=== PATIENT | female | born 1945 | race Caucasian/White ===

== ENCOUNTER → 2017-08-05 11:54 | Outpatient (CLI) | payer MEDICARE, SELFPAY ==
--- NOTE | 2017-08-05 11:55 | RAD_ITS ---
STUDY: X-RAY CHEST REASON FOR EXAM: Female, 71 years old. Cough, COPD TECHNIQUE: PA and lateral views of the chest. COMPARISON: Previous study of 07/16/2016 FINDINGS: There is a 6 mm nodule of the left upper lobe. There is no demonstrated pleural abnormality. Normal size heart. Normal mediastinum and daniel. Normal visualized pulmonary arteries. There calcified plaques of the aortic arch. The bones are osteopenic. There is mild diffuse endplate spondylosis of the thoracic spine. Normal visualized ribs, clavicles, and shoulders. There is no demonstrated abnormality of the visualized soft tissue structures of the upper abdomen. RAD/Chest PA and Lateral IMPRESSION: Generalized osteopenia. Diffuse endplate spondylosis of the thoracic spine. 6 mm nodule of the left upper lobe consistent with a calcified granuloma, stable in the interval. Calcified plaques of the aortic arch. No acute cardiopulmonary disease process is seen. Electronically Signed: Prabhakar Kelsey MD at 20:40 EDT , Service support ,
== END ==
PROVIDERS: Family Provider Family Medicine; PCP Family Medicine; Visit Provider Nurse Practitioner Acute Care
DX: R05 Cough (principal)
CPT/HCPCS: 71046; 87070; 87205

== ENCOUNTER 2017-10-24 21:35 | Emergency (ER) | payer MEDICARE, SELFPAY ==
[2017-10-24 21:37] VITALS: BP 144/71; PULSE 84; RESP 17; TEMP 36.2; O2SAT 94; BMI 31.2
--- NOTE | 2017-10-24 22:09 | ED.DCSUM_ITS ---
- ER Visit Summary Date of Service: 10/24/17 Chief Complaint: Rash History of Present Illness: The patient is a [address] Canseco. She reports that she has a rash to the right side of her face that began 3 days ago. She reports that initially this was a burning sensation at the corner of her eye. She then developed lesions 2 days ago. She reports that she has a throbbing, burning pain is 5 out of 10 when she touches it. She denies any eye pain or change in her vision. She denies any other complaints. Physical Examination: Vitals: Stable. Afebrile. General: Well-nourished and well-developed. Head: Normocephalic atraumatic. Neck: Supple, no lymphadenopathy. No JVD. Nontender. Cardiovascular: Regular rate and rhythm. No murmurs. Respiratory: No respiratory distress. Clear to auscultation bilaterally. Abdominal: Soft, nontender, nondistended, normal bowel sounds. No guarding, rebound, or peritoneal signs. Back: Nontender. Extremities: Nontender, no edema. Skin: Multiple vesicular lesions in the V2 distribution on the right. No Sims sign. Right eye: Floor seen exam shows no dye uptake or dendritic lesions with slit lamp. Neurologic: Alert and oriented ?3. Cranial nerves II through XII are intact. Normal strength and sensation. Psych: Normal affect. Emergency Department Course and Treatment: Patient was treated with acyclovir and prednisone. Treatment Plan: Patient be discharged on acyclovir and prednisone. Instructed to follow-up with an building code administrator as soon as possible if she develops any pain to her eye or changes in her vision. Follow-up her primary care physician in 1 week for another exam. Return to the emergency department for any worsening symptoms. Disposition: To home in improved and stable condition. Impression: 1. Herpes zoster V2 on right. This note was generated with [employer] dictation software. It may contain incorrect words, spelling, and punctuation that were not noted in review of the chart prior to signing ED Disposition - Plan for ED Patient: Disposition: Home or Assisted Living Chief Complaint: Rash Instructions: ED Shingles Prescriptions: Acyclovir [Zovirax] 800 mg PO 5X/DAY #35 tablet Prednisone [Deltasone] 60 mg PO DAILY #15 tablet Referrals: Jose Canseco MD [Primary Care Provider] - 1 Week if not improving
[2017-10-24] MEDS: predniSONE 20 MG Tablet 60 MG PO (22:13)
[2017-10-24] MEDS: Fluorescein 1 MG STRIP 1 STRIP RIGHT EYE (22:13)
[2017-10-24] MEDS: Acyclovir 800 MG Tablet PO (22:18)
[2017-10-24 22:19] VITALS: RESP 18
== END 2017-10-24 22:35 | disposition home or self-care (01) ==
LOC: ED 22:21
PROVIDERS: Emergency Provider Emergency Medicine; Family Provider Family Medicine; PCP Family Medicine
DX: B02.9 Zoster without complications (principal); I10 Essential (primary) hypertension; J44.9 Chronic obstructive pulmonary disease, unspecified; Z79.899 Other long term (current) drug therapy
CPT/HCPCS: 99283

== ENCOUNTER → 2018-03-05 08:19 | Outpatient (CLI) | payer MEDICARE, SELFPAY ==
--- NOTE | 2018-03-05 08:30 | BI_ITS ---
MAMMOGRAPHY - BILATERAL SCREENING REASON FOR EXAM: Female, 72 years old. Routine annual screening examination. PERTINENT HISTORY: Non-contributory. TECHNIQUE: Digital bilateral breast dustin (3D mammographic acquisition) in the CC and MLO projections. 2-D mediolateral oblique (MLO) and craniocaudad (CC) views of both breasts were obtained. CAD: Full Field Digital Mammography with Computer Added Detection was performed. COMPARISON: Comparison is made with prior study dated February 13, 2017 and February 12, 2016. FINDINGS: Breast Composition: The breasts are almost entirely fatty. At this time, there is a 1.7 cm irregular nodular density in the deep lateral aspect of the left breast as seen on the craniocaudad view. This is not visualized with certainty on the mediolateral oblique view. The patient will be recalled for additional views including exaggerated craniocaudad view and compression spot view. Ultrasound is also recommended. No other significant abnormalities are identified. BI/SCREENING MAMM (CAD), BILAT IMPRESSION: New nodular density in the deep lateral portion of the left breast as described. The patient will be recalled for additional views as well as ultrasound of the left breast. Recall Side: Left Breast ASSESSMENT CATEGORY: BIRADS Category 0: Incomplete. Need additional imaging evaluation. A letter regarding these results will be sent to the patient by the facility within 30 days. Approximately 10% of breast cancers are not detected by mammography. A normal mammogram should not delay biopsy of a clinically suspicious abnormality. [id number] Electronically Signed: Marco A Chowdhury MD at 11:26 EST Tel [phone], Service support ,
== END ==
PROVIDERS: Family Provider Family Medicine; PCP Family Medicine; Referring Provider Family Medicine; Visit Provider Family Medicine
DX: Z12.31 Encounter for screening mammogram for malignant neoplasm of breast (principal)
CPT/HCPCS: 77063; 77067

== ENCOUNTER → 2018-03-06 13:56 | Outpatient (CLI) | payer MEDICARE, SELFPAY ==
--- NOTE | 2018-03-06 14:02 | BI_ITS ---
MAMMOGRAPHY - UNILATERAL DIAGNOSTIC: LEFT BREAST REASON FOR EXAM: Female, 72 years old. Abnormal screening mammogram. PERTINENT HISTORY: Non-contributory. TECHNIQUE: An exaggerated craniocaudad view of the left breast was obtained. CAD: Full Field Digital Mammography with Computer Added Detection was performed. COMPARISON: Comparison is made with prior mammogram dated March 05, 2018. FINDINGS: Breast Composition: The breasts are almost entirely fatty. The previously seen density on the craniocaudad view of the left breast represents normal chest musculature. There is evidence of a 1.4 cm benign-appearing lymph node in the axillary region of the breast. No other significant abnormalities are identified. BI/DIAG MAMM W/CAD, UNILAT IMPRESSION: Stable unilateral diagnostic mammogram. One year follow-up mammogram recommended. (A) ASSESSMENT CATEGORY: BIRADS Category 2: Benign. A letter regarding these results will be sent to the patient by the facility within 30 days. Approximately 10% of breast cancers are not detected by mammography. A normal mammogram should not delay biopsy of a clinically suspicious abnormality. Electronically Signed: Marco A Chowdhury MD at 15:16 EST Tel [phone], Service support ,
== END ==
PROVIDERS: Family Provider Family Medicine; PCP Family Medicine; Referring Provider Family Medicine; Visit Provider Family Medicine
DX: R92.8 Other abnormal and inconclusive findings on diagnostic imaging of breast (principal)
CPT/HCPCS: 77065

== ENCOUNTER → 2018-05-04 08:00 | Outpatient (CLI) | payer MEDICARE, SELFPAY ==
--- NOTE | 2018-05-04 08:03 | CT_ITS ---
STUDY: CT CHEST WITHOUT CONTRAST REASON FOR EXAM: Female, 72 years old. History of lung nodule. Recent antibiotic treatment for sinus infection. RADIATION DOSAGE (If Supplied By Facility): CTDIvol = ( 15.17 ) mGy, DLP = ( 519.24 ) mGycm TECHNIQUE: Transaxial imaging was performed without the administration of intravenous contrast material. Multiplanar coronal and sagittal images were reformatted. Individualized dose optimization techniques were used for this CT. COMPARISON: Comparison is made with prior study dated November 05, 2016. FINDINGS: Once again, there are multiple tiny nodules scattered in both lungs. The largest of which measures approximately 5 mm. There has been essentially no change. There is no demonstrated pleural abnormality. Normal heart and pericardium. There are multiple small lymph nodes within the mediastinum, which are normal in size and morphology most compatible with reactive lymph hyperplasia. Normal hilar regions. Normal unenhanced pulmonary arteries. There is atherosclerotic calcification of the aortic . There are multi-level degenerative changes of the thoracic spine. There is no demonstrated abnormality of the visualized upper abdomen. CT/Chest without Contrast IMPRESSION: Stable appearance of the multiple bilateral subcentimeter pulmonary nodules. A follow-up CT scan of the thorax is recommended in 12 months. Electronically Signed: Marco A Chowdhury MD at 12:35 EST Tel [phone], Service support ,
== END ==
PROVIDERS: Family Provider Family Medicine; PCP Family Medicine; Referring Provider Internal Medicine Critical Care Medicine; Visit Provider Internal Medicine Critical Care Medicine
DX: R91.1 Solitary pulmonary nodule (principal)
CPT/HCPCS: 71250

== ENCOUNTER → 2019-03-11 08:14 | Outpatient (CLI) | payer MEDICARE, SELFPAY ==
--- NOTE | 2019-03-11 08:16 | BI_ITS ---
MAMMOGRAPHY - BILATERAL SCREENING REASON FOR EXAM: Female, 73 years old. Routine annual screening examination. PERTINENT HISTORY: Non-contributory. TECHNIQUE: Digital bilateral breast ru (3D mammographic acquisition) in the CC and MLO projections. 2-D mediolateral oblique (MLO) and craniocaudad (CC) views of both breasts were obtained. CAD: Full Field Digital Mammography with Computer Added Detection was performed. COMPARISON: Comparison is made with prior examination dated March 05, 2018 and February 13, 2017. FINDINGS: Breast Composition: There are scattered areas of fibroglandular density. There are no dominant masses or suspicious calcifications. Stable small benign-appearing bilateral axillary lymph nodes. No other significant abnormalities are identified. There has been no significant change since the prior study. BI/SCREEN MAMM (CAD) W/RU BILAT IMPRESSION: Stable bilateral screening mammogram. Yearly follow-up mammogram recommended. (A) ASSESSMENT CATEGORY: BIRADS Category 2: Benign. A letter regarding these results will be sent to the patient by the facility within 30 days. Approximately 10% of breast cancers are not detected by mammography. A normal mammogram should not delay biopsy of a clinically suspicious abnormality. [id number] Electronically Signed: Marco A Chowdhury, at 9:52 EST , Service support ,
== END ==
PROVIDERS: Family Provider Family Medicine; PCP Family Medicine; Referring Provider Family Medicine; Visit Provider Family Medicine
DX: Z12.31 Encounter for screening mammogram for malignant neoplasm of breast (principal)
CPT/HCPCS: 77063; 77067

== ENCOUNTER → 2020-04-04 09:09 | Outpatient (CLI) | payer MEDICARE, SELFPAY ==
[2019-05-05 11:51] VITALS: BMI 32.2
[2020-04-04 12:14] LABS: Absolute Neutrophil Count 2.8 X10^3/uL (2.0-7.7); Basophil# 0.03 X10^3/uL; Basophil% 0.6 % (0-1); Eosinophil# 0.11 X10^3/uL; Eosinophils% 2.3 % (0-5); Hematocrit 38.4 % (37-47); Hemoglobin 12.4 g/dL (12.0-15.0); Lymphocyte % 27.3 % (19-41); Mean Corp Hgb Conc 32.3 g/dL (32-36); Mean Corpuscular Hgb 30.2 pg (27.0-32.0); Mean Corpuscular Volume 93.4 fL (81-99); Mean Platelet Vol. 10.4 fl (6.2-12.0); Monocyte% 10.5 % (0-10); NRBC Flagged by Analyzer 0 % (0-5); Neutrophil % 58.7 % (47-70); Platelet Count 228 K/mm3 (150-450); RBC Distribution Width CV 12.7 % (11.6-14.6); RBC Distribution Width SD 43.8 fl (35.1-43.9); Red Blood Count 4.11 M/mm3 (4.2-5.4); White Blood Count 4.8 K/mm3 (4.4-11.0)
[2020-04-04 12:45] LABS: Cholesterol 236 mg/dL (200); High Density Lipoprotein 75 mg/dL; Triglycerides 76 mg/dL; Very Low Density Lipoprotein 15 mg/dL (5-40)
== END ==
PROVIDERS: PCP Family Medicine; Referring Provider Family Medicine; Visit Provider Family Medicine
DX: Z00.00 Encounter for general adult medical examination without abnormal findings (principal); I10 Essential (primary) hypertension; J44.9 Chronic obstructive pulmonary disease, unspecified; Z13.6 Encounter for screening for cardiovascular disorders
CPT/HCPCS: 36415; 80061; 85025

== ENCOUNTER → 2020-05-17 12:09 | Outpatient (CLI) | payer MEDICARE, SELFPAY ==
[2019-05-05 11:51] VITALS: BMI 32.2
--- NOTE | 2020-05-17 12:12 | BI_ITS ---
MAMMOGRAPHY - BILATERAL SCREENING REASON FOR EXAM: Female, 74 years old. Routine annual screening examination. PERTINENT HISTORY: Non-contributory. TECHNIQUE: Digital bilateral breast ru (3D mammographic acquisition) in the CC and MLO projections. 2-D mediolateral oblique (MLO) and craniocaudad (CC) views of both breasts were obtained. CAD: Full Field Digital Mammography with Computer Added Detection was performed. COMPARISON: Comparison is made with prior outside examination dated 03/11/2019 and 03/05/2018. FINDINGS: Breast Composition: There are scattered areas of fibroglandular density. There are no dominant masses or suspicious calcifications. Stable small benign-appearing bilateral axillary lymph nodes. No other significant abnormalities are identified. There has been no significant change since the prior study. BI/SCRN MAMM (CAD)W/RU BILAT IMPRESSION: Stable bilateral screening mammogram. Yearly follow-up mammogram recommended. (A) ASSESSMENT CATEGORY: BIRADS Category 2: Benign. A letter regarding these results will be sent to the patient by the facility within 30 days. Approximately 10% of breast cancers are not detected by mammography. A normal mammogram should not delay biopsy of a clinically suspicious abnormality. [id number] Electronically Signed: Marco A Chowdhury MD at 13:33 EST , Service support ,
== END ==
PROVIDERS: PCP Family Medicine; Referring Provider Family Medicine; Visit Provider Family Medicine
DX: Z12.31 Encounter for screening mammogram for malignant neoplasm of breast (principal)
CPT/HCPCS: 77063; 77067

== ENCOUNTER → 2021-04-10 08:47 | Outpatient (CLI) | payer MEDICARE, SELFPAY ==
[2021-04-10 10:11] LABS: Absolute Lymphocyte Count 1.71 X10^3/uL (0.83-4.51); Absolute Neutrophil Count 2.7 X10^3/uL (2.0-7.7); Basophil# 0.04 X10^3/uL; Basophil% 0.8 % (0-1); Eosinophil# 0.17 X10^3/uL; Eosinophils% 3.3 % (0-5); Hematocrit 38.8 % (37-47); Hemoglobin 12.9 g/dL (12.0-15.0); Lymphocyte # 1.71 X10^3/ul (0.83-4.51); Lymphocyte % 32.8 % (19-41); Mean Corp Hgb Conc 33.2 g/dL (32-36); Mean Corpuscular Volume 90.2 fL (81-99); Mean Platelet Vol. 10.6 fl (6.2-12.0); Monocyte# 0.55 X10^3/uL; Monocyte% 10.6 % (0-10); NRBC Flagged by Analyzer 0 % (0-5); Neutrophil # 2.72 X10^3/uL (2.7-7.7); Neutrophil % 52.1 % (47-70); Platelet Count 245 K/mm3 (150-450); RBC Distribution Width CV 12.9 % (11.6-14.6); RBC Distribution Width SD 42.4 fl (35.1-43.9); White Blood Count 5.2 K/mm3 (4.4-11.0)
[2021-04-10 10:49] LABS: ALB/GLOB Ratio 1.1 RATIO (0.9-2.4); AST(SGOT) 23 U/L (15-37); Alanine Aminotransfer ALT/SGPT 24 U/L (13-56); Albumin, Serum 3.8 g/dL (3.2-5.0); Alkaline Phosphatase 81 U/L (45-117); Anion Gap 7 (5-15); BUN 23 mg/dL (7-18); Calcium,Total 9.6 mg/dL (8.5-10.1); Chloride 104 mmol/L (98-107); Cholesterol 219 mg/dL (200); Creatinine, Serum 1.21 mg/dL (0.55-1.02); EST Glomerular Filtration Rate 46 mL/min (>60); Est Glom Filt Rate - Afr Amer 55 mL/min (>60); Globulin 3.5 g/dL (2.2-4.2); Glucose 109 mg/dL (74-106); High Density Lipoprotein 68 mg/dL; Potassium 3.5 mmol/L (3.5-5.1); Protein, Total 7.3 g/dL (6.4-8.2); Sodium Level 139 mmol/L (136-145); Triglycerides 88 mg/dL; Very Low Density Lipoprotein 18 mg/dL (5-40)
== END ==
PROVIDERS: PCP Family Medicine; Referring Provider Family Medicine; Visit Provider Family Medicine
DX: Z00.00 Encounter for general adult medical examination without abnormal findings (principal); I10 Essential (primary) hypertension; Z13.6 Encounter for screening for cardiovascular disorders
CPT/HCPCS: 36415; 80053; 80061; 85025

== ENCOUNTER 2021-05-21 11:50 | Outpatient (CLI) | payer MEDICARE, SELFPAY ==
--- NOTE | 2021-05-21 11:54 | BI_ITS ---
MAMMOGRAPHY - BILATERAL SCREENING REASON FOR EXAM: Female, 75 years old. Routine annual screening examination. PERTINENT HISTORY: Non-contributory. TECHNIQUE: Digital bilateral breast ru (3D mammographic acquisition) in the CC and MLO projections. 2-D mediolateral oblique (MLO) and craniocaudad (CC) views of both breasts were obtained. CAD: Full Field Digital Mammography with Computer Added Detection was performed. COMPARISON: Comparison is made with prior study dated 05/17/2020 and 03/11/2019. FINDINGS: Breast Composition: There are scattered areas of fibroglandular density. There are no dominant masses or suspicious calcifications. Stable small benign appearing bilateral axillary nodes. No other significant abnormalities are identified. There has been no significant change since the prior study. BI/SCRN MAMM (CAD)W/RU BILAT IMPRESSION: Stable bilateral screening mammogram. Yearly follow-up mammogram recommended. (A) ASSESSMENT CATEGORY: BIRADS Category 2: Benign. A letter regarding these results will be sent to the patient by the facility within 30 days. Approximately 10% of breast cancers are not detected by mammography. A normal mammogram should not delay biopsy of a clinically suspicious abnormality. [id number] Electronically Signed: Marco A Chowdhury MD at 12:38 EST , Service support ,
== END 2021-05-21 23:59 | disposition short-term general hospital (02) ==
LOC: OPBI 11:51
PROVIDERS: PCP Family Medicine; Referring Provider Family Medicine; Visit Provider Family Medicine
DX: Z12.31 Encounter for screening mammogram for malignant neoplasm of breast (principal)
CPT/HCPCS: 77063; 77067

== ENCOUNTER → 2022-04-12 | Outpatient (CLI) | payer MEDICARE, SELFPAY ==
[2022-04-12 12:31] LABS: Absolute Lymphocyte Count 1.36 X10^3/uL (0.83-4.51); Absolute Neutrophil Count 2.7 X10^3/uL (2.0-7.7); Basophil# 0.03 X10^3/uL; Basophil% 0.6 % (0-1); Eosinophil# 0.21 X10^3/uL; Eosinophils% 4.3 % (0-5); Hematocrit 37.1 % (37-47); Hemoglobin 11.9 g/dL (12.0-15.0); Lymphocyte # 1.36 X10^3/ul (0.83-4.51); Lymphocyte % 28.1 % (19-41); Mean Corp Hgb Conc 32.1 g/dL (32-36); Mean Corpuscular Hgb 30.2 pg (27.0-32.0); Mean Corpuscular Volume 94.2 fL (81-99); Mean Platelet Vol. 10.9 fl (6.2-12.0); Monocyte# 0.51 X10^3/uL; Monocyte% 10.5 % (0-10); NRBC Flagged by Analyzer 0.4 % (0-5); Neutrophil # 2.69 X10^3/uL (2.7-7.7); Neutrophil % 55.7 % (47-70); Platelet Count 221 K/mm3 (150-450); RBC Distribution Width CV 13.1 % (11.6-14.6); Red Blood Count 3.94 M/mm3 (4.2-5.4); White Blood Count 4.8 K/mm3 (4.4-11.0)
[2022-04-12 12:44] LABS: ALB/GLOB Ratio 1.4 RATIO (0.9-2.4); AST(SGOT) 19 U/L (15-37); Alanine Aminotransfer ALT/SGPT 22 U/L (13-56); Albumin, Serum 3.9 g/dL (3.2-5.0); Alkaline Phosphatase 62 U/L (45-117); Anion Gap 6 (5-15); BUN 22 mg/dL (7-18); BUN/Creat Ratio 20.6 RATIO (10-20); Calcium,Total 9.6 mg/dL (8.5-10.1); Chloride 107 mmol/L (98-107); Cholesterol 222 mg/dL (200); Creatinine, Serum 1.07 mg/dL (0.55-1.02); EST Glomerular Filtration Rate 53 mL/min (>60); Est Glom Filt Rate - Afr Amer 64 mL/min (>60); Globulin 2.8 g/dL (2.2-4.2); Glucose 107 mg/dL (74-106); High Density Lipoprotein 76 mg/dL; Potassium 3.8 mmol/L (3.5-5.1); Protein, Total 6.7 g/dL (6.4-8.2); Sodium Level 141 mmol/L (136-145); Triglycerides 91 mg/dL; Very Low Density Lipoprotein 18 mg/dL (5-40)
== END | disposition home or self-care (01) ==
LOC: MTLAB 09:44
PROVIDERS: PCP Family Medicine; Referring Provider Family Medicine; Visit Provider Family Medicine
DX: K21.00 Gastro-esophageal reflux disease with esophagitis, without bleeding (principal); I10 Essential (primary) hypertension; E78.2 Mixed hyperlipidemia; Z13.0 Encounter for screening for diseases of the blood and blood-forming organs and certain disorders involving the immune mechanism
CPT/HCPCS: 36415; 80053; 80061; 85025

== ENCOUNTER → 2022-07-22 | Outpatient (CLI) | payer MEDICARE, SELFPAY | END | disposition home or self-care (01) | LOC: PSN 12:26 | PROVIDERS: PCP Family Medicine; Visit Provider Nurse Practitioner Acute Care | DX: U07.1 COVID-19 (principal) | CPT/HCPCS: 87635; C9803; U0003; U0005 ==

== ENCOUNTER 2022-12-17 12:42 | Emergency (ER) | payer MEDICARE, SELFPAY ==
[2022-12-17 12:43] VITALS: BP 174/79; PULSE 100; RESP 18; TEMP 35.9; O2SAT 95; BMI 36.8
--- NOTE | 2022-12-17 13:05 | RAD_ITS ---
EXAM: XR RIGHT RIBS AND AP CHEST, 3 OR MORE VIEWS CLINICAL INDICATION: pain TECHNIQUE: Frontal and oblique views of the right ribs and frontal view of the chest. COMPARISON: No relevant prior studies available. FINDINGS: LUNGS AND PLEURAL SPACES: Normal. No consolidation or edema. No pneumothorax. No effusion. HEART: Normal. Normal heart size. MEDIASTINUM: No mediastinal or hilar mass. BONES/JOINTS: No acute abnormality. RAD/Ribs Uni Min 3V w/PA Chest IMPRESSION: No acute cardiopulmonary abnormality. Intact right ribs. Electronically Signed: Abhijit Hall MD at 14:22 EDT ,
--- NOTE | 2022-12-17 13:06 | EDS_ITS ---
HPI History of Present Illness Chief Complaint: Chest Other Narrative Narrative: 77-year-old female presenting with right rib pain. She states that she was sitting in her chair at home and coughed about a week ago and noted acute pain in the right ribs. She states that from time to time she has spasms in the right ribs and she seen her primary care physician, chiropractor for this and it was told to drink more water and electrolytes. She denied cough, fever, shortness of breath. No direct trauma. Patient states the pain is worse with movement. The pain is not pressure-like. It is not sharp and pleuritic. Patient was using [id number] patches to try to help this although she developed a rash over the area secondary to the capsaicin. She stopped using these. She is using Tylenol at home but this only seems to help a little bit. She states the pain is not in the abdomen it is not related to food eating. She is able to eat well without any difficulty. [facility] Medical History Bronchitis COPD (chronic obstructive pulmonary disease) COPD (chronic obstructive pulmonary disease) GERD (gastroesophageal reflux disease) HTN (hypertension) Lung nodule Lung nodule Pneumonia Seasonal allergic rhinitis Shingles Home Medications hydrochlorothiazide 25 mg tablet 25 mg PO DAILY 09/19/16 [History Last Taken Unknown] ascorbic acid (vitamin C) 500 mg capsule 500 mg PO QDAY 08/05/17 [History Last Taken Unknown] calcium carbonate 600 mg-vitamin D3 5 mcg (200 unit) capsule (Calcium 600 + D(3)) 2 cap PO QDAY 08/05/17 [History Last Taken Unknown] cholecalciferol (vitamin D3) 100 mcg (4,000 unit) capsule 4,000 unit PO QDAY 08/05/17 [History Last Taken Unknown] elderberry fruit 0.7 gram-honey 3 gram/7.5 mL oral liquid See Rx Instructions PO QDAY 02/24/18 [History Last Taken Unknown] latanoprost 0.005 % eye drops 1 drp ophthalmic (eye) QPM 02/24/18 [History Last Taken Unknown] ranitidine HCl 150 mg tablet (Zantac) 150 mg PO QHS PRN 02/24/18 [History Last Taken Unknown] ipratropium bromide 42 mcg (0.06 %) nasal spray 2 spray intranasal TID-QID PRN 05/03/21 [History Last Taken Unknown] ipratropium 0.5 mg-albuterol 3 mg (2.5 mg base)/3 mL nebulization soln 3 ml inhalation Q4H PRN PRN SOB &/OR WHEEZING #180 mL 01/14/22 [Rx Last Taken Unknown] albuterol sulfate 90 mcg/actuation aerosol inhaler (Ventolin HFA) 2 puff inhalation Q4H PRN shortness of breath or wheezing #18 grams 05/03/22 [Rx Last Taken Unknown] lidocaine 5 % topical patch (Lidoderm) 1 patch topical DAILY #15 ea 12/17/22 [Rx Last Taken Unknown] Allergy/AdvReac Type Severity Reaction Status Date / Time No Known Allergies Allergy Verified 12/17/22 12:45 Family History (Reviewed 07/29/22 @ 11:26 by Libra Ozuna RESEARCH INSTRUMENTATION TECHNICIAN, RESEARCH INSTRUMENTATION TECHNICIAN-C) Mother Dementia Father Heart disease CVA (cerebral vascular accident) Hypertension Skin cancer Dementia Brain aneurysm Brother Skin cancer Hypertension Sister Skin cancer Hypertension Surgical History (Reviewed 07/29/22 @ 11:26 by Libra Ozuna RESEARCH INSTRUMENTATION TECHNICIAN, RESEARCH INSTRUMENTATION TECHNICIAN-C) H/O colonoscopy H/O: hysterectomy Hx of cataract surgery Hx of cholecystectomy Social History (Reviewed 07/29/22 @ 11:26 by Libra Ozuna RESEARCH INSTRUMENTATION TECHNICIAN, RESEARCH INSTRUMENTATION TECHNICIAN-C) Smoking Status: Never smoker alcohol intake: never substance use type: does not use EXAM Physical Exam Const Vital Signs: 12/17/22 12:43 12/17/22 13:35 Temperature 96.7 F L Temperature Source Temporal Pulse Rate 100 Respiratory Rate 18 Respiratory Effort Normal Non-Labored Respiratory Pattern Normal Blood Pressure 174/79 H Blood Pressure Mean 110 Pulse Ox 95 Oxygen Delivery Method Room Air General Appearance ED: Negative for pallor HEENT Reports normocephalic and head/scalp atraumatic Eyes PERRL and EOMs intact bilaterally Neck no lymphadenopathy and supple Chest Wall Chest Narrative: Tenderness to palpation right lower ribs in the midaxillary line. No crepitance, bruising, rash. Equal symmetric breath sounds and chest wall rise. Resp normal respiratory effort and clear to auscultation bilaterally Auscultation: Negative for rales, rhonchi or wheezes Cardio regular rate and regular rhythm GI normal to inspection, nondistended, normoactive bowel sounds Narrative: Deferred Back/Spine no CVA tenderness Extremity normal to inspection Neuro oriented x3 and CN's II-XII intact bilaterally Sensorium / Orientation: alert Motor Exam: strength 5/5 throughout Psych mental status grossly normal Attitude: No agitated Skin no rashes or lesions noted and no wounds General Skin Exam: Negative for jaundice or pallor MDM MDM MDM Narrative Medical decision making narrative: Patient presenting with right rib pain. Is nontraumatic. She states she had coughed a week ago and the pain started. If not going away. Using Tylenol and tvsf-ciz-bzjnqia capsaicin patches. These are causing rash so she stopped using them. Patient will given a Lidoderm patch and we will obtain x-rays of the right ribs. Patient declines other oral medications. Differential includes rib strain, rib fracture, pneumothorax, pneumonia. Lidoderm patch appear to help pain. Right rib series on my interpretation shows no acute fracture, pneumonia, pneumothorax. Patient counseled continued ibuprofen and Tylenol. I will provide her with Lidoderm patches for home. Impression: 1. Chest wall strain Radiography Diagnostic Testing: Clinical Impression(s) from Imaging Studies Ribs w/Chest X-Ray 12/17/22 13:05 IMPRESSION: No acute cardiopulmonary abnormality. Intact right ribs. Electronically Signed: Abhijit Hall MD at 14:22 EDT , Discharge Plan Triage Chief Complaint: Chest Other ED Provider: Narendra Iniguez Dx/Rx/DC Orders Instructions: ED Strain Chest Wall Prescriptions: New lidocaine [Lidoderm] 5 % adhesive patch,medicated 1 patch topical DAILY Qty: 15 0RF Rx Instructions: leave on most painful area for up to 12 hrs No Action calcium carbonate-vitamin D3 600 mg calcium-200 unit capsule 600 mg calcium- 200 unit capsule 2 cap PO QDAY cholecalciferol (vitamin D3) 4,000 unit capsule 4,000 unit capsule 4,000 unit PO QDAY ascorbic acid (vitamin C) 500 mg capsule 500 mg PO QDAY ranitidine HCl [Zantac] 150 mg tablet 150 mg PO QHS PRN latanoprost 0.005 % drops 1 drp OPHTHALMIC QPM elderberry fruit-honey 0.7-3 gram/7.5 mL liquid See Rx Instructions PO QDAY Patient Comments: 3 drops mixed with water PO QDAY; Rx Instructions: 3 drops mixed with water PO QDAY; ipratropium bromide 42 mcg (0.06 %) spray,non-aerosol 2 spray intranasal TID-QID PRN Rx Instructions: administer into each nostril albuterol sulfate [Ventolin HFA] 90 mcg/actuation HFA aerosol inhaler 2 puff INHALATION Q4H PRN (Reason: shortness of breath or wheezing) Qty: 18 6RF hydrochlorothiazide 25 MG tablet 25 mg PO DAILY Patient Comments: ipratropium-albuterol 0.5 mg-3 mg(2.5 mg base)/3 mL solution for nebulization 3 ml inhalation Q4H PRN PRN (Reason: SOB &/OR WHEEZING) Qty: 180 6RF Primary Care Provider: Jose Canseco Referrals: Jose Canseco MD [Primary Care Provider] - Disposition Disposition: Home, Self Care Discharge Date/Time: 12/17/22 15:56
[2022-12-17] MEDS: Lidocaine 5% Patch 1 PATCH TOPICAL (13:35)
== END 2022-12-17 15:56 | disposition home or self-care (01) ==
PROVIDERS: Emergency Provider Student in an Organized Health Care Education/Training Program; PCP Family Medicine; Visit Provider Student in an Organized Health Care Education/Training Program
DX: S29.011A Strain of muscle and tendon of front wall of thorax, initial encounter (principal); X58.XXXA Exposure to other specified factors, initial encounter
CPT/HCPCS: 71101; 99282

== ENCOUNTER → 2023-07-07 | Outpatient (CLI) | payer MEDICARE, SELFPAY ==
--- NOTE | 2023-07-07 09:36 | RAD_ITS ---
STUDY: X-RAY CHEST REASON FOR EXAM: Female, 77 years old. Cough TECHNIQUE: PA and lateral views of the chest. COMPARISON: Comparison is made with prior study August 05, 2017. FINDINGS: Stable mild increased linear markings at the lung bases suggestive of mild scarring. There is no demonstrated pleural abnormality. Normal size heart. Normal mediastinum and daniel. Normal visualized pulmonary arteries. There is atherosclerotic tortuosity of the aortic arch and descending thoracic aorta. There is demineralization of the osseous structures. Normal visualized ribs, clavicles, and shoulders. There is no demonstrated abnormality of the visualized soft tissue structures of the upper abdomen. RAD/Chest PA and Lateral IMPRESSION: Mild increased markings at the lung bases suggest some mild scarring. Electronically Signed: Marco A Chowdhury MD at 10:33 EDT ,
== END | disposition home or self-care (01) ==
LOC: MTRAD 09:35
PROVIDERS: PCP Family Medicine; Referring Provider Physician Assistant; Visit Provider Physician Assistant
DX: R05.9 Cough, unspecified (principal)
CPT/HCPCS: 71046

== ENCOUNTER → 2025-01-21 | Outpatient (CLI) | payer MEDICARE, SELFPAY ==
--- OUTSIDE RECORDS SUMMARY | 2025-01-21 07:13 | XMS RPT_ITS | CCD ---
Author Organization [facility] Care Team Providers Care Advertising Supervisor Name Role Phone Linda Nance Unavailable Unavailable Pcp, No Primary Care Provider Dr. Erna Greenwood Primary Care Provider Dr. Erna Hall Referring Provider Laith BRIM GREASER OPERATOR, YUN-C Libra Attending Provider [phone] Dr. Erna Hall Primary Care Provider Dr. Erna Hall Referring Provider Laith BRIM GREASER OPERATORYUN-C Libra Attending Provider Unavailable Primary Care Provider Unavailharis e Pcp CLASSROOM TECHNOLOGY COACH, No Primary Care Provider Erna Greenwood MD Primary Care Provider Dr. Erna Hall Primary Care Provider Dr. Erna Hall Referring Provider Dr. Milton Montoya Attending Provider [phone] Gurmeet ECKERT, BABAR Stringer Attending Provider Erna Hall MD Primary Care Provider ERNA HALL Attending Unavailab le ISABELERNA Primary Care Unavailab le ISABELERNA Attending Unavailab le ISABELERNA Primary Care Unavailab le ISABELERNA Referring Unavailab le ISABELERNA Primary Care Unavailab le ISABELERNA Referring Unavailab le ISABEL, ERNA ESPARZA Primary Care Unavailab le ISABELERNA Referring Unavailab le ISABEL, ERNA ESPARZA Primary Care Unavailab le ISABELERNA Referring Unavailab le ISABELERNA Primary Care Unavailab le Isabel MD, Dr. Erna Primary Care Provider Dr. Erna Hall MD Referring Provider [phone] Laith MALCOLM-Libra Velazquez Attending Provider Paul Rose Primary Care Unavailable Paul Rose Attending Unavailable Paul Rose Referring Unavailable Erna Hall Referring Unavailable Libra Ozuna NP Attending Unavailable Erna Hall Primary Care Unavailable Erna Hall Referring Unavailable Pacheco Richards Attending Unavailable Erna Hall Primary Care Unavailable Erna Hall Primary Care Unavailable Erna Hall Referring Unavailable Spike Cazares Attending Unavailable Allergies Allergy Classification Reported Allergen(s) Allergy Type Date of Onset Reaction(s) Facility (20 sources) Dust; Translations: [DUST] Allergy to substance 8 Other: See Comments, Unknown [facility] (20 sources) Tree; Translations: [TREES] Allergy to substance 8 Other: See Comments, Unknown [facility] Medications Current Medications Medication Drug Class(es) Dates Sig (Normalized) Sig (Original) [id number] 200 actuat albuterol 0.09 mg/actuat metered dose inhaler (16 sources) beta2-Adrenergic Agonist Start: 11-16-2018 End: 05-03-2022 Albuterol Sulfate (Ventolin Hfa) 90 mcg/actuation HFA aerosol inhaler Active 2 NMA INHALATION Q4H as needed for shortness of breath or wheezing 13 10May 03, 2022 12:00pm Start: 11-16-2018 End: 05-03-2022 take 1 puff(s) by inhalation every four hours Albuterol Sulfate (Ventolin Hfa) 90 mcg/actuation HFA aerosol inhaler Discontinued 2 PUFF INHALATION Q4H April 24, 2020 1:29pm May 16, 2020 10:44am Start: 07-01-2016 VENTOLIN HFA 1 08 (90 Base) MCG/ACT AERS 1-2 puffs every 6 hrs ALBUTEROL SULFATE [id number] Elizabeth Bella cetirizine hydrochloride 10 mg oral tablet (9 sources) Histamine-1 Receptor Antagonist take 10 mg by mouth once daily cetirizine HCl (CETIRIZINE ORAL) Take 10 mg by mouth once daily. Active cholecalciferol 0.1 mg oral capsule (20 sources) Vitamin D Start: 018 take 1 capsule by mouth once daily cholecalciferol (vitamin D3) 4,000 unit capsule Active 4000 UNIT PO daily August 04, 2017 11:00pm Start: 07-04-2017 take 1 capsule by mo uth once daily Cholecalciferol, Vitamin D3, 50 mcg (2,000 unit) cap Take 1 capsule by mouth once daily. 07/04/2017 Active Start: 07-01-2016 take 2 tablets by mo uth once daily VITAMIN D3 2000 UNIT TABS Two tablets by mouth daily CHOLECALCIFEROL [id number] Elizabeth Smith LPN Comment on above: Take by mouth. Take 1 capsule by mo uth once daily. cholecalciferol (vitamin D3) 4,000 unit capsule (2 sources) Start: 08-06-19 18 take 1 capsule by mouth once daily cholecalciferol (vitamin D3) 4,000 unit capsule Active 4000 UNIT PO daily August 05, 2017 12:00am Cholecalciferol (Vitamin D3) 4,000 unit capsule (1 source) Start: 08-06-19 18 take 1 capsule by mouth once daily Cholecalciferol (Vitamin D3) 4,000 unit capsule Active 4000 U PO daily August 05, 2017 12:00am Elderberry Fruit-Honey (3 sources) Start: 02-25-20 18 take 3 drop(s) by mouth once daily Elderberry Fruit-Honey Active 0 PO daily February 24, 2018 12:00am 3 drops mixed with water PO QDAY; Start: 02-24-2018 take 3 drop(s) by mo uth once daily Elderberry Fruit-Honey Active 0 PO daily February 23, 2018 11:00pm 3 drops mixed with water PO QDAY; ferrous sulfate 325 mg oral tablet (1 source) Start: 11-04-2023 take 1 tablet by mouth once daily Ferrous Sulfate 325 mg (65 mg iron) tablet Active 325 mg PO DAILY November 04, 2023 12:00am hydroCHLOROthiazide 25 mg oral tablet (20 sources) Thiazide Diuretic Start: 01-26-2010 End: 05-31-2024 take 1 tablet by mouth once daily Hydrochlorothiazide 25 MG tablet Active 25 mg PO DAILY September 19, 2016 12:00am Comment on above: Take 1 tablet by ryann once daily. Take one half tablet daily as needed hydrocortisone 10 mg/ml / neomycin 3.5 mg/ml / polymyxin b 29905 unt/ml otic suspension (7 sources) Aminoglycoside Antibacterial, Polymyxin-class Antibacterial, Corticosteroid Start: 05-30-2024 yzmozzdt-mzzfalgcm-ylx rocortisone (CORTISPORIN) 3.5-10,000-1 mg/mL-unit/mL-% otic suspension 05/30/2024 Active Start: 05-30-2024 End: 06-06-2024 Kfowubiw-Unzhuxusf-Ah 3.5-10 ,000-1 mg/mL-unit/mL-% drops,suspension Discontinued 4 NMA OTIC THREE TIMES A DAY 10 7 0 May 30, 2024 1:00am June 05, 2024 1:00am June 06, 2024 1:12am Otitis externa of left ear Unspecified otitis externa, left ear Start: 07-21-2023 End: 07-31-2023 Hyoocrfv-Zaidapbrq-Tq 3.5-10 ,000-1 mg/mL-unit/mL-% drops,suspension Discontinued 4 NMA OTIC THREE TIMES A DAY 10 10 0 July 21, 2023 12:00am July 30, 2023 12:00am July 31, 2023 12:05am to both ears ipratropium bromide 0.042 mg/actuat metered dose nasal spray (4 sources) Anticholinergic Start: 05-03-2021 Ipratropium Br omide 42 mcg (0.06 %) spray,non-aerosol Active 2 NMA INTRANASAL 3 to 4 times per day as needed May 03, 2021 1:00am administer into each nostril Start: 05-03-2021 take 1 spray(s) nasa l route three to four times daily Ipratropium [place] Active 2 SPRAY INTRANASAL 3 to 4 times per day May 03, 2021 1:00am administer into each nostril latanoprost 0.05 mg/ml ophthalmic solution (20 sources) Prostaglandin Analog Start: 03-03-2022 take 1 drop(s) into the eye(s) once daily latanoprost (XALATAN) 0.005 % ophthalmic solution INSTILL 1 DROP INTO EACH EYE NIGHTLY 03/03/2022 Active Start: 02-24-2018 Latanoprost 0. 005 % drops Active 1 NMA OPHTHALMIC EVERY EVENING February 24, 2018 12:00am Comment on above: INSTILL 1 DROP INTO EACH EYE NIGHTLY methylPREDNISolone 4 mg oral tablet (8 sources) Corticosteroid Start: 05-27-19 methylPREDNISolone (MEDROL DOSE-PACK) 4 mg Dose-Pack take by mouth as directed on inside of package 05/27/2024 Active Start: 05-27-2024 End: 06-02-2024 take 1 tablet by mouth once Methylprednisolone (Medrol (Yvon)) 4 mg tablets,dose pack Discontinued 4 mg PO per package directions 21 6 May 27, 2024 1:00am June 01, 2024 1:00am June 02, 2024 1:11am Start: 07-07-2023 End: 11-04-2023 take 1 tablet by mouth once Methylprednisolone (Medrol (Yvon)) 4 mg tablets,dose pack Discontinued 0 PO per package directions July 07, 2023 12:00am November 04, 2023 10:53am PO PER PKG DIR nystatin 100 unt/mg topical powder (5 sources) Polyene Antifungal Start: 05-31-2024 nystatin (M YCOSTATIN) powder Apply 1 application to affected area four times daily. 60 g 05/31/2024 Active Nystatin 100,000 unit/gram powder (1 source) Start: 12-31-2023 Nystatin 100,0 00 unit/gram powder Active 1 NMA TOPICAL TWICE A DAY 60 1 December 31, 2023 12:00am for 4 weeks- to affected areas (under breasts, R groin/hip) Tiotropium-Olodatero l (12 sources) Anticholinergic, beta2-Adrenergic Agonist Start: 06-15-2024 Tiotropium-Olodatero l (Stiolto Respimat) 2.5-2.5 mcg/actuation mist Active 2 NMA INHALATION DAILY 3 June 15, 2024 3:31pm Start: 06-14-2024 End: 06-15-2024 Tiotropium-Olodaterol (Stiol to Respimat) 2.5-2.5 mcg/actuation mist Discontinued 2 NMA INHALATION DAILY 3 3 June 14, 2024 11:12am June 15, 2024 3:31pm Start: 08-23-2023 STIOLTO RESPIM AT 2.5-2.5 mcg/actuation Inhale 2 Puffs as instructed once daily. 08/23/2023 Active Start: 08-22-2023 End: 06-14-2024 Tiotropium-Olodaterol (Stiol to Respimat) 2.5-2.5 mcg/actuation mist Discontinued 2 NMA INHALATION DAILY 3 August 22, 2023 12:00am June 14, 2024 11:13am omeprazole 20 mg delayed release oral tablet (20 sources) Proton Pump Inhibitor Start: 10-06-2018 take 1 tablet by mouth once daily Omeprazole Magnesium (Prilosec Otc) 20 mg tablet,delayed release (DR/EC) Active 20 mg PO DAILY November 04, 2023 12:00am Start: 04-02-2005 End: 04-09-2023 PRILOSEC 20 MG CAP Take one( 1) capsule daily. 0 04/02/2005 04/09/2023 Discontinued Comment on above: Take one(1) capsule daily. Take by mouth. Take 20 mg by mouth once daily. vitamin b complex capsule (20 sources) take 1 capsule by mouth once daily vitamin b complex capsule Take 1 capsule by mouth once daily. Active take 1 capsule by mouth once rivas ly vitamin b complex capsule Take 1 capsule by mouth once daily. 0 Active Comment on above: Take 1 capsule by [facility] once daily. Completed/Discontinued Medications Medication Drug Class(es) Dates Sig (Normalized) Sig (Original) acyclovir 800 mg oral tablet (4 sources) Herpesvirus Nucleoside Analog DNA Polymerase Inhibitor, Herpes Simplex Virus Nucleoside Analog DNA Polymerase Inhibitor, Herpes Zoster Virus Nucleoside Analog DNA Polymerase Inhibitor Start: 10-24-2017 End: 02-24-2018 take 1 tablet by mouth five times daily Acyclovir 800 MG tablet Discontinued 800 mg PO 5 TIMES DAILY 35 0 October 24, 2017 12:00am February 24, 2018 9:04am albuterol 0.833 mg/ml / ipratropium bromide 0.167 mg/ml inhalation solution (20 sources) Anticholinergic, beta2-Adrenergic Agonist Start: 01-14-2022 End: 04-09-2023 ipratropium-albute rol (DUONEB) 0.5 mg-3 mg(2.5 mg base)/3 mL nebu Inhale as instructed. 0 01/14/2022 04/09/2023 Discontinued Start: 01-14-2022 take 1 mL by inhalat ion every four hours as needed for wheezing Ipratropium-Albuterol 0.5 mg-3 mg(2.5 mg base)/3 mL solution for nebulization Active 3 mL INHALATION EVERY 4 HOURS NEEDED as needed for SOB &/OR WHEEZING 180 January 14, 2022 12:00am Start: 01-14-2022 End: 05-31-2024 ipratropium-albuterol (DUONE B) 0.5 mg-3 mg(2.5 mg base)/3 mL nebu USE 1 AMPULE IN NEBULIZER EVERY 4 HOURS NEEDED FOR WHEEZING OR SHORTNESS OF BREATH 01/14/2022 05/31/2024 Discontinued Comment on above: Inhale as instructed . USE 1 AMPULE IN NEBU LIZER EVERY 4 HOURS NEEDED FOR WHEEZING OR SHORTNESS OF BREATH amoxicillin 875 mg / clavulanate 125 mg oral tablet (8 sources) Penicillin-class Antibacterial Start: 07-21-2023 End: 11-04-2023 Amoxicillin-Pot Clavulanate 875-125 mg tablet Discontinued 1 {tbl} PO TWICE A DAY July 21, 2023 12:00am November 04, 2023 10:51am Start: 07-19-2022 End: 07-29-2022 Amoxicillin-Pot Clavulanate 875-125 mg tablet Discontinued 1 {tbl} PO TWICE A DAY July 19, 2022 12:00am July 29, 2022 11:10am Start: 07-19-2022 End: 07-29-2022 take 1 tablet by mouth twice daily Amoxicillin-Pot Clavulanate Discontinued 1 TABLET PO TWICE A DAY July 19, 2022 12:00am July 29, 2022 11:10am Start: 04-24-2018 End: 04-24-2020 Amoxicillin-Pot Clavulanate (Augmentin) 875-125 mg tablet Discontinued 1 {tbl} PO TWICE A DAY April 24, 2018 1:00am April 24, 2020 10:23am ascorbic acid 500 mg oral capsule (5 sources) Start: 08-05-2017 End: 11-04-2023 take 1 capsule by mouth once daily Ascorbic Acid (Vitamin C) 500 mg capsule Discontinued 500 mg PO daily 0 August 05, 2017 12:00am November 04, 2023 10:51am Start: 07-01-2016 take 1 tablet by ryann th once daily VITAMIN C ER 500 MG CR-CAPS One tablet by mouth daily ASCORBIC ACID [id number] Elizabeth Smith BALANCE WEIGHER azithromycin 250 mg oral tablet (8 sources) Macrolide Antimicrobial Start: 01-14-2022 End: 05-03-2022 take 2-5 tablets by mouth once daily Azithromycin 250 mg tablet Discontinued 0 PO .COMPLEX 6 0 January 14, 2022 12:00am May 03, 2022 11:49am take 500 mg today (day 1), then 250 mg for 4 days (days 2-5) PO Start: 04-24-2020 End: 05-16-2020 take 1 tablet by mouth once daily Azithromycin 250 mg tablet Discontinued 250 mg PO daily 6 0 April 24, 2020 1:00am May 16, 2020 10:10am benzonatate 200 mg oral capsule (2 sources) Non-narcotic Antitussive Start: 07-07-2023 End: 11-04-2023 take 1 capsule by mouth three times daily as needed for cough Benzonatate 200 mg capsule Discontinued 200 mg PO THREE TIMES A DAY as needed for cough 14 0 July 07, 2023 12:00am November 04, 2023 10:51am calcium (1 source) Phosphate Binder, Calcium Start: 07-01-2016 take 1 tablet by mouth every twelve hours CALCIUM + D TABS CALCIUM CITRATE-VITAMIN D TABS [id number] Elizabeth Bella calcium carbonate 1500 mg / cholecalciferol 200 unt oral capsule (4 sources) Vitamin D Start: 08-05-2017 End: 11-04-2023 Calcium Carbonate-Vitamin D3 (Calcium 600 + D(3)) 600 mg calcium- 200 unit capsule Discontinued 2 NMA PO daily 0 August 05, 2017 12:00am November 04, 2023 10:52am calcium carbonate / vitamin D (1 source) Start: 07-01-2016 take 2 tablets by mouth once daily CALCIUM 600+D 600-200 MG-UNIT TABS Two tablets by mouth daily CALCIUM CARBONATE-VITAMIN D [id number] Elizabeth Smith LPN Disability Placard (4 sources) Start: 11-03-2020 End: 10-29-2021 Disability Placard Discontinued 0 .Route .MEDSUPPLY 1 0 November 03, 2020 12:00am October 28, 2021 12:00am October 29, 2021 12:03am chronic respiratory distress J96.10 expires 10/28/21 Start: 11-03-2020 End: 10-29-2021 Disability Placard Discontin ued 0 .Route .MEDSUPPLY 1 November 03, 2020 12:00am October 29, 2021 12:03am expires 10/28/21 Start: 11-03-2020 End: 10-29-2021 Disability Placard Discontin ued 0 .Route .MEDSUPPLY 1 November 02, 2020 11:00pm October 28, 2021 11:03pm expires 10/28/21 Elderberry Fruit-Honey 0.7-3 gram/7.5 mL liquid (1 source) Start: 02-24-2018 End: 11-04-2023 take 3 drop(s) by mouth once daily Elderberry Fruit-Honey 0.7-3 gram/7.5 mL liquid Discontinued 0 PO daily 0 February 24, 2018 12:00am November 04, 2023 10:52am 3 drops mixed with water PO QDAY; 120 actuat fluticasone propionate 0.22 mg/actuat metered dose inhaler (3 sources) Corticosteroid Start: 07-01-2016 End: 02-25-2017 FLOVENT HFA 220 MCG/ACT AERO 2 puffs twice daily FLUTICASONE PROPIONATE HFA [id number] Linda Nance Start: 07-01-2016 FLOVENT HFA 22 0 MCG/ACT AERO 1-2 puffs twice daily FLUTICASONE PROPIONATE HFA [id number] Elizabeth Bella 120 actuat formoterol fumarate 0.0048 mg/actuat / glycopyrrolate 0.009 mg/actuat metered dose inhaler (2 sources) beta2-Adrenergic Agonist Start: 05-01-2023 End: 08-22-2023 Glycopyrrolate-Formoterol (Bevespi Aerosphere) 9-4.8 mcg HFA aerosol inhaler Discontinued 2 NMA INHALATION TWICE A DAY 10.7 May 01, 2023 1:00am August 22, 2023 2:33pm Start: 05-01-2023 Glycopyrrolate -Formoterol (Bevespi Aerosphere) 9-4.8 mcg HFA aerosol inhaler Active 2 PUFF INHALATION TWICE A DAY 10.7 May 01, 2023 1:00am lidocaine 0.05 mg/mg medicated patch (2 sources) Antiarrhythmic, Amide Local Anesthetic Start: 12-17-2022 End: 11-04-2023 Lidocaine (Lidoderm) 5 % adhesive patch,medicated Discontinued 1 NMA TOPICAL DAILY December 17, 2022 12:00am November 04, 2023 10:53am leave on most painful area for up to 12 hrs 60 actuat mometasone furoate 0.22 mg/actuat dry powder inhaler (4 sources) Corticosteroid Start: 09-19-2016 End: 08-05-2017 Mometasone 220 MCG inhaler Discontinued 220 ug INHALATION TWICE A DAY September 19, 2016 12:00am August 05, 2017 6:56am predniSONE 10 mg oral tablet (20 sources) Start: 12-23-2022 End: 05-01-2023 take 4 tablets by mouth once daily, then take 3 tablets by mouth once daily, then take 2 tablets by mouth once daily, then take 1 tablet by mouth once daily Prednisone 10 mg tablet Discontinued 10 mg PO As Directed December 23, 2022 12:00am May 01, 2023 11:52am 4 tablets daily x 3 days, then 3 tablets daily x 3 days, then 2 tablets daily x 3 days, then 1 tablet daily x 3 days Start: 01-14-2022 End: 07-29-2022 Prednisone 10 mg tablet Discontinued 10 mg PO daily July 19, 2022 9:32am July 29, 2022 11:10am take 4 tabs for three days, then 3 tabs for three days, then 2 tabs for three days, then 1 tab for 3 days Start: 04-24-2018 End: 05-16-2020 Prednisone 10 mg tablet Discontinued 10 mg PO daily April 24, 2020 10:22am May 16, 2020 10:10am take 4 tabs for three days, then 3 tabs for three days, then 2 tabs for three days, then 1 tab for 3 days Start: 10-24-2017 End: 02-24-2018 take 3 tablets by mouth once daily at mealtime Prednisone 20 MG tablet Discontinued 60 mg PO DAILY October 24, 2017 12:00am February 24, 2018 9:04am With food Start: 10-24-2017 End: 02-24-2018 take 60 mg by mouth once daily at mealtime Prednisone Discontinued 60 MG PO DAILY October 24, 2017 12:00am February 24, 2018 9:04am With food Start: 08-05-2017 End: 09-10-2017 Prednisone 10 mg tablet Discontinued 10 mg PO daily 30 August 05, 2017 12:00am September 10, 2017 8:18am take 4 tabs for three days, then 3 tabs for three days, then 2 tabs for three days, then 1 tab for 3 days raNITIdine 150 mg oral tablet (10 sources) Histamine-2 Receptor Antagonist Start: 08-05-2017 End: 11-04-2023 take 1 tablet by mouth at bedtime as needed Ranitidine Hcl (Zantac) 150 mg tablet Discontinued 150 mg PO AT BEDTIME as needed February 24, 2018 8:51am November 04, 2023 10:50am Start: 07-01-2016 take 1 tablet by ryann th once daily ZANTAC 150 MG TABS One tablet by mouth daily RANITIDINE HCL [id number] Elizabeth Smith LPN Start: 07-01-2016 ZANTAC 150 MG TABS One tab twice daily RANITIDINE HCL [id number] Elizabeth Bella Umeclidinium-Vilanterol (2 sources) Anticholinergic, beta2-Adrenergic Agonist Start: 05-01-2023 End: 05-01-2023 Umeclidinium-Vilanterol (Anoro Ellipta) 62.5-25 mcg/actuation blister with device Discontinued 1 NMA INHALATION Q24H 60 3 May 01, 2023 1:00am May 01, 2023 1:38pm Start: 05-01-2023 End: 05-01-2023 Umeclidinium-Vilanterol (Ano ro Ellipta) 62.5-25 mcg/actuation blister with device Discontinued 1 INH INHALATION Q24H 60 May 01, 2023 1:00am May 01, 2023 1:38pm valACYclovir 1000 mg oral tablet (2 sources) Herpesvirus Nucleoside Analog DNA Polymerase Inhibitor, Herpes Simplex Virus Nucleoside Analog DNA Polymerase Inhibitor, Herpes Zoster Virus Nucleoside Analog DNA Polymerase Inhibitor Start: 12-23-2022 End: 11-04-2023 Valacyclovir 1 gram tablet Discontinued 1000 mg PO THREE TIMES A DAY 21 December 23, 2022 12:00am November 04, 2023 10:53am Start: 12-23-2022 take 1000 mg by mout h three times daily Valacyclovir Active 1000 MG PO THREE TIMES A DAY December 23, 2022 12:00am Problems Active Problems Problem Classification Problem Date Documented Date Episodic/Chronic Acquired foot deformities (20 sources) Acquired hallux malleus; Translations: [Other hammer toe(s) (acquired), unspecified foot] Onset: 11-14-2008 11-14-2008 Chronic Acute bronchitis (4 sources) Acute bronchitis; Translations: [Acute bronchitis, unspecified] 07-07-2023 Episodic Administrative/social admission (2 sources) Advance directive discussed with patient; Translations: [Other specified counseling] Onset: 05-31-2024 04-09-2023 Episodic Asthma (20 sources) Unspecified asthma, uncomplicated; Translations: [Asthma, unspecified type, unspecified] Onset: 04-02-2005 10-09-2005 Chronic Chronic obstructive pulmonary disease and bronchiectasis (20 sources) Chronic obstructive lung disease; Translations: [Chronic obstructive pulmonary disease, unspecified] Onset: 11-19-2016 11-19-2016 Chronic Chronic obstructive pulmonary disease and bronchiectasis (4 sources) Bronchitis; Translations: [Bronchitis, not specified as acute or chronic] 05-06-2019 Episodic Disorders of lipid metabolism (20 sources) Mixed hyperlipidemia; Translations: [Mixed hyperlipidemia] Onset: 10-09-2005 Chronic Esophageal disorders (20 sources) Gastro-esophageal reflux disease with esophagitis; Translations: [Gastroesophageal reflux disease with esophagitis without hemorrhage] Onset: 04-02-2005 Chronic Esophageal disorders (1 source) Esophageal disorders; Translations: [Gastroesophageal reflux disease with esophagitis without hemorrhage] Onset: 10-09-2005 Essential hypertension (20 sources) Essential hypertension; Translations: [Essential (primary) hypertension] Onset: 04-03-2005 Chronic Immunizations and screening for infectious disease (8 sources) Patient encounter status; Translations: [Encounter for immunization] 04-09-2023 Episodic Mycoses (1 source) Candidiasis of skin; Translations: [Candidiasis of skin and nail] 12-31-2023 Episodic Other ear and sense organ disorders (20 sources) Hearing loss; Translations: [Unspecified hearing loss, unspecified ear] Onset: 11-14-2008 11-14-2008 Chronic Other ear and sense organ disorders (1 source) Otitis externa; Translations: [Unspecified otitis externa, left ear] 05-30-2024 Chronic Other lower respiratory disease (4 sources) Cough; Translations: [Cough] 08-05-2017 Episodic Other lower respiratory disease (8 sources) Nodule of lung; Translations: [Solitary pulmonary nodule] 05-06-2019 Episodic Other nutritional; endocrine; and metabolic disorders (20 sources) Obesity; Translations: [Obesity, unspecified] Onset: 10-09-2005 10-09-2005 Chronic Other nutritional; endocrine; and metabolic disorders (1 source) Obesity, unspecified; Translations: [Obesity, unspecified] 05-01-2023 Chronic Other screening for suspected conditions (not mental disorders or infectious disease) (20 sources) Blood chemistry abnormal; Translations: [Other specified abnormal findings of blood chemistry] Onset: 10-09-2005 Episodic Other upper respiratory disease (20 sources) Seasonal allergic rhinitis; Translations: [Other seasonal allergic rhinitis] Onset: 11-19-2016 11-19-2016 Chronic Pneumonia (except that caused by tuberculosis or sexually transmitted disease) (4 sources) Pneumonia; Translations: [Pneumonia, unspecified organism] 05-06-2019 Episodic Residual codes; unclassified (4 sources) History of colonoscopy; Translations: [Other specified postprocedural states] 05-06-2019 Episodic Comment on above: 2012 Screening and history of mental health and substance abuse codes (2 sources) Encounter for screening for depression; Translations: [Encounter for screening examination for other mental health and behavioral disorders] Onset: 05-31-2024 Episodic Spondylosis; intervertebral disc disorders; other back problems (20 sources) Degeneration of intervertebral disc; Translations: [Degeneration of intervertebral disc, site unspecified] Onset: 04-02-2005 10-09-2005 Chronic Unclassified (1 source) Patient encounter status 06-05-2024 Unclassified (1 source) Cough, unspecified; Translations: [Cough, unspecified] Onset: 05-27-2024 Viral infection (4 sources) Herpes zoster; Translations: [Zoster without complications] 05-06-2019 Episodic Past or Other Problems Problem Classification Problem Date Documented Da te Episodic/Chronic Allergic reactions (20 sources) Allergic condition; Translations: [Allergy, unspecified, initial encounter] Onset: 11-14-2008 11-14-2008 Episodic Biliary tract disease (20 sources) Biliary calculus; Translations: [Calculus of gallbladder without cholecystitis without obstruction] Onset: 02-06-2010 04-23-2021 Episodic Gastritis and duodenitis (20 sources) Gastritis; Translations: [Unspecified gastritis and gastroduodenitis] Onset: 04-02-2005 10-09-2005 Episodic Other bone disease and musculoskeletal deformities (20 sources) Disorder of skeletal system; Translations: [Disorder of bone, unspecified] Onset: 04-02-2005 10-09-2005 Episodic Other diseases of kidney and ureters (20 sources) Bilateral hydronephrosis ; Translations: [Unspecified hydronephrosis] Onset: 02-06-2010 04-23-2021 Episodic Other lower respiratory disease (1 source) Solitary nodule of lung; Translations: [Solitary pulmonary nodule] Onset: 11-19-2016 11-19-2016 Episodic Other upper respiratory disease (20 sources) Deviated nasal septum; Translations: [Deviated nasal septum] Onset: 11-14-2008 11-14-2008 Episodic Results Test Name Value Interpretation Reference Range Facility Pulmonary Visit Reporton Pulmonary Visit Report [facility] Pulmonary Medicine of [address] [place] [address] OFFICE VISIT Date of Service: 11/04/24 MR#: [id number] Acct: [id number] Name: MARLEN SMITH Rep #: [id number] : 1945 Provider: DILLAN Ozuna Age/Sex: 78/F Location: [facility].PMW Status: Signed Assessment and Plan Assessment and Plan (1) COPD (chronic obstructive pulmonary disease): Status: Chronic Qualifiers: COPD type: unspecified COPD Qualified Code(s): J44.9 - Chronic obstructive pulmonary disease, unspecified Plan: Stable. Continue Stiolto. No additional testing at this time. No additional testing at this time. Follow-up in the office in 1 year. Contact the office with any new or worsening symptoms in the meantime. Plan Details Additional Comments: This note was generated with [employer] dictation software. It may contain incorrect words, spelling, and punctuation that were not noted in checking the note before signing. Follow Up: 1 Year HPI 1 Y FU Chief Complaint: Routine follow-up HPI Comments Details: This patient presents to the office today for follow-up of her COPD. She is ambulatory and on room air. She has not recently been seen in the ED or urgent care for any respiratory illness. She has not required any antibiotics or prednisone for any breathing problems. The patient is happy to report that she did not have an exacerbation in June, which she has had every June for the past 3 or so years. If you recall, she is a lifelong never smoker. She is compliant with Stiolto 2 puffs once daily. She has not recently needed to use albuterol rescue inhaler. She has mild shortness of breath on exertion. She has an occasional dry cough. She denies any sputum production or hemoptysis. She denies any wheezing, chest tightness, chest pain or palpitations. She also denies any fever, chills or body aches. Intake Vital Signs 11/04/23 07:51 11/04/24 08:12 Height 5 ft 4 in 5 ft 4 in Weight: 214 lb BMI 36.7 BP 144/77 H Blood Pressure Location Lt radial Position Sitting Respiration 18 Pulse 83 Pulse Source Monitor Temp 97.5 F L Temperature Source Temporal Artery Pulse Oximetry (%) 94 Oxygen Delivery Method room air Intake Visit Reasons: 1 Y FU Chief Complaint: cough, fatigue Carbon Setter Required: No DME Vendor: N/a Accompanied by: Self Is patient in pain?: No Allergies No Known Allergies Allergy (Verified 11/04/24 10:54) Medications ???Medication ???Instructions ???Recorded ???Confirmed ???Type hydrochlorothiazide 25 mg tablet 25 mg PO DAILY 09/19/16 11/04/24 H istory cholecalciferol (vitamin D3) 100 4,000 unit PO QDAY 08/05/17 History mcg (4,000 unit) capsule latanoprost 0.005 % eye drops 1 drp ophthalmic (eye) QPM 8 11/04/24 History ipratropium bromide 42 mcg (0.06 2 spray intranasal TID-QID PRN 10/1711/04/24 History %) nasal spray ipratropium 0.5 mg-albuterol 3 mg 3 ml inhalation Q4H PRN PRN SOB 0 01/14/22 11/04/24 Rx (2.5 mg base)/3 mL nebulization /OR WHEEZING #180 mL soln albuterol sulfate 90 mcg/actuation 2 puff inhalation Q4H PRN 11/04/24 Rx aerosol inhaler (Ventolin HFA) shortness of breath or wheezing #18 grams ferrous sulfate 325 mg (65 mg 325 mg PO DAILY 11/04/23 11/04/24 History iron) tablet omeprazole magnesium 20 mg 20 mg PO DAILY 11/04/23 11/04/24 H istory tablet,delayed release (Prilosec OTC) nystatin 100,000 unit/gram topical 1 applic topical BID #60 grams 0 12/31/23 11/04/24 Rx powder tiotropium 2.5 mcg-olodaterol 2.5 2 inh inhalation DAILY #3 ea 05/2911/04/24 Rx mcg/actuation mist for inhalation (Stiolto Respimat) Have you fallen in the past year?: No PFSH Medical History Cutaneous candidiasis Acute otitis externa of both ears Acute bronchitis, unspecified Close sexual exposure to mpox virus [place] (hard of hearing) Lung nodule COPD (chronic obstructive pulmonary disease) Shingles GERD (gastroesophageal reflux disease) Pneumonia Bronchitis HTN (hypertension) COPD (chronic obstructive pulmonary disease) Seasonal allergic rhinitis Lung nodule Surgical History S/P Mohs surgery for basal cell carcinoma S/P skin biopsy Hx of cataract surgery H/O colonoscopy Hx of cholecystectomy H/O: hysterectomy Family History Mother Dementia Father Heart disease CVA (cerebral vascular accident) Hypertension Skin cancer Dementia Brain aneurysm Brother Skin cancer Hypertension Sister Skin cancer Hypertension Social History ... Normal [facility] DBT Breast - bilateral diagn ostic for implanton 08-11-2024 IMPRESSION: Stable complicated cyst in the left [...] Roxanna Jose M.D. Electronically signed on: 08/11/2024 Instrument Engineer: CHRIS Transcribe Date/Time: Aug 11 2024 2:35P Dictated by: ROXANNA JOSE MD This examination was interpreted and the report reviewed and electronically signed by: ROXANNA JOSE MD on Aug 11 2024 3:23PM [facility] DIVISION OF RADIOLOGY * * *Final Report* * * DATE OF EXAM: Aug 11 2024 2:49PM [facility] 0627 - JULES ELIZABETH W JAIME XANDER / PROCEDURE REASON: Abnormal mammogram * * * * Physician Interpretation * * * * RESULT: [address] [address] [place] [address] #[id number] - JULES ELIZABETH W JAIME XANDER #[id number] - [facility] US BREAST LTD LT HISTORY: 78 [...] flow imaging demonstrates vascularity is not present. DIVISION OF RADIOLOGY Provider, [facility] - 08/11/2024 * * *Final Report* * * DATE OF EXAM: Aug 11 2024 2:49PM W 0627 - [facility] ELIZABETH RAMACHANDRANO XANDER / PROCEDURE REASON: Abnormal mammogram * * * * Physician Interpretation * * * * RESULT: [place] [address] #[id number] - JULES [employer] #[id number] - [facility] US BREAST LTD HISTORY: 78 year-old [...] flow imaging demonstrates vascularity is not present. IMPRESSION IMPRESSION: Stable complicated cyst in the left [...] Roxanna Jose M.D. Electronically signed on: 08/11/2024 Instrument Engineer: CHRIS Transcribe Date/Time: Aug 11 2024 2:35P Dictated by: ROXANNA JOSE MD This examination was interpreted and the report reviewed and electronically signed by: ROXANNA JOSE MD on Aug 11 2024 3:23PM [facility] DIAG W JAIME BILon 2024 [facility] DIAG W JAIME XANDER * * *Final Report* * * DATE OF EXAM: Aug 11 2024 2:49PM [facility] 0627 - [facility] DIAG W JAIME XANDER / PROCEDURE REASON: Abnormal mammogram * * * * Physician Interpretation * * * * RESULT: [facility] [place] [address] #[id number] - [facility] DIAG W JAIME XANDER #[id number] - [facility] US BREAST LTD HISTORY: 78 year-old [...] Roxanna Jose M.D. Electronically signed on: 08/11/2024 Instrument Engineer: CHRIS Mendesrisharonda Date/Time: Aug 11 2024 2:35P Dictated by: ROXANNA JOSE MD This examination was interpreted and the report reviewed and electronically signed by: ROXANNA JOSE MD on Aug 11 2024 3:23PM EST [id number] Normal [facility] US BREAST LTD LTon 08-11 [facility] US BREAST LTD LT * * *Final Report* * * DATE OF EXAM: Aug 11 2024 3:11PM [facility] 0593 - [facility] US BREAST LTD LT / PROCEDURE REASON: Abnormal mammogram * * * * Physician Interpretation * * * * [address] [place] [address] #[id number] - [facility] ELIZABETH TERRELL #[id number] - [facility] US BREAST LTD HISTORY: 78 year-old [...] Roxanna Jose M.D. Electronically signed on: 08/11/2024 Instrument Engineer: CHRIS Transcribe Date/Time: Aug 11 2024 3:02P Dictated by : ROXANNA JOSE MD This examination was interpreted and the report reviewed and electronically signed by: ROXANNA JOSE MD on Aug 11 2024 3:23PM EST [id number] Normal [facility] No Panel InformationOrdered By: [facility] Provider on 08-11-2024 [facility] No Panel Informationon 08-11 Radiology Study observation (narrative) [facility] US Breast - left limitedon 0 08-11-2024 IMPRESSION: Stable complicated cyst in the left [...] Roxanna Jose M.D. Electronically signed on: 08/11/2024 Instrument Engineer: CHRIS Transcribe Date/Time: Aug 11 2024 3:02P Dictated by : ROXANNA JOSE MD This examination was interpreted and the report reviewed and electronically signed by: ROXANNA JOSE MD on Aug 11 2024 3:23PM [facility] DIVISION OF RADIOLOGY * * *Final Report* * * DATE OF EXAM: Aug 11 2024 3:11PM U 0593 - [facility] [place] BREAST LTD LT / PROCEDURE REASON: Abnormal mammogram * * * * Physician Interpretation * * * * [place] [address] #[id number] - [facility] ELIZABETH TERRELL #[id number] - [facility] US BREAST LTD LT HISTORY: 78 [...] flow imaging demonstrates vascularity is not present. DIVISION OF RADIOLOGY Provider, [facility] - 08/11/2024 * * *Final Report* * * DATE OF EXAM: Aug 11 2024 3:11PM U 0593 - [facility] [place] BREAST LTD LT / PROCEDURE REASON: Abnormal mammogram * * * * Physician Interpretation * * * * [place] [address] #[id number] - [facility] ELIZABETH SANDOVAL XANDER #[id number] - [facility] US BREAST LTD LT HISTORY: 78 [...] flow imaging demonstrates vascularity is not present. IMPRESSION IMPRESSION: Stable complicated cyst in the left [...] Roxanna Jose M.D. Electronically signed on: 08/11/2024 Instrument Engineer: CHRIS Transcribe Date/Time: Aug 11 2024 3:02P Dictated by : ROXANNA JOSE MD This examination was interpreted and the report reviewed and electronically signed by: ROXANNA JOSE MD on Aug 11 2024 3:23PM [facility] Becky 07-14-2024 [facility]RD[facility] MARLEN SMITH ([id number]) 1945 F Date Time Provider Department 07/14/24 ERNA HALL RDXWS During your visit today, we [...] Fully Assessed Primary Visit Diagnosis:Abnormal mammogram [R92.8] Order(s):[facility] DIAGNOSTIC BILATERAL [[id number]] Order #: [id number] FUTURE Prescriptions as of 07/14/2024 - methylPREDNISolone (MEDROL DOSE-PACK) 4 mg Dose-Pack take by mouth as directed on inside of package - wbueubvy-uazotduaw-hblr ocortisone (CORTISPORIN) 3.5-10,000-1 mg/mL-unit/mL-% otic suspension - hydroCHLOROthiazide [...] ESOPHAGEAL REFLUX [K21.9] 04/02/2005 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] 04/02/2005 OSTEOPENIA [M89.9, M94.9] 04/02/2005 GASTRITIS/DUODENITIS NOS [...] [J30.2] 11/19/2016 Diagnosed: 04/09/2023 Encounter Status:Closed by ERNA HALL on 07/14/24 Normal [facility] CBC W Auto Differential pane l (Bld)on 06-10-2024 Basophils (Bld) [#/Vol] 10*3/uL Normal <0.11 [facility] Comment on above: Order Comment: Speci men Type: BLOOD SPECIMEN Ordering Facility: [facility] Address: [address] [place] [address] Performed By: #### 5 7021-8 #### [facility] CLIA [id number] [address] [place] [address] [place] Basophils/100 WBC (Bld) 0.4 % Normal [facility] Comment on above: Order Comment: Speci men Type: BLOOD SPECIMEN Ordering Facility: [facility] Address: [address] [place] [address] Performed By: #### 5 7021-8 #### [facility] CLIA [id number] [address] [place] [address] [place] Differential cell count method Nom (Bld) Auto Normal [facility] Comment on above: Order Comment: Speci men Type: BLOOD SPECIMEN Ordering Facility: [facility] Address: [address] [place] [address] Performed By: #### 5 7021-8 #### [facility] CLIA [id number] [address] [place] [address] [place] Eosinophils (Bld) [#/Vol] 0.09 10*3/uL Normal <0.46 [facility] Comment on above: Order Comment: Speci men Type: BLOOD SPECIMEN Ordering Facility: [facility] Address: [address] [place], [place] [address] Performed By: #### 5 7021-8 #### [facility] CLIA [id number] [address] [place] [address] [place] Eosinophils/100 WBC (Bld) 2.0 % Normal [facility] Comment on above: Order Comment: Speci men Type: BLOOD SPECIMEN Ordering Facility: [facility] Address: [address] [place] [address] Performed By: #### 5 7021-8 #### [facility] CLIA [id number] [address] [place] [address] [place] Erythrocyte distribution width (RBC) [Ratio] 12.9 % Normal 11.5-15.0 [facility] Comment on above: Order Comment: Speci men Type: BLOOD SPECIMEN Ordering Facility: [facility] Address: [address] [place] [address] Performed By: #### 5 7021-8 #### [facility] CLIA [id number] [address] [place] [address] [place] Hematocrit (Bld) [Volume fraction] 36.9 % Normal 36.0-46.0 [facility] Comment on above: Order Comment: Speci men Type: BLOOD SPECIMEN Ordering Facility: [facility] Address: [address] [place], [place] [address] Performed By: #### 5 7021-8 #### [facility] CLIA [id number] [address] [place] [address] [place] Hemoglobin (Bld) [Mass/Vol] 12.2 g/dL Normal 11.5-15.5 [facility] Comment on above: Order Comment: Speci men Type: BLOOD SPECIMEN Ordering Facility: [facility] Address: [address] [place] [address] Performed By: #### 5 7021-8 #### [facility] CLIA [id number] [address] [place] [address] [place] Immature granulocytes (Bld) [#/Vol] 0.03 10*3/uL Normal <0.10 [facility] Comment on above: Order Comment: Speci men Type: BLOOD SPECIMEN Ordering Facility: [facility] Address: [address] [place] [address] Performed By: #### 5 7021-8 #### [facility] CLIA [id number] [address] [place] [address] [place] Immature granulocytes/100 WBC (Bld) 0.7 % Normal [facility] Comment on above: Order Comment: Speci men Type: BLOOD SPECIMEN Ordering Facility: [facility] Address: [address] [place] [address] Performed By: #### 5 7021-8 #### [facility] CLIA [id number] [address] [place] [address] [place] Lymphocytes (Bld) [#/Vol] 1.59 10*3/uL Normal 1.00-4.00 [facility] Comment on above: Order Comment: Speci men Type: BLOOD SPECIMEN Ordering Facility: [facility] Address: [address] [place] [address] Performed By: #### 5 7021-8 #### [facility] CLIA [id number] [address] [place] [address] [place] Lymphocytes/100 WBC (Bld) 34.9 % Normal [facility] Comment on above: Order Comment: Speci men Type: BLOOD SPECIMEN Ordering Facility: [facility] Address: [address] [place] [address] Performed By: #### 5 7021-8 #### [facility] CLIA [id number] [address] [place] [address] [place] MCH (RBC) [Entitic mass] 30.2 pg Normal 26.0-34.0 [facility] Comment on above: Order Comment: Speci men Type: BLOOD SPECIMEN Ordering Facility: [facility] Address: [address] [place] [address] Performed By: #### 5 7021-8 #### [facility] CLIA [id number] [address] [place] [address] [place] MCHC (RBC) [Mass/Vol] 33.1 g/dL Normal 30.5-36.[address] [facility] Comment on above: Order Comment: Speci men Type: BLOOD SPECIMEN Ordering Facility: [facility] Address: [address] [place] [address] Performed By: #### 5 7021-8 #### [facility] CLIA [id number] [address] [place] [address] [place] MCV (RBC) [Entitic vol] 91.3 fL Normal 80.0-100.0 [facility] Comment on above: Order Comment: Speci men Type: BLOOD SPECIMEN Ordering Facility: [facility] Address: [address] [place] [address] Performed By: #### 5 7021-8 #### [facility] CLIA [id number] [address] [place] [address] [place] Monocytes (Bld) [#/Vol] 0.69 10*3/uL Normal <0.87 [facility] Comment on above: Order Comment: Speci men Type: BLOOD SPECIMEN Ordering Facility: [facility] Address: [address] [place] [address] Performed By: #### 5 7021-8 #### [facility] CLIA [id number] [address] [place] [address] [place] Monocytes/100 WBC (Bld) 15.2 % Normal [facility] Comment on above: Order Comment: Speci men Type: BLOOD SPECIMEN Ordering Facility: [facility] Address: [address] [place] [address] Performed By: #### 5 7021-8 #### [facility] CLIA [id number] [address] [place] [address] [place] Neutrophils (Bld) [#/Vol] 2.13 10*3/uL Normal 1.45-7.50 [facility] Comment on above: Order Comment: Speci men Type: BLOOD SPECIMEN Ordering Facility: [facility] Address: [address] [place] [address] Performed By: #### 5 7021-8 #### [facility] CLIA [id number] [address] [place] [address] [place] Neutrophils/100 WBC (Bld) 46.8 % Normal [facility] Comment on above: Order Comment: Speci men Type: BLOOD SPECIMEN Ordering Facility: [facility] Address: [address] [place] [address] Performed By: #### 5 7021-8 #### [facility] CLIA [id number] [address] [place] [address] [place] Nucleated RBC (Bld) [#/Vol] 10*3/uL Normal <0.01 [facility] Comment on above: Order Comment: Speci men Type: BLOOD SPECIMEN Ordering Facility: [facility] Address: [address] [place] [address] Performed By: #### 5 7021-8 #### [facility] CLIA [id number] [address] [place] [address] [place] Nucleated RBC/100 WBC (Bld) [Ratio] 0.0 /100 WBC Normal [facility] Comment on above: Order Comment: Speci men Type: BLOOD SPECIMEN Ordering Facility: [facility] Address: [address] [place] [address] Performed By: #### 5 7021-8 #### [facility] CLIA [id number] [address] [place] [address] [place] Platelet mean volume (Bld) [Entitic vol] 9.3 fL Normal 9.0-12.7 [facility] Comment on above: Order Comment: Speci men Type: BLOOD SPECIMEN Ordering Facility: [facility] Address: [address] [place] [address] Performed By: #### 5 7021-8 #### [facility] CLIA [id number] [address] [place] [address] [place] Platelets (Bld) [#/Vol] 212 10*3/uL Normal 150-400 [facility] Comment on above: Order Comment: Speci men Type: BLOOD SPECIMEN Ordering Facility: [facility] Address: [address] [place] [address] Performed By: #### 5 7021-8 #### [facility] CLIA [id number] [address] [place] [address] [place] RBC (Bld) [#/Vol] 4.04 10*6/uL Normal 3.90-5.20 [facility] Comment on above: Order Comment: Speci men Type: BLOOD SPECIMEN Ordering Facility: [facility] Address: [address] [place] [address] Performed By: #### 5 7021-8 #### [facility] CLIA [id number] [address] [place] [address] [place] WBC (Bld) [#/Vol] 4.55 10*3/uL Normal 3.70-11.00 [facility] Comment on above: Order Comment: Speci men Type: BLOOD SPECIMEN Ordering Facility: [facility] Address: [address] [place] [address] Performed By: #### 5 7021-8 #### [facility] CLIA [id number] [address] [place] [address] [place] Comprehensive metabolic 2000 panelon 06-10-2024 Albumin [Mass/Vol] 4.4 g/dL Normal 3.9-4.9 [facility] Comment on above: Order Comment: Speci men Type: BLOOD SPECIMEN Ordering Facility: [facility] Address: [address] [place] [address] Performed By: #### 2 4323-8 #### [facility] CLIA [id number] [address] [place] [address] [place] ALP [Catalytic activity/Vol] 66 U/L Normal 34-123 [facility] Comment on above: Order Comment: Speci men Type: BLOOD SPECIMEN Ordering Facility: [facility] Address: [address] [place] [id number] Performed By: #### 2 4323-8 #### [facility] CLIA [id number] [address] [place] [address] [place] ALT [Catalytic activity/Vol] 29 U/L Normal 7-38 [facility] Comment on above: Order Comment: Speci men Type: BLOOD SPECIMEN Ordering Facility: [facility] Address: [address] [place] [address] Performed By: #### 2 4323-8 #### [facility] CLIA [id number] [address] [place] [address] [place] Anion gap [Moles/Vol] 9 mmol/L Normal 8-[address] [facility] Comment on above: Order Comment: Speci men Type: BLOOD SPECIMEN Ordering Facility: [facility] Address: [address] [place] [address] Performed By: #### 2 4323-8 #### [facility] CLIA [id number] [address] [place] [address] [place] AST [Catalytic activity/Vol] 29 U/L Normal 13-35 [facility] Comment on above: Order Comment: Speci men Type: BLOOD SPECIMEN Ordering Facility: [facility] Address: [address] [place] [address] Performed By: #### 2 4323-8 #### [facility] CLIA [id number] [address] [place] [address] [place] Bilirubin [Mass/Vol] 0.5 mg/dL Normal 0.2-1.3 [facility] Comment on above: Order Comment: Speci men Type: BLOOD SPECIMEN Ordering Facility: [facility] Address: [address] [place] [address] Performed By: #### 2 4323-8 #### [facility] CLIA [id number] [address] [place] [address] [place] Calcium [Mass/Vol] 10.3 mg/dL High 8.5-10.2 [facility] Comment on above: Order Comment: Speci men Type: BLOOD SPECIMEN Ordering Facility: [facility] Address: [address] [place] [address] Performed By: #### 2 4323-8 #### [facility] CLIA [id number] [address] [place] [address] [place] Chloride [Moles/Vol] 101 mmol/L Normal 98-107 [facility] Comment on above: Order Comment: Speci men Type: BLOOD SPECIMEN Ordering Facility: [facility] Address: [address] [place] [address] Performed By: #### 2 4323-8 #### [facility] CLIA [id number] [address] [place] [address] [place] CO2 [Moles/Vol] 29 mmol/L Normal 22-30 [facility] Comment on above: Order Comment: Speci men Type: BLOOD SPECIMEN Ordering Facility: [facility] Address: [address] [place], [place] [address] Performed By: #### 2 4323-8 #### [facility] CLIA [id number] [address] [place] [address] [place] Creatinine [Mass/Vol] 1.18 mg/dL High 0.58-0.[address] [facility] Comment on above: Order Comment: Speci men Type: BLOOD SPECIMEN Ordering Facility: [facility] Address: [address] [place] [address] Performed By: #### 2 4323-8 #### [facility] [id number] [address] [place] [address] [place] Creatinine and Glomerular filtration rate.predicted panel (S/P/Bld) 47 mL/min/1.73m??? Low >=60 [facility] Comment on above: Order Comment: Nya urias Type: BLOOD SPECIMEN Ordering Facility: [facility] Address: [address] [place] [address] Result Comment: Fani mated Glomerular Filtration Rate (eGFR) is calculated using the 2020 CKD-EPI creatinine equation. This equation utilizes serum creatinine, sex, and age as parameters. The creatinine assay has traceable calibration to isotope dilution-mass spectrometry. Refer to KDIGO guidelines for clinical interpretation. In patients with unstable renal function, e.g. those with acute kidney injury, the eGFR may not accurately reflect actual GFR. Performed By: #### 2 4323-8 #### [facility] [id number] [address] [place] [address] [place] Glucose [Mass/Vol] 115 mg/dL High 74-99 [facility] Comment on above: Order Comment: Nya urias Type: BLOOD SPECIMEN Ordering Facility: [facility] Address: [address] [place] [address] Result Comment: The [place] Diabetes Association (ADA) provides guidance for cutoff [...] Standards of Medical Care in Diabetes 2016, [place] Diabetes Association. Diabetes Care. 2016.39(Suppl 1). Performed By: #### 2 4323-8 #### [facility] CLIA [id number] [address] [place] [address] [place] Potassium [Moles/Vol] 4.2 mmol/L Normal 3.7-5.[address] [facility] Comment on above: Order Comment: Speci men Type: BLOOD SPECIMEN Ordering Facility: [facility] Address: [address] [place] [address] Performed By: #### 2 4323-8 #### [facility] CLIA [id number] [address] [place] [address] [place] Protein [Mass/Vol] 6.8 g/dL Normal 6.3-8.0 [facility] Comment on above: Order Comment: Speci men Type: BLOOD SPECIMEN Ordering Facility: [facility] Address: [address] [place] [address] Performed By: #### 2 4323-8 #### [facility] CLIA [id number] [address] [place] [address] [place] Sodium [Moles/Vol] 139 mmol/L Normal 136-144 [facility] Comment on above: Order Comment: Speci men Type: BLOOD SPECIMEN Ordering Facility: [facility] Address: [address] [place] [address] Performed By: #### 2 4323-8 #### [facility] CLIA [id number] [address] [place] [address] [place] Urea nitrogen [Mass/Vol] 20 mg/dL Normal 7-21 [facility] Comment on above: Order Comment: Speci men Type: BLOOD SPECIMEN Ordering Facility: [facility] Address: [address] [place] [address] Performed By: #### 2 4323-8 #### [facility] CLIA [id number] [address] [place] [address] [place] Lipid 1996 panelon 02-13-202 5 Cholesterol [Mass/Vol] 197 mg/dL Normal <200 [facility] Comment on above: Order Comment: Nya bridgett Type: BLOOD SPECIMEN Ordering Facility: [facility] Address: [address] [place] [address] Result Comment: <200 mg/dL, Desirable 200-239 mg/dL, Borderline high >239 mg/dL, High Performed By: #### 2 4331-1 #### [facility] CLIA [id number] [address] CLIA [id number] [address] [place] [address] Cholesterol in HDL [Mass/Vol] 63 mg/dL Normal >39 [facility] Comment on above: Order Comment: Nya urias Type: BLOOD SPECIMEN Ordering Facility: [facility] Address: [address] [place] [address] Result Comment: 40-5 9 mg/dL, Acceptable >59 mg/dL, High: Negative risk factor for coronary heart disease <40 mg/dL, Low: Positive risk factor for coronary heart disease Performed By: #### 2 4331-1 #### [facility] CLIA [id number] [address] CLIA [id number] [address] [place] [address] Cholesterol in LDL [Mass/Vol] 113 mg/dL High <100 [facility] Comment on above: Order Comment: Nya urias Type: BLOOD SPECIMEN Ordering Facility: [facility] Address: [address] [place] [address] Result Comment: <100 mg/dL, Optimal 100-129 mg/dL, Near optimal/above optimal 130-159 mg/dL, Borderline high 160-189 mg/dL, High >189 mg/dL, Very high Secondary prevention optimal LDL Cholesterol levels are recommended to be < 70 mg/dL Performed By: #### 2 4331-1 #### [facility] CLIA [id number] [address] CLIA [id number] [address] [place] [address] [place] Cholesterol in LDL/Cholesterol in HDL [Mass ratio] 1.79 {ratio} Normal <2.54 [facility] Comment on above: Order Comment: Nya urias Type: BLOOD SPECIMEN Ordering Facility: [facility] Address: [address] [place] [address] Result Comment: Alfonso dawn: 1. National Cholesterol Education Program ATP III Guideline At-A-Glance Quick Desk Reference: National Heart, Lung, and Blood [place]. National Institutes of Health. 2001: NIH Publication No. 01-3305. 2. An International Atherosclerosis Society position paper: global recommendations for the management of dyslipidemia: executive summary, Atherosclerosis. 2014: 232(2):410-413. Performed By: #### 2 4331-1 #### [facility] CLIA [id number] [address] OF [facility] CLIA [id number] [address] [place] [address] [place] Cholesterol in VLDL [Mass/Vol] 21 mg/dL Normal <30 [facility] Comment on above: Order Comment: Nya urias Type: BLOOD SPECIMEN Ordering Facility: [facility] Address: [address] [place] [address] Performed By: #### 2 4331-1 #### [facility] CLIA [id number] [address] OF [facility] CLIA [id number] [address] [place] [address] [place] Cholesterol non HDL [Mass/Vol] 134 mg/dL High <130 [facility] Comment on above: Order Comment: Nya urias Type: BLOOD SPECIMEN Ordering Facility: [facility] Address: [address] [place] [address] Result Comment: <130 mg/dL, Optimal 130-159 mg/dL, Near optimal/above optimal 160-189 mg/dL, Borderline high 190-219 mg/dL, High >219 mg/dL, Very high Secondary prevention optimal non HDL Cholesterol levels are recommended to be <100 mg/dL Performed By: #### 2 4331-1 #### [facility] CLIA [id number] [address] CLIA [id number] [address] [place] [address] Cholesterol.total/Cho lesterol in HDL [Mass ratio] 3.13 {ratio} Normal <5.10 [facility] Comment on above: Order Comment: Speci men Type: BLOOD SPECIMEN Ordering Facility: [facility] Address: [address] [place] [address] Performed By: #### 2 4331-1 #### [facility] CLIA [id number] [address] [place] [id number] [place] [address] FASTING TIME 12 hrs Normal [facility] Comment on above: Order Comment: Speci men Type: BLOOD SPECIMEN Ordering Facility: [facility] Address: [address] [place] [address] Performed By: #### 2 4331-1 #### [facility] CLIA [id number] [address] [place] [id number] [place] [address] Triglyceride [Mass/Vol] 107 mg/dL Normal <150 [facility] Comment on above: Order Comment: Speci men Type: BLOOD SPECIMEN Ordering Facility: [facility] Address: [address] [place] [address] Result Comment: <150 mg/dL, Normal 150-199 mg/dL, Borderline high 200-499 mg/dL, High >499 mg/dL, Very high Performed By: #### 2 4331-1 #### [facility] CLIA [id number] [address] [facility] [id number] [address] [place] [address] [place] CNOVon 05-31-2024 [facility] MARLEN SMITH ([id number]) 1945 F Date Time Provider Department 05/31/24 3:00 PM ERNA HALL During your visit today, we recorded the [...] Cheema LPN May 31, 2024 3:17 PM Erna Hall MD 06/05/2024 5:33 PM Signed Subjective [...] Systems PAST SURGICAL HISTORY Procedure Laterality Date ESOPHAGOGASTRODUODENOSC OPY TRANSORAL DIAGNOSTIC 05/2001 EGD LAP UMBILICAL HERNIA [...] mouth as directed on inside of package dsdmgaxg-gubolqidq-eqnv ocortisone (CORTISPORIN) 3.5-10,000-1 mg/mL-unit/mL-% otic suspension STIOLTO RESPIMAT [...] and behavioral disorders Z13.39 ANXIETY SCREENING 4. Encounte (more content not included)... Normal [facility] Care Visit Reporton 0 05-30-2024 Urgent Care Visit Report [facility] [address], [address] [place] [address] OFFICE VISIT Date of Service: 05/30/24 MR#: [id number] Acct: [id number] Name: MARLEN SMITH Rep #: [id number] : 1945 Provider: BABAR Badillo Age/Sex: 78/F Location: [facility] Status: Signed Intake Vital Signs 11/04/23 07:51 05/30/24 12:49 Height 5 ft 4 in 5 ft 4 in BP 118/80 Position Sitting Pulse 95 Temp 98 F Temp Source Oral Pulse Oximetry (%) 94 Oxygen Delivery Method room air Intake Visit Reasons: EAR PAIN-HERE ON 05/27 Accompanied by: Self Allergies No Known Allergies Allergy (Verified 05/30/24 12:52) Medications ???Medication ???Instructions ???Recorded ???Confirmed ???Type hydrochlorothiazide 25 mg tablet 25 mg PO DAILY 09/19/16 05/30/24 H istory cholecalciferol (vitamin D3) 100 4,000 unit PO QDAY 08/05/17 History mcg (4,000 unit) capsule latanoprost 0.005 % eye drops 1 drp ophthalmic (eye) QPM 8 05/30/24 History ipratropium bromide 42 mcg (0.06 2 spray intranasal TID-QID PRN 10/1705/30/24 History %) nasal spray ipratropium 0.5 mg-albuterol 3 mg 3 ml inhalation Q4H PRN PRN SOB 0 01/14/22 05/30/24 Rx (2.5 mg base)/3 mL nebulization /OR WHEEZING #180 mL soln albuterol sulfate 90 mcg/actuation 2 puff inhalation Q4H PRN 05/30/24 Rx aerosol inhaler (Ventolin HFA) shortness of breath or wheezing #18 grams tiotropium 2.5 mcg-olodaterol 2.5 2 inh inhalation DAILY #3 ea 07/2805/30/24 Rx mcg/actuation mist for inhalation (Stiolto Respimat) ferrous sulfate 325 mg (65 mg 325 mg PO DAILY 11/04/23 05/30/24 History iron) tablet omeprazole magnesium 20 mg 20 mg PO DAILY 11/04/23 05/30/24 H istory tablet,delayed release (Prilosec OTC) nystatin 100,000 unit/gram topical 1 applic topical BID #60 grams 0 12/31/23 05/30/24 Rx powder methylprednisolone 4 mg tablets in 4 mg PO PER PKG DIR 6 days #21 t abs 05/27/24 05/30/24 Rx a dose pack (Medrol (Yvon)) mhywmyct-prrbpmwcl-upoj ocort 3.5 4 drp otic (ear) TID 7 days #10 mL 05/30/24 05/30/24 Rx mg-10,000 unit/mL-1 % ear drops,susp Have you fallen in the past year?: No Nurse's Note: Patient here for Bilateral ear pain. Patient states the left is worse. [facility] Medical History (Updated 05/30/24 @ 13:08 by BABAR Badillo) Cutaneous candidiasis Acute otitis externa of both ears Acute bronchitis, unspecified Close sexual exposure to mpox virus [place] (hard of hearing) Lung nodule COPD (chronic obstructive pulmonary disease) Shingles GERD (gastroesophageal reflux disease) Pneumonia Bronchitis HTN (hypertension) COPD (chronic obstructive pulmonary disease) Seasonal allergic rhinitis Lung nodule Surgical History S/P skin biopsy Hx of cataract surgery H/O colonoscopy Hx of cholecystectomy H/O: hysterectomy Family History Mother Dementia Father Heart disease CVA (cerebral vascular accident) Hypertension Skin cancer Dementia Brain aneurysm Brother Skin cancer Hypertension Sister Skin cancer Hypertension Social History Smoking Status: Never smoker alcohol intake: never substance use type: does not use HPI HPI Details: MARLEN SMITH, is a 78 F who presents to the office today for evaluation of bilateral ear pain. Patient notes that her ear pain is worse on the left side and started on Friday (approximately 4 days ago). She notes that the discomfort seems to be coming from the external ear and is exacerbated by touching the ear. She denies fever, chills, and otorrhea. Patient denies recent trauma to the EAC or periods of swimming. ROS Const Constitutional: No chills or fever(s) ENT ENT: Positive for ear or mastoid pain; No ear discharge, ear pressure, hearing loss, nasal congestion, sinus pressure, sinus pain or nasal discharge Resp Respiratory: No wheezing Aller/Imm Allergy/Immunologic: No seasonal allergy symptoms or wheezing Exam Const General: cooperative and no acute distress HENMT Ears: hearing grossly normal bilaterally, TM's normal bilaterally and EAC abnormal EAC tenderness on the left and other (white/lovell debris in the left EAC); no erythema, no edema and no otic discharge Neck Lymphatic: no lymphadenopathy noted Coding Level of Care Code Established Pt Off vis,est,level 3 Patient Type Established History Problem Focused Exam Problem Focused Medical Decision Making Low Complexity Diagnoses Acute otitis externa of left ear, unspecified type H60.502 Otitis externa type: unspecified type Chronicit (more content not included)... Normal [facility] Urgent Care Visit Reporton 0 05-27-2024 Urgent Care Visit Report [facility] [address], [address] [place] [address] OFFICE VISIT Date of Service: 05/27/24 MR#: [id number] Acct: [id number] Name: MARLEN SMITH Rep #: [id number] : 1945 Provider: BABAR García Age/Sex: 78/F Location: [facility] Status: Signed Intake Vital Signs 11/04/23 07:51 05/27/24 15:03 Height 5 ft 4 in Weight: 213 lb BMI 36.6 BP 145/74 H 154/68 H Blood Pressure Location Lt brachial Lt brachial Position Sitting Sitting Respiration 16 17 Pulse 83 68 Pulse Source Monitor NIBP Temp 97.8 F 99.2 F H Temp Source Oral Pulse Oximetry (%) 95 98 Oxygen Delivery Method room air room air Intake Visit Reasons: Cough Chief Complaint: cough, fatigue Carbon Setter Required: No Is patient in pain?: No Allergies No Known Allergies Allergy (Verified 05/27/24 15:04) Is last menstrual period known: No Post menopausal: Yes Patient : No Have you fallen in the past year?: No Nurse's Note: cough, fatigue since last noc. white sputum. hx copd, notified pulmonary MD but nurses would not discuss with provider until pt had covid testing. denies ZAPIEN, BA, fever PFSH Medical History (Updated 05/27/24 @ 16:50 by Spike ECKERT, PA) Cutaneous candidiasis Acute otitis externa of both ears Acute bronchitis, unspecified Close sexual exposure to mpox virus [place] (hard of hearing) Lung nodule COPD (chronic obstructive pulmonary disease) Shingles GERD (gastroesophageal reflux disease) Pneumonia Bronchitis HTN (hypertension) COPD (chronic obstructive pulmonary disease) Seasonal allergic rhinitis Lung nodule Surgical History S/P skin biopsy Hx of cataract surgery H/O colonoscopy Hx of cholecystectomy H/O: hysterectomy Family History Mother Dementia Father Heart disease CVA (cerebral vascular accident) Hypertension Skin cancer Dementia Brain aneurysm Brother Skin cancer Hypertension Sister Skin cancer Hypertension Social History Smoking Status: Never smoker alcohol intake: never substance use type: does not use HPI HPI Chief Complaint: cough, fatigue Details: MARLEN SMITH, is a 78 F who presents to the office today for complaint of cough and fatigue starting this morning. Patient denies hemoptysis, difficulty breathing or chest pain. No nausea, vomiting or diarrhea. No loss of taste or smell. No other associated symptoms or alleviating/aggravating factors. ROS Const Constitutional: No other (as above) Exam Const General: cooperative and well developed HENMT Head: normal to inspection and atraumatic Ears: hearing grossly normal bilaterally Nose: nasal discharge clear Face and sinus: normal facial exam Mouth: oral mucosae normal Throat: abnormal tonsil bilaterally hypertrophy 1+ Resp Effort Inspection: normal respiratory effort and no audible wheezes Auscultation: Bilateral: Clear to Auscultation Cardio Palpation: normal PMI Rate: regular rate Rhythm: regular rhythm Neuro General: patient alert and CN's II-XI intact bilaterally Psych Appearance: grossly normal Mental Status: mental status grossly normal Results POC FLU A B Office Flu A B Negative FLU A B Last Edit by Rashmi Sebastian on 05/27/24 15:22 POC SARS AG POC SARS AG Negative Last Edit by Rashmi Sebastian on 05/27/24 15:22 Coding Level of Care Code Off vis,new,level 3 Diagnoses Acute bronchitis J20.9 Assessment and Plan Assessment and Plan (1) Acute bronchitis: Status: Acute Plan: Medrol Dosepak as prescribed today. Encouraged to get plenty of rest, drink lots of clear liquids, and use Tylenol or Ibuprofen (unless contraindicated) for fever and comfort. Patient also educated on other symptomatic management techniques. To be seen in 7-10 days if no improvement; sooner if worsening of symptoms. Patient advised of potential red flags and when appropriate to report to the ED. Patient verbalized understanding and agreement with all the above. Orders: Orders POC FLU A B Today R05.9 - Cough, unspecified POC Rapid SARS Antigen Today Medications: New methylprednisolone (Medrol (Yvon)) 4 mg PO PER PKG DIR 21 tabs 0RF 6 days Clinical Quality Measures Falls Risk Screening/Assistive Devices Have you fallen in the past year?: No 05/27/24 4141 Date Spike Gomez Signature: Date (if applicable) CC: Normal [facility] 01-06-2024 [facility] Telephone (FAMPLA) MARLEN SMITH ([id number]) 1945 F Date Time Provider Department 01/06/24 ERNA HALL During your visit today, we recorded the following information about you: Xochitl Cheema LPN 01/06/2024 4:50 PM Signed ----- Message from Erna Hall MD sent at 01/06/2024 1:18 PM EDT ----- Ultrasound of breast is benign. Recheck in 6 months for stability. Xochitl Cheema LPN 01/06/2024 4:51 PM Signed Message left for patient to phone office at earliest convenience in regards to results. Xochitl Cheema LPN January 06, 2024 4:51 PM Xochitl Cheema LPN 01/07/2024 5:26 PM Signed Patient notified of information, verbalized understanding. No questions, comments, or concerns at this time. Xochitl Cheema LPN January 07, 2024 5:26 PM Mary Chin 06/03/2024 9:42 AM Signed Pt is scheduled for left breast ultrasound but she does not have orders placed. Please place orders Thank you Erna Hall MD 06/03/2024 10:34 AM Signed Addended by: ERNA HALL on: 06/03/2024 10:34 AM Modules accepted: Orders Allergies As of Date: 01/06/2024 Noted Allergy Reaction DUST 07/04/2017 16 - Unknown TREES 07/04/2017 16 - Unknown Date Reviewed: 10/13/2023 Reviewed by: Xochitl Cheema LPN - Fully Assessed Reason for Visit: Results [95] Primary Visit Diagnosis:Abnormal mammogram [R92.8] Order(s):[facility] LEFT [[id number]] Order #: [id number] FUTURE Prescriptions as of 06/03/2024 - methylPREDNISolone (MEDROL DOSE-PACK) 4 mg Dose-Pack take by mouth as directed on inside of package - ichumdyy-giaaecrgj-pqur ocortisone (CORTISPORIN) 3.5-10,000-1 mg/mL-unit/mL-% otic suspension - hydroCHLOROthiazide [...] once daily. 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 US BREAST LTD LTon 01-05 [facility] * * *Final Report* * * DATE OF EXAM: Jan 06 2024 9:24AM WRU 0593 - [facility] / PROCEDURE REASON: Abnormal mammogram * * * * Physician Interpretation * * * * #[id number] - [facility] LIMITED ULTRASOUND OF LEFT BREAST: 01/06/2024 HISTORY: Abnormal Mammogram. RESULT: Comparison is made to exams dated: 07/02/2023 mammogram, 07/02/2023 ultrasound, 05/28/2023 mammogram, and 05/24/2022 mammogram - [facility]. Color flow and real-time ultrasound of the left breast 4 o'clock region were performed. Horne scale images of the real-time examination were reviewed. There is a 0.4 cm x 0.4 cm x 0.3 cm oval nodule in the left breast at 4 o'clock posterior depth 6 cm from the nipple. This oval nodule is anechoic with internal echoes and posterior acoustic enhancement. This abnormality is decreased in size. Color flow imaging demonstrates that there is no vascularity present. Previously, this measured 0.5 x 0.4 x 0.4cm. IMPRESSION: PROBABLY BENIGN The 0.4 cm x 0.4 cm x 0.3 cm oval nodule in the left breast most likely is a complicated cyst and is probably benign. A follow-up mammogram and an ultrasound in 6 months is recommended to demonstrate stability. SUMMARY: Patient will be due for her annual bilateral mammogram at that time. Will alvarez/chapin:01/06/2024 09:32:44 Rollout Manager(s): Akila Hahn [facility] Ultrasound BI-RADS: Category 3: Probably Benign Multiple national specialty organizations have released breast cancer screening guidelines for women at average risk for developing breast cancer - guidelines that are based on both evidence and opinion, yet differ on when to start and how often to screen for breast cancer. With representation from Breast Imaging, Internal Medicine, Women's Health, Family Medicine, and Medical/Surgical Oncology, the [facility] has carefully reviewed the data and reached the following consensus: 1) All women should engage in shared decision-making with their providers to decide when to start and how often to screen; 2) All women should have the opportunity to start screening mammography at age 40; 3) For women ages 45-55, we recommend annual screening mammograms; 4) For women ages 55 and over, we support both the transition from an annual to a biennial interval if this aligns more with patient's values and preferences, or continuation with annual screening; 5) All women should discuss with their providers when to stop screening mammograms. Instrument Engineer: Chapin Transcribe Date/Time: Jan 06 2024 9:24A Dictated by : WILL ANTOINE MD This examination was interpreted and the report reviewed and electronically signed by: WILL ANTOINE MD on Jan 06 2024 9:32AM EST [id number] Normal [facility] US Breast - left limitedon 0 01-06-2024 IMPRESSION: PROBABLY BENIGN The 0.4 cm x 0.4 cm x 0.3 cm oval nodule in the left breast most likely is a complicated cyst and is probably benign. A follow-up mammogram and an ultrasound in 6 months is recommended to demonstrate stability. SUMMARY: Patient will be due for her annual bilateral mammogram at that time. Will alvarez/chapin:01/06/2024 09:32:44 Rollout Manager(s): Akila Hahn [facility] Ultrasound BI-RADS: Category 3: Probably Benign Multiple national specialty organizations have released breast cancer screening guidelines for women at average risk for developing breast cancer - guidelines that are based on both evidence and opinion, yet differ on when to start and how often to screen for breast cancer. With representation from Breast Imaging, Internal Medicine, Women's Health, Family Medicine, and Medical/Surgical Oncology, the [facility] has carefully reviewed the data and reached the following consensus: 1) All women should engage in shared decision-making with their providers to decide when to start and how often to screen; 2) All women should have the opportunity to start screening mammography at age 40; 3) For women ages 45-55, we recommend annual screening mammograms; 4) For women ages 55 and over, we support both the transition from an annual to a biennial interval if this aligns more with patient's values and preferences, or continuation with annual screening; 5) All women should discuss with their providers when to stop screening mammograms. Instrument Engineer: Chapin Transcribe Date/Time: Jan 06 2024 9:24A Dictated by : WILL ANTOINE MD This examination was interpreted and the report reviewed and electronically signed by: WILL ANTOINE MD on Jan 06 2024 9:32AM [facility] DIVISION OF RADIOLOGY * * *Final Report* * * DATE OF EXAM: Jan 06 2024 9:24AM WRU 0593 - [facility] BREAST [facility] / PROCEDURE REASON: Abnormal mammogram * * * * Physician Interpretation * * * * #[id number] - [facility] BREAST LTD LT LIMITED ULTRASOUND OF LEFT BREAST: 01/06/2024 HISTORY: Abnormal Mammogram. RESULT: Comparison is made to exams dated: 07/02/2023 mammogram, 07/02/2023 ultrasound, 05/28/2023 mammogram, and 05/24/2022 mammogram - [facility]. Color flow and real-time ultrasound of the left breast 4 o'clock region were performed. Horne scale images of the real-time examination were reviewed. There is a 0.4 cm x 0.4 cm x 0.3 cm oval nodule in the left breast at 4 o'clock posterior depth 6 cm from the nipple. This oval nodule is anechoic with internal echoes and posterior acoustic enhancement. This abnormality is decreased in size. Color flow imaging demonstrates that there is no vascularity present. Previously, this measured 0.5 x 0.4 x 0.4cm. DIVISION OF RADIOLOGY Provider, [facility] - 01/06/2024 * * *Final Report* * * DATE OF EXAM: Jan 06 2024 9:24AM U [id number] - [facility] BREAST [facility] LT / PROCEDURE REASON: Abnormal mammogram * * * * Physician Interpretation * * * * #[id number] - [facility] BREAST LTD LT LIMITED ULTRASOUND OF LEFT BREAST: 01/06/2024 HISTORY: Abnormal Mammogram. RESULT: Comparison is made to exams dated: 07/02/2023 mammogram, 07/02/2023 ultrasound, 05/28/2023 mammogram, and 05/24/2022 mammogram - [facility]. Color flow and real-time ultrasound of the left breast 4 o'clock region were performed. Horne scale images of the real-time examination were reviewed. There is a 0.4 cm x 0.4 cm x 0.3 cm oval nodule in the left breast at 4 o'clock posterior depth 6 cm from the nipple. This oval nodule is anechoic with internal echoes and posterior acoustic enhancement. This abnormality is decreased in size. Color flow imaging demonstrates that there is no vascularity present. Previously, this measured 0.5 x 0.4 x 0.4cm. IMPRESSION IMPRESSION: PROBABLY BENIGN The 0.4 cm x 0.4 cm x 0.3 cm oval nodule in the left breast most likely is a complicated cyst and is probably benign. A follow-up mammogram and an ultrasound in 6 months is recommended to demonstrate stability. SUMMARY: Patient will be due for her annual bilateral mammogram at that time. Will alvarez/chapin:01/06/2024 09:32:44 Rollout Manager(s): Akila Hahn [facility] Ultrasound BI-RADS: Category 3: Probably Benign Multiple national specialty organizations have released breast cancer screening guidelines for women at average risk for developing breast cancer - guidelines that are based on both evidence and opinion, yet differ on when to start and how often to screen for breast cancer. With representation from Breast Imaging, Internal Medicine, Women's Health, Family Medicine, and Medical/Surgical Oncology, the [facility] has carefully reviewed the data and reached the following consensus: 1) All women should engage in shared decision-making with their providers to decide when to start and how often to screen; 2) All women should have the opportunity to start screening mammography at age 40; 3) For women ages 45-55, we recommend annual screening mammograms; 4) For women ages 55 and over, we support both the transition from an annual to a biennial interval if this aligns more with patient's values and preferences, or continuation with annual screening; 5) All women should discuss with their providers when to stop screening mammograms. Instrument Engineer: Chapin Transcribe Date/Time: Jan 06 2024 9:24A Dictated by : WILL ANTOINE MD This examination was interpreted and the report reviewed and electronically signed by: WILL ANTOINE MD on Jan 06 2024 9:32AM EST [facility] Radiology Study observation (narrative) [facility] US Breast - left limitedOrde red By: [facility] Provider on 01-06-2024 [facility] CNOVon 10-13-2023 CNOV Office Visit (FAMMAS ) MARLEN SMITH ([id number]) 1945 F Date Time Provider Department 10/13/23 10:30 AM ERNA HALL During your visit today, we recorded the following information about you: Temperature Pulse Respiration Blood pressure 97.3 degrees 88/minute 18/minute 138/88 Weight Height 95.7 kg 1.626 m Xochitl Cheema LPN 10/13/2023 11:17 AM Signed Patient is in office for 6 month exam. Patient has no current complaints or concerns. Xochitl Cheema LPN October 13, 2023 10:27 AM Erna Hall MD 10/19/2023 2:31 PM Addendum Subjective Marlen Jori Sarah is a 77 year old female.The patient presents today for follow-up for multiple medical problems. See list. Her chronic medical problems have been stable. Her blood pressure is under good control. She has no new complaints today. She is feeling well. Review of Systems Constitutional: Negative. HENT: Negative. Eyes: Negative. Respiratory: Negative. Cardiovascular: Negative. Gastrointestinal: Negative. Endocrine: Negative. Genitourinary: Negative. Musculoskeletal: Negative. Skin: Negative. Allergic/Immunologic: Negative. Neurological: Negative. Hematological: Negative. Psychiatric/Behavioral: Negative. PAST SURGICAL HISTORY Procedure Laterality Date ESOPHAGOGASTRODUODENOSC OPY TRANSORAL DIAGNOSTIC 05/2001 EGD LAP UMBILICAL HERNIA [...] Never Smokeless tobacco: Never Vaping Use Vaping Use: Never used Substance Use Topics Alcohol use: No Drug use: Not Currently ALLERGIES Allergen Reactions Dust Unknown Trees Unknown MEDICATIONS: STIOLTO RESPIMAT 2.5-2.5 mcg/actuation Inhale 2 Puffs as instructed once daily. cetirizine HCl (CETIRIZINE ORAL) Take 10 mg by mouth once daily. ipratropium-albuterol (DUONEB) 0.5 mg-3 mg(2.5 mg base)/3 mL nebu USE 1 AMPULE IN NEBULIZER EVERY 4 HOURS NEEDED FOR WHEEZING OR SHORTNESS OF BREATH latanoprost (XALATAN) 0.005 % ophthalmic solution INSTILL 1 DROP INTO EACH EYE NIGHTLY Omeprazole Magnesium 20 mg tablet Take 20 mg by mouth once daily. Cholecalciferol, Vitamin D3, 50 mcg (2,000 unit) cap Take 1 capsule by mouth once daily. vitamin b complex capsule Take 1 capsule by mouth once daily. hydroCHLOROthiazide 25 mg tablet Take 1 tablet by mouth once daily. Allergies, past surgical history, family history and past medical history were reviewed per this encounter. Medications were reviewed and verified. Objective BP 138/88 (BP Site: Right Arm, BP Position: Sitting, BP Cuff Size: Regular Adult) Pulse 88 Temp 36.3 ?C (97.3 ?F) (Temporal) Resp 18 Ht 162.6 cm (5' 4) Wt 95.7 kg (211 lb) SpO2 97% BMI 36.22 kg/m? Physical Exam Vitals reviewed. Constitutional: Appearance: Normal appearance. HENT: Head: Normocephalic and atraumatic. Nose: Nose [...] and Affect: Mood normal. Behavior: Behavior normal. Assessment and Plan Encounter Diagnosis ICD-10-CM 1. Unspecified essential hypertension I10 2. Pulmonary emphysema, unspecified emphysema type (HCC) J43.9 unchanged 3. Pure hypercholesterolemia E78.00 4. Gastroesophageal reflux disease with esophagitis without hemorrhage K21.00 Continue present medications. Check labs as above. Monitor blood pressure regularly. Exercise as tolerated. Maintain good diet. Follow-up in 6 months. Erna Hall MD Allergies As of Date: 10/13/2023 Noted Allergy Reaction DUST 07/04/2017 16 - Unknown TREES 07/04/2017 16 - Unknown Date Reviewed: 10/13/2023 Reviewed by: Xochitl Cheema LPN (more content not included)... [facility] Becky 10-13-2023 YOSHI Telephone ([employer]) MARLEN SMITH ([id number]) 1945 F Date Time Provider Department 10/13/23 ERNA HALL During your visit today, we recorded the following information about you: Xochitl Cheema LPN 10/13/2023 12:34 PM Signed Mammogram and ultrasound orders have been faxed to [facility] as requested Fax confirmation received Xochitl Cheema LPN October 13, 2023 12:34 PM Allergies As of Date: 10/13/2023 Noted Allergy Reaction DUST 07/04/2017 16 - Unknown TREES 07/04/2017 16 - Unknown Date Reviewed: 10/13/2023 Reviewed by: Xochitl Cheema LPN - Fully Assessed Reason for Visit: Orders [681] Prescriptions as of 10/13/2023 - STIOLTO RESPIMAT 2.5-2.5 mcg/actuation Inhale 2 Puffs as instructed once daily. - cetirizine HCl (CETIRIZINE ORAL) Take 10 mg by mouth once daily. - hydroCHLOROthiazide 25 mg tablet Take 1 tablet by mouth once daily. - ipratropium-albuterol (DUONEB) 0.5 mg-3 mg(2.5 mg base)/3 mL nebu USE 1 AMPULE IN NEBULIZER EVERY 4 HOURS NEEDED FOR WHEEZING OR SHORTNESS OF BREATH - latanoprost (XALATAN) 0.005 % ophthalmic solution INSTILL 1 DROP INTO EACH EYE NIGHTLY - Omeprazole Magnesium 20 mg tablet Take 20 mg by mouth once daily. - Cholecalciferol, Vitamin D3, 50 mcg (2,000 unit) cap Take 1 capsule by mouth once daily. - vitamin b complex capsule Take 1 capsule by mouth once daily. 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] 04/02/2005 OSTEOPENIA [M89.9, M94.9] 04/02/2005 GASTRITIS/DUODENITIS NOS [535.5] 04/02/2005 HYPERTENSION NOS [I10] 04/03/2005 HYPERLIPIDEMIA NEC/NOS [E78.5] 10/09/2005 OVERWEIGHT [E66.9] 10/09/2005 Other specified abnormal findings of blood chem*10/09/2005 HEARING LOSS NOS [H91.90] 11/14/2008 ALLERGY, UNSPECIFIED [T78.40XA] 11/14/2008 OTHER HAMMER TOE [M20.40] 11/14/2008 DEVIATED NASAL SEPTUM [J34.2] 11/14/2008 Cholelithiasis [K80.20] 02/06/2010 Hydronephrosis, bilateral [N13.30] 02/06/2010 Chronic obstructive pulmonary disease (HCC) [J4*11/19/2016 Seasonal allergic rhinitis [J30.2] 11/19/2016 Encounter Status:Closed by XOCHITL CHEEMA on 10/13/23 [facility] No Panel Informationon 07-06 Influenza Types A,B Rapid (Clinic) Negative [facility] POC SARS CoV-2 Antigen Negative [facility] CNPNon 07-03-2023 CNPN Telephone (FAMPLA) MARLEN SMITH ([id number]) 1945 F Date Time Provider Department 07/03/23 ERNA HALL During your visit today, we recorded the following information about you: Xochitl Cheema LPN 07/03/2023 8:56 AM Signed ----- Message from Erna Hall MD sent at 07/03/2023 8:49 AM EST ----- Rechecck in 6m. Probably benign Xochitl Cheema LPN 07/03/2023 8:56 AM Signed Message left for patient to phone office at earliest convenience in regards to results. Xochitl Cheema LPN July 03, 2023 8:56 AM Xochitl Cheema LPN 07/04/2023 1:11 PM Signed Patient notified of information. Patient states she would like orders generated due to the hospital telling her to call sooner then later to schedule. Attached are orders. This nurse was unable to put in Jules Olgag Abran Sandoval left in [facility]. Xochitl Cheema LPN July 04, 2023 1:10 PM Allergies As of Date: 07/03/2023 Noted Allergy Reaction DUST 07/04/2017 16 - Unknown TREES 07/04/2017 16 - Unknown Date Reviewed: 04/09/2023 Reviewed by: Xochitl Cheema LPN - Fully Assessed Reason for Visit: Results [95] Primary Visit Diagnosis:Abnormal mammogram [R92.8] Order(s):US BREAST LTD LEFT [[id number]] Order #: [id number] FUTURE JULES DIAGNOSTIC LEFT [[id number]] Order #: [id number] FUTURE Prescriptions as of 07/05/2023 - hydroCHLOROthiazide 25 mg tablet Take 1 tablet by mouth once daily. - ipratropium-albuterol (DUONEB) 0.5 mg-3 mg(2.5 mg base)/3 mL nebu USE 1 AMPULE IN NEBULIZER EVERY 4 HOURS NEEDED FOR WHEEZING OR SHORTNESS OF BREATH - latanoprost (XALATAN) 0.005 % ophthalmic solution INSTILL 1 DROP INTO EACH EYE NIGHTLY - Omeprazole Magnesium 20 mg tablet Take 20 mg by mouth once daily. - Cholecalciferol, Vitamin D3, 50 mcg (2,000 unit) cap Take 1 capsule by mouth once daily. - vitamin b complex capsule Take 1 capsule by mouth once daily. Problem List As Of Date 07/03/2023 Noted Resolved ASTHMA UNSPECIFIED [J45.909] 04/02/2005 ESOPHAGEAL REFLUX [K21.9] 04/02/2005 DISC DEGENERATION NOS [EKS9630] 04/02/2005 OSTEOPENIA [M89.9, M94.9] 04/02/2005 GASTRITIS/DUODENITIS NOS [535.5] 04/02/2005 HYPERTENSION NOS [I10] 04/03/2005 HYPERLIPIDEMIA NEC/NOS [E78.5] 10/09/2005 OVERWEIGHT [E66.9] 10/09/2005 Other specified abnormal findings of blood chem*10/09/2005 HEARING LOSS NOS [H91.90] 11/14/2008 ALLERGY, UNSPECIFIED [T78.40XA] 11/14/2008 OTHER HAMMER TOE [M20.40] 11/14/2008 DEVIATED NASAL SEPTUM [J34.2] 11/14/2008 Cholelithiasis [K80.20] 02/06/2010 Hydronephrosis, bilateral [N13.30] 02/06/2010 Chronic obstructive pulmonary disease (HCC) [J4*11/19/2016 Seasonal allergic rhinitis [J30.2] 11/19/2016 Encounter Status:Closed by ERNA HALL on 07/05/23 [facility] DBT Breast - left diagnostic for implanton 07-02-2023 [facility] US Breast - left limitedon 0 07-02-2023 [facility] CNPNon 06-09-2023 CNPN Telephone (FAMMAS) MARLEN SMITH ([id number]) 1945 F Date Time Provider Department 06/09/23 ERNA HALL During your visit today, we recorded the following information about you: Daniela Ray LPN 06/09/2023 1:13 PM Signed Marlen Smith called today. : 1945 Allergies: Dust and Trees (home) [phone] (work) [phone] (cell) Reason for call: Patient called asking for mammogram orders. She had a screening mammogram done 05/27/2023. It was abnormal showing left breast asymmetry. It looks like she needs orders for a left diagnostic mammogram and a left breast ultrasound. Patient last appointment: 04/09/2023 The patients preferred pharmacy has been captured for this encounter? no KALPESH Hogan Tawnya A, LPN 06/10/2023 2:03 PM Signed I called patient to confirm with her that she still has not received a call from the breast center to schedule additional breast views from her recent abnormal mammogram. Marlen said she called #[phone] and had to leave a message. No one has called her back yet. I called the same phone number above and spoke with a [facility] staff member. She told me that since patient had her mammogram done in [place] at the [facility] that additional view orders are needed. Please review and then sign orders below. Once the orders are in, I can schedule the appointment for patient. Marlen said that she would like a morning appointment. Thank you! Daniela Ray LPN June 10, 2023 2:03 PM Daniela Ray LPN 06/11/2023 1:53 PM Signed Thank you for signing the orders Dr Hall! Marlen is scheduled for additional left breast diagnositc mammogram and ultrasound on 07/02/2023 @ 9:00 am at the [facility] [address] [facility]. I spoke with patient and gave her this information. She is okay with the appointment date and time. Daniela Ray LPN June 11, 2023 1:52 PM Allergies As of Date: 06/09/2023 Noted Allergy Reaction DUST 07/04/2017 16 - Unknown TREES 07/04/2017 16 - Unknown Date Reviewed: 04/09/2023 Reviewed by: Xochitl Cheema LPN - Fully Assessed Reason for Visit: Orders [681] Primary Visit Diagnosis:Abnormal mammogram [R92.8] Order(s):[facility] DIAGNOSTIC LEFT [[id number]] Order #: [id number] FUTURE BREAST LTD LEFT [[id number]] Order #: [id number] FUTURE Prescriptions as of 06/12/2023 - hydroCHLOROthiazide 25 mg tablet Take 1 tablet by mouth once daily. - ipratropium-albuterol (DUONEB) 0.5 mg-3 mg(2.5 mg base)/3 mL nebu USE 1 AMPULE IN NEBULIZER EVERY 4 HOURS NEEDED FOR WHEEZING OR SHORTNESS OF BREATH - latanoprost (XALATAN) 0.005 % ophthalmic solution INSTILL 1 DROP INTO EACH EYE NIGHTLY - Omeprazole Magnesium 20 mg tablet Take 20 mg by mouth once daily. - Cholecalciferol, Vitamin D3, 50 mcg (2,000 unit) cap Take 1 capsule by mouth once daily. - vitamin b complex capsule Take 1 capsule by mouth once daily. Problem List As Of Date 06/09/2023 Noted Resolved ASTHMA UNSPECIFIED [J45.909] 04/02/2005 ESOPHAGEAL REFLUX [K21.9] 04/02/2005 DISC DEGENERATION NOS [HTG7528] 04/02/2005 OSTEOPENIA [M89.9, M94.9] 04/02/2005 GASTRITIS/DUODENITIS NOS [535.5] 04/02/2005 HYPERTENSION NOS [I10] 04/03/2005 HYPERLIPIDEMIA NEC/NOS [E78.5] 10/09/2005 OVERWEIGHT [E66.9] 10/09/2005 Other specified abnormal findings of blood chem*10/09/2005 HEARING LOSS NOS [H91.90] 11/14/2008 ALLERGY, UNSPECIFIED [T78.40XA] 11/14/2008 OTHER HAMMER TOE [M20.40] 11/14/2008 DEVIATED NASAL SEPTUM [J34.2] 11/14/2008 Cholelithiasis [K80.20] 02/06/2010 Hydronephrosis, bilateral [N13.30] 02/06/2010 Chronic obstructive pulmonary disease (HCC) [J4*11/19/2016 Seasonal allergic rhinitis [J30.2] 11/19/2016 Encounter Status:Closed by ERNA HALL on 06/10/23 [facility] COVID-19 virus antigen assay Ordered By: Libra Ozuna on 07-22-2022 SARS-CoV-2 (COVID-19) Ag IA.rapid Ql (Resp) Detected Not Detect [facility] Comment on above: Previous reported re sult: Not Detected Edited by: ZULAY on 07/22/22:1810 AMENDED REPORT 07/22/22 1810 COVID-19,MAREK previously reported as: Not Detected Normal Reference Range: Not DetectedMethod:(RT-PCR) real-time reverse transcriptase PCRLuminex SEVERINO Instrument*The Food and Drug Administration (FDA) has issued an Emergency Use Authorization (EAU) for the SEVERINO SARS-CoV-2 Assay for the rapid detection of the virus that causes COVID-19. This test has been validated, but the FDAs independent review of this validation is pending.*Negative results do not preclude infection and should not be used as the sole basis for treatment or patient management. Optimum specimen types and timing for peak viral levels during infections caused by SARS-CoV-2 have not been determined. Collection of multiple specimens from the same patient may be necessary to detect the virus. The possibility of a false negative result should be considered if the patient has clinical presentation or has had recent exposure. JULES SCREENINGon 05-24-2022 [facility] Absolute lymphocyte countOrd ered By: Dr. Hall on 04-12-2022 Lymphocytes Auto (Unsp spec) [#/Vol] 1.36 10*3/uL 0.83-4.51 [facility] Basophil percentageOrdered B y: Dr. Hall on 04-12-2022 Basophils/100 WBC (Bld) 0.6 % 0-1 [facility] Bilirubin [Mass/Vol] 0.40 mg/dL 0.20-1.00 [facility] Comment on above: For patients on eltr ombopag therapy, use of Dimension [place] TBIL is not recommended. Chloride [Moles/Vol] 107 mmol/L 98-107 [facility] Cholesterol [Mass/Vol] 222 mg/dL <200 [facility] Comment on above: <200 mg/dL Desirable 200-240 mg/dL Borderline >240 mg/dL High Risk Eosinophils/100 WBC (Bld) 4.3 % 0-5 [facility] Glucose [Mass/Vol] 107 mg/dL 74-106 [facility] Comment on above: Fasting Glucose resu lt from 100 to 125 mg/dL suggests IMPAIRED HOMEOSTASIS per A.D.A. criteria. Neutrophils (Bld) [#/Vol] 2.7 10*3/uL 2.0-7.7 [facility] Neutrophils/100 WBC (Bld) 55.7 % 47-70 [facility] Potassium [Moles/Vol] 3.8 mmol/L 3.5-5.1 [facility] Protein [Mass/Vol] 6.7 g/dL 6.4-8.2 [facility] Sodium [Moles/Vol] 141 mmol/L 136-145 [facility] Triglyceride [Mass/Vol] 91 mg/dL <199 [facility] Comment on above: The drugs N-Acetylcy steine and Metamizole may falsely depress this assay.Serum Triglycerides Reference Interval Normal <150 mg/dL Borderline high 150 - 199 mg/dL High 200 - 499 mg/dL Very High > or = 500 mg/dL WBC (Bld) [#/Vol] 4.8 10*3/uL 4.4-11.0 [facility] Blood erythrocytes count (nu mber/volume)Ordered By: Dr. Hall on 04-12-2022 RBC (Bld) [#/Vol] 3.94 10*6/uL 4.2-5.4 [facility] Blood hemoglobin measurement (mass/volume)Ordered By: Dr. Hall on 04-12-2022 Hemoglobin (Bld) [Mass/Vol] 11.9 g/dL 12.0-15.0 [facility] Blood lymphocytes/100 leukoc ytesOrdered By: Dr. Hall on 04-12-2022 Lymphocytes/100 WBC (Bld) 28.1 % 19-41 [facility] Blood monocytes/100 leukocyt esOrdered By: Dr. Hall on 04-12-2022 Monocytes/100 WBC (Bld) 10.5 % 0-10 [facility] Blood platelet mean volumeOr dered By: Dr. Hall on 04-12-2022 Platelet mean volume (Bld) [Entitic vol] 10.9 fL 6.2-12.0 [facility] Determination of erythrocyte mean corpuscular volume (MCV)Ordered By: Dr. Hall on 04-12-2022 MCV (RBC) [Entitic vol] 94.2 fL 81-99 [facility] Hematocrit Auto (Bld) [Volum e fraction]Ordered By: Dr. Hall on 04-12-2022 Hematocrit (Bld) [Volume fraction] 37.1 % 37-47 [facility] Laboratory - Chemistry and C hemistry - challengeOrdered By: Dr. Hall on 04-12-2022 ALP [Catalytic activity/Vol] 62 U/L 45-117 [facility] ALT [Catalytic activity/Vol] 22 U/L 13-56 [facility] CO2 [Moles/Vol] 28.0 mmol/L 21.0-32.0 [facility] Globulin (S) [Mass/Vol] 2.8 g/dL 2.2-4.2 [facility] Urea nitrogen/Creatinine [Mass ratio] 20.6 mg/mg 10-20 [facility] Laboratory - Hematology and Cell countsOrdered By: Dr. Hall on 04-12-2022 Erythrocyte distribution width (RBC) [Entitic vol] 45.0 fL 35.1-43.9 [facility] Erythrocyte distribution width (RBC) [Ratio] 13.1 % 11.6-14.6 [facility] Immature granulocytes/100 WBC (Bld) 0.800 % 0.0-0.9 [facility] Comment on above: IG% - Immature Granu locytes (promyelocytes, myelocytes and metamyelocytes) > 1% indicates that a LEFT SHIFT is Present. MCH (RBC) [Entitic mass] 30.2 pg 27.0-32.0 [facility] Nucleated RBC/100 WBC (Bld) [Ratio] 0.4 % 0-5 [facility] MCHC Auto (RBC) [Mass/Vol]Or dered By: Dr. Hall on 04-12-2022 MCHC (RBC) [Mass/Vol] 32.1 g/dL 32-36 [facility] No Panel InformationOrdered By: Dr. Hall on 04-12-2022 Estimated GFR (MDRD) Amer 64 mL/min >60 [facility] Comment on above: GFR Calc Estimated GFR (MDRD) Non-Af Amer 53 mL/min >60 [facility] Comment on above: Non- GFR Calc Platelets bldOrdered By: Dr. Hall on 04-12-2022 Platelets (Bld) [#/Vol] 221 10*3/uL 150-450 [facility] Serum or plasma albumin anette urement (mass/volume)Ordered By: Dr. Hall on 04-12-2022 Albumin [Mass/Vol] 3.9 g/dL 3.2-5.0 [facility] Serum or plasma albumin/glob ulin mass ratioOrdered By: Dr. Hall on 04-12-2022 Albumin/Globulin [Mass ratio] 1.4 {ratio} 0.9-2.4 [facility] Serum or plasma calcium anette urement (mass/volume)Ordered By: Dr. Hall on 04-12-2022 Calcium [Mass/Vol] 9.6 mg/dL 8.5-10.1 [facility] Serum or plasma cholesterol in HDL measurement (mass/volume)Ordered By: Dr. Hall on 04-12-2022 Cholesterol in HDL [Mass/Vol] 76 mg/dL >40 [facility] Comment on above: The drugs N-Acetylcy steine and Metamizole may falsely depress this assay. Reference Range HDL <40 mg/dL Low HDL Cholesterol HDL >or= 60 mg/dL High HDL Cholesterol Serum or plasma cholesterol in VLDL measurement (mass/volume)Ordered By: Dr. Hall on 04-12-2022 Cholesterol in VLDL [Mass/Vol] 18 mg/dL 5-40 [facility] Serum or plasma creatinine m easurement (mass/volume)Ordered By: Dr. Hall on 04-12-2022 Creatinine [Mass/Vol] 1.07 mg/dL 0.55-1.02 [facility] Comment on above: The validity of the calculated GFR & GFRAA in patients over 70 years has not been determined. Clinical correlation is essential. Serum or plasma low density lipoprotein (LDL) cholesterol measurement (mass/volume)Ordered By: Dr. Hall on 04-12-2022 Cholesterol in LDL [Mass/Vol] 128 mg/dL 0-130 [facility] Serum or plasma urea nitroge n measurement (mass/volume)Ordered By: Dr. Hall on 04-12-2022 Urea nitrogen [Mass/Vol] 22 mg/dL 7-18 [facility] Thin prep Papanicolaou smear with manual screeningOrdered By: Dr. Hall on 04-12-2022 Thin prep Papanicolaou smear with manual screening 19 U/L 15-37 [facility] Thin prep Papanicolaou smear with manual screening 6 5-15 [facility] CBC W/DIFFon 10-06-2018 BASO ABS 0.00 K/CU MM Normal 0-0.2 [facility] Comment on above: Performed By: #### L [id number] #### [facility] [address] [place] [address] Basophils/100 WBC (Bld) 0.5 % Normal 0-2 [facility] Comment on above: Performed By: #### L 200.79012 #### [facility] [address] [place] [address] EOS ABS 0.10 K/CU MM Normal 0-0.5 [facility] Comment on above: Performed By: #### L 200.55908 #### [facility] [address] [place] [address] Eosinophils/100 WBC (Bld) 1.8 % Normal 0-5 [facility] Comment on above: Performed By: #### L 200.89686 #### [facility] [address] [place] [address] Erythrocyte distribution width Ratio (RBC) 12.9 % Normal 11-14.5 [facility] Comment on above: Performed By: #### L 200.79604 #### [facility] [address] [place] [address] Hematocrit Volume Fraction (Bld) 40.5 % Normal 35.0-47.0 [facility] Comment on above: Performed By: #### L 200.74986 #### [facility] [address] [place] [address] Hemoglobin mass conc (Bld) 13.3 g/dL Normal 11.5-15.5 [facility] Comment on above: Performed By: #### L 200.67962 #### [facility] [address] [place] [address] IMMATR GRAN ABS 0.00 K/CU MM Normal Less than 2 [facility] Comment on above: Performed By: #### L 200.25230 #### [facility] [address] [place] [address] IMMATURE GRAN % 0.3 % Normal Less than 2 [facility] Comment on above: Performed By: #### L 200.00121 #### [facility] [address] [place] [address] Lymphocytes #/vol (Bld) 2.40 K/CU MM Normal 0.9-4.4 [facility] Comment on above: Performed By: #### L 200.45539 #### [facility] [address] [place] [address] Lymphocytes/100 WBC (Bld) 38.8 % Normal 20-40 [facility] Comment on above: Performed By: #### L 200.75428 #### [facility] [address] [place] [address] MCHC mass conc (RBC) 32.8 g/dL Normal 32.0-36.0 [facility] Comment on above: Performed By: #### L 200.67552 #### [facility] [address] [place] [address] MCV Entitic volume (RBC) 92.7 fL Normal 80.0-99.0 [facility] Comment on above: Performed By: #### L 200.32637 #### [facility] [address] [place] [address] MONO ABS 0.60 K/CU MM Normal 0.1-1.1 [facility] Comment on above: Performed By: #### L 200.65913 #### [facility] [address] [place] [address] Monocytes/100 WBC (Bld) 9.6 % Normal 2-10 [facility] Comment on above: Performed By: #### L 200.25795 #### [facility] [address] [place] [address] NEUTROPHIL ABS 3.00 K/CU MM Normal 2.0-8.3 [facility] Comment on above: Performed By: #### L 200.41410 #### [facility] [address] [place] [address] Neutrophils/100 WBC (Bld) 49.0 % Normal 45-75 [facility] Comment on above: Performed By: #### L 200.90370 #### [facility] [address] [place] [address] Nucleated RBC/100 WBC Ratio (Bld) 0.0 % Normal Less than 1 [facility] Comment on above: Performed By: #### L 200.65399 #### [facility] [address] [place], [place] [id number] Platelet mean volume Entitic volume (Bld) 10.6 fL Normal 9.4-12.4 [facility] Comment on above: Performed By: #### L 200.12106 #### [facility] [address] [place] [address] Platelets #/vol (Bld) 244 K/CU MM Normal 150-450 [facility] Comment on above: Performed By: #### L 200.35368 #### [facility] [address] [place] [address] RBC #/vol (Bld) 4.37 M/CU MM Normal 3.90-5.30 [facility] Comment on above: Performed By: #### L 200.22355 #### [facility] [address] [place] [address] WBC #/vol (Bld) 6.1 K/CUMM Normal 4.5-11.0 [facility] Comment on above: Performed By: #### L 200.03508 #### [facility] [address] [place] [address] CMPon 10-06-2018 Albumin mass conc 4.2 g/dL Normal 3.2-5.0 [facility] Comment on above: Performed By: #### L 500.19609, L500.17613, L500.21527 #### [facility] [address] [place], [place] [id number] Albumin/Globulin mass ratio 1.5 {ratio} Normal 0.8-2.0 [facility] Comment on above: Performed By: #### L 500.35904, L500.84114, L500.92647 #### [facility] [address] [place] [id number] ALK PHOS 74 U/L Normal 45-117 [facility] Comment on above: Performed By: #### L 500.48811, L500.87722, L500.83008 #### [facility] [address] [place] [address] ALT enzyme act/vol 24 U/L Normal 13-61 [facility] Comment on above: Result Comment: RESU LTS MAY BE FALSELY DEPRESSED AFTER THE ADMINISTRATION OF SULFASALAZINE AND/OR SULFAPYRIDINE. Performed By: #### L 500.46980, L500.55010, L500.20393 #### [facility] [address] [place] [address] Anion gap molar conc 6 mmol/L Normal 5-16 [facility] Comment on above: Performed By: #### L 500.05353, L500.55812, L500.12675 #### [facility] [address] [place] [address] BILI TOTAL 0.4 MG/DL Normal 0.2-1.0 [facility] Comment on above: Performed By: #### L 500.52385, L500.70911, L500.11327 #### [facility] [address] [place] [address] Calcium mass conc 9.3 mg/dL Normal 8.5-10.1 [facility] Comment on above: Performed By: #### L 500.50934, L500.11505, L500.50271 #### [facility] [place] [id number] Chloride molar conc 104 mmol/L Normal 98-107 [facility] Comment on above: Performed By: #### L 500.98567, L500.69308, L500.57749 #### [facility] [address] [place] [address] CO2 molar conc 29 mmol/L Normal 21-32 [facility] Comment on above: Performed By: #### L 500.27647, L500.60106, L500.83881 #### [facility] [address] [place] [address] Creatinine mass conc 1.020 mg/dL High 0.510-0.950 [facility] Comment on above: Result Comment: Radha ents receiving either N-Acetylcysteine (NAC) or Metamizole prior to venipuncture, may have falsely depressed results. Performed By: #### L 500.73441, L500.48111, L500.45725 #### [facility] [address] [place] [address] Globulin mass conc (S) 2.8 g/dL Normal 2.2-4.2 [facility] Comment on above: Performed By: #### L 500.52829, L500.22214, L500.93497 #### [facility] [address] [place] [address] Glucose mass conc 90 mg/dL Normal 70-100 [facility] Comment on above: Result Comment: 70-1 00- Normal Fasting; 100-125 Impaired Fasting; greater than 126 on more than one result- Diabetes. ADA guidelines. Results may be falsely elevated after the administration of Sulfapyridine. Results may be falsely depressed after the administration of Sulfasalazine. Performed By: #### L 500.92002, L500.63308, L500.49146 #### [facility] [address] [place] [address] Potassium molar conc 3.9 mmol/L Normal 3.5-5.1 [facility] Comment on above: Performed By: #### L 500.57902, L500.14153, L500.73944 #### [facility] [address] [place] [address] Protein mass conc 7.0 g/dL Normal 6.0-8.5 [facility] Comment on above: Performed By: #### L 500.00145, L500.38189, L500.96271 #### [facility] [address] [place] [address] SGOT (AST) 20 U/L Normal 8-34 [facility] Comment on above: Result Comment: RESU LTS MAY BE FALSELY DEPRESSED AFTER THE ADMINISTRATION OF SULFASALAZINE AND/OR SULFAPYRIDINE. Performed By: #### L 500.97639, L500.12860, L500.66311 #### [facility] [address] [place] [address] Sodium molar conc 140 mmol/L Normal 136-145 [facility] Comment on above: Performed By: #### L 500.19029, L500.59174, L500.52469 #### [facility] [address] [place] [address] Urea nitrogen mass conc 24 mg/dL Normal 7-26 [facility] Comment on above: Performed By: #### L 500.98438, L500.30308, L500.28070 #### [facility] [address] [place] [address] Urea nitrogen/Creatinine mass ratio 23 mg/mg Normal 15-24 [facility] Comment on above: Performed By: #### L 500.67870, L500.81986, L500.31961 #### [facility] [address] [place] [address] GFR ESTon 10-06-2018 IF AMER Greater than 60 Normal [facility] Comment on above: Performed By: #### L 500.50996, L500.01161, L500.30513 #### [facility] [address] [place] [address] IF non-AFR AMER 53 ML/MIN Normal [facility] Comment on above: Performed By: #### L 500.80985, L500.05028, L500.70003 #### [facility] [address] [facility] [place] [address] LIPIDon 10-06-2018 Cholesterol in HDL mass conc 73 mg/dL Normal [place] 40 [facility] Comment on above: Result Comment: Radha ents receiving Metamizole prior to venipuncture, may have falsely depressed results. Performed By: #### L 500.95227, L500.41742, L500.95837 #### [facility] [address] [place] [address] Cholesterol in LDL mass conc 154 mg/dL High 0-129 [facility] Comment on above: Result Comment: ___C HOLESTEROL/HDL RATIO RISK___ CHD RISK = Total CHOL LDL HDL (CHOL/HDL) Recommended <200 <130 >40 <3.4 Borderline 200-239 130-159 3.4-4.99 High >240 >160 >5.0 Performed By: #### L 500.61460, L500.67537, L500.99112 #### [facility] [address] [place], [place] [id number] Cholesterol mass conc 249 mg/dL High 0-199 [facility] Comment on above: Performed By: #### L 500.37720, L500.06656, L500.72158 #### [facility] [address] [place] [address] Triglyceride mass conc 113 mg/dL Normal 30-149 [facility] Comment on above: Result Comment: Radha ents receiving either N-Acetylcysteine (NAC) or Metamizole prior to venipuncture, may have falsely depressed results. Performed By: #### L 500.75852, L500.96092, L500.32219 #### [facility] [address] [place] [address] UA COMPLETEon 10-06-2018 Color Nom (U) Yellow Normal [facility] Comment on above: Performed By: #### L 600.84356 #### [facility] [address] [place] [address] Glucose mass conc (U) Negative Normal NORMAL [facility] Comment on above: Performed By: #### L 600.59028 #### [facility] [address] [place] [address] UA APPEARANCE Clear Normal CLEAR [facility] Comment on above: Performed By: #### L 600.70986 #### [facility] [address] [place] [address] UA BILIRUBIN Negative Normal NEGATIVE [facility] Comment on above: Performed By: #### L 600.57006 #### [facility] [address] [place] [address] UA BLOOD Negative Normal NEGATIVE [facility] Comment on above: Performed By: #### L 600.77299 #### [facility] [place] [address] UA KETONE Negative Normal NEGATIVE [facility] Comment on above: Performed By: #### L 600.06219 #### [facility] [address] [place] [address] UA LK ESTERASE Negative Normal NEGATIVE [facility] Comment on above: Performed By: #### L 600.51831 #### [facility] [address] [place] [address] UA NITRITE Negative Normal NEGATIVE [facility] Comment on above: Performed By: #### L 600.75315 #### [facility] [address] [place] [address] UA PH 5.0 Normal 5-6 [facility] Comment on above: Performed By: #### L 600.99975 #### [facility] [address] [place] [address] UA PROTEIN Negative Normal NEGATIVE [facility] Comment on above: Performed By: #### L 600.95480 #### [facility] [address] [place] [address] UA SPEC GRAV 1.018 Normal 1.005-1.030 [facility] Comment on above: Performed By: #### L 600.27797 #### [facility] [address] [place] [address] UA UROBILINOGEN Negative Normal NORMAL [facility] Comment on above: Performed By: #### L 600.77318 #### [facility] [address] [place] [address] Office Visit: COPD/Pulmonary noduleon 02-25-2017 Documentation of current medications (procedure) Done Invalid Interpretation Code [facility] Work Phone: Tobacco smoking status NHIS Never Invalid Interpretation Code [facility] Work Phone: Tobacco use [facility] Never smoker Invalid Interpretation Code [facility] Work Phone: Vital Signs Date Time Vital Sign Value Performing Clinician Facility 11-04-2024 08:12-0400 Body mass index (BMI) [Ratio] 36.7 kg/m2 Dr. Erna Hall MD Work Phone: [facility] 11-04-2024 08:12-0400 Body temperature 97.5 [degF] Dr. Erna Hall MD Work Phone: [facility] 11-04-2024 08:12-0400 Body weight 97.[address] Erna Hall MD Work Phone: [facility] 11-04-2024 08:12-0400 Diastolic blood pressure 77 mm[Hg] Dr. Erna Hall MD Work Phone: [facility] 11-04-2024 08:12-0400 Heart rate 83 /min Dr. Erna Hall MD Work Phone: [facility] 11-04-2024 08:12-0400 Respiratory rate 18 /min Dr. Erna Hall MD Work Phone: [facility] 11-04-2024 08:12-0400 SaO2% (BldA) [Mass fraction] 94 % Dr. Erna Hall MD Work Phone: [facility] 11-04-2024 08:12-0400 Systolic blood pressure 144 mm[Hg] Dr. Erna Hall MD Work Phone: [facility] 05-31-2024 15:17-0500 Body height 162.6 cm Erna Hall MD Work Phone: [facility] 05-31-2024 15:17-0500 Body mass index (BMI) [Ratio] 36.25 kg/m2 Erna Hall MD Work Phone: [facility] 05-31-2024 15:17-0500 Body temperature 97.3 [degF] Erna Hlal MD Work Phone: [facility] 05-31-2024 15:17-0500 Body weight 95.8 kg Erna Hall MD Work Phone: [facility] 05-31-2024 15:17-0500 Diastolic blood pressure 82 mm[Hg] Erna Hall MD Work Phone: [facility] 05-31-2024 15:17-0500 Heart rate 80 /min Erna Hall MD Work Phone: [facility] 05-31-2024 15:17-0500 Respiratory rate 18 /min Erna Hall MD Work Phone: [facility] 05-31-2024 15:17-0500 SaO2% (BldA) [Mass fraction] 94 % Erna Hall MD Work Phone: [facility] 05-31-2024 15:17-0500 Systolic blood pressure 136 mm[Hg] Erna Hall MD Work Phone: [facility] 10-13-2023 10:27-0400 Body height 162.6 cm Erna Hall MD Work Phone: [facility] 10-13-2023 10:27-0400 Body mass index (BMI) [Ratio] 36.22 kg/m2 Erna Hall MD Work Phone: [facility] 10-13-2023 10:27-0400 Body temperature 97.3 [degF] Erna Hall MD Work Phone: [facility] 10-13-2023 10:27-0400 Body weight 95.71 kg Erna Hall MD Work Phone: [facility] 10-13-2023 10:27-0400 Diastolic blood pressure 88 mm[Hg] Erna Hall MD Work Phone: [facility] 10-13-2023 10:27-0400 Heart rate 88 /min Erna Hall MD Work Phone: [facility] 10-13-2023 10:27-0400 Respiratory rate 18 /min Erna Hall MD Work Phone: [facility] 10-13-2023 10:27-0400 SaO2% (BldA) [Mass fraction] 97 % Erna Hall MD Work Phone: [facility] 10-13-2023 10:27-0400 Systolic blood pressure 138 mm[Hg] Erna Hall MD Work Phone: [facility] 07-07-2023 09:07-0400 Body temperature 98.1 [degF] Dr. Erna Hall Work Phone: [facility] 07-07-2023 09:07-0400 Diastolic blood pressure 74 mm[Hg] Dr. Erna Hall Work Phone: [facility] 07-07-2023 09:07-0400 Heart rate 98 /min Dr. Erna Hall Work Phone: [facility] 07-07-2023 09:07-0400 Respiratory rate 16 /min Dr. Erna Hall Work Phone: [facility] 07-07-2023 09:07-0400 SaO2% (BldA) [Mass fraction] 93 % Dr. Erna Hall Work Phone: [facility] 07-07-2023 09:07-0400 Systolic blood pressure 138 mm[Hg] Dr. Erna Hall Work Phone: [facility] 05-01-2023 06:37-0500 Body height 160.[address] Eran Hall Work Phone: [facility] 05-01-2023 06:37-0500 Body mass index (BMI) [Ratio] 37.2 kg/m2 Dr. Erna Hall Work Phone: [facility] 05-01-2023 06:37-0500 Body temperature 97.1 [degF] Dr. Erna Hall Work Phone: [facility] 05-01-2023 06:37-0500 Body weight 95.[address] Erna Hall Work Phone: [facility] 05-01-2023 06:37-0500 Diastolic blood pressure 75 mm[Hg] Dr. Erna Hall Work Phone: [facility] 05-01-2023 06:37-0500 Heart rate 83 /min Dr. Erna Hall Work Phone: [facility] 05-01-2023 06:37-0500 Respiratory rate 20 /min Dr. Erna Hall Work Phone: [facility] 05-01-2023 06:37-0500 SaO2% (BldA) [Mass fraction] 94 % Dr. Erna Hall Work Phone: [facility] 05-01-2023 06:37-0500 Systolic blood pressure 146 mm[Hg] Dr. Erna Hall Work Phone: [facility] 04-09-2023 15:34-0500 Body height 162.6 cm Erna Hall MD Work Phone: [facility] 04-09-2023 15:34-0500 Body temperature 97.59 [degF] rEna Hall MD Work Phone: [facility] 04-09-2023 15:34-0500 Body weight 96.98 kg Erna Hall MD Work Phone: [facility] 04-09-2023 15:34-0500 Diastolic blood pressure 78 mm[Hg] Erna Hall MD Work Phone: [facility] 04-09-2023 15:34-0500 Heart rate 76 /min Erna Hall MD Work Phone: [facility] 04-09-2023 15:34-0500 Respiratory rate 18 /min Erna Hall MD Work Phone: [facility] 04-09-2023 15:34-0500 SaO2% (BldA) [Mass fraction] 98 % Erna Hall MD Work Phone: [facility] 04-09-2023 15:34-0500 Systolic blood pressure 128 mm[Hg] Erna Hall MD Work Phone: [facility] 05-03-2022 09:47-0500 Body height 162.[address] Erna Hall Work Phone: [facility] 05-03-2022 09:47-0500 Body mass index (BMI) [Ratio] 36 kg/m2 Dr. Erna Hall Work Phone: [facility] 05-03-2022 09:47-0500 Body temperature 98.2 [degF] Dr. Erna Hall Work Phone: [facility] 05-03-2022 09:47-0500 Body weight 95.[address] Erna Hall Work Phone: [facility] 05-03-2022 09:47-0500 Diastolic blood pressure 85 mm[Hg] Dr. Erna Hall Work Phone: [facility] 05-03-2022 09:47-0500 Heart rate 85 /min Dr. Erna Hall Work Phone: [facility] 05-03-2022 09:47-0500 Respiratory rate 18 /min Dr. Erna Hall Work Phone: [facility] 05-03-2022 09:47-0500 SaO2% (BldA) [Mass fraction] 93 % Dr. Erna Hall Work Phone: [facility] 05-03-2022 09:47-0500 Systolic blood pressure 148 mm[Hg] Dr. Erna Hall Work Phone: [facility] 04-10-2022 11:08-0500 Body height 162.6 cm Erna Hall MD Work Phone: [facility] 04-10-2022 11:08-0500 Body temperature 97.11 [degF] Erna Hall MD Work Phone: [facility] 04-10-2022 11:08-0500 Body weight 96.53 kg Erna Hall MD Work Phone: [facility] 04-10-2022 11:08-0500 Diastolic blood pressure 72 mm[Hg] Erna Hall MD Work Phone: [facility] 04-10-2022 11:08-0500 Heart rate 78 /min Erna Hall MD Work Phone: [facility] 04-10-2022 11:08-0500 Respiratory rate 18 /min Erna Hall MD Work Phone: [facility] 04-10-2022 11:08-0500 SaO2% (BldA) [Mass fraction] 98 % Erna Hall MD Work Phone: [facility] 04-10-2022 11:08-0500 Systolic blood pressure 130 mm[Hg] Erna Hall MD Work Phone: [facility] 01-30-2022 10:15-0400 Body height 162.[address] Erna Hall Work Phone: [facility] Work Phone: 01-30-2022 10:15-0400 Body mass index (BMI) [Ratio] 34.7 kg/m2 Dr. Erna Hall Work Phone: [facility] Work Phone: 01-30-2022 10:15-0400 Body temperature 96.3 [degF] Dr. Erna Hall Work Phone: [facility] Work Phone: 01-30-2022 10:15-0400 Body weight 91.[address] Erna Hall Work Phone: [facility] Work Phone: 01-30-2022 10:15-0400 Diastolic blood pressure 74 mm[Hg] Dr. Erna Hall Work Phone: [facility] Work Phone: 01-30-2022 10:15-0400 Heart rate 88 /min Dr. Erna Hall Work Phone: [facility] Work Phone: 01-30-2022 10:15-0400 Respiratory rate 18 /min Dr. Erna Hall Work Phone: [facility] Work Phone: 01-30-2022 10:15-0400 SaO2% (BldA) [Mass fraction] 95 % Dr. Erna Hall Work Phone: [facility] Work Phone: 01-30-2022 10:15-0400 Systolic blood pressure 126 mm[Hg] Dr. Erna Hall Work Phone: [facility] Work Phone: 02-25-2017 07:14-0400 BMI (Body Mass Index) 30.21 kg/m2 Linda Nance [facility] Phone: 02-25-2017 07:14-0400 Body Temperature 97.4 [degF] Linda Nance [facility] Phone: 02-25-2017 07:14-0400 BP Diastolic 84 mm[Hg] Linda Nance [facility] Phone: 02-25-2017 07:14-0400 BP Systolic 128 mm[Hg] Linda Goyo [facility] Phone: 02-25-2017 07:14-0400 Height 162.56 cm Linda Nance [facility] Phone: 02-25-2017 07:14-0400 Pulse (Heart Rate) 74 /min Linda Nance [facility] Phone: 02-25-2017 07:14-0400 Respiratory Rate 18 /min Linda Nance [facility] Phone: 02-25-2017 07:14-0400 Weight 79.83 kg Linda Nance [facility] Phone: Encounters Encounter Date Encounter Type Care Provider Facility Start: 01-25-2025 ambulatory Paul Rose Facility:[facility] Start: 11-04-2024 End: 11-04-2024 Patient encounter procedure Libra GRIMALDO -[facility] Work Phone: Start: 11-04-2024 End: 11-04-[address] Erna Hall MD Work Phone: -[facility] Start: 08-11-2024 ambulatory ERNA Dawkins acility:[facility] Start: 08-11-2024 End: 08-11-2024 Subsequent hospital visit by physician [facility] Work Phone: Radiology Comment on above: Abnormal mammogram [ R92.8] Start: 08-11-2024 End: 08-11-2024 Follow-up encounter Jose Shepherd LPN [facility] Start: 07-14-2024 End: 07-14-2024 Telephone encounter Erna Hall MD Work Phone: Mammogram Start: 06-10-2024 End: 06-10-2024 ambulatory ERNA HALL Facility:[facility] Start: 05-31-2024 End: 05-31-2024 Patient encounter procedure Erna Hall MD Work Phone: [facility] Comment on above: Wellness examination (Primary Dx); Screening for depression; Encounter for screening examination for other mental health and behavioral disorders; Encounter for counseling regarding advance directives; Breast cancer screening by mammogram; Unspecified essential hypertension; Chronic obstructive pulmonary disease, unspecified COPD type (HCC); Pure hypercholesterolemia; Screening for deficiency anemia; Medicare annual wellness visit, subsequent Start: 05-31-2024 End: 05-31-2024 Patient encounter status Erna Hall MD Work Phone: [facility] Start: 05-31-2024 End: 05-31-2024 ambulatory ERNA HALL Facility:[id number] Start: 05-30-2024 End: 05-30-2024 ambulatory Erna Hall Facility:[facility] Start: 05-27-2024 End: 05-27-2024 ambulatory Erna Hall Facility:[facility] Start: 01-06-2024 End: 01-07-2024 Telephone encounter Erna Hall MD Work Phone: [facility] Comment on above: Results Start: 01-06-2024 End: 01-06-2024 ambulatory ERNA HALL Facility:[facility] Start: 01-06-2024 End: 01-06-2024 Subsequent hospital visit by physician [facility] Work Phone: Radiology Comment on above: Abnormal mammogram [ R92.8] Start: 10-13-2023 Telephone encounter Erna Hall MD Work Phone: [facility] Comment on above: Orders Start: 10-13-2023 End: 10-13-2023 Office outpatient visit 15 minutes Erna Hall MD Work Phone: [facility] Comment on above: Unspecified essentia l hypertension (Primary Dx); Pulmonary emphysema, unspecified emphysema type (HCC); Pure hypercholesterolemia; Gastroesophageal reflux disease with esophagitis without hemorrhage Start: 10-13-2023 End: 10-13-2023 ambulatory ERNA HALL Facility:[id number] Start: 07-07-2023 End: 07-07-[address] Erna Hall Work Phone: [facility] Work Phone: Start: 07-07-2023 End: 07-07-[address] Erna Hall Work Phone: [facility] Work Phone: Start: 07-03-2023 Telephone encounter Erna Hall MD Work Phone: [facility] Comment on above: Results Start: 07-02-2023 End: 07-02-2023 Subsequent hospital visit by physician Diagnostic Mammo [facility] Comment on above: Abnormal mammogram [ R92.8] Start: 06-09-2023 Telephone encounter Erna Hall MD Work Phone: [facility] Comment on above: Orders Start: 05-30-2023 Telephone encounter Erna Hall MD Work Phone: [facility] Comment on above: Results Start: 05-29-2023 Documentation procedure Mammog dragan Coordinator [facility] Start: 05-29-2023 Letter encounter Mammography Coordinator [facility] Department Start: 05-01-2023 End: 05-01-[address] Erna Hall Work Phone: [facility] Work Phone: Start: 04-09-2023 End: 04-09-2023 Patient encounter procedure Erna Hall MD Work Phone: [facility] Comment on above: Wellness examination (Primary Dx); Counseling regarding advance directives and goals of care; Encounter for screening for depression; Encounter for immunization; Pure hypercholesterolemia; Hypertension, essential; Screening for deficiency anemia; Medicare annual wellness visit, subsequent Start: 04-09-2023 End: 04-09-2023 Patient encounter status Erna Hall MD Work Phone: [facility] Work Phone: Start: 07-29-2022 Patient encounter procedure [facility] Provider [facility] Department Start: 07-22-2022 End: 07-22-[address] Erna Hall Work Phone: [facility] Work Phone: Start: 07-22-2022 End: 07-22-[address] Erna Hall Work Phone: [facility] Services/Neurology Start: 05-25-2022 Documentation procedure Mammog dragan Coordinator [facility] Start: 05-25-2022 Letter encounter Mammography Coordinator [facility] Department Start: 05-24-2022 End: 05-24-2022 Subsequent hospital visit by physician Screen M[facility] Comment on above: Encounter for screen ing mammogram for malignant neoplasm of breast [Z12.31] Start: 05-03-2022 End: 05-03-[address] Erna Hall Work Phone: [facility] Start: 04-12-2022 End: 04-12-[address] Erna Hall Work Phone: [facility] Work Phone: Start: 04-12-2022 End: 04-12-[address] Erna Hall Work Phone: [facility] Start: 04-10-2022 End: 04-10-2022 Patient encounter procedure Erna Hall MD Work Phone: [facility] Comment on above: Wellness examination (Primary Dx); Unspecified essential hypertension; Mixed hyperlipidemia; Gastroesophageal reflux disease with esophagitis without hemorrhage; Other specified abnormal findings of blood chemistry; Encounter for screening mammogram for malignant neoplasm of breast; Screening for deficiency anemia Start: 04-10-2022 End: 04-10-2022 Patient encounter status Erna Hall MD Work Phone: [facility] Start: 01-30-2022 End: 01-30-[address] Erna Hall Work Phone: [facility] Procedures Date Procedure Procedure Detail Performing Clinician Start: 08-11-2024 Us breast uni real t dany with image limited Erna Hall MD Work Phone: Start: 08-11-2024 Digital breast tomosynthesis bilateral Erna Hall MD Work Phone: Start: 05-31-2024 Adult depression screening assessment Erna Hall MD Work Phone: Start: 01-06-2024 Us breast uni real t dany with image limited Erna Hall MD Work Phone: Start: 07-07-2023 Plain chest X-ray Dr. Zoe Hall Work Phone: Start: 07-02-2023 Us breast uni real t dany with image limited Erna Hall MD Work Phone: Start: 07-02-2023 Digital breast tomosynthesis unilateral Erna Hall MD Work Phone: Start: 05-24-2022 Screening mammograph y bi 2-view breast inc cad Erna Hall MD Work Phone: Start: 11-19-2016 End: 12-27-2016 Pulmonary Function Test - complete Milton Montoya DO Work Phone: H/O: hysterectomy H/O: hysterectomy Dr. Zoe Hall Work Phone: Comment on above: 1977 H/O: surgery S/P Mohs surgery for basal cell carcinoma Dr. Erna Hall MD Work Phone: Comment on above: 11/21/23 History of cataract extraction Hx of cataract surgery Dr. Erna Hall Work Phone: Comment on above: Left eye-03/2018Righ t eye-09/2024 History of cholecystectomy Hx of cholecystectomy Dr. Erna Hall Work Phone: Comment on above: 2010 Plan of Treatment Date Care Activity Detail Author Start: 06-10-2027 Diabetes Screening Diabetes Screening [facility] Start: 04-11-2026 Diabetes Screening Diabetes Screening [facility] Start: 05-31-2025 Annual PCP Team Chronic Disease Visit Annual PCP Team Chronic Disease Visit [facility] Start: 05-31-2025 Anxiety Screening Anxiety Screening [facility] Start: 05-31-2025 Depression Screening Depression Screening [facility] Start: 10-12-2024 Annual PCP Team Chronic Disease Visit Annual PCP Team Chronic Disease Visit [facility] Start: 09-08-2024 End: 09-08-2024 Patient encounter procedure Mammogram Comment on above: Abnormal mammogram [R92.8] Start: 07-01-2024 End: 07-01-2024 Patient encounter procedure 07/01/2024 9:50 AM EST Appointment Mammogram [address] [place] [address] SCREENING MAMMO BILAT (6 MONTH MAMM LEFT BREAST AND LEFT BREAST ULTRASOUND) Mammogram Comment on above: SCREENING MAMMO BILAT (6 MONTH MAMM LEFT BREAST AND LEFT BREAST ULTRASOUND) Start: 05-31-2024 End: 08-30-2024 CBC W Auto Differential panel - Blood COMPLETE BLOOD COUNT AND DIFFERENTIAL Lab Routine Screening for deficiency anemia Expected: 05/31/2024, Expires: 08/30/2024 [facility] Comment on above: Expected: 05/31/2024, Expires: Start: 05-31-2024 End: 08-30-2024 Comprehensive metabolic 2000 panel - Serum or Plasma COMPREHENSIVE METABOLIC PANEL Lab Routine Unspecified essential hypertension Pure hypercholesterolemia Expected: 05/31/2024, Expires: 08/30/2024 [facility] Comment on above: Expected: 05/31/2024, Expires: Start: 05-31-2024 End: 08-30-2024 Lipid 1996 panel - Serum or Plasma LIPID PANEL BASIC Lab Routine Pure hypercholesterolemia Expected: 05/31/2024, Expires: 08/30/2024 [facility] Comment on above: Expected: 05/31/2024, Expires: Start: 04-19-2024 End: 04-19-2024 Patient encounter procedure 04/19/2024 10:40 AM EST [facility] [address] [place] [id number] Eran Hall MD [address] [place], [place] [id number] Annual Wellness [facility] Comment on above: Annual Wellness Start: 04-09-2024 Annual PCP Team Chronic Disease Visit Annual PCP Team Chronic Disease Visit [facility] Start: 04-09-2024 BP Controlled (<130/80) BP Controlled (<130/80) [facility] Start: 01-04-2024 End: 08-02-2024 MG Breast - left Diagnostic for implant JULES DIAGNOSTIC LEFT Radiology Routine Abnormal mammogram Expected: 01/04/2024, Expires: 08/02/2024 [facility] Work Phone: Comment on above: Expected: 01/04/2024, Expires: 5 Start: 01-04-2024 End: 08-02-2024 US Breast - left limited US BREAST LTD LEFT Radiology Routine Abnormal mammogram Expected: 01/04/2024, Expires: 08/02/2024 [facility] Work Phone: Comment on above: Expected: 01/04/2024, Expires: 5 Start: 12-28-2023 Covid-19 Vaccine () Covid-19 Vaccine () [facility] Start: 12-28-2023 Covid-19 Vaccine () Covid-19 Vaccine () [facility] Start: 12-28-2023 Influenza vaccination [facility] Start: 04-28-2023 Advance Directive Discussion Advance Directive Discussion [facility] Start: 04-28-2023 Behavioral Health Screening Behavioral Health Screening [facility] Start: 04-28-2023 Depression Assessment Depression Assessment [facility] Start: 04-10-2023 ANNUAL PCP TEAM CHRONIC DISEASE VISIT ANNUAL PCP TEAM CHRONIC DISEASE VISIT [facility] Start: 04-09-2023 End: 07-09-2023 CBC W Auto Differential panel - Blood CBC + DIFF Lab Routine Screening for deficiency anemia Expected: 04/09/2023, Expires: 07/09/2023 [facility] Work Phone: Comment on above: Expected: 04/09/2023, Expires: 4 Start: 04-09-2023 End: 07-09-2023 Comprehensive metabolic 2000 panel - Serum or Plasma COMP METABOLIC PANEL Lab Routine Pure hypercholesterolemia Hypertension, essential Expected: 04/09/2023, Expires: 07/09/2023 [facility] Work Phone: Comment on above: Expected: 04/09/2023, Expires: 4 Start: 04-09-2023 End: 07-09-2023 Lipid 1996 panel - Serum or Plasma LIPID PANEL BASIC Lab Routine Pure hypercholesterolemia Expected: 04/09/2023, Expires: 07/09/2023 [facility] Work Phone: Comment on above: Expected: 04/09/2023, Expires: 4 Start: 12-27-2022 Covid-19 Vaccine () Covid-19 Vaccine () [facility] Start: 12-27-2022 Influenza vaccination [facility] Start: 04-28-2022 ADVANCE DIRECTIVE DISCUSSION ADVANCE DIRECTIVE DISCUSSION [facility] Start: 04-28-2022 DEPRESSION ASSESSMENT DEPRESSION ASSESSMENT [facility] Start: 04-10-2022 End: 06-10-2022 CBC W Auto Differential panel - Blood CBC + DIFF Lab Routine Screening for deficiency anemia Expected: 04/10/2022, Expires: 06/10/2022 [facility] Work Phone: Comment on above: Expected: 04/10/2022, Expires: 3 Start: 04-10-2022 End: 06-10-2022 Comprehensive metabolic 2000 panel - Serum or Plasma COMP METABOLIC PANEL Lab Routine Unspecified essential hypertension Mixed hyperlipidemia Expected: 04/10/2022, Expires: 06/10/2022 [facility] Work Phone: Comment on above: Expected: 04/10/2022, Expires: 3 Start: 04-10-2022 End: 06-10-2022 Lipid 1996 panel - Serum or Plasma LIPID PANEL BASIC Lab Routine Gastroesophageal reflux disease with esophagitis without hemorrhage Expected: 04/10/2022, Expires: 06/10/2022 [facility] Work Phone: Comment on above: Expected: 04/10/2022, Expires: 3 Start: 12-27-2021 Influenza vaccination INFLUENZA (#1) [facility] Start: 12-11-2021 COVID-19 VACCINE (5 - Booster for Pfizer series) COVID-19 VACCINE (5 - Booster for Pfizer series) [facility] Start: 10-06-2021 DIABETES SCREEN DIABETES SCREEN [facility] Start: 10-06-2021 Diabetes Screening Diabetes Screening [facility] Start: 04-28-2021 ADVANCE DIRECTIVE DISCUSSION ADVANCE DIRECTIVE DISCUSSION [facility] Start: 11-10-2018 RSV Vaccine (1 - 1-dose 75+ series) RSV Vaccine (1 - 1-dose 75+ series) [facility] Start: 02-25-2017 End: 02-25-2017 Follow Up Appt 1 year Follow Up Appt 1 year [facility] Phone: Start: 02-25-2017 End: 02-25-2017 Appointment Appointment [facility] Phone: Start: 01-01-2017 End: 01-01-2017 DMB DMB [facility] Phone: Start: 01-01-2017 End: 01-01-2017 Follow Up Appt 6 weeks Follow Up Appt 6 weeks [facility] Phone: Start: 11-19-2016 End: 11-19-2016 DMB DMB [facility] Phone: Start: 11-19-2016 End: 11-19-2016 Follow Up Appt 6 weeks Follow Up Appt 6 weeks [facility] Phone: Start: 11-19-2016 End: 12-27-2016 Pulmonary Function Test - complete Pulmonary Function Test - complete [facility] Phone: Start: 11-10-2008 BONE DENSITY BONE DENSITY [facility] Start: 11-10-2008 Bone Density Screening Bone Density Screening [facility] Start: 11-10-2008 Pneumococcal Vaccine: 65+ (1 - PCV) Pneumococcal Vaccine: 65+ (1 - PCV) [facility] Start: 11-10-2008 PNEUMOCOCCAL: 65+ (1 - PCV) PNEUMOCOCCAL: 65+ (1 - PCV) [facility] Start: 11-10-2008 Screening for osteoporosis Bone Density Screening [facility] Start: 2003 RSV Vaccine (1 - 1-dose 60+ series) RSV Vaccine (1 - 1-dose 60+ series) [facility] Start: 11-10-1993 SHINGRIX VACCINE (1 of 2) SHINGRIX VACCINE (1 of 2) [facility] Start: 11-10-1962 Pneumococcal Vaccine: 50+ (1 of 2 - PCV) Pneumococcal Vaccine: 50+ (1 of 2 - PCV) [facility] Start: 11-10-1962 Urine microalbumin profile [facility] Start: 11-10-1961 Anxiety Screening Anxiety Screening [facility] Start: 11-10-1961 BP CONTROLLED (<130/80) BP CONTROLLED (<130/80) [facility] Start: 11-10-1961 Depression Screening Depression Screening [facility] Start: 11-10-1961 HEPATITIS C SCREENING HEPATITIS C SCREENING [facility] Start: 11-10-1961 Spirometry Spirometry [facility] Start: 11-10-1949 Pneumococcal Vaccine: 65+ (1 - PCV) Pneumococcal Vaccine: 65+ (1 - PCV) [facility] Start: 11-10-1949 Pneumococcal Vaccine: 65+ (1 of 2 - PCV) Pneumococcal Vaccine: 65+ (1 of 2 - PCV) [facility] End: 06-30-2025 DBT Breast - bilateral screening JULES SCREENING W JAIME Radiology Routine Breast cancer screening by mammogram 1 Occurrences starting 05/31/2024 until 06/30/2025 [facility] Work Phone: Comment on above: 1 Occurrences starting 05/31/2024 until 06/30/2025 End: 05-10-2023 JULES SCREENING JULES SCREENING Radiology Routine Encounter for screening mammogram for malignant neoplasm of breast 1 Occurrences starting 04/10/2022 until 05/10/2023 [facility] Work Phone: Comment on above: 1 Occurrences starting 04/10/2022 until 05/10/2023 End: 08-13-2025 MG Breast - bilateral Diagnostic JULES DIAGNOSTIC BILATERAL Radiology Routine Abnormal mammogram 1 Occurrences starting 07/14/2024 until 08/13/2025 [facility] Work Phone: Comment on above: 1 Occurrences starting 07/14/2024 until 08/13/2025 End: 07-09-2024 MG Breast - left Diagnostic for implant JULES DIAGNOSTIC LEFT Radiology Routine Abnormal mammogram 1 Occurrences starting 06/10/2023 until 07/09/2024 [facility] Work Phone: Comment on above: 1 Occurrences starting 06/10/2023 until 07/09/2024 End: 07-09-2024 US Breast - left limited US BREAST LTD LEFT Radiology Routine Abnormal mammogram 1 Occurrences starting 06/10/2023 until 07/09/2024 [facility] Work Phone: Comment on above: 1 Occurrences starting 06/10/2023 until 07/09/2024 [facility] Immunizations Immunization Date Immunization Notes Care Provider Fa [facility] 03-11-2007 influenza virus vaccine, unspecified formulation Screen Wstr [facility] 03-12-2006 influenza virus vaccine, unspecified formulation Erna Hall MD Work Phone: [facility] 04-03-2005 influenza virus vaccine, unspecified formulation Erna Hall MD Work Phone: [facility] Work Phone: Payers Date Payer Category Payer Self-pay [id number] 2023 Medicare (Managed Care) [employer] PL[employer] Member Subscriber Plan / Payer (Effective 2023-Present) Name: Marlen Smith Relation to Subscriber: Self Name: Marlen Smith Payer ID: [id number] (NAIC) Type: HMO Address: [place] [id number] 2017 Medicare [id number] 2014 Medicare [id number] Unknown [id number] Unknown [id number] Unknown [id number] Unknown [id number] Social History Date Type Detail Facility Start: 04-10-2022 End: 05-30-2024 Tobacco smoking status NHIS Never smoked tobacco [facility] Start: 04-10-2022 Tobacco use and exposure Smoke less tobacco non-user [facility] Start: 04-10-2022 End: 05-31-2024 Alcohol intake Current non-drinker of alcohol (finding) [facility] Start: 04-10-2022 History SDOH Alcohol Frequency 1 [facility] Start: 04-10-2022 History SDOH Alcohol Std Drinks 0 [facility] Start: 04-10-2022 History SDOH Social Connections Phone 5 [facility] Start: 04-10-2022 History SDOH Social Connections Membership 2 [facility] Start: 04-10-2022 History SDOH Social Connections Living 3 [facility] Start: 04-10-2022 History SDOH Physica l Activity DPW 7 [facility] Start: 1945 Sex Assigned At Not on file C [facility] Start: 01-30-2022 End: 07-07-2023 Tobacco smoking status NHIS Unknown if ever smoked [facility] Start: 1945 Sex Assigned At Female W [facility] Start: 04-10-2022 End: 04-09-2023 History of Social function [facility] Start: 04-10-2022 End: 04-09-2023 Social connection and isolation panel [facility] Attends [employer] Not on file [facility] Do you belong to any clubs or organizations such as denominational groups, unions, fraternal or athletic groups, or school groups? No [facility] Are you now , , , , never or living with a partner? [facility] How often to you hav e a drink containing alcohol? Never [facility] Do you feel stress - tense, restless, nervous, or anxious, or unable to sleep at night because your mind is troubled all the time - these days [OSQ] Not at all [facility] (I/We) worried whebrennen er (my/our) food would run out before (I/we) got money to buy more. Never true [facility] Functional Status Date Assessment Result Facility 05-31-2024 Total score [AUDIT-C] 0 05/31/19 25 3:15 PM Xochitl Perdomo LPN [facility] 05-31-2024 Humiliation, Afraid, Rape, and Kick questionnaire [HARK] [facility] Clinical Notes 04-10-2022 to 08-11-2024 Telephone Encounter - Jose Shepherd LPN - 08/11/2024 4:21 PM EDTTelephone Encounter - Jose Shepherd LPN - 08/11/2024 4:21 PM EDTElizabeth Timmons RDMS - 08/11/2024 3:00 PM EDTPatient Instructions Note Date & Type Note Facility 08-11-2024 Telephone encounter Note Patient notified of information, verbalized understanding. No questions, comments, or concerns at this time. Jose Shepherd LPN August 11, 2024 4:21 PM [facility] 08-11-2024 Telephone encounter Note ----- Message from Erna Hall MD sent at 08/11/2024 4:12 PM EDT ----- Benign cyst in left breast. Recheck in 6 months [facility] 08-11-2024 Miscellaneous Notes Patient notified of information, verbalized understanding. No questions, comments, or concerns at this time. Jose Shepherd LPN August 11, 2024 4:21 PM ----- Message from Erna Hall MD sent at 08/11/2024 4:12 PM EDT ----- Benign cyst in left breast. Recheck in 6 months documented in this encounter [facility] 08-11-2024 History of Present illness Narrative Radiology Service Progress Note PATIENT NAME: Marlen [...] PATIENT PRESENTS WITH AN IMPLANTABLE OR ATTACHED LOG PROCESSOR OPERATOR: No RADIOLOGY DEPARTMENT: Ultrasound PERIPHERAL IV DATA: Not applicable SIGNED BY: Elizabeth Timmons RDMS Cynthia August 11, 2024 4:46 PM documented in this encounter [facility] 08-11-2024 Note HNO ID: [id number] Author: ELIZABETH TIMMONS RDMS Service: ? Author Type: Hosiery Mater Type: Progress Notes Filed: 08/11/2024 16:46 Note [...] PATIENT PRESENTS WITH AN IMPLANTABLE OR ATTACHED LOG PROCESSOR OPERATOR: No RADIOLOGY DEPARTMENT: Ultrasound PERIPHERAL IV DATA: Not applicable SIGNED BY: Elizabeth Timmons RDMS RVT August 11, 2024 4:46 PM [place] [id number] History of Present illness Narrative Radiology Service Progress Note PATIENT NAME: Marlen [...] PATIENT PRESENTS WITH AN IMPLANTABLE OR ATTACHED LOG PROCESSOR OPERATOR: No RADIOLOGY DEPARTMENT: Mammography PERIPHERAL IV DATA: Not applicable SIGNED BY: RT Cristiana(R) August 11, 2024 2:25 PM documented in this encounter [facility] 08-11-2024 Note HNO ID: [id number] Author: AKIKO FLORES RT(R) Service: ? Author Type: Technologist Type: Progress [...] PATIENT PRESENTS WITH AN IMPLANTABLE OR ATTACHED LOG PROCESSOR OPERATOR: No RADIOLOGY DEPARTMENT: Mammography PERIPHERAL IV DATA: Not applicable SIGNED BY: RT Cristiana(R) August 11, 2024 2:25 PM [facility] 07-14-2024 Telephone encounter Note Ordered and signed. Thanks 2 million [facility] 07-14-2024 Miscellaneous Notes Ordered and signed. Thanks 2 million Could we have a order for a Bilateral Diagnostic Mammogram please. Thanks a million documented in this encounter [facility] 07-14-2024 Telephone encounter Note Could we have a order for a Bilateral Diagnostic Mammogram please. Thanks a million [facility] 06-05-2024 Instructions Erna Hall MD - 06/05/2024 5:32 PM EST Screening schedule The following prevention plan is [...] review all the medicines you take, even nlkq-fgf-nmacoxm medicines. As you get older, the way [...] apply if you have certain medical conditions. documented in this encounter [facility] 05-31-2024 Note HNO ID: [id number] Author: ERNA HALL MD Service: ? Author Type: Physician [...] mouth as directed on inside of package cmjiwqgp-kckpqsmtc-tfckbqbnskofta (CORTISPORIN) 3.5-10,000-1 mg/mL-unit/mL-% otic suspension STIOLTO RESPIMAT [...] 5. Breast cancer screening by mammogram Z12.31 JULSE SCREENING W JAIME 6. Unspecified essential hypertension I10 COMPREHENSIVE METABOLIC [...] risks and benefits regarding vaccines, cancer screening, hea (more content not included)... [facility] 05-31-2024 History of Present illness Narrative Images from the original note were not included. Shyam Smith is a 78 year old [...] mouth as directed on inside of package hvclprjs-pvkkgwsbk-mqqebcovnoihze (CORTISPORIN) 3.5-10,000-1 mg/mL-unit/mL-% otic suspension STIOLTO RESPIMAT [...] Size: Regular Adult) Pulse 80 Temp 36.3 C (97.3 F) (Temporal) Resp 18 Ht 162.6 cm (5' 4) Wt 95.8 kg (211 lb 3.2 oz) SpO2 94% BMI 36.25 kg/m Physical Exam Vitals reviewed. Constitutional: Appearance: Normal [...] 5. Breast cancer screening by mammogram Z12.31 JULES SCREENING W JAIME 6. Unspecified essential hypertension I10 COMPREHENSIVE METABOLIC [...] Functional Observation Was the patient's Timed Up & Go test unsteady or >= 12 seconds? No Advance Care Planning Surrogate decision maker documented and/or advance directives scanned in chart Measurements BP 136/82 (BP Site: Left Arm, BP Position: Sitting, BP Cuff Size: Regular Adult) Pulse 80 Temp 36.3 C (97.3 F) (Temporal) Resp 18 Ht 162.6 cm (5' 4) Wt 95.8 kg (211 lb 3.2 oz) SpO2 94% BMI 36.25 kg/m Vision Screening: Follows with optometry/ophthalmology Assessment/Plan Medicare annual wellness visit, subsequent (Z00.00) - Counseled on healthy diet and regular exercise - Fall avoidance information provided - Personalized prevention plan provided [employer] Spirometry declined BP Controlled (<130/80) DTaP,Tdap,Td Vaccine(1 - Tdap) declined Pneumococcal Vaccine: 50+(1 of 2 - PCV) declined Shingrix Vaccine(1 of 2) declined Bone Density Screening declined RSV Vaccine(1 - 1-dose 75+ series) declined Influenza Vaccine(1) declined Covid-19 Vaccine( - season) declined Xochitl Cheema LPN May 31, 2024 3:17 PM documented in this encounter [facility] 05-31-2024 Note HNO ID: [id number] Author: XOCHITL CHEEMA LPN Service: ? Author [...] Cheema LPN May 31, 2024 3:17 PM [facility] 01-07-2024 Telephone encounter Note Patient notified of information, verbalized understanding. No questions, comments, or concerns at this time. Xochitl Cheema LPN January 07, 2024 5:26 PM [facility] 01-07-2024 Miscellaneous Notes Patient notified of information, verbalized understanding. No questions, comments, or concerns at this time. Xochitl Cheema LPN January 07, 2024 5:26 PM Message left for patient to phone office at earliest convenience in regards to results. Xochitl Cheema LPN January 06, 2024 4:51 PM ----- Message from Erna Hall MD sent at 01/06/2024 1:18 PM EDT ----- Ultrasound of breast is benign. Recheck in 6 months for stability. documented in this encounter [facility] 01-06-2024 Telephone encounter Note Message left for patient to phone office at earliest convenience in regards to results. Xochilt Cheema LPN January 06, 2024 4:51 PM [facility] 01-06-2024 Telephone encounter Note ----- Message from Erna Hall MD sent at 01/06/2024 1:18 PM EDT ----- Ultrasound of breast is benign. Recheck in 6 months for stability. [facility] 01-06-2024 History of Present illness Narrative Radiology Service Progress Note PATIENT NAME: Marlen Smith DATE OF SERVICE: January 06, 2024 TIME: 9:35 AM PATIENT IDENTITY VERIFICATION COMPLETED USING TWO (2) IDENTIFIERS: Name and Date of confirmed by patient verbally. FALL SCREENING: Has the patient had 2 falls in the last year or 1 fall with injury or currently using an Ambulatory Assistive Device (Walker, Cane, Wheelchair, Crutches, etc.)? No PATIENT GENDER DATA: Female. status: : No status: NO. PATIENT RELEVANT IMPLANT DATA REVIEWED: Not Applicable PATIENT PRESENTS WITH AN IMPLANTABLE OR ATTACHED LOG PROCESSOR OPERATOR: No RADIOLOGY DEPARTMENT: Ultrasound PERIPHERAL IV DATA: Not applicable SIGNED BY: Akila Hahn RDMS January 06, 2024 9:35 AM documented in this encounter [facility] 01-06-2024 Note HNO ID: [id number] Author: AKILA HAHN RDMS Service: ? Author Type: Advertising Account Executive Type: Progress Notes Filed: 01/06/2024 09:35 Note Text: Radiology Service Progress Note PATIENT NAME: Marlen Smith DATE OF SERVICE: January 06, 2024 TIME: 9:35 AM PATIENT IDENTITY VERIFICATION COMPLETED USING TWO (2) IDENTIFIERS: Name and Date of confirmed by patient verbally. FALL SCREENING: Has the patient had 2 falls in the last year or 1 fall with injury or currently using an Ambulatory Assistive Device (Walker, Cane, Wheelchair, Crutches, etc.)? No PATIENT GENDER DATA: Female. status: : No status: NO. PATIENT RELEVANT IMPLANT DATA REVIEWED: Not Applicable PATIENT PRESENTS WITH AN IMPLANTABLE OR ATTACHED LOG PROCESSOR OPERATOR: No RADIOLOGY DEPARTMENT: Ultrasound PERIPHERAL IV DATA: Not applicable SIGNED BY: Akila Hahn RDMS January 06, 2024 9:35 AM [facility] 10-13-2023 Telephone encounter Note Mammogram and ultrasound orders have been faxed to [facility] as requested Fax confirmation received Xochitl Cheema LPN October 13, 2023 12:34 PM [facility] 10-13-2023 Miscellaneous Notes Mammogram and ultrasound orders have been faxed to [facility] as requested Fax confirmation received Xochitl Cheema LPN October 13, 2023 12:34 PM documented in this encounter [facility] 10-13-2023 Note HNO ID: [id number] Author: ERNA HALL MD Service: ? Author Type: Physician Type: Progress Notes Filed: 10/19/2023 14:31 Note Text: Shyam Smith is a 77 year old female.The patient presents today for follow-up for multiple medical problems. See list. Her chronic medical problems have been stable. Her blood pressure is under good control. She has no new complaints today. She is feeling well. Review of Systems Constitutional: Negative. HENT: Negative. Eyes: Negative. Respiratory: Negative. Cardiovascular: Negative. Gastrointestinal: Negative. Endocrine: Negative. Genitourinary: Negative. Musculoskeletal: Negative. Skin: Negative. Allergic/Immunologic: Negative. Neurological: Negative. Hematological: Negative. Psychiatric/Behavioral: Negative. PAST SURGICAL HISTORY Procedure Laterality Date ESOPHAGOGASTRODUODENOSCOPY [...] Never Smokeless tobacco: Never Vaping Use Vaping Use: Never used Substance Use Topics Alcohol use: No Drug use: Not Currently ALLERGIES Allergen Reactions Dust Unknown Trees Unknown MEDICATIONS: STIOLTO RESPIMAT 2.5-2.5 mcg/actuation Inhale 2 Puffs as instructed once daily. cetirizine HCl (CETIRIZINE ORAL) Take 10 mg by mouth once daily. ipratropium-albuterol (DUONEB) 0.5 mg-3 mg(2.5 mg base)/3 mL nebu USE 1 AMPULE IN NEBULIZER EVERY 4 HOURS NEEDED FOR WHEEZING OR SHORTNESS OF BREATH latanoprost (XALATAN) 0.005 % ophthalmic solution INSTILL 1 DROP INTO EACH EYE NIGHTLY Omeprazole Magnesium 20 mg tablet Take 20 mg by mouth once daily. Cholecalciferol, Vitamin D3, 50 mcg (2,000 unit) cap Take 1 capsule by mouth once daily. vitamin b complex capsule Take 1 capsule by mouth once daily. hydroCHLOROthiazide 25 mg tablet Take 1 tablet by mouth once daily. Allergies, past surgical history, family history and past medical history were reviewed per this encounter. Medications were reviewed and verified. Objective BP 138/88 (BP Site: Right Arm, BP Position: Sitting, BP Cuff Size: Regular Adult) Pulse 88 Temp 36.3 ?C (97.3 ?F) (Temporal) Resp 18 Ht 162.6 cm (5' 4) Wt 95.7 kg (211 lb) SpO2 97% BMI 36.22 kg/m? Physical Exam Vitals reviewed. Constitutional: Appearance: Normal appearance. HENT: Head: Normocephalic and atraumatic. Nose: Nose [...] and Affect: Mood normal. Behavior: Behavior normal. Assessment and Plan Encounter Diagnosis ICD-10-CM 1. Unspecified essential hypertension I10 2. Pulmonary emphysema, unspecified emphysema type (HCC) J43.9 unchanged 3. Pure hypercholesterolemia E78.00 4. Gastroesophageal reflux disease with esophagitis without hemorrhage K21.00 Continue present medications. Check labs as above. Monitor blood pressure regularly. Exercise as tolerated. Maintain good diet. Follow-up in 6 months. Erna Hall MD [facility] 10-13-2023 History of Present illness Narrative Shyam Smith is a 77 year old female.The patient presents today for follow-up for multiple medical problems. See list. Her chronic medical problems have been stable. Her blood pressure is under good control. She has no new complaints today. She is feeling well. Review of Systems Constitutional: Negative. HENT: Negative. Eyes: Negative. Respiratory: Negative. Cardiovascular: Negative. Gastrointestinal: Negative. Endocrine: Negative. Genitourinary: Negative. Musculoskeletal: Negative. Skin: Negative. Allergic/Immunologic: Negative. Neurological: Negative. Hematological: Negative. Psychiatric/Behavioral: Negative. PAST SURGICAL HISTORY Procedure Laterality Date ESOPHAGOGASTRODUODENOSCOPY [...] Never Smokeless tobacco: Never Vaping Use Vaping Use: Never used Substance Use Topics Alcohol use: No Drug use: Not Currently ALLERGIES Allergen Reactions Dust Unknown Trees Unknown MEDICATIONS: STIOLTO RESPIMAT 2.5-2.5 mcg/actuation Inhale 2 Puffs as instructed once daily. cetirizine HCl (CETIRIZINE ORAL) Take 10 mg by mouth once daily. ipratropium-albuterol (DUONEB) 0.5 mg-3 mg(2.5 mg base)/3 mL nebu USE 1 AMPULE IN NEBULIZER EVERY 4 HOURS NEEDED FOR WHEEZING OR SHORTNESS OF BREATH latanoprost (XALATAN) 0.005 % ophthalmic solution INSTILL 1 DROP INTO EACH EYE NIGHTLY Omeprazole Magnesium 20 mg tablet Take 20 mg by mouth once daily. Cholecalciferol, Vitamin D3, 50 mcg (2,000 unit) cap Take 1 capsule by mouth once daily. vitamin b complex capsule Take 1 capsule by mouth once daily. hydroCHLOROthiazide 25 mg tablet Take 1 tablet by mouth once daily. Allergies, past surgical history, family history and past medical history were reviewed per this encounter. Medications were reviewed and verified. Objective BP 138/88 (BP Site: Right Arm, BP Position: Sitting, BP Cuff Size: Regular Adult) Pulse 88 Temp 36.3 C (97.3 F) (Temporal) Resp 18 Ht 162.6 cm (5' 4) Wt 95.7 kg (211 lb) SpO2 97% BMI 36.22 kg/m Physical Exam Vitals reviewed. Constitutional: Appearance: Normal appearance. HENT: Head: Normocephalic and atraumatic. Nose: Nose [...] and Affect: Mood normal. Behavior: Behavior normal. Assessment and Plan Encounter Diagnosis ICD-10-CM 1. Unspecified essential hypertension I10 2. Pulmonary emphysema, unspecified emphysema type (HCC) J43.9 3. Pure hypercholesterolemia E78.00 4. Gastroesophageal reflux disease with esophagitis without hemorrhage K21.00 Continue present medications. Check labs as above. Monitor blood pressure regularly. Exercise as tolerated. Maintain good diet. Follow-up in 6 months. Erna Hall MD Patient is in office for 6 month exam. Patient has no current complaints or concerns. Xochitl Cheema LPN October 13, 2023 10:27 AM documented in this encounter [facility] 10-13-2023 Note HNO ID: [id number] Author: XOCHITL CHEEMA LPN Service: ? Author Type: LICENSED NURSE Type: Progress Notes Filed: 10/13/2023 11:17 Note Text: Patient is in office for 6 month exam. Patient has no current complaints or concerns. Xochitl Cheema LPN October 13, 2023 10:27 AM [facility] 07-04-2023 Miscellaneous Notes Patient notified of information. Patient states she would like orders generated due to the hospital telling her to call sooner then later to schedule. Attached are orders. This nurse was unable to put in Jules Diag W Jaime left in epic. Xochitl Cheema LPN July 04, 2023 1:10 PM Message left for patient to phone office at earliest convenience in regards to results. Xochitl Cheema LPN July 03, 2023 8:56 AM ----- Message from Erna Hall MD sent at 07/03/2023 8:49 AM EST ----- Rechecck in 6m. Probably benign documented in this encounter [facility] 07-02-2023 History of Present illness Narrative Radiology Service Progress Note PATIENT NAME: Marlen Smith DATE OF SERVICE: July 02, 2023 TIME: 9:38 AM PATIENT IDENTITY VERIFICATION COMPLETED USING TWO (2) IDENTIFIERS: Name and Date of confirmed by patient verbally. FALL SCREENING: Has the patient had 2 falls in the last year or 1 fall with injury or currently using an Ambulatory Assistive Device (Walker, Cane, Wheelchair, Crutches, etc.)? No PATIENT GENDER DATA: Female. status: : No status: NO. PATIENT RELEVANT IMPLANT DATA REVIEWED: Not Applicable PATIENT PRESENTS WITH AN IMPLANTABLE OR ATTACHED LOG PROCESSOR OPERATOR: No RADIOLOGY DEPARTMENT: Ultrasound PERIPHERAL IV DATA: Not applicable SIGNED BY: Akila Hahn RDMS July 02, 2023 9:38 AM documented in this encounter [facility] 07-02-2023 History of Present illness Narrative Radiology Service Progress Note PATIENT NAME: Marlen Smith DATE OF SERVICE: July 02, 2023 TIME: 8:48 AM PATIENT IDENTITY VERIFICATION COMPLETED USING TWO (2) IDENTIFIERS: Name and Date of confirmed by patient verbally. FALL SCREENING: Has the patient had 2 falls in the last year or 1 fall with injury or currently using an Ambulatory Assistive Device (Walker, Cane, Wheelchair, Crutches, etc.)? No PATIENT GENDER DATA: Female. status: : No status: NO. PATIENT RELEVANT IMPLANT DATA REVIEWED: Not Applicable PATIENT PRESENTS WITH AN IMPLANTABLE OR ATTACHED LOG PROCESSOR OPERATOR: No RADIOLOGY DEPARTMENT: Mammography PERIPHERAL IV DATA: Not applicable SIGNED BY: RT Cristiana(R) July 02, 2023 8:48 AM documented in this encounter [facility] 06-10-2023 Miscellaneous Notes I called patient to confirm with her that she still has not received a call from the breast center to schedule additional breast views from her recent abnormal mammogram. Marlen said she called ph#[phone] and had to leave a message. No one has called her back yet. I called the same phone number above and spoke with a [facility] staff member. She told me that since patient had her mammogram done in [place] at the [facility] that additional view orders are needed. Please review and then sign orders below. Once the orders are in, I can schedule the appointment for patient. Marlen said that she would like a morning appointment. Thank you! Daniela Ray LPN June 10, 2023 2:03 PM Marlen Smith called today. : 1945 Allergies: Dust and Trees (home) [phone] (work) [phone] (cell) Reason for call: Patient called asking for mammogram orders. She had a screening mammogram done 05/27/2023. It was abnormal showing left breast asymmetry. It looks like she needs orders for a left diagnostic mammogram and a left breast ultrasound. Patient last appointment: 04/09/2023 The patients preferred pharmacy has been captured for this encounter? no Daniela Ray LPN documented in this encounter [facility] 05-30-2023 Miscellaneous Notes Patient notified of information, verbalized understanding. Patient stated she has not been contacted by [facility] in regards to additional imaging. Patient stated that she was told she would hear something from them within 3 weeks. This nurse advised patient to contact them, and let us know if anything is needed from our office. Patient verbalized understanding Xochitl Cheema LPN May 30, 2023 11:35 AM ----- Message from Erna Hall MD sent at 05/29/2023 1:32 PM EST ----- Check to see if patient has been contacted to schedule this. documented in this encounter [facility] 05-29-2023 Miscellaneous Notes May 29, 2023 PID: [id number] Marlen Smith [address] [place] [address] Dear Ms. Smith, Your recent breast imaging exam on 05/28/2023 showed a possible finding that requires additional imaging studies for a complete evaluation. Most such findings are probably benign (not cancer). If you have a healthcare provider who ordered/prescribed your screening mammogram: Please call [phone] or [phone]: [phone] to schedule an appointment for your additional imaging (if you have not already done so). If you DO NOT have a healthcare provider (ie you did not have an order/prescription for your screening mammogram): Please call to schedule an appointment for your additional imaging (if you have not already done so). You must have an order/prescription from your physician when calling to schedule your appointment. If your order/prescription is not electronic, you must bring the hard copy with you on the day of your exam to avoid delays. Your imaging studies and reports are kept on file at [facility] as part of your permanent medical record, and are available for your continuing care. Thank you for allowing us to help in meeting your health care needs. Sincerely, Dr. Dai Interpreting Radiologist [facility] (Additional imaging) documented in this encounter [facility] 04-10-2023 Instructions Erna Hall MD - 04/10/2023 3:29 PM EST Screening schedule The following prevention plan is recommended: Pneumococcal Vaccine: 65+(1 - PCV) Never done Spirometry Never done DTaP,Tdap,Td Vaccine(1 - Tdap) Never done Shingrix Vaccine(1 of 2) Never done RSV Vaccine(1 - 1-dose 60+ series) Never done Bone Density Screening Never done Diabetes Screening due on 10/06/2021 Influenza Vaccine(1) due on 12/27/2022 Covid-19 Vaccine( - 2022- season) due on 12/27/2022 WHAT YOU CAN DO TO PREVENT FALLS [...] review all the medicines you take, even fqki-kuw-gachrdh medicines. As you get older, the way [...] apply if you have certain medical conditions. documented in this encounter [facility] 04-09-2023 History of Present illness Narrative Shyam Smith is a 77 year old female. She presents today for her Medicare wellness visit Review of Systems Constitutional: Negative. HENT: Negative. Eyes: Negative. Respiratory: Negative. Cardiovascular: Negative. Gastrointestinal: Negative. Endocrine: Negative. Genitourinary: Negative. Musculoskeletal: Negative. Skin: Negative. Allergic/Immunologic: Negative. Neurological: Negative. Hematological: Negative. Psychiatric/Behavioral: Negative. PAST SURGICAL HISTORY Procedure Laterality Date ESOPHAGOGASTRODUODENOSCOPY [...] Never Smokeless tobacco: Never Vaping Use Vaping Use: Never used Substance Use Topics Alcohol use: No Drug use: Not Currently ALLERGIES Allergen Reactions Dust Unknown Trees Unknown MEDICATIONS: ipratropium-albuterol (DUONEB) 0.5 mg-3 mg(2.5 mg base)/3 mL nebu USE 1 AMPULE IN NEBULIZER EVERY 4 HOURS NEEDED FOR WHEEZING OR SHORTNESS OF BREATH latanoprost (XALATAN) 0.005 % ophthalmic solution INSTILL 1 DROP INTO EACH EYE NIGHTLY Omeprazole Magnesium 20 mg tablet Take 20 mg by mouth once daily. Cholecalciferol, Vitamin D3, 50 mcg (2,000 unit) cap Take 1 capsule by mouth once daily. vitamin b complex capsule Take 1 capsule by mouth once daily. hydroCHLOROthiazide 25 mg tablet Take 1 tablet by mouth once daily. Allergies, past surgical history, family history and past medical history were reviewed per this encounter. Medications were reviewed and verified. Objective BP 128/78 (BP Site: Left Arm, BP Position: Sitting, BP Cuff Size: Regular Adult) Pulse 76 Temp 36.4 C (97.6 F) (Temporal) Resp 18 Ht 162.6 cm (5' 4) Wt 97 kg (213 lb 12.8 oz) SpO2 98% BMI 36.70 kg/m Physical Exam Vitals reviewed. Constitutional: Appearance: Normal appearance. HENT: Head: Normocephalic and atraumatic. Nose: Nose [...] and Affect: Mood normal. Behavior: Behavior normal. Assessment and Plan Encounter Diagnosis ICD-10-CM 1. Wellness examination Z00.00 2. Counseling regarding advance directives and goals of care Z71.89 ADVANCE CARE PLAN DISCUSSION 3. Encounter for screening for depression Z13.31 DEPRESSION SCREENING/ASSESSMENT 4. Encounter for immunization Z23 5. Pure hypercholesterolemia E78.00 COMP METABOLIC PANEL LIPID PANEL BASIC 6. Hypertension, essential I10 COMP METABOLIC PANEL 7. Screening for deficiency anemia Z13.0 CBC + DIFF All open preventative health maintenance topics discussed with patient in detail. This includes risks and benefits regarding vaccines, cancer screening, healthy life style, and diet. Marlen Smith is a 77 year old female here for a Medicare wellness visit. Medicare Health Risk Assessment General Health Good Exercise: Minutes/Day 30 min Exercise: Days/Week 7 days Alcohol: Daily Use Never Alcohol: Drinks/Day Patient does not drink Alcohol: 6 or more drinks Never Feel off balance No Concerns: Teeth/Dentures No Concerns: Sexual function Troubled by feelings None of the above Frequency: Eating healthy diet Several days ADLs requiring help None of the above Safety precautions in home/vehicle Yes Smoke, vape, chews tobacco No Difficulty hearing Yes, I wear a hearing aid Difficulty seeing No Current Providers Specialists: I have reviewed specialist-related care of the patient in the medical record. Medical/Family history review Reviewed and updated problem list, medical/surgical/family/social history, medications, and allergies. Opioid use review Opioid Medications (last 90 days) Some values may be hidden. Unless noted otherwise, only the newest values recorded on each date are displayed. Opioid Medications No data to display. Depression screening Depression Screening PHQ-2 Score 04/09/2023 0 Depression screening tool completed and reviewed. Based on score and interview, patient is not at risk for depression. Screening tool discussed with patient, and I recommended no further intervention at this time. Cognitive screening Mini Cog Score: 5 Cognitive screening reviewed and no further action needed (score 3-5) Functional Observation Was the patient's timed Up & Go test unsteady or ? 12 seconds? Yes Advance Care Planning Surrogate decision maker documented and/or advance directives scanned in chart Measurements BP 128/78 Pulse 76 Temp (Src) 97.6 (Temporal) Resp 18 Ht 5' 4 (1.63m) Wt 213 lb 12.8 oz (97.0kg) SpO2 98% BMI 36.68 kg/(m^2). Additional screenings: Hearing Screening (Inadequate exam) Right ear: Left ear: Vision Screening (Inadequate exam) Assessment/Plan Medicare annual wellness visit, subsequent (Z00.00) - Counseled on healthy diet and regular exercise - Fall avoidance information provided - Personalized prevention plan provided [employer] BP Controlled (<130/80) Shingrix Vaccine(1 of 2) declined RSV Vaccine(1 - 1-dose 60+ series) declined Bone Density Screening Pneumococcal Vaccine: 65+(1 - PCV) Diabetes Screening Influenza Vaccine(1) declined Covid-19 Vaccine(5 - 2022- season) declined Xochitl Cheema LPN April 09, 2023 3:43 PM documented in this encounter [facility] 05-25-2022 Miscellaneous Notes May 27, 2022 PID: [id number] Marlen Smith [address] [place] [address] Dear Ms. Smith, We are pleased to inform you that the results of your recent breast imaging exam on 05/24/2022 are normal. Early detection of cancer is very important. We also understand recommendations regarding breast cancer screening are controversial. Please discuss with your primary care provider which strategy is best for you and whether a mammogram is right for you. Your imaging studies and report will be kept on file at [facility] as part of your permanent medical record and are available for your continuing care. Thank you for allowing us to help in meeting your health care needs. Sincerely, Dr. Peña Interpreting Radiologist [facility] (Normal over 40) documented in this encounter [facility] 05-24-2022 History of Present illness Narrative Radiology Service Progress Note PATIENT NAME: Marlen Smith DATE OF SERVICE: May 24, 2022 TIME: 2:38 PM PATIENT IDENTITY VERIFICATION COMPLETED USING TWO (2) IDENTIFIERS: Name and Date of confirmed by patient verbally. FALL SCREENING: Has the patient had 2 falls in the last year or 1 fall with injury or currently using an Ambulatory Assistive Device (Walker, Cane, Wheelchair, Crutches, etc.)? No PATIENT GENDER DATA: Female. status: : No status: NO. PATIENT RELEVANT IMPLANT DATA REVIEWED: Not Applicable RADIOLOGY DEPARTMENT: Mammography PERIPHERAL IV DATA: Not applicable SIGNED BY: RT Sudhakar(R) May 24, 2022 2:38 PM documented in this encounter [facility] 04-10-2022 History of Present illness Narrative This note was created using [employer]. Subjective Marlen Smith is a 76 year old female. Sia presents today for her Medicare wellness exam Review of Systems Constitutional: Negative. HENT: Negative. Eyes: Negative. Respiratory: Negative. Cardiovascular: Negative. Gastrointestinal: Negative. Endocrine: Negative. Genitourinary: Negative. Musculoskeletal: Negative. Skin: Negative. Allergic/Immunologic: Negative. Neurological: Negative. Hematological: Negative. Psychiatric/Behavioral: Negative. Objective BP 130/72 (BP Site: Left Arm, BP Position: Sitting, BP Cuff Size: Large Adult) Pulse 78 Temp 36.2 C (97.1 F) (Temporal) Resp 18 Ht 162.6 cm (5' 4) Wt 96.5 kg (212 lb 12.8 oz) SpO2 98% BMI 36.53 kg/m Physical Exam Vitals reviewed. Constitutional: Appearance: Normal appearance. HENT: Head: Normocephalic and atraumatic. Nose: Nose [...] and Affect: Mood normal. Behavior: Behavior normal. Assessment and Plan Marlen was seen today for medicare wellness exam. Diagnoses and all orders for this visit: Wellness examination Unspecified essential hypertension Mixed hyperlipidemia Gastroesophageal reflux disease with esophagitis without hemorrhage Other specified abnormal findings of blood chemistry Other orders - hydroCHLOROthiazide (HYDRODIURIL, ESIDRIX) 25 mg tablet; Take 1 tablet by mouth once daily. - DEPRESSION SCREENING/ASSESSMENT Medicare Yearly Visit Current Outpatient Medications Medication Sig ipratropium-albuterol (DUONEB) 0.5 mg-3 mg(2.5 mg base)/3 mL nebu Inhale as instructed. ipratropium-albuterol (DUONEB) 0.5 mg-3 mg(2.5 mg base)/3 mL nebu USE 1 AMPULE IN NEBULIZER EVERY 4 HOURS NEEDED FOR WHEEZING OR SHORTNESS OF BREATH latanoprost (XALATAN) 0.005 % ophthalmic solution INSTILL 1 DROP INTO EACH EYE NIGHTLY Omeprazole Magnesium 20 mg tablet Take by mouth. Cholecalciferol, Vitamin D3, 50 mcg (2,000 unit) cap Take by mouth. vitamin b complex capsule Take 1 capsule by mouth once daily. hydrochlorothiazide 25 mg ORAL tablet Take one half tablet daily as needed PRILOSEC 20 MG CAP Take one(1) capsule daily. No current facility-administered medications for this visit. Medications reviewed: Yes Marlen gets sporadic irregular exercise. She watches her diet for sodium, low fat and low cholesterol most of the time. End of Live Planning discussed including patients advanced directive wishes: Yes I am willing to follow Marlen advanced directives. Depression screen She in the past two weeks denies having felt down, depressed, hopeless, or with little interest or pleasure in doing things. Functional Ability/Safety Screen 1. Was the patient's timed Up and Go test unsteady or longer than 30 seconds? Yes 2. Does the patient need help with the phone, transportation, shopping,preparing meals, housework, laundry, medications or managing money? No 3. Does your home have rungs in the hallway, lack of grab bars in the bathroom, lack of handrails on the stairs or have poor lighting? Yes BP 130/72 Pulse 78 Temp (Src) 97.1 (Temporal) Resp 18 Ht 5' 4 (1.63m) Wt 212 lb 12.8 oz (96.5kg) SpO2 98% BMI 36.51 kg/(m^2). Erna Hall MD documented in this encounter [facility] Evaluation note Diagnosis Wellness examination- Primary Unspecified essential hypertension Mixed hyperlipidemia Gastroesophageal reflux disease with esophagitis without hemorrhage Other specified abnormal findings of blood chemistry Encounter for screening mammogram for malignant neoplasm of breast Other screening mammogram Screening for deficiency anemia Screening for other and unspecified deficiency anemia [facility] Diagnosis Onset Date Resolution Status COPD (chronic obstructive pulmonary disease) chronic [facility] Work Phone: Evaluation note* Diagnosis Encounter for screening mammogram for malignant neoplasm of breast Other screening mammogram [facility] Diagnosis Wellness examination- Primary Counseling regarding advance directives and goals of care Encounter for screening for depression Encounter for immunization Need for other specified prophylactic vaccination against single bacterial disease Pure hypercholesterolemia Hypertension, essential Unspecified essential hypertension Screening for deficiency anemia Screening for other and unspecified deficiency anemia Medicare annual wellness visit, subsequent Routine general medical examination at a health care facility [facility] Diagnosis Abnormal mammogram- Primary Abnormal mammogram, unspecified [facility] Diagnosis Abnormal mammogram Abnormal mammogram, unspecified [facility] Diagnosis Abnormal mammogram Abnormal mammogram, unspecified [facility] Diagnosis Abnormal mammogram- Primary Abnormal mammogram, unspecified [facility] Diagnosis Onset Date Resolution Status Obesity acute COPD (chronic obstructive pulmonary disease) chronic Acute bronchitis, unspecified acute Close sexual exposure to mpox virus acute [facility] Work Phone: Evaluation note* Diagnosis Unspecified essential hypertension- Primary Pulmonary emphysema, unspecified emphysema type (HCC) Pure hypercholesterolemia Gastroesophageal reflux disease with esophagitis without hemorrhage [facility] Diagnosis Abnormal mammogram Abnormal mammogram, unspecified [facility] Diagnosis Wellness examination- Primary Screening for depression Encounter for screening examination for other mental health and behavioral disorders Encounter for counseling regarding advance directives Breast cancer screening by mammogram Unspecified essential hypertension Chronic obstructive pulmonary disease, unspecified COPD type (HCC) Pure hypercholesterolemia Screening for deficiency anemia Screening for other and unspecified deficiency anemia Medicare annual wellness visit, subsequent Routine general medical examination at a health care facility [facility] Diagnosis Abnormal mammogram- Primary Abnormal mammogram, unspecified [facility] Diagnosis Abnormal mammogram Abnormal mammogram, unspecified documented in this encounter [facility] note* Diagnosis Abnormal mammogram Abnormal mammogram, unspecified documented in this encounter [facility] noteNo assessment information availableLogansport [facility] Work Phone: Reason for referral (narrative)* Diagnostic Procedure Only (Routine) - Pending Review Specialty Diagnoses / Procedures Referred By Tiffany crystal Referred To Contact [facility] Diagnoses Encounter for screening mammogram for malignant neoplasm of breast Procedures JULES SCREENING SCREENING MAMMOGRAPHY BI 2-VIEW BREAST INC Erna Vigil MD [address] [place] [address] [facility] [address] [place] [address] Referral ID Status Reason Start Date Expiration Date Visits Requested Visits Authorized [id number] Pending Review Auto-Generat ed Referral 05/10/2023 1 1 [facility] for referral (narrative)* Diagnostic Procedure Only (Routine) - Closed Specialty Diagnoses / Procedures Referred By Tiffany crystal Referred To Contact [facility] Diagnoses Encounter for screening mammogram for malignant neoplasm of breast Procedures JULES SCREENING SCREENING MAMMOGRAPHY BI 2-VIEW BREAST INC Erna Vigil MD [address] [place] [address] [facility] [address] [address] Referral ID Status Reason Start Date Expiration Date V isits Requested Visits Authorized [id number] Closed Auto-Generate d Referral 04/10/2022 05/10/2023 1 1 [facility] for referral (narrative)* Diagnostic Procedure Only (Routine) - Pending Review Specialty Diagnoses / Procedures Referred By Tiffany crystal Referred To Contact [facility] Diagnoses Abnormal mammogram Procedures US BREAST LTD LEFT US BREAST UNI REAL TIME WITH IMAGE LIMITED Erna Hall MD [address] [place] [address] [facility] [address] [place] [address] Referral ID Status Reason Start Date Expiration Date Visits Requested Visits Authorized [id number] Pending Review Auto-Generat ed Referral 06/10/2023 07/09/2024 1 1 * Diagnostic Procedure Only (Routine) - Pending Review Specialty Diagnoses / Procedures Referred By Deloresac t Referred To Contact [facility] Diagnoses Abnormal mammogram Procedures JULES DIAGNOSTIC LEFT DIAGNOSTIC MAMMOGRAPHY COMPUTER-AIDED DETCJ Erna Malik MD [address] [place] [address] [facility] [address] [place] [address] Referral ID Status Reason Start Date Expiration Date Visits Requested Visits Authorized [id number] Pending Review Auto-Generat ed Referral 06/10/2023 07/09/2024 1 1 [facility] for referral (narrative)* Diagnostic Procedure Only (Routine) - Closed Specialty Diagnoses / Procedures Referred By Tiffany crystal Referred To Contact [facility] Diagnoses Abnormal mammogram Procedures US BREAST LTD LEFT US BREAST UNI REAL TIME WITH IMAGE LIMITED Erna Hall MD [address] [place] [address] [facility] [address] [place] [address] Referral ID Status Reason Start Date Expiration Date V isits Requested Visits Authorized [id number] Closed Auto-Generate d Referral 06/10/2023 07/09/2024 1 1 [facility] for referral (narrative)* Diagnostic Procedure Only (Routine) - Pending Review Specialty Diagnoses / Procedures Referred By Tiffany t Referred To Contact [facility] Diagnoses Abnormal mammogram Procedures JULES DIAGNOSTIC LEFT DIAGNOSTIC MAMMOGRAPHY COMPUTER-AIDED DETCJ Erna Malik MD [address] [place] [address] [facility] [address] [place] [address] Referral ID Status Reason Start Date Expiration Date Visits Requested Visits Authorized [id number] Pending Review Auto-Generat ed Referral 01/04/2024 08/02/2024 1 1 * Diagnostic Procedure Only (Routine) - Pending Review Specialty Diagnoses / Procedures Referred By Contac t Referred To Contact [facility] Diagnoses Abnormal mammogram Procedures US BREAST LTD LEFT US BREAST UNI REAL TIME WITH IMAGE LIMITED Erna Hall MD [address] [place] [address] [facility] [address] [address] Referral ID Status Reason Start Date Expiration Date Visits Requested Visits Authorized [id number] Pending Review Auto-Generat ed Referral 01/04/2024 08/02/2024 1 1 [facility] Diagnostic Procedure Only (Routine) - Closed Specialty Diagnoses / Procedures Referred By Deloresac t Referred To Contact [facility] Diagnoses Abnormal mammogram Procedures US BREAST LTD LEFT US BREAST UNI REAL TIME WITH IMAGE LIMITED Erna Hall MD [address] [place] [address] [facility] [address] [place] [address] Referral ID Status Reason Start Date Expiration Date V isits Requested Visits Authorized [id number] Closed Auto-Generate d Referral 01/04/2024 08/02/2024 1 1 [facility] for referral (narrative)No reason for referral information availableLogansport State [facility] Services Work Phone: Reason for visit Narrative* Diagnostic Procedure Only (Routine) - Closed Specialty Diagnoses / Procedures Referred By Contac t Referred To Contact [facility] Diagnoses Encounter for screening mammogram for malignant neoplasm of breast Procedures JULES SCREENING SCREENING MAMMOGRAPHY BI 2-VIEW BREAST INC CAD Erna Hall MD [address] [place] [address] [facility] [address] [place] [address] Referral ID Status Reason Start Date Expiration Date V isits Requested Visits Authorized [id number] Closed Auto-Generate d Referral 04/10/2022 05/10/2023 1 1 [facility] for visit Narrative* Diagnostic Procedure Only (Routine) - Closed Specialty Diagnoses / Procedures Referred By Contac t Referred To Contact [facility] Diagnoses Abnormal mammogram Procedures JULES DIAGNOSTIC LEFT DIAGNOSTIC MAMMOGRAPHY COMPUTER-AIDED DETCJ UNI Erna Hall MD [address] [place] [address] [facility] [address] [place] [address] Referral ID Status Reason Start Date Expiration Date V isits Requested Visits Authorized [id number] Closed Auto-Generate d Referral 06/10/2023 07/09/2024 1 1 [facility] for visit Narrative* Diagnostic Procedure Only (Routine) - Closed Specialty Diagnoses / Procedures Referred By Contac t Referred To Contact [facility] Diagnoses Abnormal mammogram Procedures JULES DIAGNOSTIC BILATERAL DIAGNOSTIC MAMMOGRAPHY COMPUTER-AIDED DETCJ Erna Hall MD [address] [place] [address] Phone: tel: fax: [facility] [address] [place] [address] Referral ID Status Reason Start Date Expiration Date V isits Requested Visits Authorized [id number] Closed Auto-Generate d Referral 07/14/2024 08/13/2025 1 1 [facility] Summary Purpose Family History No Family History Records Found Relationship Condition Age at Onset Recorded Date/T dany mother Dementia Unknown father Cardiac disease Unknown Cerebrovascular accident (CVA) Unknown Hypertension Unknown Malignant neoplasm of skin Unknown Dementia Unknown Cerebral aneurysm Unknown brother Malignant neoplasm of skin Unknown sister Malignant neoplasm of skin Unknown Advance Directives No Advanced Directives Records Found Advance Directive Response Recorded Date/ Time Living Will Yes October 24, 2017 8:39pm Power of Rehab Liaison Yes October 24 8:39pm Advance Directive Response Recorded Date/ Time Living Will Yes October 24, 2017 9:39pm Power of Rehab Liaison Yes October 24 8 9:39pm Advance Directive Response Recorded Date/ Time Living Will Yes December 17 1:35pm Power of Rehab Liaison Yes December 17, 023 1:35pm Advance Directive Response Recorded Date/ Time Living Will Yes December 17 1:35pm Do you have a Healthcare Power of Rehab Liaison? Yes December 17, 2022 1:35pm Chief Complaint and Reason for Visit Chief Complaint fu from medication Reason for Visit COPD (chronic obstru ctive pulmonary disease) Chief Complaint 1 Y FU SCREENING Reason for Visit COPD (chronic obstru ctive pulmonary disease) Chief Complaint 1 Y FU SORE THROAT/COUGH/SINUS PRESSURE/BILAT EAR EORDER Reason for Visit Obesity COPD (chronic obstructive pulmonary disease) Acute bronchitis, unspecified Close sexual exposure to mpox virus Chief Complaint Admit Date 1 Y FU November 04, 2024 10:4 8am Additional Source Comments INFORMATION SOURCE (unrecogn ized section and content) DATE CREATED AUTHOR 10/13/2018 [facility] [place] DATE CREATED AUTHOR AUTHOR'S ORGANIZ ATION 06/07/2024 [facility] DATE CREATED AUTHOR AUTHOR'S ORGANIZ ATION 08/31/2024 [facility] DATE CREATED AUTHOR AUTHOR'S ORGANIZ ATION 01/19/2025 [facility] Source Comments (unrecognize d section and content) In the event this informatio n is protected by the Federal Confidentiality of Alcohol and Drug Abuse Patient Records regulations: The Federal rules restrict any use of the information to criminally investigate or prosecute any alcohol or drug abuse patient.[facility] the event this information is protected by the Federal Confidentiality of Alcohol and Drug Abuse Patient Records regulations: The Federal rules restrict any use of the information to criminally investigate or prosecute any alcohol or drug abuse patient.[facility] the event this information is protected by the Federal Confidentiality of Alcohol and Drug Abuse Patient Records regulations: The Federal rules restrict any use of the information to criminally investigate or prosecute any alcohol or drug abuse patient.[facility] the event this information is protected by the Federal Confidentiality of Alcohol and Drug Abuse Patient Records regulations: The Federal rules restrict any use of the information to criminally investigate or prosecute any alcohol or drug abuse patient.[facility] the event this information is protected by the Federal Confidentiality of Alcohol and Drug Abuse Patient Records regulations: The Federal rules restrict any use of the information to criminally investigate or prosecute any alcohol or drug abuse patient.[facility] Center[facility] the event this information is protected by the Federal Confidentiality of Alcohol and Drug Abuse Patient Records regulations: The Federal rules restrict any use of the information to criminally investigate or prosecute any alcohol or drug abuse patient.[facility] Center[facility] the event this information is protected by the Federal Confidentiality of Alcohol and Drug Abuse Patient Records regulations: The Federal rules restrict any use of the information to criminally investigate or prosecute any alcohol or drug abuse patient.[facility] Center[facility] the event this information is protected by the Federal Confidentiality of Alcohol and Drug Abuse Patient Records regulations: The Federal rules restrict any use of the information to criminally investigate or prosecute any alcohol or drug abuse patient.[facility] Center[facility] the event this information is protected by the Federal Confidentiality of Alcohol and Drug Abuse Patient Records regulations: The Federal rules restrict any use of the information to criminally investigate or prosecute any alcohol or drug abuse patient.[facility] Center[facility] the event this information is protected by the Federal Confidentiality of Alcohol and Drug Abuse Patient Records regulations: The Federal rules restrict any use of the information to criminally investigate or prosecute any alcohol or drug abuse patient.[facility] Center[facility] the event this information is protected by the Federal Confidentiality of Alcohol and Drug Abuse Patient Records regulations: The Federal rules restrict any use of the information to criminally investigate or prosecute any alcohol or drug abuse patient.[facility] Center[facility] the event this information is protected by the Federal Confidentiality of Alcohol and Drug Abuse Patient Records regulations: The Federal rules restrict any use of the information to criminally investigate or prosecute any alcohol or drug abuse patient.[facility] Center[facility] the event this information is protected by the Federal Confidentiality of Alcohol and Drug Abuse Patient Records regulations: The Federal rules restrict any use of the information to criminally investigate or prosecute any alcohol or drug abuse patient.[facility] CenterIn the event this information is protected by the Federal Confidentiality of Alcohol and Drug Abuse Patient Records regulations: The Federal rules restrict any use of the information to criminally investigate or prosecute any alcohol or drug abuse patient.[facility] CenterIn the event this information is protected by the Federal Confidentiality of Alcohol and Drug Abuse Patient Records regulations: The Federal rules restrict any use of the information to criminally investigate or prosecute any alcohol or drug abuse patient.[facility] Center[facility] the event this information is protected by the Federal Confidentiality of Alcohol and Drug Abuse Patient Records regulations: The Federal rules restrict any use of the information to criminally investigate or prosecute any alcohol or drug abuse patient.[facility] CenterIn the event this information is protected by the Federal Confidentiality of Alcohol and Drug Abuse Patient Records regulations: The Federal rules restrict any use of the information to criminally investigate or prosecute any alcohol or drug abuse patient.[facility] CenterIn the event this information is protected by the Federal Confidentiality of Alcohol and Drug Abuse Patient Records regulations: The Federal rules restrict any use of the information to criminally investigate or prosecute any alcohol or drug abuse patient.[facility] CenterIn the event this information is protected by the Federal Confidentiality of Alcohol and Drug Abuse Patient Records regulations: The Federal rules restrict any use of the information to criminally investigate or prosecute any alcohol or drug abuse patient.[facility] CenterIn the event this information is protected by the Federal Confidentiality of Alcohol and Drug Abuse Patient Records regulations: The Federal rules restrict any use of the information to criminally investigate or prosecute any alcohol or drug abuse patient.[facility] Reason for Visit (unrecogniz ed section and content) Reason Comments Medicare Wellness Exam Reason Comments Medicare Wellness Exam Reason Comments Results Reason Comments Orders Reason Comments Radiology US Specialty Diagnoses / Procedures Referred By Contac t Referred To Contact [facility] Diagnoses Abnormal mammogram Procedures US BREAST LTD LEFT US BREAST UNI REAL TIME WITH IMAGE LIMITED Erna Hall MD [address] [place] [address] [facility] [address] [place] [address] Referral ID Status Reason Start Date Expiration Date V isits Requested Visits Authorized [id number] Closed Auto-Generate d Referral 06/10/2023 07/09/2024 1 1 Reason Comments Results Reason Comments 6 Month Exam Reason Comments Orders Referral ID Status Reason Start Date Expiration Date V isits Requested Visits Authorized [id number] Closed Auto-Generate d Referral 01/04/2024 08/02/2024 1 1 Reason Onset Date Comments Medicare Wellness Exam Breast Problem 05/31/2024 Mammogram at [facility] Specialty Diagnoses / Procedures Referred By Deloresac t Referred To Contact [facility] Diagnoses Abnormal mammogram Procedures US BREAST LTD LEFT US BREAST UNI REAL TIME WITH IMAGE LIMITED Erna Hall MD [address] [place] [address] Phone: tel: fax: [facility] [address] [place] [address] Referral ID Status Reason Start Date Expiration Date V isits Requested Visits Authorized [id number] Closed Auto-Generate d Referral 06/24/2024 04/27/2025 1 1 Care Teams (unrecognized sec tion and content) Advertising Supervisor Relationship Specialty Start Date End Date Pcp, No PCP - General 11/10/21 05/28/22 Advertising Supervisor Relationship Specialty Start Date End Date Pcp, No PCP - General 11/10/21 05/28/22 Team Status: Active Member Role Status Dates Dr. Erna Hall MD Family Provider Active Dr. Erna Hall MD Primary Care Provider Active Team Status: Inactive Member Role Status Dates Dr. Erna Hall MD Primary Care Provider, Referrin g Provider Active Libra Ozuna BRIM GREASER OPERATOR, BRIM GREASER OPERATOR-C Attending Provider Active Team Status: Inactive Member Role Status Dates Dr. Erna Hall MD Primary Care Prov ider, Attending Provider, Referring Provider Active Team Status: Inactive Member Role Status Dates Dr. 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 PCP - General 11/10/21 05/28/22 Advertising Supervisor Relationship Specialty Start Date End Date Erna Hall MD [address] [place] [address] PCP - General Family Medicine 06/09/23 Advertising Supervisor Relationship Specialty Start Date End Date Erna Hall MD [address] [place] [address] PCP - General Family Medicine 06/09/23 Advertising Supervisor Relationship Specialty Start Date End Date Erna Hall MD [address] [place] [address] PCP - General Family Medicine 06/09/23 Advertising Supervisor Relationship Specialty Start Date End Date Erna Hall MD [address] [place] [address] PCP - General Family Medicine 06/09/23 Team Status: Inactive Member Role Status Dates Dr. Erna Hall MD Primary Care Provider, Referrin g Provider Active Dr. Milton Montoya DO Attending Provider Active Team Status: Inactive Member Role Status Dates Dr. Erna Hall MD Primary Care Provider, Referrin g Provider Active BABAR Zavala Attending Provider Active Team Status: Inactive Member Role Status Dates Dr. Erna Hall MD Primary Care Provider Active Weston ECKERT PA Attending Provider, Referring Pr ovider Active Advertising Supervisor Relationship Specialty Start Date End Date Erna Hall MD [address] [place] [address] PCP - General Family Medicine 06/09/23 Advertising Supervisor Relationship Specialty Start Date End Date Erna Hall MD [address] [place] [address] PCP - General Family Medicine 06/09/23 Advertising Supervisor Relationship Specialty Start Date End Date Erna Hall MD [address] [place] [address] PCP - General Family Medicine 06/09/23 Advertising Supervisor Relationship Specialty Start Date End Date Erna Hall MD [address] [place] [address] PCP - General Family Medicine 06/09/23 Advertising Supervisor Relationship Specialty Start Date End Date Erna Hall MD [address] [place] [address] PCP - General Family Medicine 06/09/23 Advertising Supervisor Relationship Specialty Start Date End Date Erna Hall MD [address] [place] [address] PCP - General Family Medicine 06/09/23 Advertising Supervisor Relationship Specialty Start Date End Date Erna Hall MD [address] [place] [address] PCP - General Family Medicine 06/09/23 Team Status: Active Member Role/Relationship Status Dates Dr. Erna Hall MD Primary Care Provider Active Team Status: Inactive Member Role/Relationship Status Dates Dr. Erna Hall MD Primary Care Provider Active Start: November 04, 2024 End: November 04, 2024 Dr. Erna Hall MD Referring Provider Active Start: November 04, 2024 End: November 04, 2024 Libra Ozuna BRIM GREASER OPERATOR, BRIM GREASER OPERATOR-C Attending Provider Active Start: November 04, 2024 End: November 04, 2024 Goals (unrecognized section and content) Goals may be documented in a n alternate sectionGoals may be documented in an alternate sectionGoals may be documented in an alternate sectionGoals may be documented in an alternate section FOR RECORDS PERTAINING TO PATIENTS WHO ARE OR HAVE BEEN ENROLLED IN A CHEMICAL DEPENDENCY/SUBSTANCEABUSE PROGRAM, SOME INFORMATION MAY BE OMITTED. This clinical summary was aggregated from multiple sources. Caution should be exercised in using it in the provision of clinical care. This summary normalizes information from multiple sources, and as a consequence, information in this document may materially change the coding, format and clinical context of patient data. In addition, data may be omitted in some cases. CLINICAL DECISIONS SHOULD BE BASED ON THE PRIMARY CLINICAL RECORDS. [facility]. provides no warranty or guarantee of the accuracy or completeness of information in this document.
--- OUTSIDE RECORDS SUMMARY | 2025-01-21 07:13 | XMS RPT_ITS | CCD ---
Author Organization [facility] CliniSyms Care Team Providers Care Internet Merchant Name Role Phone Linda Nance Unavailable Unavailable Pcp, No Primary Care Provider Dr. Erna Greenwood Primary Care Provider Dr. Erna Hall Referring Provider Laith DRY WALL FINISHER, YUN-C Libra Attending Provider [phone] Dr. Erna Hall Primary Care Provider Dr. Erna Hall Referring Provider [phone] Laith DRY WALL FINISHERYUN-C Libra Attending Provider Unavailable Primary Care Provider Unavailharis e Pcp MASTICATOR, No Primary Care Provider Erna Greenwood MD Primary Care Provider Dr. Erna Hall Primary Care Provider Dr. Erna Hall Referring Provider Dr. Milton Montoya Attending Provider Gurmeet ECKERT, BABAR Stringer Attending Provider Erna Hall MD Primary Care Provider ERNA HALL Attending Unavailab le ISABELERNA Primary Care Unavailab le ISABELERNA Attending Unavailab le ISABELRENA Primary Care Unavailab le ISABELERNA Referring Unavailab le ISABELERNA Primary Care Unavailab le ISABELERNA Referring Unavailab le ISABEL, ERNA ESPARZA Primary Care Unavailab le ISABELERNA Referring Unavailab le ISABEL, ERNA ESPARZA Primary Care Unavailab le ISABELERNA Referring Unavailab le ISABELERNA Primary Care Unavailab le Isabel MD, Dr. Erna Primary Care Provider [phone] Dr. Erna Hall MD Referring Provider Laith MALCOLM-Libra Velazquez Attending Provider Paul Rose [...] to substance 8 Other: See Comments, Unknown [facility] (20 sources) Tree; Translations: [TREES] Allergy to substance 8 Other: See Comments, Unknown [facility] Medications Current Medications Medication Drug Class(es) Dates Sig (Normalized) Sig (Original) [id number] 200 actuat albuterol 0.09 mg/actuat metered dose [...] 1-2 puffs every 6 hrs ALBUTEROL SULFATE [id number] Elizabeth Bella cetirizine hydrochloride 10 mg oral [...] TABS Two tablets by mouth daily CHOLECALCIFEROL 15207593210 Elizabeth Smith LPN Comment on above: Take [...] / neomycin 3.5 mg/ml / polymyxin b 08370 unt/ml otic suspension (7 sources) Aminoglycoside Antibacterial, Polymyxin-class Antibacterial, Corticosteroid Start: 05-30-2024 upzxjioi-yzrqqmzlr-xyh rocortisone (CORTISPORIN) 3.5-10,000-1 mg/mL-unit/mL-% otic suspension 05/30/2024 Active Start: 05-30-2024 End: 06-06-2024 Frlykxtj-Mxdvgcspe-Uu 3.5-10 ,000-1 mg/mL-unit/mL-% drops,suspension Discontinued 4 NMA OTIC THREE TIMES A DAY 10 7 0 May 30, 2024 1:00am June 05, 2024 1:00am June 06, 2024 1:12am Otitis externa of left ear Unspecified otitis externa, left ear Start: 07-21-2023 End: 07-31-2023 Ehppdsvu-Aqffxbcen-Qi 3.5-10 ,000-1 mg/mL-unit/mL-% drops,suspension Discontinued 4 NMA [...] route three to four times daily Ipratropium Butler Active 2 SPRAY INTRANASAL 3 to 4 [...] Comment on above: Take 1 capsule by [facility] once daily. Completed/Discontinued Medications Medication Drug [...] One tablet by mouth daily ASCORBIC ACID 09129456723 Elizabeth Smith NEUROLOGY PHYSICIAN ASSISTANT azithromycin 250 mg oral tablet (8 sources) [...] + D TABS CALCIUM CITRATE-VITAMIN D TABS 80273539701 Elizabeth Bella calcium carbonate 1500 mg / [...] tablets by mouth daily CALCIUM CARBONATE-VITAMIN D 86590280765 Elizabeth Smith LPN Disability Placard (4 sources) [...] 2 puffs twice daily FLUTICASONE PROPIONATE HFA 32636631977 Linda Nance Start: 07-01-2016 FLOVENT HFA 22 0 MCG/ACT AERO 1-2 puffs twice daily FLUTICASONE PROPIONATE HFA 32464333856 Elizabeth Bella 120 actuat formoterol fumarate 0.0048 [...] One tablet by mouth daily RANITIDINE HCL 72345742606 Elizabeth Smith LPN Start: 07-01-2016 ZANTAC 150 MG TABS One tab twice daily RANITIDINE HCL 35592123050 Elizabeth Bella Umeclidinium-Vilanterol (2 sources) Anticholinergic, beta2-Adrenergic [...] Facility Pulmonary Visit Reporton Pulmonary Visit Report [facility] Pulmonary Medicine of [address] [place] [address] OFFICE VISIT Date of Service: 11/04/24 MR#: [id number] Acct: [id number] Name: MARLEN SMITH Rep #: [id number] : 1945 Provider: DILLAN Ozuna Age/Sex: 78/F Location: [facility].PMW Status: Signed Assessment and Plan Assessment and [...] Additional Comments: This note was generated with Zoodles dictation software. It may contain incorrect words, [...] 1 Y FU Chief Complaint: cough, fatigue Rn Maternal Child Required: No DME Vendor: N/a Accompanied by: [...] unspecified Close sexual exposure to mpox virus CRAIG (hard of hearing) Lung nodule COPD (chronic [...] Skin cancer Hypertension Social History ... Normal [facility] DBT Breast - bilateral diagn ostic for [...] Roxanna Jose M.D. Electronically signed on: 08/11/2024 Customer Leader: CHRIS Transcribe Date/Time: Aug 11 2024 2:35P Dictated by: ROXANNA JOSE MD This examination was interpreted and the report reviewed and electronically signed by: ROXANNA JOSE MD on Aug 11 2024 3:23PM [facility] DIVISION OF RADIOLOGY * * *Final Report* * * DATE OF EXAM: Aug 11 2024 2:49PM [facility] 0627 - JULES ELIZABETH W JAIME XANDER / PROCEDURE REASON: Abnormal mammogram * * * * Physician Interpretation * * * * RESULT: [address] [address] [place] [address] #[id number] - JULES ELIZABETH W JAIME XANDER #[id number] - [facility] US BREAST LTD LT HISTORY: 78 [...] is not present. DIVISION OF RADIOLOGY Provider, [facility] - 08/11/2024 * * *Final Report* * * DATE OF EXAM: Aug 11 2024 2:49PM W 0627 - [facility] ELIZABETH RAMACHANDRANO XANDER / PROCEDURE REASON: Abnormal mammogram * * * * Physician Interpretation * * * * RESULT: [place] [address] #[id number] - JULES [employer] #[id number] - [facility] US BREAST LTD HISTORY: 78 year-old [...] Roxanna Jose M.D. Electronically signed on: 08/11/2024 Customer Leader: CHRIS Transcribe Date/Time: Aug 11 2024 2:35P Dictated by: ROXANNA JOSE MD This examination was interpreted and the report reviewed and electronically signed by: ROXANNA JOSE MD on Aug 11 2024 3:23PM [facility] DIAG W JAIME BILon 2024 [facility] DIAG W JAIME XANDER * * *Final Report* * * DATE OF EXAM: Aug 11 2024 2:49PM [facility] 0627 - [facility] DIAG W JAIME XANDER / PROCEDURE REASON: Abnormal mammogram * * * * Physician Interpretation * * * * RESULT: [facility] [place] [address] #[id number] - [facility] DIAG W JAIME XANDER #[id number] - [facility] US BREAST LTD HISTORY: 78 year-old [...] Roxanna Jose M.D. Electronically signed on: 08/11/2024 Customer Leader: CHRIS Mendesrisharonda Date/Time: Aug 11 2024 2:35P Dictated by: ROXANNA JOSE MD This examination was interpreted and the report reviewed and electronically signed by: ROXANNA JOSE MD on Aug 11 2024 3:23PM EST [id number] Normal [facility] US BREAST LTD LTon 08-11 [facility] US BREAST LTD LT * * *Final Report* * * DATE OF EXAM: Aug 11 2024 3:11PM WRU 0593 - [facility] US BREAST LTD LT / PROCEDURE REASON: Abnormal mammogram * * * * Physician Interpretation * * * * [address] [place] [address] #[id number] - [facility] ELIZABETH TERRELL #[id number] - [facility] US BREAST LTD HISTORY: 78 year-old [...] Roxanna Jose M.D. Electronically signed on: 08/11/2024 Customer Leader: CHRIS Transcribe Date/Time: Aug 11 2024 3:02P Dictated by : ROXANNA JOSE MD This examination was interpreted and the report reviewed and electronically signed by: ROXANNA JOSE MD on Aug 11 2024 3:23PM EST [id number] Normal [facility] No Panel InformationOrdered By: Ccf Provider on 08-11-[address] [facility] No Panel Informationon 08-11 Radiology Study observation (narrative) [facility] US Breast - left limitedon 0 08-11-2024 [...] Roxanna Jose M.D. Electronically signed on: 08/11/2024 Customer Leader: CHRIS Transcribe Date/Time: Aug 11 2024 3:02P Dictated by : ROXANNA JOSE MD This examination was interpreted and the report reviewed and electronically signed by: ROXANNA JOSE MD on Aug 11 2024 3:23PM [facility] DIVISION OF RADIOLOGY * * *Final Report* * * DATE OF EXAM: Aug 11 2024 3:11PM U 0593 - [facility] [employer] BREAST LTD LT / PROCEDURE REASON: Abnormal mammogram * * * * Physician Interpretation * * * * [place] [address] #[id number] - [facility] ELIZABETH TERRELL #[id number] - [facility] US BREAST LTD LT HISTORY: 78 [...] is not present. DIVISION OF RADIOLOGY Provider, [facility] - 08/11/2024 * * *Final Report* * * DATE OF EXAM: Aug 11 2024 3:11PM U 0593 - [facility] [employer] BREAST LTD LT / PROCEDURE REASON: Abnormal mammogram * * * * Physician Interpretation * * * * [place] [address] #[id number] - [facility] ELIZABETH SANDOVAL XANDER #[id number] - [facility] US BREAST LTD LT HISTORY: 78 [...] Roxanna Jose M.D. Electronically signed on: 08/11/2024 Customer Leader: CHRIS Transcribe Date/Time: Aug 11 2024 3:02P Dictated by : ROXANNA JOSE MD This examination was interpreted and the report reviewed and electronically signed by: ROXANNA JOSE MD on Aug 11 2024 3:23PM [facility] MARLEN [facility] ([id number]) 1945 F Date Time Provider Department 07/14/24 ERNA HALL RDXWS During your visit today, we recorded the following information about you: Aneglina Hancock, Mammo Tech 07/14/2024 9:54 AM Signed Could we have a order for a Bilateral Diagnostic Mammogram please. Thanks a million Allergies As of Date: 07/14/2024 Noted Allergy Reaction DUST 07/04/2017 16 - Unknown TREES 07/04/2017 16 - Unknown Date Reviewed: 05/31/2024 Reviewed by: Xochitl Cheema LPN - Fully Assessed Primary Visit Diagnosis:Abnormal mammogram [R92.8] Order(s):[facility] DIAGNOSTIC BILATERAL [[id number]] Order #: [id number] FUTURE Prescriptions as of 07/14/2024 - methylPREDNISolone (MEDROL DOSE-PACK) 4 mg Dose-Pack take by mouth as directed on inside of package - yrzhdhbb-ihtsxkzgv-bvdo ocortisone (CORTISPORIN) 3.5-10,000-1 mg/mL-unit/mL-% otic suspension - [...] ESOPHAGEAL REFLUX [K21.9] 04/02/2005 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 CBC W Auto Differential pane l (Bld)on 06-10-2024 Basophils (Bld) [#/Vol] 10*3/uL Normal <0.11 [facility] Comment on above: Order Comment: Speci men Type: BLOOD SPECIMEN Ordering Facility: [facility] Address: [address] [place] [address] Performed By: #### 5 7021-8 #### [facility] CLIA [id number] [address] [place] [address] [place] Basophils/100 WBC (Bld) 0.4 % Normal [facility] Comment on above: Order Comment: Speci men Type: BLOOD SPECIMEN Ordering Facility: [facility] Address: [address] [place] [address] Performed By: #### 5 7021-8 #### [facility] CLIA [id number] [address] [place] [address] [place] Differential cell count method Nom (Bld) Auto Normal [facility] Comment on above: Order Comment: Speci men Type: BLOOD SPECIMEN Ordering Facility: [facility] Address: [address] [place] [address] Performed By: #### 5 7021-8 #### [facility] CLIA [id number] [address] [place] [address] [place] Eosinophils (Bld) [#/Vol] 0.09 10*3/uL Normal <0.46 [facility] Comment on above: Order Comment: Speci men Type: BLOOD SPECIMEN Ordering Facility: [facility] Address: [address] [place], [place] [address] Performed By: #### 5 7021-8 #### [facility] CLIA [id number] [address] [place] [address] [place] Eosinophils/100 WBC (Bld) 2.0 % Normal [facility] Comment on above: Order Comment: Speci men Type: BLOOD SPECIMEN Ordering Facility: [facility] Address: [address] [place] [address] Performed By: #### 5 7021-8 #### [facility] CLIA [id number] [address] [place] [address] [place] Erythrocyte distribution width (RBC) [Ratio] 12.9 % Normal 11.5-15.0 [facility] Comment on above: Order Comment: Speci men Type: BLOOD SPECIMEN Ordering Facility: [facility] Address: [address] [place] [address] Performed By: #### 5 7021-8 #### [facility] CLIA [id number] [address] [place] [address] [place] Hematocrit (Bld) [Volume fraction] 36.9 % Normal 36.0-46.0 [facility] Comment on above: Order Comment: Speci men Type: BLOOD SPECIMEN Ordering Facility: [facility] Address: [address] [place], [place] [address] Performed By: #### 5 7021-8 #### [facility] CLIA [id number] [address] [place] [address] [place] Hemoglobin (Bld) [Mass/Vol] 12.2 g/dL Normal 11.5-15.5 [facility] Comment on above: Order Comment: Speci men Type: BLOOD SPECIMEN Ordering Facility: [facility] Address: [address] [place] [address] Performed By: #### 5 7021-8 #### [facility] CLIA [id number] [address] [place] [address] [place] Immature granulocytes (Bld) [#/Vol] 0.03 10*3/uL Normal <0.10 [facility] Comment on above: Order Comment: Speci men Type: BLOOD SPECIMEN Ordering Facility: [facility] Address: [address] [place] [address] Performed By: #### 5 7021-8 #### [facility] CLIA [id number] [address] [place] [address] [place] Immature granulocytes/100 WBC (Bld) 0.7 % Normal [facility] Comment on above: Order Comment: Speci men Type: BLOOD SPECIMEN Ordering Facility: [facility] Address: [address] [place] [address] Performed By: #### 5 7021-8 #### [facility] CLIA [id number] [address] [place] [address] [place] Lymphocytes (Bld) [#/Vol] 1.59 10*3/uL Normal 1.00-4.00 [facility] Comment on above: Order Comment: Speci men Type: BLOOD SPECIMEN Ordering Facility: [facility] Address: [address] [place] [address] Performed By: #### 5 7021-8 #### [facility] CLIA [id number] [address] [place] [address] [place] Lymphocytes/100 WBC (Bld) 34.9 % Normal [facility] Comment on above: Order Comment: Speci men Type: BLOOD SPECIMEN Ordering Facility: [facility] Address: [address] [place] [address] Performed By: #### 5 7021-8 #### [facility] CLIA [id number] [address] [place] [address] [place] MCH (RBC) [Entitic mass] 30.2 pg Normal 26.0-34.0 [facility] Comment on above: Order Comment: Speci men Type: BLOOD SPECIMEN Ordering Facility: [facility] Address: [address] [place] [address] Performed By: #### 5 7021-8 #### [facility] CLIA [id number] [address] [place] [address] [place] MCHC (RBC) [Mass/Vol] 33.1 g/dL Normal 30.5-36.0 [facility] Comment on above: Order Comment: Speci men Type: BLOOD SPECIMEN Ordering Facility: [facility] Address: [address] [place] [address] Performed By: #### 5 7021-8 #### [facility] CLIA [id number] [address] [place] [address] [place] MCV (RBC) [Entitic vol] 91.3 fL Normal 80.0-100.0 [facility] Comment on above: Order Comment: Speci men Type: BLOOD SPECIMEN Ordering Facility: [facility] Address: [address] [place] [address] Performed By: #### 5 7021-8 #### [facility] CLIA [id number] [address] [place] [address] [place] Monocytes (Bld) [#/Vol] 0.69 10*3/uL Normal <0.87 [facility] Comment on above: Order Comment: Speci men Type: BLOOD SPECIMEN Ordering Facility: [facility] Address: [address] [place] [address] Performed By: #### 5 7021-8 #### [facility] CLIA [id number] [address] [place] [address] [place] Monocytes/100 WBC (Bld) 15.2 % Normal [facility] Comment on above: Order Comment: Speci men Type: BLOOD SPECIMEN Ordering Facility: [facility] Address: [address] [place] [address] Performed By: #### 5 7021-8 #### [facility] CLIA [id number] [address] [place] [address] [place] Neutrophils (Bld) [#/Vol] 2.13 10*3/uL Normal 1.45-7.50 [facility] Comment on above: Order Comment: Speci men Type: BLOOD SPECIMEN Ordering Facility: [facility] Address: [address] [place] [address] Performed By: #### 5 7021-8 #### [facility] CLIA [id number] [address] [place] [address] [place] Neutrophils/100 WBC (Bld) 46.8 % Normal [facility] Comment on above: Order Comment: Speci men Type: BLOOD SPECIMEN Ordering Facility: [facility] Address: [address] [place] [address] Performed By: #### 5 7021-8 #### [facility] CLIA [id number] [address] [place] [address] [place] Nucleated RBC (Bld) [#/Vol] 10*3/uL Normal <0.01 [facility] Comment on above: Order Comment: Speci men Type: BLOOD SPECIMEN Ordering Facility: [facility] Address: [address] [place] [address] Performed By: #### 5 7021-8 #### [facility] CLIA [id number] [address] [place] [address] [place] Nucleated RBC/100 WBC (Bld) [Ratio] 0.0 /[address] [facility] Comment on above: Order Comment: Speci men Type: BLOOD SPECIMEN Ordering Facility: [facility] Address: [address] [place] [address] Performed By: #### 5 7021-8 #### [facility] CLIA [id number] [address] [place] [address] [place] Platelet mean volume (Bld) [Entitic vol] 9.3 fL Normal 9.0-12.7 [facility] Comment on above: Order Comment: Speci men Type: BLOOD SPECIMEN Ordering Facility: [facility] Address: [address] [place] [address] Performed By: #### 5 7021-8 #### [facility] CLIA [id number] [address] [place] [address] [place] Platelets (Bld) [#/Vol] 212 10*3/uL Normal 150-400 [facility] Comment on above: Order Comment: Speci men Type: BLOOD SPECIMEN Ordering Facility: [facility] Address: [address] [place] [address] Performed By: #### 5 7021-8 #### [facility] CLIA [id number] [address] [place] [address] [place] RBC (Bld) [#/Vol] 4.04 10*6/uL Normal 3.90-5.[address] [facility] Comment on above: Order Comment: Speci men Type: BLOOD SPECIMEN Ordering Facility: [facility] Address: [address] [place] [address] Performed By: #### 5 7021-8 #### [facility] CLIA [id number] [address] [place] [address] [place] WBC (Bld) [#/Vol] 4.55 10*3/uL Normal 3.70-11.[address] [facility] Comment on above: Order Comment: Speci men Type: BLOOD SPECIMEN Ordering Facility: [facility] Address: [address] [place] [address] Performed By: #### 5 7021-8 #### [facility] CLIA [id number] [address] [place] [address] [place] Comprehensive metabolic 2000 panelon 06-10-2024 Albumin [Mass/Vol] 4.4 g/dL Normal 3.9-4.[address] [facility] Comment on above: Order Comment: Speci men Type: BLOOD SPECIMEN Ordering Facility: [facility] Address: [address] [place] [address] Performed By: #### 2 4323-8 #### [facility] CLIA [id number] [address] [place] [address] [place] ALP [Catalytic activity/Vol] 66 U/L Normal 34-123 [facility] Comment on above: Order Comment: Speci men Type: BLOOD SPECIMEN Ordering Facility: [facility] Address: [address] [place] [id number] Performed By: #### 2 4323-8 #### [facility] CLIA [id number] [address] [place] [address] [place] ALT [Catalytic activity/Vol] 29 U/L Normal 7-38 [facility] Comment on above: Order Comment: Speci men Type: BLOOD SPECIMEN Ordering Facility: [facility] Address: [address] [place] [address] Performed By: #### 2 4323-8 #### [facility] CLIA [id number] [address] [place] [address] [place] Anion gap [Moles/Vol] 9 mmol/L Normal 8-15 [facility] Comment on above: Order Comment: Speci men Type: BLOOD SPECIMEN Ordering Facility: [facility] Address: [address] [place] [address] Performed By: #### 2 4323-8 #### [facility] CLIA [id number] [address] [place] [address] [place] AST [Catalytic activity/Vol] 29 U/L Normal 13-35 [facility] Comment on above: Order Comment: Speci men Type: BLOOD SPECIMEN Ordering Facility: [facility] Address: [address] [place] [address] Performed By: #### 2 4323-8 #### [facility] CLIA [id number] [address] [place] [address] [place] Bilirubin [Mass/Vol] 0.5 mg/dL Normal 0.2-1.3 [facility] Comment on above: Order Comment: Speci men Type: BLOOD SPECIMEN Ordering Facility: [facility] Address: [address] [place] [address] Performed By: #### 2 4323-8 #### [facility] CLIA [id number] [address] [place] [address] [place] Calcium [Mass/Vol] 10.3 mg/dL High 8.5-10.[address] [facility] Comment on above: Order Comment: Speci men Type: BLOOD SPECIMEN Ordering Facility: [facility] Address: [address] [place] [address] Performed By: #### 2 4323-8 #### [facility] CLIA [id number] [address] [place] [address] [place] Chloride [Moles/Vol] 101 mmol/L Normal 98-107 [facility] Comment on above: Order Comment: Speci men Type: BLOOD SPECIMEN Ordering Facility: [facility] Address: [address] [place] [address] Performed By: #### 2 4323-8 #### [facility] CLIA [id number] [address] [place] [address] [place] CO2 [Moles/Vol] 29 mmol/L Normal 22-30 [facility] Comment on above: Order Comment: Speci men Type: BLOOD SPECIMEN Ordering Facility: [facility] Address: [address] [place], [place] [address] Performed By: #### 2 4323-8 #### [facility] CLIA [id number] [address] [place] [address] [place] Creatinine [Mass/Vol] 1.18 mg/dL High 0.58-0.96 [facility] Comment on above: Order Comment: Speci men Type: BLOOD SPECIMEN Ordering Facility: [facility] Address: [address] [place] [address] Performed By: #### 2 4323-8 #### [id number] [address] [place] [address] [place] Creatinine and Glomerular filtration rate.predicted panel (S/P/Bld) 47 mL/min/1.73m??? Low >=60 [facility] Comment on above: Order Comment: Nya urias Type: BLOOD SPECIMEN Ordering Facility: [facility] Address: [address] [place] [address] Result Comment: Fani mated Glomerular Filtration Rate [...] GFR. Performed By: #### 2 4323-8 #### [id number] [address] [place] [address] [place] Glucose [Mass/Vol] 115 mg/dL High 74-[address] [facility] Comment on above: Order Comment: Nya urias Type: BLOOD SPECIMEN [facility]ing Facility[facility] Address: [address] [place] [address] Result Comment: The [place] Diabetes Association (ADA) provides guidance for cutoff [...] Standards of Medical Care in Diabetes 2016, [place] Diabetes Association. Diabetes Care. 2016.39(Suppl 1). Performed By: #### 2 4323-8 #### [facility] CLIA [id number] [address] [place] [address] [place] Potassium [Moles/Vol] 4.2 mmol/L Normal 3.7-5.1 [facility] Comment on above: Order Comment: Speci men Type: BLOOD SPECIMEN Ordering Facility: [facility] Address: [address] [place] [address] Performed By: #### 2 4323-8 #### [facility] CLIA [id number] [address] [place] [address] [place] Protein [Mass/Vol] 6.8 g/dL Normal 6.3-8.[address] [facility] Comment on above: Order Comment: Speci men Type: BLOOD SPECIMEN Ordering Facility: [facility] Address: [address] [place] [address] Performed By: #### 2 4323-8 #### [facility] CLIA [id number] [address] [place] [address] [place] Sodium [Moles/Vol] 139 mmol/L Normal 136-[address] [facility] Comment on above: Order Comment: Speci men Type: BLOOD SPECIMEN Ordering Facility: [facility] Address: [address] [place] [address] Performed By: #### 2 4323-8 #### [facility] CLIA [id number] [address] [place] [address] [place] Urea nitrogen [Mass/Vol] 20 mg/dL Normal 7-21 [facility] Comment on above: Order Comment: Speci men Type: BLOOD SPECIMEN [facility]ing Facility[facility] Address: [address] [place] [address] Performed By: #### 2 4323-8 #### [facility] CLIA [id number] [address] [place] [address] [place] Lipid 1996 panelon 02-13-202 5 Cholesterol [Mass/Vol] 197 mg/dL Normal <200 [facility] Comment on above: Order Comment: Nya bridgett Type: BLOOD SPECIMEN [facility] Facility[facility] Address: [address] [place] [address] Result Comment: <200 mg/dL, Desirable 200-239 mg/dL, Borderline high >239 mg/dL, High Performed By: #### 2 4331-1 #### [facility] CLIA [id number] [address] CLIA [id number] [address] [place] [address] Cholesterol in HDL [Mass/Vol] 63 mg/dL Normal >39 [facility] Comment on above: Order Comment: Nya urias Type: BLOOD SPECIMEN [facility]ing Facility[facility] Address: [address] [place] [address] Result Comment: 40-5 9 mg/dL, Acceptable >59 mg/dL, High: Negative risk factor for coronary heart disease <40 mg/dL, Low: Positive risk factor for coronary heart disease Performed By: #### 2 4331-1 #### [facility] CLIA [id number] [address] CLIA [id number] [address] [place] [address] Cholesterol in LDL [Mass/Vol] 113 mg/dL High <100 [facility] Comment on above: Order Comment: Nya urias Type: BLOOD SPECIMEN [facility] Facility[facility] Address: [address] [place] [address] Result Comment: <100 mg/dL, Optimal 100-129 mg/dL, Near optimal/above optimal 130-159 mg/dL, Borderline high 160-189 mg/dL, High >189 mg/dL, Very high Secondary prevention optimal LDL Cholesterol levels are recommended to be < 70 mg/dL Performed By: #### 2 4331-1 #### [facility] CLIA [id number] [address] CLIA [id number] [address] [place] [address] [place] Cholesterol in LDL/Cholesterol in HDL [Mass ratio] 1.79 {ratio} Normal <2.54 [facility] Comment on above: Order Comment: Nya urias Type: BLOOD SPECIMEN [facility] Address: [address] [place] [address] Result Comment: Alfonso dawn: 1. National Cholesterol Education Program ATP III Guideline At-A-Glance Quick Desk Reference: National Heart, Lung, and Blood [place]. National Institutes of Health. 2001: NIH Publication No. 01-3305. 2. An International Atherosclerosis Society position paper: global recommendations for the management of dyslipidemia: executive summary, Atherosclerosis. 2014: 232(2):410-413. Performed By: #### 2 4331-1 #### [facility] CLIA [id number] [address] [facility] CLIA [id number] [address] [place] [address] [place] Cholesterol in VLDL [Mass/Vol] 21 mg/dL Normal <30 [facility] Comment on above: Order Comment: Nya urias Type: BLOOD SPECIMEN [facility]ing Facility[facility] Address: [address] [place] [address] Performed By: #### 2 4331-1 #### [facility] CLIA [id number] [address] [facility] CLIA [id number] [address] [place] [address] [place] Cholesterol non HDL [Mass/Vol] 134 mg/dL High <130 [facility] Comment on above: Order Comment: Nya urias Type: BLOOD SPECIMEN [facility] Address: [address] [place] [address] Result Comment: <130 mg/dL, Optimal 130-159 mg/dL, Near optimal/above optimal 160-189 mg/dL, Borderline high 190-219 mg/dL, High >219 mg/dL, Very high Secondary prevention optimal non HDL Cholesterol levels are recommended to be <100 mg/dL Performed By: #### 2 4331-1 #### [facility] CLIA [id number] [address] CLIA [id number] [address] [place] [address] Cholesterol.total/Cho lesterol in HDL [Mass ratio] 3.13 {ratio} Normal <5.10 [facility] Comment on above: Order Comment: Speci men Type: BLOOD SPECIMEN [facility] Address: [address] [place] [address] Performed By: #### 2 4331-1 #### [facility] CLIA [id number] [address] [place] [id number] [place] [address] FASTING TIME [address] [facility] Comment on above: Order Comment: Speci men Type: BLOOD SPECIMEN [facility] Address: [address] [place] [address] Performed By: #### 2 4331-1 #### [facility] CLIA [id number] [address] [place] [id number] [place] [address] Triglyceride [Mass/Vol] 107 mg/dL Normal <150 [facility] Comment on above: Order Comment: Speci men Type: BLOOD SPECIMEN [facility]ing [facility] Address: [address] [place] [address] Result Comment: <150 mg/dL, Normal 150-199 mg/dL, Borderline high 200-499 mg/dL, High >499 mg/dL, Very high Performed By: #### 2 4331-1 #### [facility] CLIA [id number] [address] OF [facility] [id number] [address] [place] [address] [place] CNOVon 05-31-2024 [facility] MARLEN SM[facility] ([id number]) 1945 F Date Time Provider Department 05/31/24 [...] mouth as directed on inside of package tpfyyyis-obiddewcu-nnul ocortisone (CORTISPORIN) 3.5-10,000-1 mg/mL-unit/mL-% otic suspension STIOLTO [...] 4. Encounte (more content not included)... Normal [facility] Urgent Care Visit Reporton 0 05-30-2024 Urgent Care Visit Report [facility] [address], [address] [place] [address] OFFICE VISIT Date of Service: 05/30/24 MR#: [id number] Acct: [id number] Name: MARLEN SMITH Rep #: [id number] : 1945 Provider: BABAR Badillo Age/Sex: 78/F Location: [facility] Status: Signed Intake Vital Signs 11/04/23 07:51 [...] 05/30/24 Rx a dose pack (Medrol (Yvon)) gtcngqjz-oynfiyweh-oxqu ocort 3.5 4 drp otic (ear) TID 7 days #10 mL 05/30/24 05/30/24 Rx mg-10,000 unit/mL-1 % ear drops,susp Have you fallen in the past year?: No Nurse's Note: Patient here for Bilateral ear pain. Patient states the left is worse. [facility] Medical History (Updated 05/30/24 @ 13:08 by BABAR Badillo) Cutaneous candidiasis Acute otitis externa of both ears Acute bronchitis, unspecified Close sexual exposure to mpox virus CRAIG (hard of hearing) Lung nodule COPD (chronic [...] type Chronicit (more content not included)... Normal [facility] Urgent Care Visit Reporton 0 05-27-2024 Urgent Care Visit Report [facility] [address], [address] [place] [address] OFFICE VISIT Date of Service: 05/27/24 MR#: [id number] Acct: [id number] Name: MARLEN SMITH Rep #: [id number] : 1945 Provider: BABAR García Age/Sex: 78/F Location: [facility] Status: Signed Intake Vital Signs 11/04/23 07:51 [...] Visit Reasons: Cough Chief Complaint: cough, fatigue Rn Maternal Child Required: No Is patient in pain?: No [...] unspecified Close sexual exposure to mpox virus CRAIG (hard of hearing) Lung nodule COPD (chronic [...] fallen in the past year?: No 05/27/24 7671 Date Spike Gomez Signature: Date (if applicable) CC: Normal [facility] 01-06-2024 [facility] Telephone (FAMPLA) MARLEN SMITH ([id number]) 1945 F Date Time Provider Department 01/06/24 ERNA HALL During your visit today, we recorded the following information about you: Xochitl Cheema LPN 01/06/2024 4:50 PM Signed ----- Message from Enra Hall MD sent at 01/06/2024 1:18 PM [...] Results [95] Primary Visit Diagnosis:Abnormal mammogram [R92.8] Order(s):[employer] [facility] LEFT [[id number]] Order #: [id number] FUTURE Prescriptions as of 06/03/2024 - methylPREDNISolone (MEDROL DOSE-PACK) 4 mg Dose-Pack take by mouth as directed on inside of package - nnyzyamo-ixkdvnqzp-yhuw ocortisone (CORTISPORIN) 3.5-10,000-1 mg/mL-unit/mL-% otic suspension - [...] ESOPHAGEAL REFLUX [K21.9] 04/02/2005 DISC DEGENERATION NOS [[id number]] 04/02/2005 OSTEOPENIA [M89.9, M94.9] 04/02/2005 GASTRITIS/DUODENITIS NOS [...] Status:Closed by KALPESH CHEEMA LAUREN on 01/07/24 [facility] US BREAST LTD LTon 01-05 Generate BREAST LTD LT * * *Final Report* * * DATE OF EXAM: Jan 06 2024 9:24AM WRU 0593 - Generate BREAST [employer] LT / PROCEDURE REASON: Abnormal mammogram * * * * Physician Interpretation * * * * #[id number] - Generate BREAST [employer] LT LIMITED ULTRASOUND OF LEFT BREAST: 01/06/2024 HISTORY: Abnormal Mammogram. RESULT: Comparison is made to exams dated: 07/02/2023 mammogram, 07/02/2023 ultrasound, 05/28/2023 mammogram, and 05/24/2022 mammogram - [facility]. Color flow and real-time ultrasound [...] mammogram at that time. Will alvarez/chapin:01/06/2024 09:32:44 Knocker Out(s): Akila Hahn [facility] Ultrasound BI-RADS: Category 3: Probably [...] Health, Family Medicine, and Medical/Surgical Oncology, the [facility] has carefully reviewed the data and reached [...] their providers when to stop screening mammograms. Customer Leader: Chapin Transcribe Date/Time: Jan 06 2024 9:24A Dictated by : WILL ANTOINE MD This examination was interpreted and the report reviewed and electronically signed by: WILL ANTOINE MD on Jan 06 2024 9:32AM EST [id number] Normal [facility] US Breast - left limitedon 0 [...] mammogram at that time. Will alvarez/chapin:01/06/2024 09:32:44 Knocker Out(s): Akila Hahn [facility] Ultrasound BI-RADS: Category 3: Probably [...] Health, Family Medicine, and Medical/Surgical Oncology, the [facility] has carefully reviewed the data and reached [...] their providers when to stop screening mammograms. Customer Leader: Chapin Transcribe Date/Time: Jan 06 2024 9:24A Dictated by : WILL ANTOINE MD This examination was interpreted and the report reviewed and electronically signed by: WILL ANTOINE MD on Jan 06 2024 9:32AM [facility] DIVISION OF RADIOLOGY * * *Final Report* * * DATE OF EXAM: Jan 06 2024 9:24AM WRU 0593 - [facility] [employer] BREAST [employer] In [employer] LT / PROCEDURE REASON: Abnormal mammogram * * * * Physician Interpretation * * * * #[id number] - [facility] [employer] BREAST LTD LT LIMITED ULTRASOUND OF LEFT BREAST: 01/06/2024 HISTORY: Abnormal Mammogram. RESULT: Comparison is made to exams dated: 07/02/2023 mammogram, 07/02/2023 ultrasound, 05/28/2023 mammogram, and 05/24/2022 mammogram - [facility]. Color flow and real-time ultrasound [...] 0.4 x 0.4cm. DIVISION OF RADIOLOGY Provider, [facility] - 01/06/2024 * * *Final Report* * * DATE OF EXAM: Jan 06 2024 9:24AM U 0593 - [facility] [employer] BREAST [employer] LT / PROCEDURE REASON: Abnormal mammogram * * * * Physician Interpretation * * * * #[id number] - [facility] [employer] BREAST LTD LT LIMITED ULTRASOUND OF LEFT BREAST: 01/06/2024 HISTORY: Abnormal Mammogram. RESULT: Comparison is made to exams dated: 07/02/2023 mammogram, 07/02/2023 ultrasound, 05/28/2023 mammogram, and 05/24/2022 mammogram - [facility]. Color flow and real-time ultrasound [...] mammogram at that time. Will alvarez/chapin:01/06/2024 09:32:44 Knocker Out(s): Akila Hahn [facility] Ultrasound BI-RADS: Category 3: Probably [...] Health, Family Medicine, and Medical/Surgical Oncology, the [facility] has carefully reviewed the data and reached [...] their providers when to stop screening mammograms. Customer Leader: Chapin Transcribe Date/Time: Jan 06 2024 9:24A Dictated by : WILL ANTOINE MD This examination was interpreted and the report reviewed and electronically signed by: WILL ANTOINE MD on Jan 06 2024 9:32AM EST [facility] Radiology Study observation (narrative) [facility] US Breast - left limitedOrde red By: Ccf Provider on 01-06-[address] [facility] CNOVon 10-13-2023 CNOV Office Visit (F[facility]MAS ) MARLEN SMITH ([id number]) 1945 F Date Time Provider Department 10/13/23 [...] Xochitl Cheema LPN (more content not included)... [facility] Becky 10-13-2023 YOSHI Telephone (ZipalongS) MARLEN SMITH ([id number]) 1945 F Date Time Provider Department 10/13/23 ERNA HALL During your visit today, we recorded the following information about you: Xochitl Cheema LPN 10/13/2023 12:34 PM Signed Mammogram and ultrasound orders have been faxed to [facility] as requested Fax confirmation received Xochitl Cheema [...] ESOPHAGEAL REFLUX [K21.9] 04/02/2005 DISC DEGENERATION NOS [[id number]] 04/02/2005 OSTEOPENIA [M89.9, M94.9] 04/02/2005 GASTRITIS/DUODENITIS NOS [...] Encounter Status:Closed by XOCHITL CHEEMA on 10/13/23 [facility] No Panel Informationon 07-06 Influenza Types A,B Rapid (Clinic) Negative [facility] POC SARS CoV-2 Antigen Negative [facility] CNPNon 07-03-2023 CNPN Telephone (FAMPLA) MARLEN SMITH ([id number]) 1945 F Date Time Provider Department 07/03/23 [...] in Jules Olgag Abran Sandoval left in the medical center. Xochitl Cheema LPN July 04, 2023 1:10 PM Allergies As of Date: 07/03/2023 Noted Allergy Reaction DUST 07/04/2017 16 - Unknown TREES 07/04/2017 16 - Unknown Date Reviewed: 04/09/2023 Reviewed by: Xochitl Cheema LPN - Fully Assessed Reason for Visit: Results [95] Primary Visit Diagnosis:Abnormal mammogram [R92.8] Order(s):US BREAST LTD LEFT [[id number]] Order #: [id number] [facility] LEFT [[id number]] Order #: [id number] FUTURE Prescriptions as of 07/05/2023 - hydroCHLOROthiazide [...] ESOPHAGEAL REFLUX [K21.9] 04/02/2005 DISC DEGENERATION NOS [[id number]] 04/02/2005 OSTEOPENIA [M89.9, M94.9] 04/02/2005 GASTRITIS/DUODENITIS NOS [...] Encounter Status:Closed by ERNA HALL on 07/05/23 [facility] DBT Breast - left diagnostic for implanton 07-02-[address] [facility] US Breast - left limitedon 0 07-02-[address] [facility] CNPNon 06-09-2023 CNPN Telephone (FAMMAS) MARLEN SMITH ([id number]) 1945 F Date Time Provider Department 06/09/23 ERNA HALL During your visit today, we recorded the following information about you: Daniela Ray LPN 06/09/2023 1:13 PM Signed Marlen Smith called today. : 1945 Allergies: [employer] (home) [phone] (work) [phone] (cell) Reason for call: Patient called asking [...] recent abnormal mammogram. Marlen said she called #[phone] and had to leave a message. No one has called her back yet. I called the same phone number above and spoke with a [facility] staff member. She told me that since patient had her mammogram done in [place] at the [facility] that additional view orders are needed. [...] on 07/02/2023 @ 9:00 am at the [facility] [address]. I spoke with patient and gave her [...] [681] Primary Visit Diagnosis:Abnormal mammogram [R92.8] Order(s):[facility] DIAGNOSTIC LEFT [[id number]] Order #: [id number] FUTURE BREAST LTD LEFT [[id number]] Order #: [id number] FUTURE Prescriptions as of 06/12/2023 - hydroCHLOROthiazide [...] ESOPHAGEAL REFLUX [K21.9] 04/02/2005 DISC DEGENERATION NOS [[id number]] 04/02/2005 OSTEOPENIA [M89.9, M94.9] 04/02/2005 GASTRITIS/DUODENITIS NOS [...] Encounter Status:Closed by ERNA HALL on 06/10/23 [facility] COVID-19 virus antigen assay Ordered By: Libra Ozuna on 07-22-2022 SARS-CoV-2 (COVID-19) Ag IA.rapid Ql (Resp) Detected Not Detect [facility] Comment on above: Previous reported re sult: [...] has had recent exposure. JULES SCREENINGon 05-24-[address] [facility] Absolute lymphocyte countOrd ered By: Dr. Hall on 04-12-2022 Lymphocytes Auto (Unsp spec) [#/Vol] 1.36 10*3/uL 0.83-4.51 [facility] Basophil percentageOrdered B y: Dr. Hall on 04-12-2022 Basophils/100 WBC (Bld) 0.6 % 0-1 [facility] Bilirubin [Mass/Vol] 0.40 mg/dL 0.20-1.00 [facility] Comment on above: For patients on eltr ombopag therapy, use of [employer] TBIL is not recommended. Chloride [Moles/Vol] 107 mmol/L 98-107 [facility] Cholesterol [Mass/Vol] 222 mg/dL <200 [facility] Comment on above: <200 mg/dL Desirable 200-240 mg/dL Borderline >240 mg/dL High Risk Eosinophils/100 WBC (Bld) 4.3 % 0-5 [facility] Glucose [Mass/Vol] 107 mg/dL 74-106 [facility] Comment on above: Fasting Glucose resu lt from 100 to 125 mg/dL suggests IMPAIRED HOMEOSTASIS per A.D.A. criteria. Neutrophils (Bld) [#/Vol] 2.7 10*3/uL 2.0-7.7 [facility] Neutrophils/100 WBC (Bld) 55.7 % 47-70 [facility] Potassium [Moles/Vol] 3.8 mmol/L 3.5-5.1 [facility] Protein [Mass/Vol] 6.7 g/dL 6.4-8.2 [facility] Sodium [Moles/Vol] 141 mmol/L 136-145 [facility] Triglyceride [Mass/Vol] 91 mg/dL <199 [facility] Comment on above: The drugs N-Acetylcy steine and Metamizole may falsely depress this assay.Serum Triglycerides Reference Interval Normal <150 mg/dL Borderline high 150 - 199 mg/dL High 200 - 499 mg/dL Very High > or = 500 mg/dL WBC (Bld) [#/Vol] 4.8 10*3/uL 4.4-11.0 [facility] Blood erythrocytes count (nu mber/volume)Ordered By: Dr. Hall on 04-12-2022 RBC (Bld) [#/Vol] 3.94 10*6/uL 4.2-5.4 [facility] Blood hemoglobin measurement (mass/volume)Ordered By: Dr. Hall on 04-12-2022 Hemoglobin (Bld) [Mass/Vol] 11.9 g/dL 12.0-15.0 [facility] Blood lymphocytes/100 leukoc ytesOrdered By: Dr. Hall on 04-12-2022 Lymphocytes/100 WBC (Bld) 28.1 % 19-41 [facility] Blood monocytes/100 leukocyt esOrdered By: Dr. Hall on 04-12-2022 Monocytes/100 WBC (Bld) 10.5 % 0-10 [facility] Blood platelet mean volumeOr dered By: Dr. Hall on 04-12-2022 Platelet mean volume (Bld) [Entitic vol] 10.9 fL 6.2-12.0 [facility] Determination of erythrocyte mean corpuscular volume (MCV)Ordered By: Dr. Hall on 04-12-2022 MCV (RBC) [Entitic vol] 94.2 fL 81-99 [facility] Hematocrit Auto (Bld) [Volum e fraction]Ordered By: Dr. Hall on 04-12-2022 Hematocrit (Bld) [Volume fraction] 37.1 % 37-47 [facility] Laboratory - Chemistry and C hemistry - challengeOrdered By: Dr. Hall on 04-12-2022 ALP [Catalytic activity/Vol] 62 U/L 45-117 [facility] ALT [Catalytic activity/Vol] 22 U/L 13-56 [facility] CO2 [Moles/Vol] 28.0 mmol/L 21.0-32.0 [facility] Globulin (S) [Mass/Vol] 2.8 g/dL 2.2-4.2 [facility] Urea nitrogen/Creatinine [Mass ratio] 20.6 mg/mg 10-20 [facility] - Hematology and Cell countsOrdered By: Dr. Hall on 04-12-2022 Erythrocyte distribution width (RBC) [Entitic vol] 45.0 fL 35.1-43.9 [facility] Erythrocyte distribution width (RBC) [Ratio] 13.1 % 11.6-14.6 [facility] Immature granulocytes/100 WBC (Bld) 0.800 % 0.0-0.9 [facility] Comment on above: IG% - Immature Granu locytes (promyelocytes, myelocytes and metamyelocytes) > 1% indicates that a LEFT SHIFT is Present. MCH (RBC) [Entitic mass] 30.2 pg 27.0-32.0 [facility] Nucleated RBC/100 WBC (Bld) [Ratio] 0.4 % 0-5 [facility] MCHC Auto (RBC) [Mass/Vol]Or dered By: Dr. Hall on 04-12-2022 MCHC (RBC) [Mass/Vol] 32.1 g/dL 32-36 [facility] No Panel InformationOrdered By: Dr. Hall on 04-12-2022 Estimated GFR (MDRD) Amer 64 mL/min >60 [facility] Comment on above: GFR Calc Estimated GFR (MDRD) Non-Af Amer 53 mL/min >60 [facility] Comment on above: Non- GFR Calc Platelets bldOrdered By: Dr. Hall on 04-12-2022 Platelets (Bld) [#/Vol] 221 10*3/uL 150-450 [facility] Serum or plasma albumin anette urement (mass/volume)Ordered By: Dr. Hall on 04-12-2022 Albumin [Mass/Vol] 3.9 g/dL 3.2-5.0 [facility] Serum or plasma albumin/glob ulin mass ratioOrdered By: Dr. Hall on 04-12-2022 Albumin/Globulin [Mass ratio] 1.4 {ratio} 0.9-2.4 [facility] Serum or plasma calcium anette urement (mass/volume)Ordered By: Dr. Hall on 04-12-2022 Calcium [Mass/Vol] 9.6 mg/dL 8.5-10.1 [facility] Serum or plasma cholesterol in HDL measurement (mass/volume)Ordered By: Dr. Hall on 04-12-2022 Cholesterol in HDL [Mass/Vol] 76 mg/dL >40 [facility] Comment on above: The drugs N-Acetylcy steine and Metamizole may falsely depress this assay. Reference Range HDL <40 mg/dL Low HDL Cholesterol HDL >or= 60 mg/dL High HDL Cholesterol Serum or plasma cholesterol in VLDL measurement (mass/volume)Ordered By: Dr. Hall on 04-12-2022 Cholesterol in VLDL [Mass/Vol] 18 mg/dL 5-40 [facility] Serum or plasma creatinine m easurement (mass/volume)Ordered By: Dr. Hall on 04-12-2022 Creatinine [Mass/Vol] 1.07 mg/dL 0.55-1.02 [facility] Comment on above: The validity of the calculated GFR & GFRAA in patients over 70 years has not been determined. Clinical correlation is essential. Serum or plasma low density lipoprotein (LDL) cholesterol measurement (mass/volume)Ordered By: Dr. Hall on 04-12-2022 Cholesterol in LDL [Mass/Vol] 128 mg/dL 0-130 [facility] Serum or plasma urea nitroge n measurement (mass/volume)Ordered By: Dr. Hall on 04-12-2022 Urea nitrogen [Mass/Vol] 22 mg/dL 7-18 [facility] Thin prep Papanicolaou smear with manual screeningOrdered By: Dr. Hall on 04-12-2022 Thin prep Papanicolaou smear with manual screening 19 U/L 15-37 [facility] Thin prep Papanicolaou smear with manual screening 6 5-15 [facility] CBC W/DIFFon 10-06-2018 BASO ABS 0.00 K/CU MM Normal 0-0.2 [facility] Comment on above: Performed By: #### L 200.42759 #### [place] [facility] [address] [place] [address] Basophils/100 WBC (Bld) 0.5 % Normal 0-2 [facility] Comment on above: Performed By: #### L [id number] #### [facility] [address] [place] [address] EOS ABS 0.10 K/CU MM Normal 0-0.5 [facility] Comment on above: Performed By: #### L [id number] #### [facility] [address] [place] [address] Eosinophils/100 WBC (Bld) 1.8 % Normal 0-5 [facility] Comment on above: Performed By: #### L [id number] #### [facility] [address] [place] [address] Erythrocyte distribution width Ratio (RBC) 12.9 % Normal 11-14.5 [facility] Comment on above: Performed By: #### L 200.33331 #### [facility] [address] [place] [address] Hematocrit Volume Fraction (Bld) 40.5 % Normal 35.0-47.0 [facility] Comment on above: Performed By: #### L 200.78780 #### [facility] [address] [place] [address] Hemoglobin mass conc (Bld) 13.3 g/dL Normal 11.5-15.5 [facility] Comment on above: Performed By: #### L 200.47290 #### [facility] [address] [place] [address] IMMATR GRAN ABS 0.00 K/CU MM Normal Less than 2 [facility] Comment on above: Performed By: #### L 200.62186 #### [facility] [address] [place] [address] IMMATURE GRAN % 0.3 % Normal Less than 2 [facility] Comment on above: Performed By: #### L 200.18945 #### [facility] [address] [place] [address] Lymphocytes #/vol (Bld) 2.40 K/CU MM Normal 0.9-4.4 [facility] Comment on above: Performed By: #### L 200.91180 #### [facility] [address] [place] [address] Lymphocytes/100 WBC (Bld) 38.8 % Normal 20-40 [facility] Comment on above: Performed By: #### L 200.04889 #### [facility] [address] [place] [address] MCHC mass conc (RBC) 32.8 g/dL Normal 32.0-36.0 [facility] Comment on above: Performed By: #### L 200.16464 #### [facility] [address] [place] [address] MCV Entitic volume (RBC) 92.7 fL Normal 80.0-99.0 [facility] Comment on above: Performed By: #### L 200.18547 #### [facility] [address] [place] [address] MONO ABS 0.60 K/CU MM Normal 0.1-1.1 [facility] Comment on above: Performed By: #### L 200.04468 #### [facility] [address] [place] [address] Monocytes/100 WBC (Bld) 9.6 % Normal 2-10 [facility] Comment on above: Performed By: #### L 200.67621 #### [facility] [address] [place] [address] NEUTROPHIL ABS 3.00 K/CU MM Normal 2.0-8.3 [facility] Comment on above: Performed By: #### L 200.84971 #### [facility] [address] [place] [address] Neutrophils/100 WBC (Bld) 49.0 % Normal 45-75 [facility] Comment on above: Performed By: #### L 200.72836 #### [facility] [address] [place] [address] Nucleated RBC/100 WBC Ratio (Bld) 0.0 % Normal Less than 1 [facility] Comment on above: Performed By: #### L 200.96283 #### [facility] [address] [place], [place] [id number] Platelet mean volume Entitic volume (Bld) 10.6 fL Normal 9.4-12.4 [facility] Comment on above: Performed By: #### L 200.72374 #### [facility] [address] [place] [address] Platelets #/vol (Bld) 244 K/CU MM Normal 150-450 [facility] Comment on above: Performed By: #### L 200.39881 #### [facility] [address] [place] [address] RBC #/vol (Bld) 4.37 M/CU MM Normal 3.90-5.30 [facility] Comment on above: Performed By: #### L 200.05239 #### [facility] [address] [place] [address] WBC #/vol (Bld) 6.1 K/CUMM Normal 4.5-11.0 [facility] Comment on above: Performed By: #### L 200.91203 #### [facility] [address] [place] [address] CMPon 10-06-2018 Albumin mass conc 4.2 g/dL Normal 3.2-5.0 [facility] Comment on above: Performed By: #### L 500.37441, L500.34272, L500.75048 #### [facility] [address] [place], [place] [id number] Albumin/Globulin mass ratio 1.5 {ratio} Normal 0.8-2.0 [facility] Comment on above: Performed By: #### L 500.08200, L500.37023, L500.88950 #### [facility] [address] [place] [id number] ALK PHOS 74 U/L Normal 45-117 [facility] Comment on above: Performed By: #### L 500.86898, L500.02848, L500.40571 #### [facility] [address] [place] [address] ALT enzyme act/vol 24 U/L Normal 13-61 [facility] Comment on above: Result Comment: RESU LTS MAY BE FALSELY DEPRESSED AFTER THE ADMINISTRATION OF SULFASALAZINE AND/OR SULFAPYRIDINE. Performed By: #### L 500.05829, L500.77915, L500.20919 #### [facility] [address] [place] [address] Anion gap molar conc 6 mmol/L Normal 5-16 [facility] Comment on above: Performed By: #### L 500.35125, L500.78667, L500.81627 #### [facility] [address] [place] [address] BILI TOTAL 0.4 MG/DL Normal 0.2-1.0 [facility] Comment on above: Performed By: #### L 500.91169, L500.88826, L500.83332 #### [facility] [address] [place] [address] Calcium mass conc 9.3 mg/dL Normal 8.5-10.1 [facility] Comment on above: Performed By: #### L 500.24506, L500.34555, L500.23304 #### [facility] [place] [id number] Chloride molar conc 104 mmol/L Normal 98-107 [facility] Comment on above: Performed By: #### L 500.47153, L500.76619, L500.03707 #### [facility] [address] [place] [address] CO2 molar conc 29 mmol/L Normal 21-32 [facility] Comment on above: Performed By: #### L 500.66782, L500.89560, L500.10856 #### [facility] [address] [place] [address] Creatinine mass conc 1.020 mg/dL High 0.510-0.950 [facility] Comment on above: Result Comment: Radha ents receiving either N-Acetylcysteine (NAC) or Metamizole prior to venipuncture, may have falsely depressed results. Performed By: #### L 500.46438, L500.42007, L500.96386 #### [facility] [address] [place] [address] Globulin mass conc (S) 2.8 g/dL Normal 2.2-4.2 [facility] Comment on above: Performed By: #### L 500.70652, L500.38583, L500.86756 #### [facility] [address] [place] [address] Glucose mass conc 90 mg/dL Normal 70-100 [facility] Comment on above: Result Comment: 70-1 00- Normal Fasting; 100-125 Impaired Fasting; greater than 126 on more than one result- Diabetes. ADA guidelines. Results may be falsely elevated after the administration of Sulfapyridine. Results may be falsely depressed after the administration of Sulfasalazine. Performed By: #### L 500.40795, L500.78962, L500.47259 #### [facility] [address] [place] [address] Potassium molar conc 3.9 mmol/L Normal 3.5-5.1 [facility] Comment on above: Performed By: #### L 500.48882, L500.52096, L500.24986 #### [facility] [address] [place] [address] Protein mass conc 7.0 g/dL Normal 6.0-8.5 [facility] Comment on above: Performed By: #### L 500.50760, L500.79637, L500.46645 #### [facility] [address] [place] [address] SGOT (AST) 20 U/L Normal 8-34 [facility] Comment on above: Result Comment: RESU LTS MAY BE FALSELY DEPRESSED AFTER THE ADMINISTRATION OF SULFASALAZINE AND/OR SULFAPYRIDINE. Performed By: #### L 500.99622, L500.57448, L500.96669 #### [facility] [address] [place] [address] Sodium molar conc 140 mmol/L Normal 136-145 [facility] Comment on above: Performed By: #### L 500.59895, L500.49200, L500.01517 #### [facility] [address] [place] [address] Urea nitrogen mass conc 24 mg/dL Normal 7-26 [facility] Comment on above: Performed By: #### L 500.69725, L500.81763, L500.71058 #### [facility] [address] [place] [address] Urea nitrogen/Creatinine mass ratio 23 mg/mg Normal 15-24 [facility] Comment on above: Performed By: #### L 500.78479, L500.07618, L500.90866 #### [facility] [address] [place] [address] GFR ESTon 10-06-2018 IF AMER Greater than 60 Normal [facility] Comment on above: Performed By: #### L 500.01148, L500.82100, L500.48463 #### [facility] [address] [place] [address] IF non-AFR AMER 53 ML/MIN Normal [facility] Comment on above: Performed By: #### L 500.92407, L500.27200, L500.66519 #### [facility] [address] [place] [address] LIPIDon 10-06-2018 Cholesterol in HDL mass conc 73 mg/dL Normal [place] 40 [facility] Comment on above: Result Comment: Radha ents receiving Metamizole prior to venipuncture, may have falsely depressed results. Performed By: #### L 500.63572, L500.94488, L500.87372 #### [facility] [address] [place] [address] Cholesterol in LDL mass conc 154 mg/dL High 0-129 [facility] Comment on above: Result Comment: ___C HOLESTEROL/HDL RATIO RISK___ CHD RISK = Total CHOL LDL HDL (CHOL/HDL) Recommended <200 <130 >40 <3.4 Borderline 200-239 130-159 3.4-4.99 High >240 >160 >5.0 Performed By: #### L 500.96126, L500.36815, L500.68352 #### [facility] [address] [place], [place] [id number] Cholesterol mass conc 249 mg/dL High 0-199 [facility] Comment on above: Performed By: #### L 500.95283, L500.01214, L500.51616 #### [facility] [address] [place] [address] Triglyceride mass conc 113 mg/dL Normal 30-149 [facility] Comment on above: Result Comment: Radha ents receiving either N-Acetylcysteine (NAC) or Metamizole prior to venipuncture, may have falsely depressed results. Performed By: #### L 500.91559, L500.64438, L500.26828 #### [facility] [address] [place] [address] UA COMPLETEon 10-06-2018 Color Nom (U) Yellow Normal [facility] Comment on above: Performed By: #### L 600.61324 #### [facility] [address] [place] [address] Glucose mass conc (U) Negative Normal NORMAL [facility] Comment on above: Performed By: #### L 600.74233 #### [facility] [address] [place] [address] UA APPEARANCE Clear Normal CLEAR [facility] Comment on above: Performed By: #### L 600.78331 #### [facility] [address] [place] [address] UA BILIRUBIN Negative Normal NEGATIVE [facility] Comment on above: Performed By: #### L 600.16480 #### [facility] [address] [place] [address] UA BLOOD Negative Normal NEGATIVE [facility] Comment on above: Performed By: #### L 600.31397 #### [facility] [place] [address] UA KETONE Negative Normal NEGATIVE [facility] Comment on above: Performed By: #### L 600.94333 #### [facility] [address] [place] [address] UA LK ESTERASE Negative Normal NEGATIVE [facility] Comment on above: Performed By: #### L 600.00320 #### [facility] [address] [place] [address] UA NITRITE Negative Normal NEGATIVE [facility] Comment on above: Performed By: #### L 600.49033 #### [facility] [address] [place] [address] UA PH 5.0 Normal 5-6 [facility] Comment on above: Performed By: #### L 600.29933 #### [facility] [address] [place] [address] UA PROTEIN Negative Normal NEGATIVE [facility] Comment on above: Performed By: #### L 600.74467 #### [facility] [address] [place] [address] UA SPEC GRAV 1.018 Normal 1.005-1.030 [facility] Comment on above: Performed By: #### L 600.89009 #### [facility] [address] [place] [address] UA UROBILINOGEN Negative Normal NORMAL [facility] Comment on above: Performed By: #### L 600.83352 #### [facility] [address] [place] [address] Office Visit: COPD/Pulmonary noduleon 02-25-2017 Documentation of current medications (procedure) Done Invalid Interpretation Code [facility] Work Phone: Tobacco smoking status NHIS Never Invalid Interpretation Code [facility] Work Phone: Tobacco use [facility] Never smoker Invalid Interpretation Code [facility] Work Phone: Vital Signs Date Time Vital Sign Value Performing Clinician Facility 11-04-2024 08:12-0400 Body mass index (BMI) [Ratio] 36.7 kg/m2 Dr. Erna Hall MD Work Phone: [facility] 11-04-2024 08:12-0400 Body temperature 97.5 [degF] Dr. Erna Hall MD Work Phone: [facility] 11-04-2024 08:12-0400 Body weight 97.[address] Erna Hall MD Work Phone: [facility] 11-04-2024 08:12-0400 Diastolic blood pressure 77 mm[Hg] Dr. Erna Hall MD Work Phone: [facility] 11-04-2024 08:12-0400 Heart rate 83 /min Dr. Erna Hall MD Work Phone: [facility] 11-04-2024 08:12-0400 Respiratory rate 18 /min Dr. Erna Hall MD Work Phone: [facility] 11-04-2024 08:12-0400 SaO2% (BldA) [Mass fraction] 94 % Dr. Erna Hall MD Work Phone: [facility] 11-04-2024 08:12-0400 Systolic blood pressure 144 mm[Hg] Dr. Erna Hall MD Work Phone: [facility] 05-31-2024 15:17-0500 Body height 162.6 cm Enra Hall MD Work Phone: [facility] 05-31-2024 15:17-0500 Body mass index (BMI) [Ratio] 36.25 kg/m2 Erna Hall MD Work Phone: [facility] 05-31-2024 15:17-0500 Body temperature 97.3 [degF] Erna Hall MD Work Phone: [facility] 05-31-2024 15:17-0500 Body weight 95.8 kg Erna Hall MD Work Phone: [facility] 05-31-2024 15:17-0500 Diastolic blood pressure 82 mm[Hg] Erna Hall MD Work Phone: [facility] 05-31-2024 15:17-0500 Heart rate 80 /min Erna Hall MD Work Phone: [facility] 05-31-2024 15:17-0500 Respiratory rate 18 /min Erna Hall MD Work Phone: [facility] 05-31-2024 15:17-0500 SaO2% (BldA) [Mass fraction] 94 % Erna Hall MD Work Phone: [facility] 05-31-2024 15:17-0500 Systolic blood pressure 136 mm[Hg] Erna Hall MD Work Phone: [facility] 10-13-2023 10:27-0400 Body height 162.6 cm Erna Hall MD Work Phone: [facility] 10-13-2023 10:27-0400 Body mass index (BMI) [Ratio] 36.22 kg/m2 Erna Hall MD Work Phone: [facility] 10-13-2023 10:27-0400 Body temperature 97.3 [degF] Erna Hall MD Work Phone: [facility] 10-13-2023 10:27-0400 Body weight 95.71 kg Erna Hall MD Work Phone: [facility] 10-13-2023 10:27-0400 Diastolic blood pressure 88 mm[Hg] Erna Hall MD Work Phone: [facility] 10-13-2023 10:27-0400 Heart rate 88 /min Erna Hall MD Work Phone: [facility] 10-13-2023 10:27-0400 Respiratory rate 18 /min Erna Hall MD Work Phone: [facility] 10-13-2023 10:27-0400 SaO2% (BldA) [Mass fraction] 97 % Erna Hall MD Work Phone: [facility] 10-13-2023 10:27-0400 Systolic blood pressure 138 mm[Hg] Erna Hall MD Work Phone: [facility] 07-07-2023 09:07-0400 Body temperature 98.1 [degF] Dr. Erna Hall Work Phone: [facility] 07-07-2023 09:07-0400 Diastolic blood pressure 74 mm[Hg] Dr. Erna Hall Work Phone: [facility] 07-07-2023 09:07-0400 Heart rate 98 /min Dr. Erna Hall Work Phone: [facility] 07-07-2023 09:07-0400 Respiratory rate 16 /min Dr. Erna Hall Work Phone: [facility] 07-07-2023 09:07-0400 SaO2% (BldA) [Mass fraction] 93 % Dr. Erna Hall Work Phone: [facility] 07-07-2023 09:07-0400 Systolic blood pressure 138 mm[Hg] Dr. Erna Hall Work Phone: [facility] 05-01-2023 06:37-0500 Body height 160.[address] Erna Hall Work Phone: [facility] 05-01-2023 06:37-0500 Body mass index (BMI) [Ratio] 37.2 kg/m2 Dr. Erna Hall Work Phone: [facility] 05-01-2023 06:37-0500 Body temperature 97.1 [degF] Dr. Erna Hall Work Phone: [facility] 05-01-2023 06:37-0500 Body weight 95.[address] Erna Hall Work Phone: [facility] 05-01-2023 06:37-0500 Diastolic blood pressure 75 mm[Hg] Dr. Erna Hall Work Phone: [facility] 05-01-2023 06:37-0500 Heart rate 83 /min Dr. Erna Hall Work Phone: [facility] 05-01-2023 06:37-0500 Respiratory rate 20 /min Dr. Erna Hall Work Phone: [facility] 05-01-2023 06:37-0500 SaO2% (BldA) [Mass fraction] 94 % Dr. Erna Hall Work Phone: [facility] 05-01-2023 06:37-0500 Systolic blood pressure 146 mm[Hg] Dr. Erna Hall Work Phone: [facility] 04-09-2023 15:34-0500 Body height 162.6 cm Erna Hall MD Work Phone: [facility] 04-09-2023 15:34-0500 Body temperature 97.59 [degF] Erna Hall MD Work Phone: [facility] 04-09-2023 15:34-0500 Body weight 96.98 kg Erna Hall MD Work Phone: [facility] 04-09-2023 15:34-0500 Diastolic blood pressure 78 mm[Hg] Erna Hall MD Work Phone: [facility] 04-09-2023 15:34-0500 Heart rate 76 /min Erna Hall MD Work Phone: [facility] 04-09-2023 15:34-0500 Respiratory rate 18 /min Erna Hall MD Work Phone: [facility] 04-09-2023 15:34-0500 SaO2% (BldA) [Mass fraction] 98 % Erna Hall MD Work Phone: [facility] 04-09-2023 15:34-0500 Systolic blood pressure 128 mm[Hg] Erna Hall MD Work Phone: [facility] 05-03-2022 09:47-0500 Body height 162.[address] Erna Hall Work Phone: [facility] 05-03-2022 09:47-0500 Body mass index (BMI) [Ratio] 36 kg/m2 Dr. Erna Hall Work Phone: [facility] 05-03-2022 09:47-0500 Body temperature 98.2 [degF] Dr. Erna Hall Work Phone: [facility] 05-03-2022 09:47-0500 Body weight 95.[address] Erna Hall Work Phone: [facility] 05-03-2022 09:47-0500 Diastolic blood pressure 85 mm[Hg] Dr. Erna Hall Work Phone: [facility] 05-03-2022 09:47-0500 Heart rate 85 /min Dr. Erna Hall Work Phone: [facility] 05-03-2022 09:47-0500 Respiratory rate 18 /min Dr. Erna Hall Work Phone: [facility] 05-03-2022 09:47-0500 SaO2% (BldA) [Mass fraction] 93 % Dr. Erna Hall Work Phone: [facility] 05-03-2022 09:47-0500 Systolic blood pressure 148 mm[Hg] Dr. Erna Hall Work Phone: [facility] 04-10-2022 11:08-0500 Body height 162.6 cm Erna Hall MD Work Phone: [facility] 04-10-2022 11:08-0500 Body temperature 97.11 [degF] Erna Hall MD Work Phone: [facility] 04-10-2022 11:08-0500 Body weight 96.53 kg Erna Hall MD Work Phone: [facility] 04-10-2022 11:08-0500 Diastolic blood pressure 72 mm[Hg] Erna Hall MD Work Phone: [facility] 04-10-2022 11:08-0500 Heart rate 78 /min Erna Hall MD Work Phone: [facility] 04-10-2022 11:08-0500 Respiratory rate 18 /min Erna Hall MD Work Phone: [facility] 04-10-2022 11:08-0500 SaO2% (BldA) [Mass fraction] 98 % Erna Hall MD Work Phone: [facility] 04-10-2022 11:08-0500 Systolic blood pressure 130 mm[Hg] Erna Hall MD Work Phone: [facility] 01-30-2022 10:15-0400 Body height 162.[address] Erna Hall Work Phone: [facility] Work Phone: 01-30-2022 10:15-0400 Body mass index (BMI) [Ratio] 34.7 kg/m2 Dr. Erna Hall Work Phone: [facility] Work Phone: 01-30-2022 10:15-0400 Body temperature 96.3 [degF] Dr. Erna Hall Work Phone: [facility] Work Phone: 01-30-2022 10:15-0400 Body weight 91.[address] Erna Hall Work Phone: [facility] Work Phone: 01-30-2022 10:15-0400 Diastolic blood pressure 74 mm[Hg] Dr. Erna Hall Work Phone: [facility] Work Phone: 01-30-2022 10:15-0400 Heart rate 88 /min Dr. Erna aHll Work Phone: [facility] Work Phone: 01-30-2022 10:15-0400 Respiratory rate 18 /min Dr. Erna Hall Work Phone: [facility] Work Phone: 01-30-2022 10:15-0400 SaO2% (BldA) [Mass fraction] 95 % Dr. Erna Hall Work Phone: [facility] Work Phone: 01-30-2022 10:15-0400 Systolic blood pressure 126 mm[Hg] Dr. Erna Hlal Work Phone: [facility] Work Phone: 02-25-2017 07:14-0400 BMI (Body Mass Index) 30.21 kg/m2 Linda Nance [facility] Phone: 02-25-2017 07:14-0400 Body Temperature 97.4 [degF] Linda Nance [facility] Phone: 02-25-2017 07:14-0400 BP Diastolic 84 mm[Hg] Linda Nance [facility] Phone: 02-25-2017 07:14-0400 BP Systolic 128 mm[Hg] Linda Goyo [facility] Phone: 02-25-2017 07:14-0400 Height 162.56 cm Linda Nance [facility] Phone: 02-25-2017 07:14-0400 Pulse (Heart Rate) 74 /min Linda Nance [facility] Phone: 02-25-2017 07:14-0400 Respiratory Rate 18 /min Linda Nance [facility] Phone: 02-25-2017 07:14-0400 Weight 79.83 kg Linda Nance [facility] Phone: Encounters Encounter Date Encounter Type Care Provider Facility Start: 01-25-2025 ambulatory Paul Rose Facility:[facility] Start: 11-04-2024 End: 11-04-2024 Patient encounter procedure Libra GRIMALDO -[facility] Work Phone: Start: 11-04-2024 End: 11-04-[address] Erna Hall MD Work Phone: -[facility] Start: 08-11-2024 ambulatory ERNA Dawkins acility:[facility] Start: 08-11-2024 End: 08-11-2024 Subsequent hospital visit by physician [facility] Work Phone: Radiology Comment on above: Abnormal mammogram [ R92.8] Start: 08-11-2024 End: 08-11-2024 Follow-up encounter Jose Shepherd LPN [facility] Start: 07-14-2024 End: 07-14-2024 Telephone encounter Erna Hall MD Work Phone: Mammogram Start: 06-10-2024 End: 06-10-2024 ambulatory ERNA HALL Facility:[facility] Start: 05-31-2024 End: 05-31-2024 Patient encounter procedure Erna Hall MD Work Phone: [facility] Comment on above: Wellness examination (Primary Dx); [...] encounter status Erna Hall MD Work Phone: [facility] Start: 05-31-2024 End: 05-31-2024 ambulatory ERNA HALL Facility:[id number] Start: 05-30-2024 End: 05-30-2024 ambulatory Erna Hall Facility:[facility] Start: 05-27-2024 End: 05-27-2024 ambulatory Erna Hall Facility:[facility] Start: 01-06-2024 End: 01-07-2024 Telephone encounter Erna Hall MD Work Phone: [facility] Comment on above: Results Start: 01-06-2024 End: 01-06-2024 ambulatory ERNA HALL Facility:[facility] Start: 01-06-2024 End: 01-06-2024 Subsequent hospital visit by physician [facility] Work Phone: Radiology Comment on above: Abnormal mammogram [ R92.8] Start: 10-13-2023 Telephone encounter Erna Hall MD Work Phone: [facility] Comment on above: Orders Start: 10-13-2023 End: 10-13-2023 Office outpatient visit 15 minutes Erna Hall MD Work Phone: [facility] Comment on above: Unspecified essentia l hypertension (Primary Dx); Pulmonary emphysema, unspecified emphysema type (HCC); Pure hypercholesterolemia; Gastroesophageal reflux disease with esophagitis without hemorrhage Start: 10-13-2023 End: 10-13-2023 ambulatory ERNA HALL Facility:[id number] Start: 07-07-2023 End: 07-07-[address] Erna Hall Work Phone: [facility] Work Phone: Start: 07-07-2023 End: 07-07-[address] Erna Hall Work Phone: [facility] Work Phone: Start: 07-03-2023 Telephone encounter Erna Hall MD Work Phone: [facility] Comment on above: Results Start: 07-02-2023 End: 07-02-2023 Subsequent hospital visit by physician [facility] Comment on above: Abnormal mammogram [ R92.8] Start: 06-09-2023 Telephone encounter Erna Hall MD Work Phone: [facility] Comment on above: Orders Start: 05-30-2023 Telephone encounter Erna Hall MD Work Phone: [facility] Comment on above: Results Start: 05-29-2023 Documentation procedure Mammog dragan Coordinator [facility] Start: 05-29-2023 Letter encounter Mammography Coordinator [facility] Department Start: 05-01-2023 End: 05-01-[address] Erna Hall Work Phone: [facility]-P[facility] Work Phone: Start: 04-09-2023 End: 04-09-2023 Patient encounter procedure Erna Hall MD Work Phone: [facility] Comment on above: Wellness examination (Primary Dx); Counseling regarding advance directives and goals of care; Encounter for screening for depression; Encounter for immunization; Pure hypercholesterolemia; Hypertension, essential; Screening for deficiency anemia; Medicare annual wellness visit, subsequent Start: 04-09-2023 End: 04-09-2023 Patient encounter status Erna Hall MD Work Phone: [facility] Work Phone: Start: 07-29-2022 Patient encounter procedure [facility] Provider [facility] Department Start: 07-22-2022 End: 07-22-[address] Erna Hall Work Phone: [facility] Work Phone: Start: 07-22-2022 End: 07-22-[address] Erna Hall Work Phone: [facility]-Pulmonary Services/Neurology Start: 05-25-2022 Documentation procedure Mammog dragan Coordinator [facility] Start: 05-25-2022 Letter encounter Mammography Coordinator [facility] Department Start: 05-24-2022 End: 05-24-2022 Subsequent hospital visit by physician Screen Mammo [facility] Comment on above: Encounter for screen ing mammogram for malignant neoplasm of breast [Z12.31] Start: 05-03-2022 End: 05-03-[address] Erna Hall Work Phone: [facility] Start: 04-12-2022 End: 04-12-[address] Erna Hall Work Phone: [facility] Work Phone: Start: 04-12-2022 End: 04-12-[address] Erna Hall Work Phone: [facility] Start: 04-10-2022 End: 04-10-2022 Patient encounter procedure Erna Hall MD Work Phone: [facility] Comment on above: Wellness examination (Primary Dx); Unspecified essential hypertension; Mixed hyperlipidemia; Gastroesophageal reflux disease with esophagitis without hemorrhage; Other specified abnormal findings of blood chemistry; Encounter for screening mammogram for malignant neoplasm of breast; Screening for deficiency anemia Start: 04-10-2022 End: 04-10-2022 Patient encounter status Erna Hall MD Work Phone: [facility] Start: 01-30-2022 End: 01-30-[address] Erna Hall Work Phone: [facility] Procedures Date Procedure Procedure Detail Performing Clinician [...] Author Start: 06-10-2027 Diabetes Screening Diabetes Screening [facility] Start: 04-11-2026 Diabetes Screening Diabetes Screening [facility] Start: 05-31-2025 Annual PCP Team Chronic Disease Visit Annual PCP Team Chronic Disease Visit [facility] Start: 05-31-2025 Anxiety Screening Anxiety Screening [facility] Start: 05-31-2025 Depression Screening Depression Screening [facility] Start: 10-12-2024 Annual PCP Team Chronic Disease Visit Annual PCP Team Chronic Disease Visit [facility] Start: 09-08-2024 End: 09-08-2024 Patient encounter procedure Mammogram Comment on above: Abnormal mammogram [R92.8] Start: 07-01-2024 End: 07-01-2024 Patient encounter procedure 07/01/2024 9:50 AM EST Appointment Mammogram [address] [place] [address] SCREENING MAMMO BILAT (6 MONTH MAMM LEFT BREAST AND LEFT BREAST ULTRASOUND) Mammogram Comment on above: SCREENING MAMMO BILAT (6 MONTH MAMM LEFT BREAST AND LEFT BREAST ULTRASOUND) Start: 05-31-2024 End: 08-30-2024 CBC W Auto Differential panel - Blood COMPLETE BLOOD COUNT AND DIFFERENTIAL Lab Routine Screening for deficiency anemia Expected: 05/31/2024, Expires: 08/30/[address] [facility] Comment on above: Expected: 05/31/2024, Expires: Start: 05-31-2024 End: 08-30-2024 Comprehensive metabolic 2000 panel - Serum or Plasma COMPREHENSIVE METABOLIC PANEL Lab Routine Unspecified essential hypertension Pure hypercholesterolemia Expected: 05/31/2024, Expires: 08/30/[address] [facility] Comment on above: Expected: 05/31/2024, Expires: Start: 05-31-2024 End: 08-30-2024 Lipid 1996 panel - Serum or Plasma LIPID PANEL BASIC Lab Routine Pure hypercholesterolemia Expected: 05/31/2024, Expires: 08/30/[address] [facility] Comment on above: Expected: 05/31/2024, Expires: Start: 04-19-2024 End: 04-19-2024 Patient encounter procedure 04/19/2024 10:40 AM EST Office [facility] [address] [place] [id number] Erna Hall MD [address] [place], [place] [id number] Annual Wellness [facility] Comment on above: Annual Wellness Start: 04-09-2024 Annual PCP Team Chronic Disease Visit Annual PCP Team Chronic Disease Visit [facility] Start: 04-09-2024 BP Controlled (<130/80) BP Controlled (<130/80) [facility] Start: 01-04-2024 End: 08-02-2024 MG Breast - left Diagnostic for implant JULES DIAGNOSTIC LEFT Radiology Routine Abnormal mammogram Expected: 01/04/2024, Expires: 08/02/2024 [facility] Work Phone: Comment on above: Expected: 01/04/2024, Expires: 5 Start: 01-04-2024 End: 08-02-2024 US Breast - left limited US BREAST LTD LEFT Radiology Routine Abnormal mammogram Expected: 01/04/2024, Expires: 08/02/2024 [facility] Work Phone: Comment on above: Expected: 01/04/2024, Expires: 5 Start: 12-28-2023 Covid-19 Vaccine () Covid-19 Vaccine () [facility] Start: 12-28-2023 Covid-19 Vaccine () Covid-19 Vaccine () [facility] Start: 12-28-[address] [facility] Start: 04-28-2023 Advance Directive Discussion Advance Directive Discussion [facility] Start: 04-28-2023 Behavioral Health Screening Behavioral Health Screening [facility] Start: 04-28-2023 Depression Assessment Depression Assessment [facility] Start: 04-10-2023 ANNUAL PCP TEAM CHRONIC DISEASE VISIT ANNUAL PCP TEAM CHRONIC DISEASE VISIT [facility] Start: 04-09-2023 End: 07-09-2023 CBC W Auto Differential panel - Blood CBC + DIFF Lab Routine Screening for deficiency anemia Expected: 04/09/2023, Expires: 07/09/2023 [facility] Work Phone: Comment on above: Expected: 04/09/2023, Expires: 4 Start: 04-09-2023 End: 07-09-2023 Comprehensive metabolic 2000 panel - Serum or Plasma COMP METABOLIC PANEL Lab Routine Pure hypercholesterolemia Hypertension, essential Expected: 04/09/2023, Expires: 07/09/2023 [facility] Work Phone: Comment on above: Expected: 04/09/2023, Expires: 4 Start: 04-09-2023 End: 07-09-2023 Lipid 1996 panel - Serum or Plasma LIPID PANEL BASIC Lab Routine Pure hypercholesterolemia Expected: 04/09/2023, Expires: 07/09/2023 [facility] Work Phone: Comment on above: Expected: 04/09/2023, Expires: 4 Start: 12-27-2022 Covid-19 Vaccine () Covid-19 Vaccine () [facility] Start: 12-27-[address] [facility] Start: 04-28-2022 ADVANCE DIRECTIVE DISCUSSION ADVANCE DIRECTIVE DISCUSSION [facility] Start: 04-28-2022 DEPRESSION ASSESSMENT DEPRESSION ASSESSMENT [facility] Start: 04-10-2022 End: 06-10-2022 CBC W Auto Differential panel - Blood CBC + DIFF Lab Routine Screening for deficiency anemia Expected: 04/10/2022, Expires: 06/10/2022 [facility] Work Phone: Comment on above: Expected: 04/10/2022, Expires: 3 Start: 04-10-2022 End: 06-10-2022 Comprehensive metabolic 2000 panel - Serum or Plasma COMP METABOLIC PANEL Lab Routine Unspecified essential hypertension Mixed hyperlipidemia Expected: 04/10/2022, Expires: 06/10/2022 [facility] Work Phone: Comment on above: Expected: 04/10/2022, Expires: 3 Start: 04-10-2022 End: 06-10-2022 Lipid 1996 panel - Serum or Plasma LIPID PANEL BASIC Lab Routine Gastroesophageal reflux disease with esophagitis without hemorrhage Expected: 04/10/2022, Expires: 06/10/2022 [facility] Work Phone: Comment on above: Expected: 04/10/2022, Expires: 3 Start: 12-27-2021 Influenza vaccination INFLUENZA (#1) [facility] Start: 12-11-2021 COVID-19 VACCINE (5 - Booster for Pfizer series) COVID-19 VACCINE (5 - Booster for Pfizer series) [facility] Start: 10-06-2021 DIABETES SCREEN DIABETES SCREEN [facility] Start: 10-06-2021 Diabetes Screening Diabetes Screening [facility] Start: 04-28-2021 ADVANCE DIRECTIVE DISCUSSION ADVANCE DIRECTIVE DISCUSSION [facility] Start: 11-10-2018 RSV Vaccine (1 - 1-dose 75+ series) RSV Vaccine (1 - 1-dose 75+ series) [facility] Start: 02-25-2017 End: 02-25-2017 Follow Up Appt 1 year Follow Up Appt 1 year [facility] Phone: Start: 02-25-2017 End: 02-25-2017 Appointment Appointment [facility] Phone: Start: 01-01-2017 End: 01-01-2017 DMB DMB [facility] Phone: Start: 01-01-2017 End: 01-01-2017 Follow Up Appt 6 weeks Follow Up Appt 6 weeks [facility] Phone: Start: 11-19-2016 End: 11-19-2016 DMB DMB [facility] Phone: Start: 11-19-2016 End: 11-19-2016 Follow Up Appt 6 weeks Follow Up Appt 6 weeks [facility] Phone: Start: 11-19-2016 End: 12-27-2016 Pulmonary Function Test - complete Pulmonary Function Test - complete [facility] Phone: Start: 11-10-2008 BONE DENSITY BONE DENSITY [facility] Start: 11-10-2008 Bone Density Screening Bone Density Screening [facility] Start: 11-10-2008 Pneumococcal Vaccine: 65+ (1 - PCV) Pneumococcal Vaccine: 65+ (1 - PCV) [facility] Start: 11-10-2008 PNEUMOCOCCAL: 65+ (1 - PCV) PNEUMOCOCCAL: 65+ (1 - PCV) [facility] Start: 11-10-2008 Screening for osteoporosis Bone Density Screening [facility] Start: 2003 RSV Vaccine (1 - 1-dose 60+ series) RSV Vaccine (1 - 1-dose 60+ series) [facility] Start: 11-10-1993 SHINGRIX VACCINE (1 of 2) SHINGRIX VACCINE (1 of 2) [facility] Start: 11-10-1962 Pneumococcal Vaccine: 50+ (1 of 2 - PCV) Pneumococcal Vaccine: 50+ (1 of 2 - PCV) [facility] Start: 11-10-1962 Urine microalbumin profile [facility] Start: 11-10-1961 Anxiety Screening Anxiety Screening [facility] Start: 11-10-1961 BP CONTROLLED (<130/80) BP CONTROLLED (<130/80) [facility] Start: 11-10-1961 Depression Screening Depression Screening [facility] Start: 11-10-1961 HEPATITIS C SCREENING HEPATITIS C SCREENING [facility] Start: 11-10-[address] [facility] Start: 11-10-1949 Pneumococcal Vaccine: 65+ (1 - PCV) Pneumococcal Vaccine: 65+ (1 - PCV) [facility] Start: 11-10-1949 Pneumococcal Vaccine: 65+ (1 of 2 - PCV) Pneumococcal Vaccine: 65+ (1 of 2 - PCV) [facility] End: 06-30-2025 DBT Breast - bilateral screening JULES SCREENING W JAIME Radiology Routine Breast cancer screening by mammogram 1 Occurrences starting 05/31/2024 until 06/30/2025 [facility] Work Phone: Comment on above: 1 Occurrences starting 05/31/2024 until 06/30/2025 End: 05-10-2023 JULES SCREENING JULES SCREENING Radiology Routine Encounter for screening mammogram for malignant neoplasm of breast 1 Occurrences starting 04/10/2022 until 05/10/2023 [facility] Work Phone: Comment on above: 1 Occurrences starting 04/10/2022 until 05/10/2023 End: 08-13-2025 MG Breast - bilateral Diagnostic JULES DIAGNOSTIC BILATERAL Radiology Routine Abnormal mammogram 1 Occurrences starting 07/14/2024 until 08/13/2025 [facility] Work Phone: Comment on above: 1 Occurrences starting 07/14/2024 until 08/13/2025 End: 07-09-2024 MG Breast - left Diagnostic for implant JULES DIAGNOSTIC LEFT Radiology Routine Abnormal mammogram 1 Occurrences starting 06/10/2023 until 07/09/2024 [facility] Work Phone: Comment on above: 1 Occurrences starting 06/10/2023 until 07/09/2024 End: 07-09-2024 US Breast - left limited US BREAST LTD LEFT Radiology Routine Abnormal mammogram 1 Occurrences starting 06/10/2023 until 07/09/2024 [facility] Work Phone: Comment on above: 1 Occurrences starting 06/10/2023 until 07/09/2024 [facility] Immunizations Immunization Date Immunization Notes Care Provider Fa [facility] 03-11-2007 influenza virus vaccine, unspecified formulation Screen Wstr [facility] 03-12-2006 influenza virus vaccine, unspecified formulation Erna Hall MD Work Phone: [facility] 04-03-2005 influenza virus vaccine, unspecified formulation Erna Hall MD Work Phone: [facility] Work Phone: Payers Date Payer Category Payer Self-pay [id number] 2023 Medicare (Managed Care) [employer] Member Subscriber Plan / Payer (Effective 2023-Present) Name: Marlen Smith Relation to Subscriber: Self Name: Marlen Smith Payer ID: [id number] (NAIC) Type: HMO Address: [place] [id number] 2017 Medicare [id number] 2014 Medicare [id number] Unknown [id number] Unknown [id number] Unknown [id number] Unknown [id number] Social History Date Type Detail Facility Start: 04-10-2022 End: 05-30-2024 Tobacco smoking status NHIS Never smoked tobacco [facility] Start: 04-10-2022 Tobacco use and exposure Smoke less tobacco non-user [facility] Start: 04-10-2022 End: 05-31-2024 Alcohol intake Current non-drinker of alcohol (finding) [facility] Start: 04-10-2022 History SDOH Alcohol Frequency [address] [facility] Start: 04-10-2022 History SDOH Alcohol Std Drinks [address] [facility] Start: 04-10-2022 History SDOH Social Connections Phone [address] [facility] Start: 04-10-2022 History SDOH Social Connections Membership [address] [facility] Start: 04-10-2022 History SDOH Social Connections Living [address] [facility] Start: 04-10-2022 History SDOH Physica l Activity DPW [address] [facility] Start: 1945 Sex Assigned At Not on file [facility] Start: 01-30-2022 End: 07-07-2023 Tobacco smoking status NHIS Unknown if ever smoked [facility] Start: 1945 Sex Assigned At Female [facility] Start: 04-10-2022 End: 04-09-2023 History of Social function [facility] Start: 04-10-2022 End: 04-09-2023 Social connection and isolation panel [facility] Attends Hoahaoism Services Not on file [facility] Do you belong to any clubs or organizations such as synagogue groups, unions, fraternal or athletic groups, or school groups? No [facility] Are you now , , , , never or living with a partner? [facility] How often to you hav e a drink containing alcohol? Never [facility] Do you feel stress - tense, restless, nervous, or anxious, or unable to sleep at night because your mind is troubled all the time - these days [OSQ] Not at all [facility] (I/We) worried whebrennen er (my/our) food would run out before (I/we) got money to buy more. Never true [facility] Functional Status Date Assessment Result Facility 05-31-2024 Total score [AUDIT-C] 0 05/31/19 25 3:15 PM Xochitl Perdomo LPN [facility] 05-31-2024 Humiliation, Afraid, Rape, and Kick questionnaire [HARK] [facility] Clinical Notes 04-10-2022 to [...] Shepherd LPN August 11, 2024 4:[address] [facility] 08-11-2024 Telephone encounter Note ----- Message from Erna Hall MD sent at 08/11/2024 4:12 PM EDT ----- Benign cyst in left breast. Recheck in [address] [facility] 08-11-2024 Miscellaneous Notes Patient notified of information, verbalized understanding. No questions, comments, or concerns at this time. Jose Shepherd LPN August 11, 2024 4:21 PM ----- Message from Erna Hall MD sent at 08/11/2024 4:12 PM EDT ----- Benign cyst in left breast. Recheck in 6 months documented in this encounter [facility] 08-11-2024 History of Present illness Narrative Radiology [...] PATIENT PRESENTS WITH AN IMPLANTABLE OR ATTACHED MAIL DISTRIBUTION CLERK: No RADIOLOGY DEPARTMENT: Ultrasound PERIPHERAL IV DATA: Not applicable SIGNED BY: Elizabeth Timmons RDMS Cynthia August 11, 2024 4:46 PM documented in this encounter [facility] 08-11-2024 Note HNO ID: [id number] Author: ELIZABETH TIMMONS RDMS Service: ? Author Type: Adult Ministries Director Type: Progress Notes Filed: 08/11/2024 16:46 Note [...] PATIENT PRESENTS WITH AN IMPLANTABLE OR ATTACHED MAIL DISTRIBUTION CLERK: No RADIOLOGY DEPARTMENT: Ultrasound PERIPHERAL IV DATA: Not applicable SIGNED BY: Elizabeth Timmons RDMS RVT August 11, 2024 4:46 PM [place] [id number] History of Present illness Narrative Radiology Service [...] PATIENT PRESENTS WITH AN IMPLANTABLE OR ATTACHED MAIL DISTRIBUTION CLERK: No RADIOLOGY DEPARTMENT: Mammography PERIPHERAL IV DATA: Not applicable SIGNED BY: RT Cristiana(R) August 11, 2024 2:25 PM documented in this encounter [facility] 08-11-2024 Note HNO ID: [id number] Author: AKIKO FLORES RT(R) Service: ? Author Type: Technologist Type: Progress Notes Filed: 08/11/2024 14:26 Note Text: Radiology Service Progress Note PATIENT NAME: Marlen Simth DATE OF SERVICE: August 11, 2024 TIME: [...] PATIENT PRESENTS WITH AN IMPLANTABLE OR ATTACHED MAIL DISTRIBUTION CLERK: No RADIOLOGY DEPARTMENT: Mammography PERIPHERAL IV DATA: Not applicable SIGNED BY: RT Cristiana(R) August 11, 2024 2:[address] [facility] 07-14-2024 Telephone encounter Note Ordered and signed. Thanks [address] [facility] 07-14-2024 Miscellaneous Notes Ordered and signed. Thanks 2 million Could we have a order for a Bilateral Diagnostic Mammogram please. Thanks a million documented in this encounter [facility] 07-14-2024 Telephone encounter Note Could we have a order for a Bilateral Diagnostic Mammogram please. Thanks a million [facility] 06-05-2024 Instructions Erna Hall MD - 06/05/2024 [...] review all the medicines you take, even [id number]-fet-[id number] medicines. As you get older, the way [...] certain medical conditions. documented in this encounter [facility] 05-31-2024 Note HNO ID: [id number] Author: ERNA HALL MD Service: ? Author [...] mouth as directed on inside of package novmutop-zqcchqnpy-ptkehfmmwgzxxj (CORTISPORIN) 3.5-10,000-1 mg/mL-unit/mL-% otic suspension STIOLTO RESPIMAT [...] cancer screening, hea (more content not included)... [facility] 05-31-2024 History of Present illness Narrative [...] mouth as directed on inside of package kwyajzis-lymrjxvjj-wmepfrvkwmdfzw (CORTISPORIN) 3.5-10,000-1 mg/mL-unit/mL-% otic suspension STIOLTO RESPIMAT [...] 2024 3:17 PM documented in this encounter [facility] 05-31-2024 Note HNO ID: [id number] Author: XOCHITL CHEEMA LPN Service: ? Author [...] Cheema LPN May 31, 2024 3:17 PM [facility] 01-07-2024 Telephone encounter Note Patient notified of information, verbalized understanding. No questions, comments, or concerns at this time. Xochitl Cheema LPN January 07, 2024 5:[address] [facility] 01-07-2024 Miscellaneous Notes Patient notified of information, [...] months for stability. documented in this encounter [facility] 01-06-2024 Telephone encounter Note Message left for patient to phone office at earliest convenience in regards to results. Xochitl Cheema LPN January 06, 2024 4:[address] [facility] 01-06-2024 Telephone encounter Note ----- Message from Erna Hall MD sent at 01/06/2024 1:18 PM EDT ----- Ultrasound of breast is benign. Recheck in [address] [facility] 01-06-2024 History of Present illness Narrative Radiology [...] PATIENT PRESENTS WITH AN IMPLANTABLE OR ATTACHED MAIL DISTRIBUTION CLERK: No RADIOLOGY DEPARTMENT: Ultrasound PERIPHERAL IV DATA: Not applicable SIGNED BY: Akila Hahn RDMS January 06, 2024 9:35 AM documented in this encounter [facility] 01-06-2024 Note HNO ID: [id number] Author: AKILA HAHN RDMS Service: ? Author Type: Medical Photographer Type: Progress Notes Filed: 01/06/2024 09:35 Note [...] PATIENT PRESENTS WITH AN IMPLANTABLE OR ATTACHED MAIL DISTRIBUTION CLERK: No RADIOLOGY DEPARTMENT: Ultrasound PERIPHERAL IV DATA: Not applicable SIGNED BY: Akila Hahn RDMS January 06, 2024 9:[address] [facility] 10-13-2023 Telephone encounter Note Mammogram and ultrasound orders have been faxed to [facility] as requested Fax confirmation received Xochitl Cheema LPN October 13, 2023 12:[address] [facility] 10-13-2023 Miscellaneous Notes Mammogram and ultrasound orders have been faxed to [facility] as requested Fax confirmation received Xochitl Cheema LPN October 13, 2023 12:34 PM documented in this encounter [facility] 10-13-2023 Note HNO ID: [id number] Author: ERNA HALL MD Service: ? Author [...] Follow-up in 6 months. Erna Hall MD [facility] 10-13-2023 History of Present illness Narrative [...] 2023 10:27 AM documented in this encounter [facility] 10-13-2023 Note HNO ID: [id number] Author: XOCHITL CHEEMA LPN Service: ? Author Type: LICENSED NURSE Type: Progress Notes Filed: 10/13/2023 11:17 Note Text: Patient is in office for 6 month exam. Patient has no current complaints or concerns. Xochitl Cheema LPN October 13, 2023 10:27 AM [facility] 07-04-2023 Miscellaneous Notes Patient notified of [...] 6m. Probably benign documented in this encounter [facility] 07-02-2023 History of Present illness Narrative Radiology [...] PATIENT PRESENTS WITH AN IMPLANTABLE OR ATTACHED MAIL DISTRIBUTION CLERK: No RADIOLOGY DEPARTMENT: Ultrasound PERIPHERAL IV DATA: Not applicable SIGNED BY: Akila Hahn RDMS July 02, 2023 9:38 AM documented in this encounter [facility] 07-02-2023 History of Present illness Narrative Radiology [...] PATIENT PRESENTS WITH AN IMPLANTABLE OR ATTACHED MAIL DISTRIBUTION CLERK: No RADIOLOGY DEPARTMENT: Mammography PERIPHERAL IV DATA: Not applicable SIGNED BY: RT Cristiana(R) July 02, 2023 8:48 AM documented in this encounter [facility] 06-10-2023 Miscellaneous Notes I called patient to confirm with her that she still has not received a call from the breast center to schedule additional breast views from her recent abnormal mammogram. Marlen said she called ph#[phone] and had to leave a message. No one has called her back yet. I called the same phone number above and spoke with a [facility] staff member. She told me that since patient had her mammogram done in [place] at the [facility] that additional view orders are needed. Please review and then sign orders below. Once the orders are in, I can schedule the appointment for patient. Marlen said that she would like a morning appointment. Thank you! Daniela Ray LPN June 10, 2023 2:03 PM Marlen Smith called today. : 1945 Allergies: [employer] (home) [phone] (work) [phone] (cell) Reason for call: Patient called asking for mammogram orders. She had a screening mammogram done 05/27/2023. It was abnormal showing left breast asymmetry. It looks like she needs orders for a left diagnostic mammogram and a left breast ultrasound. Patient last appointment: 04/09/2023 The patients preferred pharmacy has been captured for this encounter? no Daniela Ray LPN documented in this encounter [facility] 05-30-2023 Miscellaneous Notes Patient notified of information, verbalized understanding. Patient stated she has not been contacted by [facility] in regards to additional imaging. Patient stated [...] to schedule this. documented in this encounter [facility] 05-29-2023 Miscellaneous Notes May 29, 2023 PID: [id number] Marlen Smith [address] [place] [address] Dear Ms. Smith, Your recent breast imaging exam on 05/28/2023 showed a possible finding that requires additional imaging studies for a complete evaluation. Most such findings are probably benign (not cancer). If you have a healthcare provider who ordered/prescribed your screening mammogram: Please call [phone] or [phone]: [phone] to schedule an appointment for your additional [...] and reports are kept on file at [facility] as part of your permanent medical record, and are available for your continuing care. Thank you for allowing us to help in meeting your health care needs. Sincerely, Dr. Dai Interpreting Radiologist [facility] (Additional imaging) documented in this encounter [facility] 04-10-2023 Instructions Erna Hall MD - 04/10/2023 [...] review all the medicines you take, even [id number] medicines. As you get older, the way [...] certain medical conditions. documented in this encounter [facility] 04-09-2023 History of Present illness Narrative Shyam [...] 2023 3:43 PM documented in this encounter [facility] 05-25-2022 Miscellaneous Notes May 27, 2022 PID: [id number] Marlen Smith [address] [place] [address] Dear Ms. Smith, We are pleased to [...] report will be kept on file at [facility] as part of your permanent medical record and are available for your continuing care. Thank you for allowing us to help in meeting your health care needs. Sincerely, Dr. Peña Interpreting Radiologist [facility] (Normal over 40) documented in this encounter [facility] 05-24-2022 History of Present illness Narrative Radiology [...] 2022 2:38 PM documented in this encounter [facility] 04-10-2022 History of Present illness Narrative This note was created using [employer]. Subjective Marlen Smith is a 76 year [...] Erna Hall MD documented in this encounter [facility] Evaluation note Diagnosis Wellness examination- Primary Unspecified essential hypertension Mixed hyperlipidemia Gastroesophageal reflux disease with esophagitis without hemorrhage Other specified abnormal findings of blood chemistry Encounter for screening mammogram for malignant neoplasm of breast Other screening mammogram Screening for deficiency anemia Screening for other and unspecified deficiency anemia [facility] Diagnosis Onset Date Resolution Status COPD (chronic obstructive pulmonary disease) chronic [facility] Work Phone: Evaluation note* Diagnosis Encounter for screening mammogram for malignant neoplasm of breast Other screening mammogram [facility] Diagnosis Wellness examination- Primary Counseling [...] health care facility [facility] Diagnosis Abnormal mammogram- Primary Abnormal mammogram, unspecified [facility] Diagnosis Abnormal mammogram Abnormal mammogram, unspecified [facility] Diagnosis Abnormal mammogram Abnormal mammogram, unspecified [facility] Diagnosis Abnormal mammogram- Primary Abnormal mammogram, unspecified [facility] Diagnosis Onset Date Resolution Status Obesity acute COPD (chronic obstructive pulmonary disease) chronic Acute bronchitis, unspecified acute Close sexual exposure to mpox virus acute [facility] Work Phone: Evaluation note* Diagnosis Unspecified essential hypertension- Primary Pulmonary emphysema, unspecified emphysema type (HCC) Pure hypercholesterolemia Gastroesophageal reflux disease with esophagitis without hemorrhage [facility] Diagnosis Abnormal mammogram Abnormal mammogram, unspecified [facility] Diagnosis Wellness examination- Primary Screening [...] health care facility [facility] Diagnosis Abnormal mammogram- Primary Abnormal mammogram, unspecified [facility] Diagnosis Abnormal mammogram Abnormal mammogram, unspecified documented in this encounter [facility] note* Diagnosis Abnormal mammogram Abnormal mammogram, unspecified documented in this encounter [facility] noteNo assessment information availableDe[facility] Work Phone: Reason for referral (narrative)* Diagnostic Procedure Only (Routine) - Pending Review Specialty Diagnoses / Procedures Referred By Tiffany crystal Referred To Contact [facility] Diagnoses Encounter for screening mammogram for malignant neoplasm of breast Procedures JULES SCREENING SCREENING MAMMOGRAPHY BI 2-VIEW BREAST INC Erna Viigl MD [address] [place] [address] [facility] [address] [place] [address] Referral ID Status Reason Start Date Expiration Date Visits Requested Visits Authorized [id number] Pending Review Auto-Generat ed Referral 05/10/2023 1 1 [facility] for referral (narrative)* Diagnostic Procedure Only (Routine) - Closed Specialty Diagnoses / Procedures Referred By Tiffany crystal Referred To Contact [facility] Diagnoses Encounter for screening mammogram for malignant neoplasm of breast Procedures JULES SCREENING SCREENING MAMMOGRAPHY BI 2-VIEW BREAST INC Erna Vigil MD [address] [place] [address] [facility] [address] [address] Referral ID Status Reason Start Date Expiration Date V isits Requested Visits Authorized [id number] Closed Auto-Generate d Referral 04/10/2022 05/10/2023 1 1 [facility] for referral (narrative)* Diagnostic Procedure Only (Routine) - Pending Review Specialty Diagnoses / Procedures Referred By Tiffany crystal Referred To Contact [facility] Diagnoses Abnormal mammogram Procedures US BREAST LTD LEFT US BREAST UNI REAL TIME WITH IMAGE LIMITED Erna Hall MD [address] [place] [address] [facility] [address] [place] [address] Referral ID Status Reason Start Date Expiration Date Visits Requested Visits Authorized [id number] Pending Review Auto-Generat ed Referral 06/10/2023 07/09/2024 1 1 * Diagnostic Procedure Only (Routine) - Pending Review Specialty Diagnoses / Procedures Referred By Deloresac t Referred To Contact [facility] Diagnoses Abnormal mammogram Procedures JULES DIAGNOSTIC LEFT DIAGNOSTIC MAMMOGRAPHY COMPUTER-AIDED DETCJ Erna Malik MD [address] [place] [address] [facility] [address] [place] [address] Referral ID Status Reason Start Date Expiration Date Visits Requested Visits Authorized [id number] Pending Review Auto-Generat ed Referral 06/10/2023 07/09/2024 1 1 [facility] for referral (narrative)* Diagnostic Procedure Only (Routine) - Closed Specialty Diagnoses / Procedures Referred By Tiffany crystal Referred To Contact [facility] Diagnoses Abnormal mammogram Procedures US BREAST LTD LEFT US BREAST UNI REAL TIME WITH IMAGE LIMITED Erna Hall MD [address] [place] [address] [facility] [address] [place] [address] Referral ID Status Reason Start Date Expiration Date V isits Requested Visits Authorized [id number] Closed Auto-Generate d Referral 06/10/2023 07/09/2024 1 1 [facility] for referral (narrative)* Diagnostic Procedure Only (Routine) - Pending Review Specialty Diagnoses / Procedures Referred By Tiffany t Referred To Contact [facility] Diagnoses Abnormal mammogram Procedures JULES DIAGNOSTIC LEFT DIAGNOSTIC MAMMOGRAPHY COMPUTER-AIDED DETCJ Erna Malik MD [address] [place] [address] [facility] [address] [place] [address] Referral ID Status Reason Start Date Expiration Date Visits Requested Visits Authorized [id number] Pending Review Auto-Generat ed Referral 01/04/2024 08/02/2024 1 1 * Diagnostic Procedure Only (Routine) - Pending Review Specialty Diagnoses / Procedures Referred By Contac t Referred To Contact [facility] Diagnoses Abnormal mammogram Procedures US BREAST LTD LEFT US BREAST UNI REAL TIME WITH IMAGE LIMITED Erna Hall MD [address] [place] [address] [facility] [address] [place] [address] Referral ID Status Reason Start Date Expiration Date Visits Requested Visits Authorized [id number] Pending Review Auto-Generat ed Referral 01/04/2024 08/02/[address] [facility] [address] [facility] Diagnostic Procedure Only (Routine) - Closed Specialty Diagnoses / Procedures Referred By Deloresac t Referred To Contact [facility] Diagnoses Abnormal mammogram Procedures US BREAST LTD LEFT US BREAST UNI REAL TIME WITH IMAGE LIMITED Erna Hall MD [address] [place] [address] [facility] [address] [place] [address] Referral ID Status Reason Start Date Expiration Date V isits Requested Visits Authorized [id number] Closed Auto-Generate d Referral 01/04/2024 08/02/2024 1 1 [facility] for referral (narrative)No reason for referral information availableDeacon[facility] Services Work Phone: Reason for visit Narrative* Diagnostic Procedure Only (Routine) - Closed Specialty Diagnoses / Procedures Referred By Contac t Referred To Contact [facility] Diagnoses Encounter for screening mammogram for malignant neoplasm of breast Procedures JULES SCREENING SCREENING MAMMOGRAPHY BI 2-VIEW BREAST INC CAD Erna Hall MD [address] [place] [address] [facility] [address] [place] [address] Referral ID Status Reason Start Date Expiration Date V isits Requested Visits Authorized [id number] Closed Auto-Generate d Referral 04/10/2022 05/10/2023 1 1 [facility] for visit Narrative* Diagnostic Procedure Only (Routine) - Closed Specialty Diagnoses / Procedures Referred By Contac t Referred To Contact [facility] Diagnoses Abnormal mammogram Procedures JULES DIAGNOSTIC LEFT DIAGNOSTIC MAMMOGRAPHY COMPUTER-AIDED DETCJ UNI Erna Hall MD [address] [place] [address] [facility] [address] [place] [address] Referral ID Status Reason Start Date Expiration Date V isits Requested Visits Authorized [id number] Closed Auto-Generate d Referral 06/10/2023 07/09/2024 1 1 [facility] for visit Narrative* Diagnostic Procedure Only (Routine) - Closed Specialty Diagnoses / Procedures Referred By Contac t Referred To Contact [facility] Diagnoses Abnormal mammogram Procedures JULES DIAGNOSTIC BILATERAL DIAGNOSTIC MAMMOGRAPHY COMPUTER-AIDED DETCJ Erna Hall MD [address] [place] [address] Phone: tel: fax: [facility] [address] [place] [address] Referral ID Status Reason Start Date Expiration Date V isits Requested Visits Authorized [id number] Closed Auto-Generate d Referral 07/14/2024 08/13/[address] [facility] Summary Purpose Family History No Family History [...] Yes October 24, 2017 8:39pm Power of Medical Translator Yes October 24 8:39pm Advance Directive Response Recorded Date/ Time Living Will Yes October 24, 2017 9:39pm Power of Medical Translator Yes October 24 8 9:39pm Advance Directive Response Recorded Date/ Time Living Will Yes December 17 1:35pm Power of Medical Translator Yes December 17, 023 1:35pm Advance Directive Response Recorded Date/ Time Living Will Yes December 17 1:35pm Do you have a Healthcare Power of Medical Translator? Yes December 17, 2022 1:35pm Chief Complaint [...] section and content) DATE CREATED AUTHOR 10/13/2018 [facility] [place] DATE CREATED AUTHOR AUTHOR'S ORGANIZ ATION 06/07/2024 [facility] DATE CREATED AUTHOR AUTHOR'S ORGANIZ ATION 08/31/2024 [facility] DATE CREATED AUTHOR AUTHOR'S ORGANIZ ATION 01/19/2025 [facility] Source Comments (unrecognize d section and content) In the event this informatio n is protected by the Federal Confidentiality of Alcohol and Drug Abuse Patient Records regulations: The Federal rules restrict any use of the information to criminally investigate or prosecute any alcohol or drug abuse patient.[facility] the event this information is protected by the Federal Confidentiality of Alcohol and Drug Abuse Patient Records regulations: The Federal rules restrict any use of the information to criminally investigate or prosecute any alcohol or drug abuse patient.[facility] HospitalIn the event this information is protected by the Federal Confidentiality of Alcohol and Drug Abuse Patient Records regulations: The Federal rules restrict any use of the information to criminally investigate or prosecute any alcohol or drug abuse patient.[facility] HospitalIn the event this information is protected by the Federal Confidentiality of Alcohol and Drug Abuse Patient Records regulations: The Federal rules restrict any use of the information to criminally investigate or prosecute any alcohol or drug abuse patient.[facility] HospitalIn the event this information is protected by the Federal Confidentiality of Alcohol and Drug Abuse Patient Records regulations: The Federal rules restrict any use of the information to criminally investigate or prosecute any alcohol or drug abuse patient.[facility] HospitalIn the event this information is protected by the Federal Confidentiality of Alcohol and Drug Abuse Patient Records regulations: The Federal rules restrict any use of the information to criminally investigate or prosecute any alcohol or drug abuse patient.[facility] HospitalIn the event this information is protected by the Federal Confidentiality of Alcohol and Drug Abuse Patient Records regulations: The Federal rules restrict any use of the information to criminally investigate or prosecute any alcohol or drug abuse patient.[facility] HospitalIn the event this information is protected by the Federal Confidentiality of Alcohol and Drug Abuse Patient Records regulations: The Federal rules restrict any use of the information to criminally investigate or prosecute any alcohol or drug abuse patient.[facility] HospitalIn the event this information is protected by the Federal Confidentiality of Alcohol and Drug Abuse Patient Records regulations: The Federal rules restrict any use of the information to criminally investigate or prosecute any alcohol or drug abuse patient.[facility] HospitalIn the event this information is protected by the Federal Confidentiality of Alcohol and Drug Abuse Patient Records regulations: The Federal rules restrict any use of the information to criminally investigate or prosecute any alcohol or drug abuse patient.[facility] HospitalIn the event this information is protected by the Federal Confidentiality of Alcohol and Drug Abuse Patient Records regulations: The Federal rules restrict any use of the information to criminally investigate or prosecute any alcohol or drug abuse patient.[facility] HospitalIn the event this information is protected by the Federal Confidentiality of Alcohol and Drug Abuse Patient Records regulations: The Federal rules restrict any use of the information to criminally investigate or prosecute any alcohol or drug abuse patient.[facility] HospitalIn the event this information is protected by the Federal Confidentiality of Alcohol and Drug Abuse Patient Records regulations: The Federal rules restrict any use of the information to criminally investigate or prosecute any alcohol or drug abuse patient.[facility] HospitalIn the event this information is protected by the Federal Confidentiality of Alcohol and Drug Abuse Patient Records regulations: The Federal rules restrict any use of the information to criminally investigate or prosecute any alcohol or drug abuse patient.[facility] HospitalIn the event this information is protected by the Federal Confidentiality of Alcohol and Drug Abuse Patient Records regulations: The Federal rules restrict any use of the information to criminally investigate or prosecute any alcohol or drug abuse patient.[facility] HospitalIn the event this information is protected by the Federal Confidentiality of Alcohol and Drug Abuse Patient Records regulations: The Federal rules restrict any use of the information to criminally investigate or prosecute any alcohol or drug abuse patient.[facility] HospitalIn the event this information is protected by the Federal Confidentiality of Alcohol and Drug Abuse Patient Records regulations: The Federal rules restrict any use of the information to criminally investigate or prosecute any alcohol or drug abuse patient.[facility] HospitalIn the event this information is protected by the Federal Confidentiality of Alcohol and Drug Abuse Patient Records regulations: The Federal rules restrict any use of the information to criminally investigate or prosecute any alcohol or drug abuse patient.[facility] HospitalIn the event this information is protected by the Federal Confidentiality of Alcohol and Drug Abuse Patient Records regulations: The Federal rules restrict any use of the information to criminally investigate or prosecute any alcohol or drug abuse patient.[facility] HospitalIn the event this information is protected by the Federal Confidentiality of Alcohol and Drug Abuse Patient Records regulations: The Federal rules restrict any use of the information to criminally investigate or prosecute any alcohol or drug abuse patient.[facility] Reason for Visit (unrecogniz ed section and content) Reason Comments Medicare Wellness Exam Reason Comments Medicare Wellness Exam Reason Comments Results Reason Comments Orders Reason Comments Radiology US Specialty Diagnoses / Procedures Referred By Contac t Referred To Contact [facility] Diagnoses Abnormal mammogram Procedures US BREAST LTD LEFT US BREAST UNI REAL TIME WITH IMAGE LIMITED Erna Hall MD [address] [place] [address] [facility] [address] [place] [address] Referral ID Status Reason Start Date Expiration Date V isits Requested Visits Authorized [id number] Closed Auto-Generate d Referral 06/10/2023 07/09/2024 1 1 Reason Comments Results Reason Comments 6 Month Exam Reason Comments Orders Referral ID Status Reason Start Date Expiration Date V isits Requested Visits Authorized [id number] Closed Auto-Generate d Referral 01/04/2024 08/02/2024 1 1 Reason Onset Date Comments Medicare Wellness Exam Breast Problem 05/31/2024 M[facility]ogram at [facility] Specialty Diagnoses / Procedures Referred By Deloresac t Referred To Contact [facility] Diagnoses Abnormal mammogram Procedures US BREAST LTD LEFT US BREAST UNI REAL TIME WITH IMAGE LIMITED Erna Hall MD [address] [place] [address] Phone: tel: fax: [facility] [address] [place] [address] Referral ID Status Reason Start Date Expiration Date V isits Requested Visits Authorized [id number] Closed Auto-Generate d Referral 06/24/2024 04/27/2025 1 1 Care Teams (unrecognized sec tion and content) Internet Merchant Relationship Specialty Start Date End Date Pcp, No PCP - General 11/10/21 05/28/22 Internet Merchant Relationship Specialty Start Date End Date Pcp, No PCP - General 11/10/21 05/28/22 Team Status: Active Member Role Status Dates Dr. Erna Hall MD Family Provider Active Dr. Erna Hall MD Primary Care Provider Active Team Status: Inactive Member Role Status Dates Dr. Erna Hall MD Primary Care Provider, Referrin g Provider Active Libra Ozuna DRY WALL FINISHER, DRY WALL FINISHER-C Attending Provider Active Team Status: Inactive Member Role Status Dates Dr. Erna Hall MD Primary Care Prov ider, Attending Provider, Referring Provider Active Team Status: Inactive Member Role Status Dates Dr. Erna Hall MD Primary Care Provider Active Libra Ozuna NP, DRY WALL FINISHER-C Attending Provider Active Internet Merchant Relationship Specialty Start Date End Date Pcp, No, MASTICATOR PCP - General 11/10/21 05/28/22 Internet Merchant Relationship Specialty Start Date End Date Erna Hall MD [address] [place] [address] PCP - General Family Medicine 06/09/23 Internet Merchant Relationship Specialty Start Date End Date Erna Hall MD [address] [place] [address] PCP - General Family Medicine 06/09/23 Internet Merchant Relationship Specialty Start Date End Date Erna Hall MD [address] [place] [address] PCP - General Family Medicine 06/09/23 Internet Merchant Relationship Specialty Start Date End Date Erna Hall MD [address] [place] [address] PCP - General Family Medicine 06/09/23 Team [...] PA Attending Provider, Referring Pr ovider Active Internet Merchant Relationship Specialty Start Date End Date Erna Hall MD [address] [place] [address] PCP - General Family Medicine 06/09/23 Internet Merchant Relationship Specialty Start Date End Date Erna Hall MD [address] [place] [address] PCP - General Family Medicine 06/09/23 Internet Merchant Relationship Specialty Start Date End Date Erna Hall MD [address] [place] [address] PCP - General Family Medicine 06/09/23 Internet Merchant Relationship Specialty Start Date End Date Erna Hall MD [address] [place] [address] PCP - General Family Medicine 06/09/23 Internet Merchant Relationship Specialty Start Date End Date Erna Hall MD [address] [place] [address] PCP - General Family Medicine 06/09/23 Internet Merchant Relationship Specialty Start Date End Date Erna Hall MD [address] [place] [address] PCP - General Family Medicine 06/09/23 Internet Merchant Relationship Specialty Start Date End Date Erna Hall MD [address] [place] [address] PCP - General Family Medicine 06/09/23 Team Status: Active Member Role/Relationship Status Dates Dr. Erna Hall MD Primary Care Provider Active Team Status: Inactive Member Role/Relationship Status Dates Dr. Erna Hall MD Primary Care Provider Active Start: November 04, 2024 End: November 04, 2024 Dr. Erna Hall MD Referring Provider Active Start: November 04, 2024 End: November 04, 2024 Libra Ozuna DRY WALL FINISHER, DRY WALL FINISHER-C Attending Provider Active Start: November 04, 2024 [...] BE BASED ON THE PRIMARY CLINICAL RECORDS. [facility] [facility]. provides no warranty or guarantee of the accuracy or completeness of information in this document.
[2025-01-21 10:40] LABS: Anion Gap 12 (5-15); BUN 22 mg/dL (4-19); BUN/Creat Ratio 19.7 RATIO (10-20); Calcium,Total 9.6 mg/dL (7.6-11.0); Carbon Dioxide 24.5 mmol/L (21.0-32.0); Chloride 103 mmol/L (98-108); Cholesterol 216 mg/dL (<=200); Glucose 104 mg/dL (70-99); Low Density Lipoprotein Calc. 134 mg/dL; Potassium 3.8 mmol/L (3.3-5.1); Triglycerides 90 mg/dL; Very Low Density Lipoprotein 18 mg/dL (5-40); cholesterol:hdl ratio screen 3.39
== END | disposition home or self-care (01) ==
LOC: MTLAB 07:07
PROVIDERS: PCP Family Medicine; Referring Provider Family Medicine; Visit Provider Family Medicine
DX: Z00.00 Encounter for general adult medical examination without abnormal findings (principal)
CPT/HCPCS: 36415; 80048; 80061

== ENCOUNTER → 2025-01-25 | Outpatient (CLI) | payer MEDICARE, SELFPAY ==
--- OUTSIDE RECORDS SUMMARY | 2024-08-11 14:25 | XMS RPT_ITS ---
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 Care Jig Borer Name Role Phone JOSE HALL Referring Unavailab le ISABEL, JOSE ESPARZA Primary Care Unavailab le ISABEL, JOSE ESPARZA Referring Unavailab le ISABEL, JOSE ESPARZA Primary Care Unavailab le ISABEL, JOSE ESPARZA Referring Unavailab le ISABEL, JOSE ESPARZA Primary Care Unavailab le ISABEL, JOSE ESPARZA Attending Unavailab le ISABEL, JOSE ESPARZA Primary Care Unavailab le PROBLEMS DATE TYPE CONDITION / CODE ATTENDING STATUS [facility] 08/11/2024 Active Abnormal mammogr am / R92.8(ICD-10) NA Active [facility] 10/09/2005 Active Unspecified esse ntial hypertension / I10(ICD-10) NA Active [facility] 06/10/2024 Active Screening for de ficiency anemia / Z13.0(ICD-10) NA Active [facility] 06/10/2024 Active Pure hypercholes terolemia / E78.00(ICD-10) NA Active [facility] 04/09/2023 Active Chronic obstruct trisha pulmonary disease, unspecified COPD type (HCC) / J44.9(ICD-10) JOSE HALL [facility] 05/31/2024 Active Encounter for co unseling regarding advance directives / Z71.89(ICD-10) JOSE HALL [facility] 05/31/2024 Active Screening for de pression / Z13.31(ICD-10) JOSE HALL [facility] 05/31/2024 Active Encounter for sc reening examination for other mental health and behavioral disorders / Z13.39(ICD-10) JOSE HALL [facility] 05/31/2024 Active Breast cancer sc reening by mammogram / Z12.31(ICD-10) JOSE HALL Active [facility] PROCEDURES No Procedure Records Found RESULTS [facility] US BREAST LTD LT Observed: 3:11 PM Status: F Source: [facility] * * *Final Report* * * DATE OF EXAM: Aug 11 2024 3:11PM WRU [id number] - EMETERIO US BREAST LTD LT / PROCEDURE REASON: Abnormal mammogram * * * * Physician Interpretation * * * * [place] [address] #[id number] - [facility] ELIZABETH VENCES XANDER #[id number] - [facility] US BREAST LTD LT HISTORY: 78 year-old patient seen for diagnostic evaluation of the finding(s) described on prior mammogram in the right breast. Patient is asymptomatic in the left breast. COMPARISON STUDIES: The present examination has been compared to prior imaging studies dated 07/02/2023 (mammogram), 07/02/2023 (ultrasound), 12/10/2023 (ultrasound), 12/10/2023 (mammogram) and 01/06/2024 (ultrasound). MAMMOGRAM TECHNIQUE: The study was acquired using full field digital technology and interpreted from soft copy. Digital Breast Tomosynthesis (DBT) images were obtained and used to assist in the interpretation of this examination. MAMMOGRAM FINDINGS: There are scattered areas of fibroglandular density. There is a stable focal asymmetry measuring 0.5 cm with circumscribed margins in the left breast at 4 o'clock. No suspicious masses, calcifications or other abnormalities are seen in the right breast. ULTRASOUND TECHNIQUE: Targeted ultrasound of the indicated area was performed. Horne scale images were saved. ULTRASOUND FINDINGS: Ultrasound demonstrates a stable oval complicated cyst measuring 0.5 cm in the left breast at 4 o'clock. Internal echotexture is hypoechoic. Color flow imaging demonstrates vascularity is not present. IMPRESSION: Stable complicated cyst in the left breast at 4 o'clock is probably benign. A follow-up in 6 months is recommended. BI-RADS Category 3: Probably Benign RISK: Based on the Tyrer-Cuzick (TC) risk assessment model, this patient has a 2.5% lifetime risk of developing breast cancer, meaning they are at average risk for developing breast cancer. However, this is only an estimate based on available history provided on the patient's questionnaire. We encourage all patients to talk with their providers about these results, further recommendations for managing breast health, and appropriate supplemental screening options if the patient has dense breast tissue. Interpreting Radiologist: Roxanna Jose M.D. Electronically signed on: 08/11/2024 Accounting Consultant: CHRIS Transcribe Date/Time: Aug 11 2024 3:02P Dictated by : ROXANNA JOSE MD This examination was interpreted and the report reviewed and electronically signed by: ROXANNA JOSE MD on Aug 11 2024 3:23PM EST [id number] PROGRESS Observed: 08/11/2024 3:00 PM Status: COMPLETED Source: [facility] HNO ID: [id number] Author: ALEJANDRA TIMMONS RDMS Service: ? Author Type: Manual Lathe Operator Type: Progress Notes Filed: 08/11/2024 16:46 Note Text: Radiology Service Progress Note PATIENT NAME: Marlen Smith DATE OF SERVICE: August 11, 2024 TIME: 4:46 PM PATIENT IDENTITY VERIFICATION COMPLETED USING TWO (2) IDENTIFIERS: Name and Date of confirmed by patient verbally. FALL SCREENING: Has the patient had 2 falls in the last year or 1 fall with injury or currently using an Ambulatory Assistive Device (Walker, Cane, Wheelchair, Crutches, etc.)? No PATIENT GENDER DATA: Assigned female at . status: : No status: NO. PATIENT RELEVANT IMPLANT DATA REVIEWED: Not Applicable PATIENT PRESENTS WITH AN IMPLANTABLE OR ATTACHED PRODUCT SUPPORT MANAGER: No RADIOLOGY DEPARTMENT: Ultrasound PERIPHERAL IV DATA: Not applicable SIGNED BY: Alejandra Timmons RDMS RVT August 11, 2024 4:46 PM EMETERIO TERRELL Observed: 08/11/2024 2:49 PM Status: F Source: [facility] * * *Final Report* * * DATE OF EXAM: Aug 11 2024 2:49PM W [id number] - EMETERIO TERRELL / PROCEDURE REASON: Abnormal mammogram * * * * Physician Interpretation * * * * RESULT: [facility] [address] [place] [address] #[id number] - YZ[facility] ELIZABETH TERRELL #[id number] - [facility] US BREAST LTD HISTORY: 78 year-old patient seen for diagnostic evaluation of the finding(s) described on prior mammogram in the right breast. Patient is asymptomatic in the left breast. COMPARISON STUDIES: The present examination has been compared to prior imaging studies dated 07/02/2023 (mammogram), 07/02/2023 (ultrasound), 12/10/2023 (ultrasound), 12/10/2023 (mammogram) and 01/06/2024 (ultrasound). MAMMOGRAM TECHNIQUE: The study was acquired using full field digital technology and interpreted from soft copy. Digital Breast Tomosynthesis (DBT) images were obtained and used to assist in the interpretation of this examination. MAMMOGRAM FINDINGS: There are scattered areas of fibroglandular density. There is a stable focal asymmetry measuring 0.5 cm with circumscribed margins in the left breast at 4 o'clock. No suspicious masses, calcifications or other abnormalities are seen in the right breast. ULTRASOUND TECHNIQUE: Targeted ultrasound of the indicated area was performed. Horne scale images were saved. ULTRASOUND FINDINGS: Ultrasound demonstrates a stable oval complicated cyst measuring 0.5 cm in the left breast at 4 o'clock. Internal echotexture is hypoechoic. Color flow imaging demonstrates vascularity is not present. IMPRESSION: Stable complicated cyst in the left breast at 4 o'clock is probably benign. A follow-up in 6 months is recommended. BI-RADS Category 3: Probably Benign RISK: Based on the Tyrer-Cuzick (TC) risk assessment model, this patient has a 2.5% lifetime risk of developing breast cancer, meaning they are at average risk for developing breast cancer. However, this is only an estimate based on available history provided on the patient's questionnaire. We encourage all patients to talk with their providers about these results, further recommendations for managing breast health, and appropriate supplemental screening options if the patient has dense breast tissue. Interpreting Radiologist: Roxanna Jose M.D. Electronically signed on: 08/11/2024 Accounting Consultant: CHRIS Transcribe Date/Time: Aug 11 2024 2:35P Dictated by: ROXANNA JOSE MD This examination was interpreted and the report reviewed and electronically signed by: ROXANNA JOSE MD on Aug 11 2024 3:23PM EST [id number] PROGRESS Observed: 08/11/2024 2:30 PM Status: COMPLETED Source: [facility] HNO ID: [id number] Author: VIKKI FLORES RT(Zoe) Service: ? Author Type: Technologist Type: Progress Notes Filed: 08/11/2024 14:26 Note Text: Radiology Service Progress Note PATIENT NAME: Marlen Smith DATE OF SERVICE: August 11, 2024 TIME: 2:25 PM PATIENT IDENTITY VERIFICATION COMPLETED USING TWO (2) IDENTIFIERS: Name and Date of confirmed by patient verbally. FALL SCREENING: Has the patient had 2 falls in the last year or 1 fall with injury or currently using an Ambulatory Assistive Device (Walker, Cane, Wheelchair, Crutches, etc.)? No PATIENT GENDER DATA: Assigned female at . status: : No status: NO. PATIENT RELEVANT IMPLANT DATA REVIEWED: Not Applicable PATIENT PRESENTS WITH AN IMPLANTABLE OR ATTACHED PRODUCT SUPPORT MANAGER: No RADIOLOGY DEPARTMENT: Mammography PERIPHERAL IV DATA: Not applicable SIGNED BY: RT Cristiana(R) August 11, 2024 2:25 PM CNPN Observed: 07/14/2024 12:00 AM Status: COMPLETED Source: [facility] Telephone (RDXWS) MARLEN SMITH ([id number]) 1945 F Date Time Provider Department 07/14/24 JOSE HALL RDXWS During your visit today, we recorded the following information about you: Angelina Hancock, Mammo Tech 07/14/2024 9:54 AM Signed Could we have a order for a Bilateral Diagnostic Mammogram please. Thanks a million Allergies As of Date: 07/14/2024 Noted Allergy Reaction DUST 07/04/2017 16 - Unknown TREES 07/04/2017 16 - Unknown Date Reviewed: 05/31/2024 Reviewed by: Xochitl Cheema LPN - Fully Assessed Primary Visit Diagnosis:Abnormal mammogram [R92.8] Order(s):[facility] DIAGNOSTIC BILATERAL [[id number]] Order #: [id number] FUTURE Prescriptions as of 07/14/2024 - methylPREDNISolone (MEDROL DOSE-PACK) 4 mg Dose-Pack take by mouth as directed on inside of package - sstzlisa-isfoqgmmi-dctywhgxsdsodw (CORTISPORIN) 3.5-10,000-1 mg/mL-unit/mL-% otic suspension - hydroCHLOROthiazide 25 mg tablet Take 1 tablet by mouth once daily. - nystatin (MYCOSTATIN) powder Apply 1 application to affected area four times daily. - STIOLTO RESPIMAT 2.5-2.5 mcg/actuation Inhale 2 Puffs as instructed once daily. - cetirizine HCl (CETIRIZINE ORAL) Take 10 mg by mouth once daily. - latanoprost (XALATAN) 0.005 % ophthalmic solution INSTILL 1 DROP INTO EACH EYE NIGHTLY - Omeprazole Magnesium 20 mg tablet Take 20 mg by mouth once daily. - Cholecalciferol, Vitamin D3, 50 mcg (2,000 unit) cap Take 1 capsule by mouth once daily. - vitamin b complex capsule Take 1 capsule by mouth once daily. 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] 11/14/2008 Cholelithiasis [K80.20] 02/06/2010 Hydronephrosis, bilateral [N13.30] 02/06/2010 Chronic obstructive pulmonary disease (HCC) [J4*11/19/2016 Diagnosed: 04/09/2023 Seasonal allergic rhinitis [J30.2] 11/19/2016 Diagnosed: 04/09/2023 Encounter Status:Closed by JOSE HALL on 07/14/24 LIPID 1996 PNL SERPL Collected: 025 9:05 AM Status: F Source: [facility] Order Comment: Specimen Type : BLOOD SPECIMEN Ordering Facility: [facility] Address: [address] [place] [address] TYPE CODE TESTS RESULT OUT OF RANGE REFERENCE UNITS LAB 2093-3(LOINC) Cholest SerPl-mCnc 197 <200 mg/dL Result Comment: <200 mg/dL, Desirable 200-239 mg/dL, Borderline high >239 mg/dL, High LAB 2571-8(LOINC) Trigl SerPl-mCnc 107 <150 mg/dL Result Comment: <150 mg/dL, Normal 150-199 mg/dL, Borderline high 200-499 mg/dL, High >499 mg/dL, Very high LAB 2085-9(LOINC) HDLc SerPl-mCnc 63 >39 mg/dL Result Comment: 40-59 mg/dL, Acceptable >59 mg/dL, High: Negative risk factor for coronary heart disease <40 mg/dL, Low: Positive risk factor for coronary heart disease LAB 25965-4(LOINC) NonHDLc SerPl-mCnc 134 High <130 mg/dL Result Comment: <130 mg/dL, Optimal 130-159 mg/dL, Near optimal/above optimal 160-189 mg/dL, Borderline high 190-219 mg/dL, High >219 mg/dL, Very high Secondary prevention optimal non HDL Cholesterol levels are recommended to be <100 mg/dL LAB FT FASTING TIME 12 hrs LAB 31472-2(LOINC) VLDLc SerPl Calc-mCnc 21 <30 mg/dL LAB 9830-1(LOINC) Cholest/HDLc SerPl 3.13 <5.10 LAB 68255-1(LOINC) LDLc SerPl Calc-mCnc 113 High <100 mg/dL Result Comment: <100 mg/dL, Optimal 100-129 mg/dL, Near optimal/above optimal 130-159 mg/dL, Borderline high 160-189 mg/dL, High >189 mg/dL, Very high Secondary prevention optimal LDL Cholesterol levels are recommended to be < 70 mg/dL LAB 77715-8(LOINC) LDLc/HDLc SerPl 1.79 <2.54 Result Comment: Reference: 1. National Cholesterol Education Program ATP III Guideline At-A-Glance Quick Desk Reference: National Heart, Lung, and Blood Mart. National Institutes of Health. 2001: NIH Publication No. 01-3305. 2. An International Atherosclerosis Society position paper: global recommendations for the management of dyslipidemia: executive summary, Atherosclerosis. 2014: 232(2):410-413. Performed By: #### 89860-0 # ### [facility] CLIA [id number] [address] CLIA [id number] [address] [place] [address] COMP METAB 2000 PNL SERPL Collected: 9:05 AM Status: F Source: [facility] Order Comment: Specimen Type : BLOOD SPECIMEN Ordering Facility: [facility] Address: [address] [place] [address] TYPE CODE TESTS RESULT OUT OF RANGE REFERENCE UNITS LAB 2885-2(INC) Prot SerPl-mCnc 6.8 6.3-8.0 g/dL LAB 1751-7(LOINC) Albumin SerPl-mCnc 4.4 3.9-4.9 g/dL LAB 76813-9(LOINC) Calcium SerPl-mCnc 10.3 High 8.5-10.2 mg/dL LAB 1975-2(LOINC) Bilirub SerPl-mCnc 0.5 0.2-1.3 mg/dL LAB 6768-6(LOINC) ALP SerPl-cCnc 66 34-123 U/L LAB 1920-8(LOINC) AST SerPl-cCnc 29 13-35 U/L LAB 1742-6(LOINC) ALT SerPl-cCnc 29 7-38 U/L LAB 2345-7(LOINC) Glucose SerPl-mCnc 115 High 74-99 mg/dL Result Comment: The [place] Diabetes Association (ADA) provides guidance for cutoff values for fasting glucose and random glucose. The ADA defines fasting as no caloric intake for at least 8 hours. Fasting plasma glucose results between 100 to 125 mg/dL indicate increased risk for diabetes (prediabetes). Fasting plasma glucose results greater than or equal to 126 mg/dL meet the criteria for diagnosis of diabetes. In the absence of unequivocal hyperglycemia, results should be confirmed by repeat testing. In a patient with classic symptoms of hyperglycemia or hyperglycemic crisis, random plasma glucose results greater than or equal to 200 mg/dL meet the criteria for diagnosis of diabetes. Reference: Standards of Medical Care in Diabetes 2016, [place] Diabetes Association. Diabetes Care. 2016.39(Suppl 1). LAB 3094-0(LOINC) BUN SerPl-mCnc 20 7-21 mg/ dL LAB 2160-0(LOINC) Creat SerPl-mCnc 1.18 High 0.58-0.96 mg/dL LAB 2951-2(LOINC) Sodium SerPl-sCnc 139 136-144 mmol/L LAB 2823-3(LOINC) Potassium SerPl-sCnc 4.2 3.7-5.1 mmol/L LAB 2075-0(LOINC) Chloride SerPl-sCnc 101 98-107 mmol/L LAB 2028-9(LOINC) CO2 SerPl-sCnc 29 22-30 mmo l/L LAB 34508-4(LOINC) Anion Gap SerPl-sCnc 9 8-15 mmol/L LAB 55012-6(LOINC) Creatinine + eGFR Pnl SerPlBld 47 Low >=60 mL/min/1 .73m??? Result Comment: Estimated Gl omerular Filtration Rate (eGFR) is calculated using the 2020 CKD-EPI creatinine equation. This equation utilizes serum creatinine, sex, and age as parameters. The creatinine assay has traceable calibration to isotope dilution-mass spectrometry. Refer to KDIGO guidelines for clinical interpretation. In patients with unstable renal function, e.g. those with acute kidney injury, the eGFR may not accurately reflect actual GFR. Performed By: #### 50704-0 # ### [facility] [id number] [place] [address] [place] CBC W AUTO DIFF BLD Collected: 06/10/2024 9:[address] atus: F Source: [facility] Order Comment: Specimen Type : BLOOD SPECIMEN Ordering Facility: [facility] Address: [address] [place] [address] TYPE CODE TESTS RESULT OUT OF RANGE REFERENCE UNITS LAB 6690-2([facility]) WBC # Bld Auto 4.55 3.70-11.00 k/uL LAB 789-8([facility]) RBC # Bld Auto 4.04 3.90-5.20 m/ uL LAB 718-7([facility]) Hgb Bld-mCnc 12.2 11.5-15.5 g/dL LAB 4544-3([facility]) Hct VFr Bld Auto 36.9 36.0-46.0 % LAB 787-2([facility]) MCV RBC Auto 91.3 80.0-100.0 fL LAB 785-6([facility]) MCH RBC Qn Auto 30.2 26.0-34.0 p g LAB 786-4([facility]) MCHC RBC Auto-mCnc 33.1 30.5-36.0 g/dL LAB 28698-7([facility]) RDW RBC-Rto 12.9 11.5-15.0 % LAB 777-3([facility]) Platelet # Bld Auto 212 150-400 k/uL LAB 02651-7([facility]) PMV Bld Auto 9.3 9.0-12.7 fL LAB 770-8(INC) Neutrophils/leuk NFr Bld Auto 46.8 % LAB 751-8(INC) Neutrophils # Bld Auto 2.13 1.45-7.50 k/uL LAB 736-9(INC) Lymphocytes/leuk NFr Bld Auto 34.9 % LAB 731-0(INC) Lymphocytes # Bld Auto 1.59 1.00-4.00 k/uL LAB 5905-5(INC) Monocytes/leuk NFr Bld Auto 15.2 % LAB 742-7(INC) Monocytes # Bld Auto 0.69 <0.87 k/uL LAB 713-8(INC) Eosinophil/leuk NFr Bld Auto 2.0 % LAB 711-2(LOINC) Eosinophil # Bld Auto 0.09 <0.46 k/uL LAB 706-2(LOINC) Basophils/leuk NFr Bld Auto 0.4 % LAB 704-7(LOINC) Basophils # Bld Auto <0.03 <0.11 k/uL LAB 63556-0(LOINC) Imm Granulocytes/manav k NFr Bld Auto 0.7 % LAB 54508-5(LOINC) Imm Granulocytes # Bld Auto 0.03 <0.10 k/uL LAB 92303-4(LOINC) nRBC/100 WBC Bld-Rto 0.0 /100 WBC LAB 771-6(LOINC) nRBC # Bld Auto <0.01 <0.01 k/u L LAB 62781-5(LOINC) Differential method Bld Auto Performed By: #### 04631-3 # ### [facility] CLIA [id number] [address] [place] [address] PROGRESS Observed: 05/31/2024 3:28 PM Status: COMPLETED Source: [facility] HNO ID: [id number] Author: JOSE HALL MD Service: ? Author Type: Physician Type: Progress Notes Filed: 06/05/2024 17:33 Note Text: Shyam Smith is a 78 year old female. Sia presents today for her Medicare wellness visit. Additionally she follows up for multiple medical problems. See list. Her chronic medical problems been stable. Her blood pressure is under good control on her current regimen. Breathing is improved with Stiolto. Reflux symptoms improved with omeprazole. Review of Systems PAST SURGICAL HISTORY Procedure Laterality Date ESOPHAGOGASTRODUODENOSCOPY TRANSORAL DIAGNOSTIC 05/2001 EGD LAP UMBILICAL HERNIA REPAIR 02/07/2010 LAPS SURG CHOLECYSTECTOMY W/CHOLANGIOGRAPHY 02/07/2010 TOTAL ABDOMINAL HYSTERECT W/WO RMVL TUBE OVARY TOTAL ABDOMINAL HYSTERECT W/WO RMVL TUBE OVARY Hysterectomy, NEAL PAST MEDICAL HISTORY Diagnosis Date Abdominal pain Asthma Cholelithiasis 02/07/2010 GERD (gastroesophageal reflux disease) Hypercholesteremia Incisional hernia 02/07/2010 Lumbar disc disease Obesity Osteopenia FAMILY HISTORY Problem Relation Age of Onset Hypertension Other Asthma Other Cancer Other GI Other Alzheimer's Disease Mother Social History Tobacco Use Smoking status: Never Smokeless tobacco: Never Vaping Use Vaping status: Never Used Substance Use Topics Alcohol use: No Drug use: Not Currently ALLERGIES Allergen Reactions Dust Unknown Trees Unknown MEDICATIONS: methylPREDNISolone (MEDROL DOSE-PACK) 4 mg Dose-Pack take by mouth as directed on inside of package knaitqqk-iuhyarsfu-rzisebulwriksg (CORTISPORIN) 3.5-10,000-1 mg/mL-unit/mL-% otic suspension STIOLTO RESPIMAT 2.5-2.5 mcg/actuation Inhale 2 Puffs as instructed once daily. cetirizine HCl (CETIRIZINE ORAL) Take 10 mg by mouth once daily. latanoprost (XALATAN) 0.005 % ophthalmic solution INSTILL 1 DROP INTO EACH EYE NIGHTLY Omeprazole Magnesium 20 mg tablet Take 20 mg by mouth once daily. Cholecalciferol, Vitamin D3, 50 mcg (2,000 unit) cap Take 1 capsule by mouth once daily. vitamin b complex capsule Take 1 capsule by mouth once daily. hydroCHLOROthiazide 25 mg tablet Take 1 tablet by mouth once daily. nystatin (MYCOSTATIN) powder Apply 1 application to affected area four times daily. Allergies, past surgical history, family history and past medical history were reviewed per this encounter. Medications were reviewed and verified. 10/13/2023 05/31/2024 INTAKE PAIN ASSESSMENT Are you having pain associated with your visit today? No No If pain assessment is 0, no action needed. If pain assessment is positive, please see assessment and plain. Objective BP 136/82 (BP Site: Left Arm, BP Position: Sitting, BP Cuff Size: Regular Adult) Pulse 80 Temp 36.3 ?C (97.3 ?F) (Temporal) Resp 18 Ht 162.6 cm (5' 4) Wt 95.8 kg (211 lb 3.2 oz) SpO2 94% BMI 36.25 kg/m? Physical Exam Vitals reviewed. Constitutional: Appearance: Normal appearance. She is obese. HENT: Head: Normocephalic and atraumatic. Nose: Nose normal. Eyes: Extraocular Movements: Extraocular movements intact. Pupils: Pupils are equal, round, and reactive to light. Cardiovascular: Rate and Rhythm: Normal rate and regular rhythm. Pulmonary: Effort: Pulmonary effort is normal. Breath sounds: Normal breath sounds. Abdominal: General: Bowel sounds are normal. Palpations: Abdomen is soft. Musculoskeletal: General: Normal range of motion. Cervical back: Normal range of motion and neck supple. Skin: General: Skin is warm and dry. Capillary Refill: Capillary refill takes less than 2 seconds. Neurological: General: No focal deficit present. Mental Status: She is alert and oriented to person, place, and time. Mental status is at baseline. Psychiatric: Mood and Affect: Mood normal. Behavior: Behavior normal. Procedures Assessment and Plan Encounter Diagnosis ICD-10-CM 1. Wellness examination Z00.00 2. Screening for depression Z13.31 DEPRESSION SCREENING 3. Encounter for screening examination for other mental health and behavioral disorders Z13.39 ANXIETY SCREENING 4. Encounter for counseling regarding advance directives Z71.89 ADVANCE CARE PLAN DISCUSSION 5. Breast cancer screening by mammogram Z12.31 EMETERIO SCREENING W RU 6. Unspecified essential hypertension I10 COMPREHENSIVE METABOLIC PANEL Blood pressure improved and stable on current medication 7. Chronic obstructive pulmonary disease, unspecified COPD type (HCC) J44.9 Stable on current regimen 8. Pure hypercholesterolemia E78.00 COMPREHENSIVE METABOLIC PANEL LIPID PANEL BASIC Improved and stable on current medication. Recheck lipids. 9. Screening for deficiency anemia Z13.0 COMPLETE BLOOD COUNT AND DIFFERENTIAL All open preventative health maintenance topics discussed with patient in detail. This includes risks and benefits regarding vaccines, cancer screening, healthy life style, and diet. Continue present medications. Check labs as above. Monitor blood pressure regularly. Exercise as tolerated. Maintain good diet. Follow-up in 6 months. Medicare Health Risk Assessment General Health Very good Exercise: Minutes/Day 30 min Exercise: Days/Week 7 days Alcohol: Daily Use Never Alcohol: Drinks/Day Patient does not drink Alcohol: 6 or more drinks Never Feel off balance No Concerns: Teeth/Dentures No Concerns: Sexual function No Troubled by feelings None of the above Frequency: Eating healthy diet Nearly every day ADLs requiring help None of the above Safety precautions in home/vehicle Yes Smoke, vape, chews tobacco No Difficulty hearing Yes, I wear a hearing aid (bilateral) Difficulty seeing No Current Providers Specialists: I have reviewed specialist-related care of the patient in the medical record. Medical/Family history review Reviewed and updated problem list, medical/surgical/family/social history, medications, and allergies. Opioid use review Opioid Medications (last 90 days) No data to display Anxiety/Depression screening PHQ-2 Score: 0 (Lower risk for depression) KALIA-2 Score: 0 (Lower risk for anxiety) Recommendation: no further intervention at this time Cognitive screening Mini Cog Score: 5 Cognitive screening reviewed and No further action needed (score 3-5). Functional Observation Was the patient's Timed Up AND Go test unsteady or >= 12 seconds? No Advance Care Planning Surrogate decision maker documented and/or advance directives scanned in chart Measurements BP 136/82 (BP Site: Left Arm, BP Position: Sitting, BP Cuff Size: Regular Adult) Pulse 80 Temp 36.3 ?C (97.3 ?F) (Temporal) Resp 18 Ht 162.6 cm (5' 4) Wt 95.8 kg (211 lb 3.2 oz) SpO2 94% BMI 36.25 kg/m? Vision Screening: Follows with optometry/ophthalmology Assessment/Plan Medicare annual wellness visit, subsequent (Z00.00) - Counseled on healthy diet and regular exercise - Fall avoidance information provided - Personalized prevention plan provided CNOV Observed: 05/31/2024 3:00 PM Status: COMPLETED Source: [facility] Office Visit (FAMMAS) MARLEN SMITH ([id number]) 1945 F Date Time Provider Department 05/31/24 3:00 PM JOSE HALL [facility] During your visit today, we recorded the following information about you: Temperature Pulse Respiration Blood pressure 97.3 degrees 80/minute 18/minute 136/82 Weight Height 95.8 kg 1.626 m Xochitl Cheema LPN 06/05/2024 5:33 PM Signed [employer]INTENANCE Spirometry declined BP Controlled (<130/80) DTaP,Tdap,Td Vaccine(1 - Tdap) declined Pneumococcal Vaccine: 50+(1 of 2 - PCV) declined Shingrix Vaccine(1 of 2) declined Bone Density Screening declined RSV Vaccine(1 - 1-dose 75+ series) declined Influenza Vaccine(1) declined Covid-19 Vaccine( season) declined Xochitl Cheema LPN May 31, 2024 3:17 PM Jose Hall MD 06/05/2024 5:33 PM Signed Subjective Marlen Smith is a 78 year old female. Sia presents today for her Medicare wellness visit. Additionally she follows up for multiple medical problems. See list. Her chronic medical problems been stable. Her blood pressure is under good control on her current regimen. Breathing is improved with Stiolto. Reflux symptoms improved with omeprazole. Review of Systems PAST SURGICAL HISTORY Procedure Laterality Date ESOPHAGOGASTRODUODENOSCOPY TRANSORAL DIAGNOSTIC 05/2001 EGD LAP UMBILICAL HERNIA REPAIR 02/07/2010 LAPS SURG CHOLECYSTECTOMY W/CHOLANGIOGRAPHY 02/07/2010 TOTAL ABDOMINAL HYSTERECT W/WO RMVL TUBE OVARY TOTAL ABDOMINAL HYSTERECT W/WO RMVL TUBE OVARY Hysterectomy, NEAL PAST MEDICAL HISTORY Diagnosis Date Abdominal pain Asthma Cholelithiasis 02/07/2010 GERD (gastroesophageal reflux disease) Hypercholesteremia Incisional hernia 02/07/2010 Lumbar disc disease Obesity Osteopenia FAMILY HISTORY Problem Relation Age of Onset Hypertension Other Asthma Other Cancer Other GI Other Alzheimer's Disease Mother Social History Tobacco Use Smoking status: Never Smokeless tobacco: Never Vaping Use Vaping status: Never Used Substance Use Topics Alcohol use: No Drug use: Not Currently ALLERGIES Allergen Reactions Dust Unknown Trees Unknown MEDICATIONS: methylPREDNISolone (MEDROL DOSE-PACK) 4 mg Dose-Pack take by mouth as directed on inside of package yekvohqe-oemgzzxtr-sbeppbinodxoik (CORTISPORIN) 3.5-10,000-1 mg/mL-unit/mL-% otic suspension STIOLTO RESPIMAT 2.5-2.5 mcg/actuation Inhale 2 Puffs as instructed once daily. cetirizine HCl (CETIRIZINE ORAL) Take 10 mg by mouth once daily. latanoprost (XALATAN) 0.005 % ophthalmic solution INSTILL 1 DROP INTO EACH EYE NIGHTLY Omeprazole Magnesium 20 mg tablet Take 20 mg by mouth once daily. Cholecalciferol, Vitamin D3, 50 mcg (2,000 unit) cap Take 1 capsule by mouth once daily. vitamin b complex capsule Take 1 capsule by mouth once daily. hydroCHLOROthiazide 25 mg tablet Take 1 tablet by mouth once daily. nystatin (MYCOSTATIN) powder Apply 1 application to affected area four times daily. Allergies, past surgical history, family history and past medical history were reviewed per this encounter. Medications were reviewed and verified. 10/13/2023 05/31/2024 INTAKE PAIN ASSESSMENT Are you having pain associated with your visit today? No No If pain assessment is 0, no action needed. If pain assessment is positive, please see assessment and plain. Objective BP 136/82 (BP Site: Left Arm, BP Position: Sitting, BP Cuff Size: Regular Adult) Pulse 80 Temp 36.3 ?C (97.3 ?F) (Temporal) Resp 18 Ht 162.6 cm (5' 4) Wt 95.8 kg (211 lb 3.2 oz) SpO2 94% BMI 36.25 kg/m? Physical Exam Vitals reviewed. Constitutional: Appearance: Normal appearance. She is obese. HENT: Head: Normocephalic and atraumatic. Nose: Nose normal. Eyes: Extraocular Movements: Extraocular movements intact. Pupils: Pupils are equal, round, and reactive to light. Cardiovascular: Rate and Rhythm: Normal rate and regular rhythm. Pulmonary: Effort: Pulmonary effort is normal. Breath sounds: Normal breath sounds. Abdominal: General: Bowel sounds are normal. Palpations: Abdomen is soft. Musculoskeletal: General: Normal range of motion. Cervical back: Normal range of motion and neck supple. Skin: General: Skin is warm and dry. Capillary Refill: Capillary refill takes less than 2 seconds. Neurological: General: No focal deficit present. Mental Status: She is alert and oriented to person, place, and time. Mental status is at baseline. Psychiatric: Mood and Affect: Mood normal. Behavior: Behavior normal. Procedures Assessment and Plan Encounter Diagnosis ICD-10-CM 1. Wellness examination Z00.00 2. Screening for depression Z13.31 DEPRESSION SCREENING 3. Encounter for screening examination for other mental health and behavioral disorders Z13.39 ANXIETY SCREENING 4. Encounter for counseling regarding advance directives Z71.89 ADVANCE CARE PLAN DISCUSSION 5. Breast cancer screening by mammogram Z12.31 EMETERIO SCREENING W RU 6. Unspecified essential hypertension I10 COMPREHENSIVE METABOLIC PANEL Blood pressure improved and stable on current medication 7. Chronic obstructive pulmonary disease, unspecified COPD type (HCC) J44.9 Stable on current regimen 8. Pure hypercholesterolemia E78.00 COMPREHENSIVE METABOLIC PANEL LIPID PANEL BASIC Improved and stable on current medication. Recheck lipids. 9. Screening for deficiency anemia Z13.0 COMPLETE BLOOD COUNT AND DIFFERENTIAL All open preventative health maintenance topics discussed with patient in detail. This includes risks and benefits regarding vaccines, cancer screening, healthy life style, and diet. Continue present medications. Check labs as above. Monitor blood pressure regularly. Exercise as tolerated. Maintain good diet. Follow-up in 6 months. Medicare Health Risk Assessment General Health Very good Exercise: Minutes/Day 30 min Exercise: Days/Week 7 days Alcohol: Daily Use Never Alcohol: Drinks/Day Patient does not drink Alcohol: 6 or more drinks Never Feel off balance No Concerns: Teeth/Dentures No Concerns: Sexual function No Troubled by feelings None of the above Frequency: Eating healthy diet Nearly every day ADLs requiring help None of the above Safety precautions in home/vehicle Yes Smoke, vape, chews tobacco No Difficulty hearing Yes, I wear a hearing aid (bilateral) Difficulty seeing No Current Providers Specialists: I have reviewed specialist-related care of the patient in the medical record. Medical/Family history review Reviewed and updated problem list, medical/surgical/family/social history, medications, and allergies. Opioid use review Opioid Medications (last 90 days) No data to display Anxiety/Depression screening PHQ-2 Score: 0 (Lower risk for depression) KALIA-2 Score: 0 (Lower risk for anxiety) Recommendation: no further intervention at this time Cognitive screening Mini Cog Score: 5 Cognitive screening reviewed and No further action needed (score 3-5). Functional Observation Was the patient's Timed Up AND Go test unsteady or >= 12 seconds? No Advance Care Planning Surrogate decision maker documented and/or advance directives scanned in chart Measurements BP 136/82 (BP Site: Left Arm, BP Position: Sitting, BP Cuff Size: Regular Adult) Pulse 80 Temp 36.3 ?C (97.3 ?F) (Temporal) Resp 18 Ht 162.6 cm (5' 4) Wt 95.8 kg (211 lb 3.2 oz) SpO2 94% BMI 36.25 kg/m? Vision Screening: Follows with optometry/ophthalmology Assessment/Plan Medicare annual wellness visit, subsequent (Z00.00) - Counseled on healthy diet and regular exercise - Fall avoidance information provided - Personalized prevention plan provided Jose Hall MD 06/05/2024 5:32 PM Signed Screening schedule The following prevention plan is recommended: Spirometry Never done BP Controlled (<130/80) Never done DTaP,Tdap,Td Vaccine(1 - Tdap) Never done Pneumococcal Vaccine: 50+(1 of 2 - PCV) Never done Shingrix Vaccine(1 of 2) Never done Bone Density Screening Never done RSV Vaccine(1 - 1-dose 75+ series) Never done Influenza Vaccine(1) due on 12/28/2023 Covid-19 Vaccine(2023- season) due on 12/28/2023 WHAT YOU CAN DO TO PREVENT FALLS Many falls can be prevented. By making some changes, you can lower your chances of falling. Four things YOU can do to prevent falls for you* and your caregiver 1. Begin a regular exercise program Exercise is one of the most important ways to lower your chances of falling. It makes you stronger and helps you feel better. Exercises that improve balance and coordination (like Suresh Chi) are the most helpful. Lack of exercise leads to weakness and increases your chances of falling. Ask your doctor or health care provider about the best type of exercise program for you. 2. Have your health care provider review your medicines Have your doctor or pharmacist review all the medicines you take, even libq-nyr-ksxerxn medicines. As you get older, the way medicines work in your body can change. Some medicines, or combinations of medicines, can make you sleepy or dizzy and can cause you to fall. 3. Have your vision checked Have your eyes checked by an eye doctor at least once a year. You may be wearing the wrong glasses or have a condition like glaucoma or cataracts that limits your vision. Poor vision can increase your chances of falling. 4. Make your home safer About half of all falls happen at home. To make your home safer: Remove things you can trip over (like papers, books, clothes, and shoes) from stairs and places where you walk. Remove small throw rugs or use double-sided tape to keep the rugs from slipping. Keep items you use often in cabinets you can reach easily without using a step stool. Have grab bars put in next to your toilet and in the tub or shower. Use non-slip mats in the bathtub and on shower floors. Improve the lighting in your home. As you get older, you need brighter lights to see well. Hang light-weight curtains or shades to reduce glare. Have handrails and lights put in on all staircases. Wear shoes both inside and outside the house. Avoid going barefoot or wearing slippers. For more information, contact: Centers for Disease Control and Prevention www.cdc.gov/injury * This information may not apply if you have certain medical conditions. Allergies As of Date: 05/31/2024 Noted Allergy Reaction DUST 07/04/2017 16 - Unknown TREES 07/04/2017 16 - Unknown Date Reviewed: 05/31/2024 Reviewed by: Xochitl Cheema LPN - Fully Assessed Reason for Visit: Medicare Wellness Exam [4060] Breast Problem [16] Cmt: Mammogram at [facility] Primary Visit Diagnosis:Wellness examination [Z00.00] Other Visit Diagnoses:Screening for depression [Z13.31] Encounter for screening examination for other mental health and behavioral disorders [Z13.39] Encounter for counseling regarding advance directives [Z71.89] Breast cancer screening by mammogram [Z12.31] Unspecified essential hypertension [I10] Comment:Blood pressure improved and stable on current medication Chronic obstructive pulmonary disease, unspecified COPD type (HCC) [J44.9] Comment:Stable on current regimen Pure hypercholesterolemia [E78.00] Comment:Improved and stable on current medication. Recheck lipids. Screening for deficiency anemia [Z13.0] Medicare annual wellness visit, subsequent [Z00.00] Order(s):EMETERIO SCREENING W RU [4426761] Order #: [id number] FUTURE DEPRESSION SCREENING [] Order #: [id number]: 1 ANXIETY SCREENING [] Order #: [id number]: 1 ADVANCE CARE PLAN DISCUSSION [] Order #: [id number]: 1 hydroCHLOROthiazide 25 mg tabletTake 1 tablet by mouth once daily.Disp: 90 tabletRfl: 3 nystatin (MYCOSTATIN) powderApply 1 application to affected area four times daily.Disp: 60 gRfl: 0 COMPLETE BLOOD COUNT AND DIFFERENTIAL [SQCBCDIF] Order #: [id number] FUTURE COMPREHENSIVE METABOLIC PANEL [SQCMP] Order #: [id number] FUTURE LIPID PANEL BASIC [SQLIPB] Order #: [id number] FUTURE Prescriptions as of 06/05/2024 - methylPREDNISolone (MEDROL DOSE-PACK) 4 mg Dose-Pack take by mouth as directed on inside of package - oulbkppb-cvomdodkd-lllzwolbqnbead (CORTISPORIN) 3.5-10,000-1 mg/mL-unit/mL-% otic suspension - hydroCHLOROthiazide 25 mg tablet Take 1 tablet by mouth once daily. - nystatin (MYCOSTATIN) powder Apply 1 application to affected area four times daily. - STIOLTO RESPIMAT 2.5-2.5 mcg/actuation Inhale 2 Puffs as instructed once daily. - cetirizine HCl (CETIRIZINE ORAL) Take 10 mg by mouth once daily. - latanoprost (XALATAN) 0.005 % ophthalmic solution INSTILL 1 DROP INTO EACH EYE NIGHTLY - Omeprazole Magnesium 20 mg tablet Take 20 mg by mouth once daily. - Cholecalciferol, Vitamin D3, 50 mcg (2,000 unit) cap Take 1 capsule by mouth once daily. - vitamin b complex capsule Take 1 capsule by mouth once daily. Problem List As Of Date 05/31/2024 Noted Resolved ASTHMA UNSPECIFIED [J45.909] 04/02/2005 ESOPHAGEAL REFLUX [K21.9] 04/02/2005 DISC DEGENERATION NOS [ATJ9844] 04/02/2005 OSTEOPENIA [M89.9, M94.9] 04/02/2005 GASTRITIS/DUODENITIS NOS [535.5] 04/02/2005 HYPERTENSION NOS [I10] 04/03/2005 HYPERLIPIDEMIA NEC/NOS [E78.5] 10/09/2005 OVERWEIGHT [E66.9] 10/09/2005 Other specified abnormal findings of blood chem*10/09/2005 HEARING LOSS NOS [H91.90] 11/14/2008 ALLERGY, UNSPECIFIED [T78.40XA] 11/14/2008 OTHER HAMMER TOE [M20.40] 11/14/2008 DEVIATED NASAL SEPTUM [J34.2] 11/14/2008 Cholelithiasis [K80.20] 02/06/2010 Hydronephrosis, bilateral [N13.30] 02/06/2010 Chronic obstructive pulmonary disease (HCC) [J4*11/19/2016 Diagnosed: 04/09/2023 Seasonal allergic rhinitis [J30.2] 11/19/2016 Diagnosed: 04/09/2023 Other instructions from your clinician: Screening schedule The following prevention plan is recommended: Spirometry Never done BP Controlled (<130/80) Never done DTaP,Tdap,Td Vaccine(1 - Tdap) Never done Pneumococcal Vaccine: 50+(1 of 2 - PCV) Never done Shingrix Vaccine(1 of 2) Never done Bone Density Screening Never done RSV Vaccine(1 - 1-dose 75+ series) Never done Influenza Vaccine(1) due on 12/28/2023 Covid-19 Vaccine(2023- season) due on 12/28/2023 WHAT YOU CAN DO TO PREVENT FALLS Many falls can be prevented. By making some changes, you can lower your chances of falling. Four things YOU can do to prevent falls for you* and your caregiver 1. Begin a regular exercise program Exercise is one of the most important ways to lower your chances of falling. It makes you stronger and helps you feel better. Exercises that improve balance and coordination (like Suresh Chi) are the most helpful. Lack of exercise leads to weakness and increases your chances of falling. Ask your doctor or health care provider about the best type of exercise program for you. 2. Have your health care provider review your medicines Have your doctor or pharmacist review all the medicines you take, even fgpg-fvf-lfgozrn medicines. As you get older, the way medicines work in your body can change. Some medicines, or combinations of medicines, can make you sleepy or dizzy and can cause you to fall. 3. Have your vision checked Have your eyes checked by an eye doctor at least once a year. You may be wearing the wrong glasses or have a condition like glaucoma or cataracts that limits your vision. Poor vision can increase your chances of falling. 4. Make your home safer About half of all falls happen at home. To make your home safer: Remove things you can trip over (like papers, books, clothes, and shoes) from stairs and places where you walk. Remove small throw rugs or use double-sided tape to keep the rugs from slipping. Keep items you use often in cabinets you can reach easily without using a step stool. Have grab bars put in next to your toilet and in the tub or shower. Use non-slip mats in the bathtub and on shower floors. Improve the lighting in your home. As you get older, you need brighter lights to see well. Hang light-weight curtains or shades to reduce glare. Have handrails and lights put in on all staircases. Wear shoes both inside and outside the house. Avoid going barefoot or wearing slippers. For more information, contact: Centers for Disease Control and Prevention www.cdc.gov/injury * This information may not apply if you have certain medical conditions. Prescriptions ordered this encounter Disp Refills Start End HYDROCHLOROTHIAZIDE 25 MG TABLET 90 t* 3 05/31/2024 Route: ORAL Sig: Take 1 tablet by mouth once daily. NYSTATIN 100,000 UNIT/GRAM TOPICAL P* 60 g 0 05/31/2024 Route: TOPICAL Sig: Apply 1 application to affected area four times daily. Medications Discontinued During This Encounter Prescriptions - ipratropium-albuterol (DUONEB) 0.5 mg-3 mg(2.5 mg base)/3 mL nebu (Discontinued) USE 1 AMPULE IN NEBULIZER EVERY 4 HOURS NEEDED FOR WHEEZING OR SHORTNESS OF BREATH - hydroCHLOROthiazide 25 mg tablet (Discontinued) Take 1 tablet by mouth once daily. Level of Service: PPPS, SUBSEQ VISIT [G0439] Additional E/M codes: VISIT CPLX INHERENT EANDM ASSOC WITH MED * Disposition: Return in about 6 months (around 11/28/2024). LOS History for Encounter Level of Service: PPPS, SUBSEQ VISIT[G0439] Date AND Time: 06-05-2024 5:33 PM Recorded by User: JOSE HALL Follow-up and Disposition History for Encounter Date Provider Department Center 05/31/2024 [id number] HALL*[facility] M Encounter Status:Closed by JOSE HALL on 06/05/24 PROGRESS Observed: 05/31/2024 2:53 PM Status: COMPLETED Source: [facility] HNO ID: [id number] Author: XOCHITL CHEEMA LPN Service: ? Author Type: LICENSED NURSE Type: Progress Notes Filed: 06/05/2024 17:33 Note Text: [facility] [facility] MAINTENANCE Spirometry declined BP Controlled (<130/80) DTaP,Tdap,Td Vaccine(1 - Tdap) declined Pneumococcal Vaccine: 50+(1 of 2 - PCV) declined Shingrix Vaccine(1 of 2) declined Bone Density Screening declined RSV Vaccine(1 - 1-dose 75+ series) declined Influenza Vaccine(1) declined Covid-19 Vaccine( - season) declined Xochitl Cheema LPN May 31, 2024 3:17 PM ALLERGIES DATE TYPE / CODE NAME / CODE REACTION SEVERITY SOURCE 07/04/2017 Environ/[id number](SN OMED CT) DUST UNKNOWN High [facility] 07/04/2017 Environ/[id number](SN OMED CT) TREES UNKNOWN High [facility] ENCOUNTERS ADMIT/DISCHARGE ACCOUNT NUMBER ADMITTING ENCOUNTER CLASS LOC ATION SOURCE 08/11/2024 [id number] [facility]/11/2024 [id number] [facility] 06/10/2024/ 5 [id number] [facility] 05/31/2024/ 5 [id number] Ambulatory [id number] lding:[facility] PAYERS ENCOUNTER GUARANTOR PAYER SUBSCRIBER SOURCE 08/11/2024 Primary Insurance:[employer] Number: [id number] Date:[id number] Name:Arsh GOSSHAYES: [id number] [place] [address] [facility] 08/11/2024 Primary Insurance:[employer] PLUSPolicy Number: [id number] Date:8812-15-76Kwoj Name:Arsh SPRINGERGHASSAN: [id number] [place] [address] [facility] 06/10/2024 Primary Insurance:[employer] PLUSPolicy Number: [id number] Date:[id number] Name:Arsh SPRINGERGHASSAN: [id number] [place] [address] [facility] 05/31/2024 Primary [facility] Number: [id number] Date:[id number] Name:Arsh GOSSOB: [id number] [place] [address] [facility]
--- OUTSIDE RECORDS SUMMARY | 2024-08-11 14:25 | XMS RPT_ITS ---
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 Role Phone JOSE HALL Referring Unavailab le ISABEL, JOSE ESPARZA Primary Care Unavailab le ISABEL, JOSE ESPARZA Referring Unavailab le ISABEL, JOSE ESPARZA Primary Care Unavailab le ISABEL, JOSE ESPARZA Referring Unavailab le ISABEL, JOSE ESPARZA Primary Care Unavailab le ISAEBL, JOSE ESPARZA Attending Unavailab le ISABEL, JOSE ESPARZA Primary Care Unavailab le PROBLEMS DATE TYPE CONDITION / CODE ATTENDING STATUS [facility] 08/11/2024 Active Abnormal mammogr am / R92.8(ICD-10) NA Active [facility] 10/09/2005 Active Unspecified esse ntial hypertension / I10(ICD-10) NA Active [facility] 06/10/2024 Active Screening for de ficiency anemia / Z13.0(ICD-10) NA Active [facility] 06/10/2024 Active Pure hypercholes terolemia / E78.00(ICD-10) NA Active [facility] 04/09/2023 Active Chronic obstruct trisha pulmonary disease, unspecified COPD type (HCC) / J44.9(ICD-10) JOSE HALL [facility] 05/31/2024 Active Encounter for co unseling regarding advance directives / Z71.89(ICD-10) JOSE HALL [facility] 05/31/2024 Active Screening for de pression / Z13.31(ICD-10) JOSE HALL [facility] 05/31/2024 Active Encounter for sc reening examination for other mental health and behavioral disorders / Z13.39(ICD-10) JOSE HALL [facility] 05/31/2024 Active Breast cancer sc reening by mammogram / Z12.31(ICD-10) JOSE HALL Active [facility] PROCEDURES No Procedure Records Found RESULTS [facility] US BREAST LTD LT Observed: 3:11 PM Status: F Source: [facility] * * *Final Report* * * DATE OF EXAM: Aug 11 2024 3:11PM WRU 0593 - EMETERIO US BREAST LTD LT / PROCEDURE REASON: Abnormal mammogram * * * * Physician Interpretation * * * * [place] [address] #[id number] - [facility] VENCES XANDER #[id number] - [facility] US BREAST LTD LT HISTORY: 78 year-old [...] Roxanna Jose M.D. Electronically signed on: 08/11/2024 Recovery Rn: CHRIS Transcribe Date/Time: Aug 11 2024 3:02P Dictated by : ROXANNA JOSE MD This examination was interpreted and the report reviewed and electronically signed by: ROXANNA JOSE MD on Aug 11 2024 3:23PM EST [id number] PROGRESS Observed: 08/11/2024 3:00 PM Status: COMPLETED Source: [facility] HNO ID: [id number] Author: ALEJANDRA TIMMONS RDMS Service: ? Author Type: Peoplesoft Administrator Type: Progress Notes Filed: 08/11/2024 16:46 Note [...] PATIENT PRESENTS WITH AN IMPLANTABLE OR ATTACHED MAINTENANCE APPRENTICE: No RADIOLOGY DEPARTMENT: Ultrasound PERIPHERAL IV DATA: Not applicable SIGNED BY: Alejandra Timmons RDMS RVT August 11, 2024 4:46 PM EMETERIO TERRELL Observed: 08/11/2024 2:49 PM Status: F Source: [facility] * * *Final Report* * * DATE OF EXAM: Aug 11 2024 2:49PM W 0627 - EMETERIO TERRELL / PROCEDURE REASON: Abnormal mammogram * * * * Physician Interpretation * * * * RESULT: [facility] [address] [place] [address] #[id number] - HEW ELIZABETH TERRELL #[id number] - [facility] US BREAST LTD HISTORY: 78 year-old patient [...] Roxanna Jose M.D. Electronically signed on: 08/11/2024 Recovery Rn: CHRIS Transcribe Date/Time: Aug 11 2024 2:35P Dictated by: ROXANNA JOSE MD This examination was interpreted and the report reviewed and electronically signed by: ROXANNA JOSE MD on Aug 11 2024 3:23PM EST [id number] PROGRESS Observed: 08/11/2024 2:30 PM Status: COMPLETED Source: [facility] HNO ID: [id number] Author: VIKKI FLORES RT(Zoe) Service: ? Author [...] PATIENT PRESENTS WITH AN IMPLANTABLE OR ATTACHED MAINTENANCE APPRENTICE: No RADIOLOGY DEPARTMENT: Mammography PERIPHERAL IV DATA: Not applicable SIGNED BY: RT Cristiana(R) August 11, 2024 2:25 PM CNPN Observed: 07/14/2024 12:00 AM Status: COMPLETED Source: [facility] Telephone (RDXWS) MARLEN SMITH ([id number]) 1945 F Date Time Provider Department 07/14/24 [...] Fully Assessed Primary Visit Diagnosis:Abnormal mammogram [R92.8] Order(s):[facility] DIAGNOSTIC BILATERAL [[id number]] Order #: [id number] FUTURE Prescriptions as of 07/14/2024 - methylPREDNISolone (MEDROL DOSE-PACK) 4 mg Dose-Pack take by mouth as directed on inside of package - ktkluvqz-gijfpdduq-ujbnnjemzcgmqm (CORTISPORIN) 3.5-10,000-1 mg/mL-unit/mL-% otic suspension - hydroCHLOROthiazide [...] ESOPHAGEAL REFLUX [K21.9] 04/02/2005 DISC DEGENERATION NOS [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] 04/02/2005 OSTEOPENIA [M89.9, M94.9] 04/02/2005 GASTRITIS/DUODENITIS NOS [...] Collected: 025 9:05 AM Status: F Source: [facility] Order Comment: Specimen Type : BLOOD SPECIMEN Ordering Facility: [facility] Address: [address] [place] [address] TYPE CODE TESTS RESULT OUT OF RANGE [...] risk factor for coronary heart disease LAB 99026-6(LOINC) NonHDLc SerPl-mCnc 134 High <130 mg/dL Result Comment: <130 mg/dL, Optimal 130-159 mg/dL, Near optimal/above optimal 160-189 mg/dL, Borderline high 190-219 mg/dL, High >219 mg/dL, Very high Secondary prevention optimal non HDL Cholesterol levels are recommended to be <100 mg/dL LAB FT FASTING TIME 12 hrs LAB 03256-9(LOINC) VLDLc SerPl Calc-mCnc 21 <30 mg/dL LAB 9830-1(LOINC) Cholest/HDLc SerPl 3.13 <5.10 LAB 22232-8(LOINC) LDLc SerPl Calc-mCnc 113 High <100 mg/dL Result Comment: <100 mg/dL, Optimal 100-129 mg/dL, Near optimal/above optimal 130-159 mg/dL, Borderline high 160-189 mg/dL, High >189 mg/dL, Very high Secondary prevention optimal LDL Cholesterol levels are recommended to be < 70 mg/dL LAB 92569-8(LOINC) LDLc/HDLc SerPl 1.79 <2.54 Result Comment: Reference: 1. National Cholesterol Education Program ATP III Guideline At-A-Glance Quick Desk Reference: National Heart, Lung, and Blood Toney. National Institutes of Health. 2001: NIH Publication No. 01-3305. 2. An International Atherosclerosis Society position paper: global recommendations for the management of dyslipidemia: executive summary, Atherosclerosis. 2014: 232(2):410-413. Performed By: #### 63908-6 # ### [facility] CLIA [id number] [address] CLIA [id number] [address] [place] [address] COMP METAB 2000 PNL SERPL Collected: 9:05 AM Status: F Source: [facility] Order Comment: Specimen Type : BLOOD SPECIMEN Ordering Facility: [facility] Address: [address] [place] [address] TYPE CODE TESTS RESULT OUT OF RANGE REFERENCE UNITS LAB 2885-2(INC) Prot SerPl-mCnc 6.8 6.3-8.0 g/dL LAB 1751-7(LOINC) Albumin SerPl-mCnc 4.4 3.9-4.9 g/dL LAB 27023-9(LOINC) Calcium SerPl-mCnc 10.3 High 8.5-10.2 mg/dL LAB 1975-2(LOINC) Bilirub SerPl-mCnc 0.5 0.2-1.3 mg/dL LAB 6768-6(LOINC) ALP SerPl-cCnc 66 34-123 U/L LAB 1920-8(LOINC) AST SerPl-cCnc 29 13-35 U/L LAB 1742-6(LOINC) ALT SerPl-cCnc 29 7-38 U/L LAB 2345-7(LOINC) Glucose SerPl-mCnc 115 High 74-99 mg/dL Result Comment: The [place] Diabetes Association (ADA) provides guidance for cutoff [...] Standards of Medical Care in Diabetes 2016, [place] Diabetes Association. Diabetes Care. 2016.39(Suppl 1). LAB 3094-0(LOINC) BUN SerPl-mCnc 20 7-21 mg/ dL LAB 2160-0(LOINC) Creat SerPl-mCnc 1.18 High 0.58-0.96 mg/dL LAB 2951-2(LOINC) Sodium SerPl-sCnc 139 136-144 mmol/L LAB 2823-3(LOINC) Potassium SerPl-sCnc 4.2 3.7-5.1 mmol/L LAB 2075-0(LOINC) Chloride SerPl-sCnc 101 98-107 mmol/L LAB 2028-9(LOINC) CO2 SerPl-sCnc 29 22-30 mmo l/L LAB 54459-6(LOINC) Anion Gap SerPl-sCnc 9 8-15 mmol/L LAB 77540-0(LOINC) Creatinine + eGFR Pnl SerPlBld 47 Low [...] accurately reflect actual GFR. Performed By: #### 06988-8 # ### [facility] [id number] [place] [address] [place] CBC W AUTO DIFF BLD Collected: 06/10/2024 9:[address] atus: F Source: [facility] Order Comment: Specimen Type : BLOOD SPECIMEN Ordering Facility: [facility] Address: [address] [place] [address] TYPE CODE TESTS RESULT OUT OF RANGE REFERENCE UNITS LAB 6690-2([facility]) WBC # Bld Auto 4.55 3.70-11.00 k/uL LAB 789-8([facility]) RBC # Bld Auto 4.04 3.90-5.20 m/ uL LAB 718-7([facility]) Hgb Bld-mCnc 12.2 11.5-15.5 g/dL LAB 4544-3([facility]) Hct VFr Bld Auto 36.9 36.0-46.0 % LAB 787-2([facility]) MCV RBC Auto 91.3 80.0-100.0 fL LAB 785-6([facility]) MCH RBC Qn Auto 30.2 26.0-34.0 p g LAB 786-4([facility]) MCHC RBC Auto-mCnc 33.1 30.5-36.0 g/dL LAB 75264-3([facility]) RDW RBC-Rto 12.9 11.5-15.0 % LAB 777-3([facility]) Platelet # Bld Auto 212 150-400 k/uL LAB 72672-3([facility]) PMV Bld Auto 9.3 9.0-12.7 fL LAB [...] # Bld Auto <0.03 <0.11 k/uL LAB 12995-2(LOINC) Imm Granulocytes/manav k NFr Bld Auto 0.7 % LAB 05320-6(LOINC) Imm Granulocytes # Bld Auto 0.03 <0.10 k/uL LAB 75643-1(LOINC) nRBC/100 WBC Bld-Rto 0.0 /100 WBC LAB 771-6(LOINC) nRBC # Bld Auto <0.01 <0.01 k/u L LAB 99781-0(LOINC) Differential method Bld Auto Performed By: #### 81589-8 # ### [facility] CLIA [id number] [address] [place] [address] PROGRESS Observed: 05/31/2024 3:28 PM Status: COMPLETED Source: [facility] HNO ID: [id number] Author: JOSE HALL MD Service: ? Author [...] mouth as directed on inside of package zgilwsdo-nndobatax-taxzjyumdtttqp (CORTISPORIN) 3.5-10,000-1 mg/mL-unit/mL-% otic suspension STIOLTO RESPIMAT [...] Observed: 05/31/2024 3:00 PM Status: COMPLETED Source: [facility] Office Visit (FAMMAS) MARLEN SMITH ([id number]) 1945 F Date Time Provider Department 05/31/24 3:00 PM JOSE HALL [facility] During your visit today, we recorded the [...] mouth as directed on inside of package ygjrasjr-xdtexusny-uilgzhogrsctcp (CORTISPORIN) 3.5-10,000-1 mg/mL-unit/mL-% otic suspension STIOLTO RESPIMAT [...] review all the medicines you take, even hxnz-fyz-oygapxf medicines. As you get older, the way [...] [4060] Breast Problem [16] Cmt: Mammogram at [facility] Primary Visit Diagnosis:Wellness examination [...] visit, subsequent [Z00.00] Order(s):EMETERIO SCREENING W RU [2245864] Order #: [id number] FUTURE DEPRESSION SCREENING [] Order #: [id number]: 1 ANXIETY SCREENING [] Order #: [id number]: 1 ADVANCE CARE PLAN DISCUSSION [] Order #: [id number]: 1 hydroCHLOROthiazide 25 mg tabletTake 1 tablet by mouth once daily.Disp: 90 tabletRfl: 3 nystatin (MYCOSTATIN) powderApply 1 application to affected area four times daily.Disp: 60 gRfl: 0 COMPLETE BLOOD COUNT AND DIFFERENTIAL [SQCBCDIF] Order #: [id number] FUTURE COMPREHENSIVE METABOLIC PANEL [SQCMP] Order #: [id number] FUTURE LIPID PANEL BASIC [SQLIPB] Order #: [id number] FUTURE Prescriptions as of 06/05/2024 - methylPREDNISolone (MEDROL DOSE-PACK) 4 mg Dose-Pack take by mouth as directed on inside of package - ngwthmva-rgymshvqu-rkwoeocyvxtjxz (CORTISPORIN) 3.5-10,000-1 mg/mL-unit/mL-% otic suspension - hydroCHLOROthiazide [...] ESOPHAGEAL REFLUX [K21.9] 04/02/2005 DISC DEGENERATION NOS [RDS6444] 04/02/2005 OSTEOPENIA [M89.9, M94.9] 04/02/2005 GASTRITIS/DUODENITIS NOS [...] review all the medicines you take, even ytsk-kxo-ovapnma medicines. As you get older, the way [...] for Encounter Date Provider Department Center 05/31/2024 [id number] HALL*[facility] M Encounter Status:Closed by JOSE HALL on 06/05/24 PROGRESS Observed: 05/31/2024 2:53 PM Status: COMPLETED Source: [facility] HNO ID: [id number] Author: XOCHITL CHEEMA LPN Service: ? Author [...] NAME / CODE REACTION SEVERITY SOURCE 07/04/2017 Environ/[id number](SN OMED CT) DUST UNKNOWN High [facility] 07/04/2017 Environ/[id number](SN OMED CT) TREES UNKNOWN High [facility] ENCOUNTERS ADMIT/DISCHARGE ACCOUNT NUMBER ADMITTING ENCOUNTER CLASS LOC ATION SOURCE 08/11/2024 [id number] Ambulatory [facility] HospitalBuild ing:WOUS [facility] 08/11/2024 [id number] Ambulatory [facility]WOD[facility] 06/10/2024/ 5 [id number] Ambulatory [facility]:WOL[facility] 05/31/2024/ 5 [id number] Ambulatory [id number] lding:[facility] PAYERS ENCOUNTER GUARANTOR PAYER SUBSCRIBER SOURCE 08/11/2024 Primary Insurance:[employer] Number: [id number] Date:7263-05-05Eina Name:Arsh GOSSHAYES: [id number] [place] [address] [facility] 08/11/2024 Primary Insurance:Mavrx PLUSPolicy Number: [id number] Date:1721-72-31Dhyo Name:Arsh SPRINGERGHASSAN: [id number] [place] [address] [facility] 06/10/2024 Primary Insurance:Mavrx PLUSPolicy Number: [id number] Date:0937-54-13Vwht Name:Arsh SPRINGERGHASSAN: [id number] [address] [place] [address] [facility] 05/31/2024 Primary Insurance:Mavrx [facility] Number: [id number] Date:9407-25-69Hedp Name:Arsh GOSSOB: [id number] [place] [address] [facility]
--- NOTE | 2025-01-25 13:47 | BI_ITS ---
EXAM: DIAG MAMM W/CAD, UNILAT; BREAST LIMITED UNILATERAL 01/25/2025 CLINICAL HISTORY: F, Age 79 y/o , ABN MAMM; ABNORMAL MAMMO TECHNIQUE: Procedure Code: [id number]; USBRSTLIMIT Modality: MG; US Procedure: DIAG MAMM W/CAD, UNILAT; BREAST LIMITED UNILATERAL. COMPARISON: Prior exam(s) dated 08/11/2024. FINDINGS: TISSUE DENSITY: The breasts are almost entirely fatty. Unilateral Left Breast Mammographic Findings: No significant masses, calcifications or other abnormalities are identified. Stable punctate and vascular calcifications in the left breast. No significant interval change since the previous study, previously noted complex cyst is again noted and will be evaluated with ultrasound to ensure stability Left breast ultrasound: Focused ultrasound evaluation of the left breast at 4 o'clock, 6 cm from the nipple again demonstrates a complex cyst measuring 0.4 x 0.6 x 0.4 cm. There is posterior enhancement without posterior shadowing, borders are sharp and smooth. No suspicious shadowing lesion architectural distortion or flow noted. BI/DIAG MAMM W/CAD, UNILAT IMPRESSION: Stable complex cyst, no change since the previous study OVERALL FINAL ASSESSMENT BI-RADS 2: BENIGN RECOMMENDATION: Routine annual follow-up in 1 Year Additional Recommendation none A letter with findings and recommendations will be mailed to the patient. Reading Location: [id number]
--- NOTE | 2025-01-25 14:48 | US_ITS ---
EXAM: DIAG MAMM W/CAD, UNILAT; BREAST LIMITED UNILATERAL 01/25/2025 CLINICAL HISTORY: F, Age 79 y/o , ABN MAMM; ABNORMAL MAMMO TECHNIQUE: Procedure Code: [id number]; USBRSTLIMIT Modality: MG; US Procedure: DIAG MAMM W/CAD, UNILAT; BREAST LIMITED UNILATERAL. COMPARISON: Prior exam(s) dated 08/11/2024. FINDINGS: TISSUE DENSITY: The breasts are almost entirely fatty. Unilateral Left Breast Mammographic Findings: No significant masses, calcifications or other abnormalities are identified. Stable punctate and vascular calcifications in the left breast. No significant interval change since the previous study, previously noted complex cyst is again noted and will be evaluated with ultrasound to ensure stability Left breast ultrasound: Focused ultrasound evaluation of the left breast at 4 o'clock, 6 cm from the nipple again demonstrates a complex cyst measuring 0.4 x 0.6 x 0.4 cm. There is posterior enhancement without posterior shadowing, borders are sharp and smooth. No suspicious shadowing lesion architectural distortion or flow noted. US/Breast Limited Unilateral IMPRESSION: Stable complex cyst, no change since the previous study OVERALL FINAL ASSESSMENT BI-RADS 2: BENIGN RECOMMENDATION: Routine annual follow-up in 1 Year Additional Recommendation none A letter with findings and recommendations will be mailed to the patient. Reading Location: [id number]
== END | disposition home or self-care (01) ==
PROVIDERS: PCP Family Medicine; Referring Provider Family Medicine; Visit Provider Family Medicine
DX: R92.8 Other abnormal and inconclusive findings on diagnostic imaging of breast (principal)
CPT/HCPCS: 76642; 77061; 77065; G0279